=== PATIENT | male | born 1960 | race Caucasian/White ===

== ENCOUNTER → 2019-07-19 10:50 | Outpatient (CLI) | payer MEDICARE, MEDICAID, SELFPAY ==
--- NOTE | 2019-07-19 10:56 | XR_ITS ---
PROCEDURE: XR KNEE LT 3V CLINICAL INDICATION: LT KNEE PAIN COMPARISON: KNEE3L KNEE-3 VIEWS-LT from 01/02/2014 FINDINGS: There is generalized mild osteopenia. There increased narrowing of the medial joint compartment with small medial tibial plateau and medial femoral condyle spur. There is stable moderate narrowing of the patellofemoral joint with anterior femoral and posterior patellar small spurs. There is no acute fracture. There is mild increased density in the suprapatellar bursa area. IMPRESSION: No acute process. Arthritic change as described. Possible small suprapatellar joint effusion. Dictated by: Jameel Mesa 07/19/2019 13:02 Electronically signed by Jameel Mesa in [place] 07/19/2019 13:02
--- NOTE | 2019-07-19 10:56 | XR_ITS ---
PROCEDURE: XR LUMBAR SPINE MIN 4V CLINICAL INDICATION: LOW BACK PAIN COMPARISON: No exams were available for comparison FINDINGS: Alignment, and vertebral body heights are normal. L1-2 shows moderate loss of disc space height and there are multiple lower thoracic levels showing moderate loss of disc space height with small anterior spurs. Posterior elements appear to be intact. Facet joint spaces are unremarkable. There is a 6 millimeter round sclerotic density which could be related to the posterior medial left ilium. IMPRESSION: No acute process. Levels of chronic degenerative disc disease in the thoracic spine and L1-2. Round small sclerotic focus possibly in the medial left ilium. Differential would include bone island although osteoblastic lesion is not ruled out. Correlate with history and consider follow-up plain film exam of the pelvis at 6 months to evaluate stability. Dictated by: Jameel Mesa 07/19/2019 13:05 Electronically signed by Jameel Mesa in [place] 07/19/2019 13:05
== END ==
PROVIDERS: PCP Family Medicine; Visit Provider Family Medicine
DX: M25.562 Pain in left knee (principal); M54.5 Low back pain
CPT/HCPCS: 72110; 73562

== ENCOUNTER → 2019-08-23 15:29 | Outpatient (POV) | payer MEDICARE, MEDICAID, SELFPAY | PROVIDERS: Visit Provider Dermatology | DX: Z00.00 Encounter for general adult medical examination without abnormal findings (principal) ==

== ENCOUNTER → 2019-09-05 13:44 | Outpatient (POV) | payer MEDICARE, MEDICAID, SELFPAY ==
[2019-09-05 13:57] VITALS: BP 138/89; PULSE 93; RESP 18; O2SAT 99; BMI 34.2
--- NOTE | 2019-09-06 08:37 | HMH.PMCON ---
Assessment and Plan (1) Bilateral leg pain Current visit: Yes Status: Chronic Category: Medical Code(s): M79.604 - Pain in right leg; M79.605 - Pain in left leg (2) Degenerative disc disease Current visit: Yes Status: Chronic Qualifiers: Spinal region: lumbar Qualified Code(s): M51.36 - Other intervertebral disc degeneration, lumbar region Category: Medical (3) Neuropathy Current visit: Yes Status: Chronic Category: Medical Code(s): G62.9 - Polyneuropathy, unspecified (4) Gout Current visit: Yes Status: Chronic Category: Medical Code(s): M10.9 - Gout, unspecified - Assessment and plan all Dx Assessment and Plan for all problems:: We will set the patient up for an MRI of his lumbar spine to help discern pathology. We will start him on some diclofenac 75 mg 1 p.o. twice daily along with gabapentin 300 mg at nighttime. I will follow-up with him after his MRI reassess his symptoms at that time he is been instructed to call the office if he has any issues prior to his next appointment. Dr. Mack has reviewed this note and agrees with this plan of care. This note was dictated using voice recognition software and may contain errors or omissions HPI - Data of Consult Consult date: 09/05/19 Requesting Physician: Rena Almonte APRN Primary Care Provider: Rufus Hand MD - Consult Narrative Reason for consult: Generalized pain, chronic gout, chronic back pain History of present illness: Mr. Dowling is a 59 year old male who presents today with a myriad of issues in regards to his pain. Patient has low back pain radiating into the legs. He has chronic discoloration of his bilateral lower extremities that look like potential circulation issues. Patient states that he has been tested for this in the past and I did find some records in regards to this which showed no issues with his circulation. If we cannot find a source for his pain this may be readdressed. Patient also has quite a bit of pain in his bilateral feet. 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 Patient has no imaging in his record for diagnostic vertebral and disc issues he does have a lumbar x-ray that shows chronic degenerative disc disease in the thoracic spine and lumbar spine loss of disc height and space I do believe patient would benefit from an MRI. Patient states his pain is aching, shooting, nervelike in nature. He also states he is on allopurinol for chronic gout CC: Rena Almonte APRN [facility] History I have reviewed the patient's past medical history: Yes Medical History: Reports:: Hypertension Denies:: Cancer, Diabetes Mellitus Type 1, Diabetes Mellitus Type 2, MRSA *Have you ever received a pneumonia vaccine?: Yes *Have you received a flu vaccine this season?: Yes Other Medical History: Reports: Arthritis Laterality Cases: Right: Arthroscopy Knee Amputation: No Fractures: No - *Social History Smoking Status: Never smoker Alcohol Intake: never *Occupational Status:: other Housing: house *Travel in the last 8 weeks: None Family Hx:: Unable to obtain Review of Systems - Review of Systems ROS General: no recent weight change, no fever, no sleep disturbances Respiratory: no cough, no shortness of air, no recurring pulmonary infections Cardiovascular/Peripheral Vascular: No chest pain, No palpitations, no edema, no shortness of breath. Gastrointestinal: no new onset incontinence, normal bowel movements reported Genitourinary: no new onset incontinence Musculoskeletal: Back pain, leg pain, foot pain, generalized pain Psychiatric: normal mood/ affect Neurological: [denies new onset weakness in extremities], [denies new onset balance issues] Meds Home Medications Medication Instructions Recorded Confirmed Type Diclofenac Sodium [Diclofenac 75mg 75 mg PO BID 30 Days #60 tab 09/05/19 Rx Tab] Gabapentin [Neurontin 300mg 300 mg PO HS #30 cap 09/05/19 Rx capsule] Al
== END ==
PROVIDERS: PCP Family Medicine; Visit Provider Clinical Nurse Specialist Family Health
DX: M79.604 Pain in right leg (principal); M79.605 Pain in left leg; M51.36 Other intervertebral disc degeneration, lumbar region; G62.9 Polyneuropathy, unspecified; M10.9 Gout, unspecified
CPT/HCPCS: 99202

== ENCOUNTER → 2019-09-20 12:06 | Outpatient (CLI) | payer MEDICARE, MEDICAID, SELFPAY ==
--- NOTE | 2019-09-20 12:11 | XR_ITS ---
PROCEDURE: XR FOOT WT BEARING LT 3V CLINICAL INDICATION: pain COMPARISON: XR FOOT WT BEARING RT 3V from 09/20/2019 FINDINGS: There is decrease in the joint space at the 1st DIP and 1st interphalangeal joint with erosive changes involving the distal and medial aspect of the distal 1st metatarsal. Calcific debris is present medially at the 1st interphalangeal joint. There are also some erosive changes involving the 2nd metatarsal head. Erosive change also noted at the lateral aspect of the 1st metatarsophalangeal joint on the oblique view. The there are osteoarthritic changes of the tarsal bones. There is a prominent posterior talar process. No obvious fracture or dislocation. There is mild subluxation of the PIP joint of the 2nd digit with fusion of the DIP joint of the 2nd digit. IMPRESSION: Prominent erosive changes at the 1st metatarsophalangeal joint and to lesser degree at the head of the 2nd metatarsal. Findings could be related to rheumatoid arthritis of the foot or gout. Please correlate clinically. The calcification along the medial aspect of the 1st interphalangeal joint could be related to gouty tophi. There is no overlying soft tissue swelling. Dictated by: Gallo Espana MD 09/21/2019 13:01 Electronically signed by Gallo Espana MD in [place] 09/21/2019 13:01
--- NOTE | 2019-09-20 12:11 | XR_ITS ---
PROCEDURE: XR FOOT WT BEARING RT 3V CLINICAL INDICATION: pain COMPARISON: XR FOOT WT BEARING LT 3V from 09/20/2019 FINDINGS: There are row sub changes involving both medial lateral aspect of the 1st metatarsal distally at the MTP joint with bony hypertrophy and some minimal erosion of the proximal aspect of the proximal phalanx. There is some narrowing of the joint space is well. Narrowing of joint space is present at the 1st interphalangeal joint. There are osteoarthritic changes of the tarsal bones. No fracture or dislocation. Other findings:None. IMPRESSION: Erosive change at the distal aspect of the 1st metatarsal. Rheumatoid arthritis or gout is a consideration. Please correlate with clinical parameters. Mild osteoarthritic changes of the midfoot Dictated by: Gallo Espana MD 09/21/2019 13:04 Electronically signed by Gallo Espana MD in [place] 09/21/2019 13:04
== END ==
PROVIDERS: PCP Family Medicine; Visit Provider Podiatrist
DX: M79.672 Pain in left foot (principal); M79.671 Pain in right foot
CPT/HCPCS: 73630

== ENCOUNTER 2020-03-18 10:22 | Emergency (ER) | payer MEDICARE, MEDICAID, SELFPAY ==
[2020-03-18 10:36] VITALS: BP 205/90; PULSE 98; RESP 16; TEMP 36.8; O2SAT 98; BMI 29.5
--- NOTE | 2020-03-18 10:43 | XR_ITS ---
PROCEDURE: XR HAND LT MIN 3V Referring Doctor: Robert Rich Patient Age:60Y CLINICAL INDICATION: pain and swelling hand Started last night elbow and hand. Finger patient has trigger finger at 5th digit COMPARISON: CR XR FOREARM LT 2V from 03/18/2020 FINDINGS: Most notable is the prominent diffuse soft tissue swelling at the hand with swelling appears to extend into the fingers. Radiographically the most prominent swelling seems to be towards the dorsal aspect of the hand more so than palmar aspect but clinical correlation required in this regard. No radiopaque foreign body.. No gas forming organisms can be appreciated either. Any related injuries? 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 Of there is marked flexion deformity at the 5th finger with flexion most pronounced at the PIP joint. With this there appears to be anterior subluxation of the base of middle phalanx at the PIP joint which I suspect is chronic and longstanding nature, yielding a somewhat of a pseudoarthrosis appearance at the anterior aspect distal neck of the proximal phalanx 5th finger. Area is difficult to visualize on today's lateral view but requires correlation-as suspect more likely longstanding feature and not acute The other fingers with minor gradual flexion I likely due to the swelling making it difficult to straighten fingers. The the other PIP and DIP and MCP joints intact no erosions. At the left wrist of there is borderline narrowing at the radiocarpal joint. No fracture. No fracture or dislocation. No lytic or blastic change. There is normal mineralization. IMPRESSION: 1..Prominent diffuse soft tissue swelling at the hand most evident dorsal hand. no radiopaque foreign bodies elements 2.. The marked flexion deformity at the 5th finger with likely related longstanding anterior subluxation at the PIP joint. Clinical correlation required. (If acute injury or change here then of this would carry more acute significance) 3. No acute the the the the fracture at left hand. Dictated by: Romain Nieves MD 03/18/2020 13:01 Romain Nieves MD in [place] 03/18/2020 13:01
--- NOTE | 2020-03-18 10:43 | XR_ITS ---
PROCEDURE: 1..XR ELBOW LT MIN 3V 2..CR XR FOREARM LT 2V from 03/18/2020 Referring Doctor: Robert Rich Patient Age:60Y CLINICAL INDICATION: pain and swelling pain and swelling started last night unable to supinate. COMPARISON: Left elbow and left FOREARM LT 2V from 03/18/2020 reviewed together and compared FINDINGS: LEFT ELBOW: 3 VIEW. AP lateral and oblique There is elevation of the anterior fat pad and possibly posterior fat pad suggested on this slightly rotated lateral view. . Of this typically implies a call fracture. However I see no discrete fracture line. The radial head is intact. The joint spaces well maintained. There are some mild degenerative changes at the elbow noting mild hypertrophy about the anterior aspect the joint and particularly note some early spurring from the coronoid process on lateral view. On the frontal projection mild degenerative changes are seen at the medial joint. Scant spurring margins of medial and lateral epicondyle barely appreciable but may reflect some old inflammation or changes here No dislocation. N. No lytic or blastic change. No erosions there is normal mineralization. Of there also some mild soft tissue swelling in the superficial SQ soft tissues posterior to the elbow the no foreign bodies evident ------ LEFT FOREARM: AP and lateral view AP and lateral views the left forearm reveal no additional findings; the radial and ulnar shafts are intact. However again on lateral view of the forearm which includes elbow there is suggestion slight elevation of the anterior fat pad. Again note scant degenerative changes at the medial, anterior aspect of the left elbow joint specifically noting the spurring and early hypertrophy from the coronoid process. . The distal radius and ulna appear intact. A question suggestion of scant edematous changes throughout subcutaneous fat forearm and particularly suspect posterior to elbow IMPRESSION: .. LEFT ELBOW/LEFT FOREARM.: 1... mild elevation of anterior fat pad suggested on today's rotated lateral views elbow. Findings suggest minimal joint effusion which could reflect an occult fracture. -No discrete fracture identified Would also note some Mild Degenerative Changes left elbow, most evident medial joint anteriorly 2..Question minor edema in the superficial subcutaneous fat, of particularly posterior to elbow. Clinical correlation required 3.. radius and ulna appear on the left forearm study . No fracture evident Dictated by: Romain Nieves MD 03/18/2020 12:49 Romain Nieves MD in [place] 03/18/2020 12:49
--- NOTE | 2020-03-18 10:43 | HMH.EDGENADL ---
ED Disposition Clinical Impression: Gout attack Qualifiers: Gout site: multiple sites Gout etiology: unspecified cause Qualified Code(s): M10.9 - Gout, unspecified Disposition: Home, Self-Care Condition on Discharge: Fair Instructions: DI for Gout, How to Use a Sling Additional Instructions: Use sling and elevate left upper extremity. Percocet as needed for pain. Prednisone as prescribed. Follow-up with your primary care provider this week, call tomorrow to make an appointment. Additional instructions for CONTROLLED SUBSTANCES: You have been prescribed a medication that is a controlled substance. Controlled substances include pain medications known as opiates and sedative nerve medications known as benzodiazepines. Tramadol, fioricet, and gabapentin are also controlled substances. Some common opiates include: Codeine (such as Tylenol #3) Hydrocodone (Vicodin, Lortab, Lorcet, [place]) Oxycodone (Percocet, Percodan, Oxycodone, Oxy IR) Some common benzodiazepines include: Diazepam (Valium) Lorazepam (Ativan) Alprazolam (Xanax) Clonazepam (Klonopin) Oxazepam (Serax) All of these controlled substances are highly addictive and frequently abused. Misuse can and frequently does lead to addiction as well as overdose and . Medication should be stored in a locked cabinet or other secure storage unit. Do not store the medication in a motor vehicle. Short term supplies, 3 days or less, are prescribed because of the highly addictive nature of the medication. Any of the controlled substance medication NOT taken should be disposed of properly and NOT SAVED. The recommended method of disposing of unused medications is: Place the medicines in a sealable plastic bag. If the medicine is a solid, crush it or add water to dissolve it. Add something undesirable (cat litter, coffee grounds, etc.) Dispose of sealed bag in household trash Do not flush or pour unused medicines down a sink or drain. Controlled substances should not be shared, given away or sold. Because of the addictive nature and frequent abuse, these medications are sometimes stolen. These medications should be kept in a safe place where they cannot be stolen. Do not keep them in your car or purse. Lost or stolen prescriptions for controlled substances WILL NOT BE REFILLED in this emergency department, regardless of whether a police report was filed. Prescriptions: Oxycodone HCl/Acetaminophen [Percocet 5/325mg tablet] 1 tab PO Q6HP PRN #12 tablet PRN Reason: Moderate To Severe Pain Transmission Status: Sent to [id number] predniSONE [Prednisone 20mg Tab] 20 mg PO BID #10 tab Transmission Status: Pending to [facility] Referrals: Rufus Hand MD [Primary Care Provider] - - Critical Care Critical Care Time: No Attestation: On , the high probability of a clinically significant, sudden or life threatening deterioration of the following system(s) required my full and direct attention, intervention and personal management. The time I documented below is in addition to time spent performing reported procedures but includes the following listed in this critical care notation. Medical Decision Making - Daniel Inquiry Pt receiving controlled substance: Yes Daniel was queried for this patient: Yes Reference #:: [id number] Risks and benefits of using a controlled substance: were discussed with pt by me Comment: 1 rx. gabapentin. Vital Signs: 03/18/20 10:36 Temperature 98.2 F Temperature Source Oral Pulse Rate [Left] 98 H Respiratory Rate 16 Blood Pressure [Right Arm] 205/90 H Blood Pressure Mean [Right Arm] 128 Blood Pressure Source [Right Arm] Automatic Cuff Blood Pressure Position [Right Arm] Sitting 02 Sat by Pulse Oximetry 98 Oxygen Delivery Method Room Air Orders (Tests/Meds): ED MEDICATIONS Discontinued Medications Generic Name Dose Route Start Last Admin Trade Name Freq PRN Reason Stop Do
[2020-03-18 11:56] VITALS: BP 124/85; PULSE 87; RESP 17; TEMP 36.7; O2SAT 100
== END 2020-03-18 11:57 | disposition home or self-care (01) ==
PROVIDERS: Emergency Provider Emergency Medicine; PCP Family Medicine
DX: M10.022 Idiopathic gout, left elbow (principal); R60.0 Localized edema; I10 Essential (primary) hypertension; F17.210 Nicotine dependence, cigarettes, uncomplicated; Z79.899 Other long term (current) drug therapy; M79.642 Pain in left hand
CPT/HCPCS: 29125; 73080; 73090; 73130; 96372; 99282

== ENCOUNTER → 2020-12-11 13:38 | Outpatient (CLI) | payer MEDICARE, MEDICAID, SELFPAY ==
--- NOTE | 2020-12-11 13:46 | XR_ITS ---
PROCEDURE: XR CHEST 2V CLINICAL HISTORY: COUGH COMPARISON: No exams were available for comparison FINDINGS: The cardiomediastinal silhouette and pulmonary vascularity are within normal limits. No lobar consolidation or collapse is evident. There is minimal blunting of the right CP angle and there is mild right apical pleural thickening. There are no previous studies available for comparison to determine if this is acute or chronic. The lungs are otherwise clear. No acute bony abnormalities. IMPRESSION: Minimal blunting right CP angle which may be due to a small right pleural effusion versus chronic pleural thickening along with mild nonspecific right apical pleural thickening. Dictated by: Gallo Espana MD 12/11/2020 14:41 Gallo Espana MD in [place] 12/11/2020 14:41
[2020-12-11 14:30] LABS: Basophils # 0.1 K/mm3 (0-0.2); Basophils % 0.6 % (0.1-2.0); Eosinophils # 0.3 K/mm3 (0.0-0.4); Eosinophils % 2.2 % (0.1-12.0); Hematocrit 46.8 % (42.0-52.0); Hemoglobin 15.5 g/dL (14.1-18.0); Lymphocytes % 19.7 % (10-50); Mean Corpuscular HGB Conc 33.2 g/dL (31.8-35.4); Mean Corpuscular Hemoglobin 31.6 pg (27.0-31.2); Mean Corpuscular Volume 95.1 fl (80-94); Mean Platelet Volume 7.2 fl (7.4-10.4); Monocytes # 0.8 K/mm3 (0.1-1.0); Monocytes % 5.4 % (1.7-9.3); Neutrophils # 11.1 K/mm3 (1.8-7.8); Neutrophils % 72.2 % (37.0-80.0); Platelet Count 381 K/mm3 (142-424); Red Blood Count 4.92 M/mm3 (4.60-6.20); Red Cell Distribution Width 13.1 % (11.5-17.5); White Blood Count 15.4 K/mm3 (4.8-10.8)
[2020-12-11 14:33] LABS: MANUAL DIFFERENTIAL MANUAL DIFFERENTIAL (MANUAL DIFF)
[2020-12-11 14:54] LABS: Eosinophils % 1 % (0-3); Lymphocytes % 18 % (10-50); Monocytes % 6 % (2-9); Neutrophils % 75 % (42-76); Total Cells Counted 100
[2020-12-11 14:55] LABS: Platelet Estimate Normal; RBC Morphology Normal
[2020-12-11 15:02] LABS: Alanine Aminotransferase 22 U/L (12-78); Albumin Level 4.1 g/dl (3.5-5.0); Albumin/Globulin Ratio 1.2 (1.1-1.8); Alkaline Phosphatase 94 U/L (38-126); Anion Gap 12.6 mEq/L (5-15); Aspartate Amino Transferase 34 U/L (17-59); Bilirubin,Total 0.8 mg/dl (0.2-1.3); Blood Urea Nitrogen 13 mg/dl (9-20); Calcium 9.2 mg/dl (8.4-10.2); Carbon Dioxide 26 mmol/L (22.0-30.0); Chloride 106 mmol/L (98-107); Chol/HDL Ratio 5.6 (1-3.5); Cholesterol 184 mg/dl (140-200); Estimated Glomerular Filt Rate 86 ml/min (>60); GFR (African American) 104 ML/MIN (>60); Globulin 3.5 g/dL (1.3-3.2); Glucose 101 mg/dl (74-100); HDL Cholesterol 33 mg/dl (40-60); Potassium 4.6 mmoL/L (3.5-5.1); Sodium 140 mmol/L (136-145); Total Protein,Serum 7.6 g/dl (6.3-8.2); Triglycerides 219 mg/dl (30-150); Uric Acid 8.2 mg/dl (3.5-8.5); VLDL Cholesterol 44 mg/dL (0-40)
[2020-12-11 15:13] LABS: Direct LDL Cholesterol 104.68 mg/dL (100-129)
[2020-12-11 15:16] LABS: NT Pro Brain Natriuretic Pep. 78.1 pg/mL (0-125)
[2020-12-11 15:34] LABS: Creatinine,Urine Random 162 mg/dL (Not Estab.)
[2020-12-11 15:38] LABS: Prostate Specific Ag Screen 0.5 ng/ml (0.0-4.0); Thyroid Stimulating Hormone 2.98 uIU/mL (0.465-4.68)
[2020-12-11 15:42] LABS: Microalbumin/Creatinine Ratio 5.6
== END ==
PROVIDERS: PCP Family Medicine; Visit Provider Family Medicine
DX: R06.02 Shortness of breath (principal); R05 Cough; I10 Essential (primary) hypertension; M1A.09X0 Idiopathic chronic gout, multiple sites, without tophus (tophi); Z12.5 Encounter for screening for malignant neoplasm of prostate
CPT/HCPCS: 36415; 71046; 80053; 80061; 82043; 82570; 83880; 84443; 84550; 85007; 85025; G0103

== ENCOUNTER → 2020-12-18 08:27 | Outpatient (CLI) | payer MEDICARE, MEDICAID, SELFPAY ==
--- NOTE | 2020-12-18 08:31 | CT_ITS ---
PROCEDURE: CT LUNG SCREENING CLINICAL INDICATION: H/O NICOTINE DEPENDENCE Former smoker Quit smoking 6 months ago 40 pack year smoking history No prior COMPARISON: No exams were available for comparison TECHNIQUE: The exam was performed on a GE Light Speed [address] scanner using 2.90 mGy CTDI. A low dose helical CT CHEST was performed on a multi-detector scanner. All CT scans at the facility use one or more dose reduction, viz: automated exposure control, ma/kV adjustment per patient size (including targeted exams where dose is matched to indication, i.e. head), or iterative reconstruction technique. The LDCT was performed in a facility that meets the criteria for the screening program. Data regarding this exam was submitted to ACR which is an approved registry. The order for this exam indicates that it came as a result of a lung cancer screening counseling shard decision-making visit that included all the elements required of such a visit including smoking cessation. The radiologist interpreting this exam meets the CMS criteria for the LDCT lung cancer screening program. The exam is reported using the Lung-RADS classification scale and reported to the ACR registry. NOTE: This study was performed for the specific purposes of lung cancer screening and is not an alternative to diagnostic chest CT. RADIATION DOSE: CTDI vol(CT dose Index-volume) = 2.90mG DLP (Dose Length Product) = 104.46 mGcm FINDINGS: No suspicious pulmonary nodules are evident. There is evidence of old granulomatous disease. OTHER FINDINGS: Mildly prominent nodes are present in the axilla slightly more prominent IMPRESSION: Lung-RADS Category 1 Negative Follow-up: Continue annual screening with LDCT in 12 months Right suggests clinical correlation is far as the mildly prominent axillary lymph nodes Dictated by: Gallo Espana MD 12/21/2020 13:14 Gallo Espana MD in [place] 12/21/2020 13:14
== END ==
PROVIDERS: PCP Family Medicine; Visit Provider Family Medicine
DX: Z87.891 Personal history of nicotine dependence (principal); Z12.2 Encounter for screening for malignant neoplasm of respiratory organs
CPT/HCPCS: 71271

== ENCOUNTER → 2020-12-25 13:19 | Outpatient (POV) | payer MEDICARE, MEDICAID, SELFPAY | PROVIDERS: Visit Provider Dermatology | DX: Z00.00 Encounter for general adult medical examination without abnormal findings (principal) ==

== ENCOUNTER → 2021-01-29 11:39 | Outpatient (CLI) | payer MEDICARE, MEDICAID, SELFPAY ==
--- NOTE | 2021-01-29 11:46 | XR_ITS ---
PROCEDURE: XR FOOT WT BEARING RT 3V CLINICAL INDICATION: foot pain COMPARISON: CR XR FOOT WT BEARING LT 3V from 09/20/2019 CR XR FOOT WT BEARING RT 3V from 09/20/2019 CR XR ANKLE WT BEARING RT MIN 3V from 01/29/2021 FINDINGS: Chronic osteolytic defect is present medially at the 1st metatarsophalangeal joint with osteoarthritic change at the 1st MTP and 1st interphalangeal joint. Osteoarthritis is also noted at the talonavicular and navicular cuneiform joint as well as the tarsal metatarsal junction. These findings are not significantly changed. No acute fracture or dislocation. There is some asymmetric soft tissue swelling along the dorsal aspect of the ankle having a similar appearance on the previous exam. Soft tissue swelling also noted medially and laterally at the ankle. No acute bony finding of the ankle. Other findings:None. IMPRESSION: Overall no significant change in the chronic degenerative changes as well as the chronic lytic defects at the 1st MTP joint which could be related to gout. Please correlate with patient's clinical findings and history Dictated by: Gallo Espana MD 01/29/2021 15:05 Gallo Espana MD in [place] 01/29/2021 15:05
--- NOTE | 2021-01-29 11:46 | XR_ITS ---
PROCEDURE: XR ANKLE WT BEARING LT MIN 3V CLINICAL INDICATION: ankle pain COMPARISON: CR ANKL3 ANKLE-LT-3 VIEWS from 01/02/2014 FINDINGS: Bones: No fracture or dislocation. No lytic or blastic change. There is normal mineralization. Joints: Minimal osteoarthritic changes of the ankle. Soft tissue swelling medially and laterally. Other findings:None. IMPRESSION: Minimal osteoarthritic change of the ankle with soft tissue swelling Dictated by: Gallo Espana MD 01/29/2021 14:06 Gallo Espana MD in [place] 01/29/2021 14:06
--- NOTE | 2021-01-29 11:46 | XR_ITS ---
PROCEDURE: XR FOOT WT BEARING LT 3V CLINICAL INDICATION: foot pain COMPARISON: CR XR FOOT WT BEARING LT 3V from 09/20/2019 CR XR FOOT WT BEARING RT 3V from 09/20/2019 FINDINGS: There remains a lytic defect of the distal aspect of the 1st metatarsal medially not significantly changed. Osteoarthritic changes are present at the 1st MTP joint and the 1st interphalangeal joint as well as the 2nd MTP joint PIP joint and DIP joint. There is mild plantar subluxation of the middle phalanx at the 2nd digit. Prominent bony hypertrophy is present at the 1st interphalangeal joint dorsally and medially. Soft tissue calcification is present at this region as before. Osteoarthritic changes are present at the tarsal metatarsal junction, talonavicular joint navicular cuneiform joint and the posterior subtalar joint. An additional chronic defect is present at the head of the 2nd metatarsal medially and laterally and at the base of the proximal phalanx of the 2nd toe. IMPRESSION: 1. Osteoarthritic changes as detailed above. 2. Well-circumscribed chronic bony defects at the 1st and 2nd metatarsals distally which could be due to gout. Please correlate with patient's clinical parameters. Prominent bony hypertrophy or soft tissue calcification noted at the 1st interphalangeal joint medially which could also be seen with gout. Dictated by: Gallo Espana MD 01/29/2021 15:01 Gallo Espana MD in [place] 01/29/2021 15:01
== END ==
PROVIDERS: PCP Family Medicine; Visit Provider Podiatrist
DX: M79.671 Pain in right foot (principal)
CPT/HCPCS: 73610; 73630

== ENCOUNTER → 2021-01-29 16:51 | Outpatient (CLI) | payer MEDICARE, MEDICAID, SELFPAY | PROVIDERS: Visit Provider Podiatrist | DX: T14.8XXA Other injury of unspecified body region, initial encounter (principal); B35.3 Tinea pedis | CPT/HCPCS: 73610; 73630; 87070; 87077; 87186; 87205 ==

== ENCOUNTER 2021-04-07 02:23 | Emergency (ER) | payer MEDICARE, MEDICAID, SELFPAY ==
[2021-04-07 02:25] VITALS: BP 170/93; PULSE 97; RESP 20; TEMP 37.3; O2SAT 94; BMI 36.9
--- NOTE | 2021-04-07 02:47 | CT_ITS ---
PROCEDURE INFORMATION: Exam: CT Cervical Spine Without Contrast Exam date and time: 04/07/2021 2:47 AM Age: 61 years old Clinical indication: Injury or trauma; Fall; Blunt trauma; Injury date: 04/06/2021; Additional info: Fall neck pain and laceration top of head and RT shoulder FX TECHNIQUE: Imaging protocol: Computed tomography images of the cervical spine without contrast. Radiation optimization: All CT scans at this facility use at least one of these dose optimization techniques: automated exposure control; mA and/or kV adjustment per patient size (includes targeted exams where dose is matched to clinical indication); or iterative reconstruction. COMPARISON: CT HEAD/BRAIN WO CON 04/07/2021 4:23 AM FINDINGS: Bones/joints: No acute fracture. Normal alignment. Hypertrophic changes noted between the anterior arch of C1 and the dens of C2 which is felt to be on the basis of degenerative change. Discs/Spinal canal/Neural foramina: No significant disc protrusion. No severe spinal canal stenosis. No significant neural foraminal narrowing. Lungs: There is a calcified granuloma of the right pulmonary apex. No evidence of infiltrate Soft tissues: There are tonsilloliths present within the palatine tonsils. Atheromatous calcification of the carotid bulbs is identified. IMPRESSION: No acute findings.
--- NOTE | 2021-04-07 02:47 | XR_ITS ---
PROCEDURE INFORMATION: Exam: XR Pelvis Exam date and time: 04/07/2021 2:47 AM Age: 61 years old Clinical indication: Injury or trauma; Fall; Blunt trauma (contusions or hematomas); Does not apply; Pelvic region; Injury date: 04/06/2021; Injury details: Fell; Additional info: Fall trauma protocol PT does not have any hip or pelvis pain, PT cannont lie down TECHNIQUE: Imaging protocol: XR pelvis. Views: 1 or 2 view. COMPARISON: CR XR LUMBAR SPINE MIN 4V 07/19/2019 10:59 AM FINDINGS: Bones/joints: Unremarkable. No acute fracture. Soft tissues: Unremarkable. IMPRESSION: No acute findings.
--- NOTE | 2021-04-07 02:47 | CT_ITS ---
PROCEDURE INFORMATION: Exam: CT Head Without Contrast Exam date and time: 04/07/2021 2:47 AM Age: 61 years old Clinical indication: Injury or trauma; Fall; Blunt trauma (contusions or hematomas); Without loss of consciousness; Injury date: 04/06/2021; Additional info: Fall laceration top of head TECHNIQUE: Imaging protocol: Computed tomography of the head without contrast. Radiation optimization: All CT scans at this facility use at least one of these dose optimization techniques: automated exposure control; mA and/or kV adjustment per patient size (includes targeted exams where dose is matched to clinical indication); or iterative reconstruction. COMPARISON: No relevant prior studies available. FINDINGS: Brain: Normal. No hemorrhage. Unremarkable white matter. No mass effect. Cerebral ventricles: No ventriculomegaly. Paranasal sinuses: Mild mucosal thickening of the anterior ethmoidal and maxillary sinuses. No evidence of retained secretions. Mastoid air cells: Visualized mastoid air cells are well aerated. Vasculature: Intraranial artery density is normal. Bones/joints: Unremarkable. No acute fracture. Soft tissues: There are skin meseret placed for laceration high left parietooccipital region. IMPRESSION: Low level sinus inflammatory disease of the anterior ethmoidal and maxillary sinuses. No evidence of acute intracranial bleed or focal cerebral edema.
--- NOTE | 2021-04-07 02:47 | XR_ITS ---
PROCEDURE INFORMATION: Exam: XR Right Shoulder Exam date and time: 04/07/2021 2:47 AM Age: 61 years old Clinical indication: Injury or trauma; Fall; Blunt trauma (contusions or hematomas); Right; Injury date: 04/06/2021; Injury details: Fell landed on RT shoulder; Additional info: Fall pain RT shoulder TECHNIQUE: Imaging protocol: XR Right shoulder. Views: 2 or more views. COMPARISON: CR XR CHEST 2V 04/07/2021 2:47 AM FINDINGS: Bones/joints: There is a comminuted fracture of the surgical neck of the proximal right humerus within element of impaction. The scapula, distal clavicle, and proximal ribs are felt to be unremarkable. Soft tissues: Normal. IMPRESSION: There is a comminuted and mildly impacted fracture of the surgical neck of the proximal right humerus.
--- NOTE | 2021-04-07 02:47 | XR_ITS ---
PROCEDURE INFORMATION: Exam: XR Chest Exam date and time: 04/07/2021 2:47 AM Age: 61 years old Clinical indication: Injury or trauma; Fall; Blunt trauma (contusions or hematomas); Injury date: 04/06/2021; Injury details: Fell and landed on RT shoulder; Additional info: Fall pain RT shoulder area TECHNIQUE: Imaging protocol: XR of the chest. Views: 2 views. COMPARISON: CR XR CHEST 2V 12/11/2020 1:54 PM FINDINGS: Lungs: Unremarkable. No consolidation. Pleural spaces: Areas of pleural thickening within the apical regions and along the right lateral costophrenic angle appear stable. Heart/Mediastinum: Unremarkable. No cardiomegaly. Bones/joints: Unremarkable. IMPRESSION: No acute findings.
--- NOTE | 2021-04-07 03:08 | PC.NURSE ---
Addendum entered by Mikel Pérez RN 04/07/21 04:01: Pt states he cant tolerate laying down for CT. Pt educated on risks of neck injury. Pt says if his pain gets better he will try tolerating scan. New orders for pain medication per MD. Original Note: Pt refusing ct scans per industrial hygiene technician
--- NOTE | 2021-04-07 03:43 | HMH.EDFALL ---
ED Disposition Clinical Impression: Humeral fracture Qualifiers: Encounter type: initial encounter Humerus Location: surgical neck Fracture type: closed Fracture morphology: unspecified fracture morphology Fracture alignment: nondisplaced Laterality: right Qualified Code(s): S42.214A - Unspecified nondisplaced fracture of surgical neck of right humerus, initial encounter for closed fracture Scalp laceration Qualifiers: Encounter type: initial encounter Qualified Code(s): S01.01XA - Laceration without foreign body of scalp, initial encounter Fall Qualifiers: Encounter type: initial encounter Qualified Code(s): W19.XXXA - Unspecified fall, initial encounter Cervical strain, acute Qualifiers: Encounter type: initial encounter Qualified Code(s): S16.1XXA - Strain of muscle, fascia and tendon at neck level, initial encounter Disposition: Home, Self-Care Condition on Discharge: Good Instructions: DI for Shoulder Fracture Additional Instructions: see pcp for follow up and ortho Referrals: Rufus Hand MD [Primary Care Provider] - Marco Renae JR, MD [Physician] - Mahendra Paulino MD [Staff Physician] - - Critical Care Critical Care Time: No Attestation: On 04/07/21, the high probability of a clinically significant, sudden or life threatening deterioration of the following system(s) required my full and direct attention, intervention and personal management. The time I documented below is in addition to time spent performing reported procedures but includes the following listed in this critical care notation. Medical Decision Making - Medical Records Medical records reviewed: Yes: I reviewed the patient's medical records. - Daniel Inquiry Pt receiving controlled substance: No Vital Signs: 04/07/21 02:25 04/07/21 03:49 Temperature 99.1 F Temperature Source Oral Pulse Rate 96 H Pulse Rate [Right Radial] 97 H Respiratory Rate 20 Blood Pressure 185/89 H Blood Pressure [Right Arm] 170/93 H Blood Pressure Mean [Right Arm] 118 Blood Pressure Source [Right Arm] Automatic Cuff Blood Pressure Position [Right Arm] Sitting 02 Sat by Pulse Oximetry 94 L 94 L Oxygen Delivery Method Room Air - Lab Data Lab results reviewed: Yes: I reviewed the patient's lab results. Orders (Tests/Meds): ED MEDICATIONS Discontinued Medications Generic Name Dose Route Start Last Admin Trade Name Freq PRN Reason Stop Dose Admin Hydromorphone HCl 1 mg 04/07/21 04:05 04/07/21 04:15 Hydromorphone 2mg/Ml Syringe IM 04/07/21 04:06 1 mg ONCE ONE Administration Ketorolac Tromethamine 60 mg 04/07/21 03:01 04/07/21 03:12 Ketorolac 60mg/2ml Vial IM 04/07/21 03:02 60 mg ONCE ONE Administration Methylprednisolone Sodium Succinate 125 mg 04/07/21 03:01 04/07/21 03:12 Methylprednisolone Sod Succ 125mg Vial IM 04/07/21 03:02 125 mg ONCE ONE Administration ORDERS Category Date Time Status CT head/brain wo con Stat Cat Scan 04/07/21 02:47 Taken - Radiology Data #1 Image(s): Chest, Shoulder, Pelvis Image Reviewed: Yes I have reviewed radiologist's interpretation Preliminary Findings: Abnormal (shoulder fx ) - CT Data CT Scan: Head, C-Spine Time Received: 05:[address] Reviewed: Yes: I have viewed the radiologist's interpretation Preliminary Findings: No Fracture Seen Medical Decision Narrative: has fx humerus and will need to see ortho Fall HPI - General Chief Complaint: Fall Stated Complaint: AO 04/06/212229 injury injury right shoulder, for Time Seen by Provider: 04/07/21 02:45 Mode of Arrival: Ambulatory Source of Information: Patient, Medical Record Limitations: No Limitations Description of Symptoms (Recalled from ER Triage Doc. by RN): Pt reports waking up but not realizing I was awake when he tripped and hi his heat on a table. Pt has LAC to top of head. Pt says his main complaint is his right shoulder pain. Pt denies LOC. - History of Present
--- NOTE | 2021-04-07 03:46 | PC.NURSE ---
Wound cleaned on top of head. Pt requesting not to have sling placed yet.
[2021-04-07 03:49] VITALS: BP 185/89; PULSE 96; O2SAT 94
--- NOTE | 2021-04-07 04:21 | PC.NURSE ---
pt gone to CT
[2021-04-07 05:02] VITALS: BP 153/85; PULSE 91; RESP 18; TEMP 36.8; O2SAT 93
== END 2021-04-07 05:23 | disposition home or self-care (01) ==
PROVIDERS: Emergency Provider Emergency Medicine; PCP Family Medicine
DX: S01.01XA Laceration without foreign body of scalp, initial encounter (principal); S16.1XXA Strain of muscle, fascia and tendon at neck level, initial encounter; S42.214A Unspecified nondisplaced fracture of surgical neck of right humerus, initial encounter for closed fracture; W01.0XXA Fall on same level from slipping, tripping and stumbling without subsequent striking against object, initial encounter; Y92.019 Unspecified place in single-family (private) house as the place of occurrence of the external cause; Z23 Encounter for immunization; I10 Essential (primary) hypertension; F17.210 Nicotine dependence, cigarettes, uncomplicated; Z79.899 Other long term (current) drug therapy
CPT/HCPCS: 12001; 70450; 71046; 72125; 72170; 73030; 90715; 96372; 99282

== ENCOUNTER → 2021-04-10 07:51 | Outpatient (CLI) | payer MEDICARE, MEDICAID, SELFPAY ==
--- NOTE | 2021-04-10 07:51 | CT_ITS ---
PROCEDURE: CT SHOULDER RT WO CON CLINICAL HISTORY: evaluate for proximal humerus fx Fracture evaluation COMPARISON: CR XR SHOULDER RT MIN 2V from 04/07/2021 TECHNIQUE: The Axial images obtained with sagittal and coronal reformats. All CT scans at the facility use one or more dose reduction, viz: automated exposure control, ma/kV adjustment per patient size (including targeted exams where dose is matched to indication, i.e. head), or iterative reconstruction technique. FINDINGS: The acromioclavicular joint is intact with mild osteoarthritic change in minimal subchondral cystic change of the distal clavicle. The acromion and coracoid process and glenoid have an unremarkable appearance. No evidence of scapular fracture. Comminuted fracture involves the surgical neck of the humerus with mild impaction of the fracture fragments. There is 1 cm medial displacement of the proximal fracture fragment. Avulsion fracture also present involving the greater tuberosity of the humerus. The superior extent extend to the base of the greater tuberosity and humeral head with no articular extension. The humeral head is located. Shoulder joint effusion is noted. IMPRESSION: Comminuted impacted fracture involves the neck of the humerus with associated nondisplaced avulsion fracture of the greater tuberosity with shoulder joint effusion. No evidence of dislocation Dictated by: Gallo Espana MD 04/11/2021 10:37 Gallo Espana MD in [facility] 04/11/2021 10:37
== END ==
PROVIDERS: PCP Family Medicine; Visit Provider Orthopaedic Surgery
DX: S42.294A Other nondisplaced fracture of upper end of right humerus, initial encounter for closed fracture (principal)
CPT/HCPCS: 73200

== ENCOUNTER → 2021-05-07 12:43 | Outpatient (CLI) | payer MEDICARE, MEDICAID, SELFPAY ==
--- NOTE | 2021-05-07 12:48 | XR_ITS ---
PROCEDURE: XR SHOULDER RT MIN 2V CLINICAL INDICATION: right proximal humerus fracture COMPARISON: CR XR SHOULDER RT MIN 2V from 04/07/2021 FINDINGS: Healing right humeral neck fracture is present. No evidence of dislocation. There is mild anterior displacement of the distal fracture fragment and mild osteoarthritic changes are present at the acromioclavicular joint with subacromial stenosis. IMPRESSION: Healing right humeral neck fracture. Dictated by: Gallo Espana MD 05/07/2021 14:44 Gallo Espnaa MD in [facility] 05/07/2021 14:44
== END ==
PROVIDERS: PCP Family Medicine; Visit Provider Orthopaedic Surgery
DX: S42.201A Unspecified fracture of upper end of right humerus, initial encounter for closed fracture (principal)
CPT/HCPCS: 73030

== ENCOUNTER 2021-06-27 14:00 | Outpatient (RCR) | payer MEDICARE, MEDICAID, SELFPAY ==
--- NOTE | 2021-06-24 14:38 | HMH.PTOPWND ---
Rehab Outpt Wound Evaluation Rehab OP Wound Evaluation Start: 06/24/21 14:23 Freq: Status: Active Protocol: Document 06/24/21 14:27 JACK (Rec: 06/24/21 14:35 PHORNE [id number]) Electronically Signed By Krsitian Krishna, PT 06/24/21 14:27 Subjective/History History History Pt is 61 yowm who presents with c/o B LE edema and open sores, gradually worsening x ~ 1 yr. He reports increased edema over the past several years with insidious onset. He reports the lateral R lower leg wound is painful, otherwise no real discomfort. He reports hx of HTN, anxiety, gout. B feet present purple and cool to the touch this date. Likely a result of mixed CVI and PAD. Subjective Subjective He reports pain on lateral R lower leg 02/02. Wound Eval Wound Left Lower Anterior Leg Wound Type Stasis Ulcer Is This a Chronic Wound Yes Wound Length (cm) 4.0 Wound Width (cm) 3.6 Wound Bed Appearance Berg[place] Wound Margins Description Well Defined Surrounding Tissue Appearance [place] Edema Type Pitting Edema Degree 2+ Query Text:1+ Trace, Barely Detectable, Rebound 15-30 seconds 2+ Moderate, Slight Indentation, Rebound 10-20 seconds 3+ Deep, Deeper Indentation, Rebound > 30 seconds 4+ Very Deep, Rebound > 60 seconds Edema Appearance Hard,Puffy Drainage Description Serous Drainage Amount Small Wound Topical Solution/Irrigant Saline Irrigant Primary Dressing Unna Boot Wound Secondary Dressing Type Gauze Roll/Wrap,Adhering Gauze Roll Wound Debridement Method Forceps,Gauze Wound Debridement Amount of Tissue Moderate Removed Dressing Change Patient Tolerance Tolerated Well Right Lower Lateral Leg Wound Type Stasis Ulcer Is This a Chronic Wound Yes Wound Length (cm) 6.0 Wound Width (cm) 4.0 Wound Depth (cm) 0.1 Wound Bed Appearance Beefy Red,Yellow Percentage Granulated (%) 25 Percentage of Slough (%) 75 Wound Margins Description Macerated Surrounding Tissue Appearance [place],Purple Edema Type Pitting Edema Degree
== END 2021-06-27 14:05 | disposition home or self-care (01) ==
LOC: PT 14:00
PROVIDERS: PCP Family Medicine; Visit Provider Family Medicine
DX: S81.801A Unspecified open wound, right lower leg, initial encounter (principal); I89.0 Lymphedema, not elsewhere classified; I87.2 Venous insufficiency (chronic) (peripheral)
CPT/HCPCS: 29580; 97140; 97163; 97597

== ENCOUNTER → 2021-07-08 17:57 | Outpatient (CLI) | payer MEDICARE, MEDICAID, SELFPAY | PROVIDERS: Visit Provider Nurse Practitioner | DX: L97.911 Non-pressure chronic ulcer of unspecified part of right lower leg limited to breakdown of skin (principal) | CPT/HCPCS: 87070; 87077; 87186; 87205 ==

== ENCOUNTER 2021-09-18 13:20 | Inpatient (IN) | payer MEDICARE, MEDICAID, SELFPAY ==
[2021-09-18] VITALS (10 sets, daily range): BP systolic 125–180; BP diastolic 64–100; PULSE 74–97; RESP 16–18; TEMP 36.4–37.1; O2SAT 98–100; BMI 37.5; BMI 35.9
--- NOTE | 2021-09-18 13:47 | CT_ITS ---
FINAL REPORT CLINICAL HISTORY: OSTEO FINDINGS: Axial images of the right lower leg was obtained with and without contrast. Sagittal coronal reformatted images were obtained and reviewed. This study was performed with techniques to keep radiation doses as low as reasonably achievable (ALARA). Individualized dose reduction techniques using automated exposure control or adjustment of mA and/or kV according to the patient's size were employed. There is marked soft tissue swelling throughout the right lower leg. There is subcutaneous soft tissue edema measuring up to 2.3 cm in depth. There is some soft tissue ulceration lateral to the lateral malleolus. Small subcutaneous calcifications or ossifications are present. Structures measure up to 5 mm in greatest dimension. There is no underlying bony erosion. There is no periosteal reaction. There is a large calcification associated with the distal Achilles tendon. Region of calcification measures 7.0 x 3.0 cm in craniocaudal and AP dimension. Findings are probably related to sequela of prior Achilles tendon rupture. Postcontrast images were reviewed. IMPRESSION: Marked subcutaneous soft tissue edema throughout the right lower leg, favor to be related to cellulitis. Soft tissue ulceration over the lateral malleolus without definite underlying bony erosion. Large calcification within the distal Achilles, favor to be related to sequela of chronic tendon tear. Reviewed, Interpreted and Dictated by Javid Lopez MD Transcribed by Lalitha Ambrosio Authenticated by Javid Lopez MD on 09/18/2021 04:19:21 PM [facility]
[2021-09-18 13:59] LABS: Coronavirus 19, PCR Not Detected (NotDetected); Influenza A, PCR Not Detected (NotDetected); Influenza B, PCR Not Detected (NotDetected)
[2021-09-18 14:04] LABS: Lactic Acid 1.9 mmol/L (0.7-2.1)
[2021-09-18 14:05] LABS: Alanine Aminotransferase 16 U/L (12-78); Albumin/Globulin Ratio 1.1 (1.1-1.8); Alkaline Phosphatase 112 U/L (38-126); Anion Gap 9.6 mEq/L (5-15); Aspartate Amino Transferase 28 U/L (17-59); Bilirubin,Total 0.5 mg/dl (0.2-1.3); Blood Urea Nitrogen 16 mg/dl (9-20); Carbon Dioxide 26 mmol/L (22.0-30.0); Chloride 106 mmol/L (98-107); Creatinine Clearance Estimated 100 mL/min (50-200); Estimated Glomerular Filt Rate 62 ml/min (>60); GFR (African American) 74 ML/MIN (>60); Globulin 3.8 g/dL (1.3-3.2); Glucose 101 mg/dl (74-100); Potassium 4.6 mmoL/L (3.5-5.1); Sodium 137 mmol/L (136-145); Total Protein,Serum 7.8 g/dl (6.3-8.2)
[2021-09-18 14:08] LABS: Basophils # 0.1 K/mm3 (0-0.2); Basophils % 0.7 % (0.1-2.0); Eosinophils # 0.1 K/mm3 (0.0-0.4); Eosinophils % 0.7 % (0.1-12.0); Hematocrit 46.2 % (42.0-52.0); Hemoglobin 14.7 g/dL (14.1-18.0); Lymphocytes # 2.7 K/mm3 (0.7-4.5); Lymphocytes % 21.5 % (10-50); Mean Corpuscular HGB Conc 31.8 g/dL (31.8-35.4); Mean Corpuscular Hemoglobin 32.3 pg (27.0-31.2); Mean Corpuscular Volume 101.6 fl (80-94); Monocytes # 0.5 K/mm3 (0.1-1.0); Monocytes % 4.2 % (1.7-9.3); Neutrophils % 72.8 % (37.0-80.0); Platelet Count 551 K/mm3 (142-424); Red Blood Count 4.55 M/mm3 (4.60-6.20); Red Cell Distribution Width 13.8 % (11.5-17.5); White Blood Count 12.3 K/mm3 (4.8-10.8)
--- NOTE | 2021-09-18 14:13 | HMH.EDGENADL ---
ED Disposition Clinical Impression: Gangrene Disposition: Admitted as Observation Condition on Discharge: Good - Critical Care Critical Care Time: No Attestation: On 09/18/21, the high probability of a clinically significant, sudden or life threatening deterioration of the following system(s) required my full and direct attention, intervention and personal management. The time I documented below is in addition to time spent performing reported procedures but includes the following listed in this critical care notation. Medical Decision Making - Daniel Inquiry Pt receiving controlled substance: No Vital Signs: 09/18/21 13:21 09/18/21 13:26 09/18/21 14:00 Temperature 97.5 F L Temperature Source Oral Pulse Rate 94 H 90 Pulse Rate [Right Brachial] 95 H Respiratory Rate 16 16 Blood Pressure 129/89 153/92 H Blood Pressure [Right Arm] 180/100 H Blood Pressure Mean 116 Blood Pressure Mean [Right Arm] 126 Blood Pressure Source Blood Pressure Source [Right Arm] Automatic Cuff Blood Pressure Position Blood Pressure Position [Right Arm] Sitting 02 Sat by Pulse Oximetry 99 98 100 Oxygen Delivery Method Room Air 09/18/21 14:45 09/18/21 15:30 09/18/21 16:15 Temperature Temperature Source Pulse Rate 95 H 90 92 H Pulse Rate [Right Brachial] Respiratory Rate 16 16 16 Blood Pressure 140/80 142/80 H 150/87 H Blood Pressure [Right Arm] Blood Pressure Mean Blood Pressure Mean [Right Arm] Blood Pressure Source Blood Pressure Source [Right Arm] Blood Pressure Position Blood Pressure Position [Right Arm] 02 Sat by Pulse Oximetry 98 99 98 Oxygen Delivery Method 09/18/21 17:40 09/18/21 17:42 Temperature 98.0 F Temperature Source Oral Pulse Rate 97 H 74 Pulse Rate [Right Brachial] Respiratory Rate 16 16 Blood Pressure 156/90 H 150/87 H Blood Pressure [Right Arm] Blood Pressure Mean Blood Pressure Mean [Right Arm] Blood Pressure Source Automatic Cuff Blood Pressure Source [Right Arm] Blood Pressure Position Sitting Blood Pressure Position [Right Arm] 02 Sat by Pulse Oximetry 99 Oxygen Delivery Method Room Air - Lab Data Lab Results 09/18/21 13:30: WBC 12.3 H, RBC 4.55 L, Hgb 14.7, Hct 46.2, MCV 101.6 H, MCH 32.3 H, MCHC 31.8, RDW 13.8, Plt Count 551 H, MPV 8.0, Neut % (Auto) 72.8, Lymph % (Auto) 21.5, [place] % (Auto) 4.2, Eos % (Auto) 0.7, Baso % (Auto) 0.7, Neut # (Auto) 9.0 H, Lymph # (Auto) 2.7, [place] # (Auto) 0.5, Eos # (Auto) 0.1, Baso # (Auto) 0.1 09/18/21 13:30: Sodium 137, Potassium 4.6, Chloride 106, Carbon Dioxide 26, Anion Gap 9.6, BUN 16, Creatinine 1.20, Estimated Creat Clear 100, Estimated GFR 62, Est GFR ( Amer) 74, Glucose 101 H, Calcium 9.0, Total Bilirubin 0.5, AST 28, ALT 16, Alkaline Phosphatase 112, Total Protein 7.8, Albumin 4.0, Globulin 3.8 H, Albumin/Globulin Ratio 1.1 09/18/21 13:30: Lactate 1.9 09/18/21 13:30: SARS-CoV-2 (PCR) Not detected, Influenza A Untype (PCR) Not detected, Influenza Type B (PCR) Not detected 09/18/21 13:30: C-Reactive Protein 9.0 H Result diagrams: 09/18/21 13:30 09/18/21 13:30 Orders (Tests/Meds): ED MEDICATIONS Generic Name Dose Route Start Last Admin Trade Name Freq PRN Reason Stop Dose Admin Buspirone HCl 5 mg 09/18/21 21:00 09/18/21 21:13 Buspirone Hcl 5 Mg Tablet PO 10/18/21 20:59 5 mg TID KELSI Administration Gabapentin 300 mg 09/18/21 21:00 09/18/21 21:14 Gabapentin 300mg Capsule PO 10/18/21 20:59 300 mg TID KELSI Administration Metronidazole 500 mg in 100 mls @ 100 mls/hr 09/18/21 20:30 Flagyl 500mg/100ml Ivpb IV 10/02/21 14:29 Q6H KELSI Vancomycin/PEG/NADA/Lysine/Water 1.75 gm in 350 mls @ 175 mls/hr 09/18/21 20:00 09/18/21 20:00 Vancomycin 1.75gm/350ml (Peg) Premix IV 10/02/21 19:59 175 mls/hr Q18H KELSI Administration Cefepime HCl 2 gm/ Sodium 100 mls @ 200 mls/hr 09/19/21 01:00 Chloride IV 10/02/21 16:59 Q8H
--- NOTE | 2021-09-18 14:14 | P.CONPHA_ITS ---
- Pharmacy Consult Date: 09/18/21 Time: 14:14 Referring provider: DR. ELY Reason for Consult:: VANCOMYCIN DOSING Allergies and ADEs:: Allergies Allergy/AdvReac Type Severity Reaction Status Date / Time No Known Allergies Allergy Verified 09/18/21 10:40 Home Medications:: Home Medications Medication Instructions Recorded Confirmed Type losartan 50 mg tablet 50 mg PO tab 01/29/21 09/18/21 History nystatin 100,000 unit/gram topical 1 applic TOPICAL BID 90 Days #30 g 01/29/21 09/18/21 Rx powder nabumetone 500 mg tablet 500 mg PO tab 07/08/21 09/18/21 History triamcinolone acetonide 0.1 % 1 applic TOPICAL BID #30 g 07/08/21 09/18/21 Rx topical ointment allopurinol 300 mg tablet 300 mg PO DAILY 09/18/21 09/18/21 History buspirone 5 mg tablet 5 mg PO TID 09/18/21 09/18/21 History famotidine 40 mg tablet 40 mg PO DAILY 09/18/21 09/18/21 History gabapentin 300 mg capsule 300 mg PO TID 09/18/21 09/18/21 History Height: 1.7 m Weight: 108.862 kg Laboratory Results:: Laboratory Results - last 24 hr 09/18/21 13:30: WBC 12.3 H, RBC 4.55 L, Hgb 14.7, Hct 46.2, MCV 101.6 H, MCH 32.3 H, MCHC 31.8, RDW 13.8, Plt Count 551 H, MPV 8.0, Neut % (Auto) 72.8, Lymph % (Auto) 21.5, [place] % (Auto) 4.2, Eos % (Auto) 0.7, Baso % (Auto) 0.7, Neut # (Auto) 9.0 H, Lymph # (Auto) 2.7, [place] # (Auto) 0.5, Eos # (Auto) 0.1, Baso # (Auto) 0.1 09/18/21 13:30: Sodium 137, Potassium 4.6, Chloride 106, Carbon Dioxide 26, Anion Gap 9.6, BUN 16, Creatinine 1.20, Estimated Creat Clear 100, Estimated GFR 62, Est GFR ( Amer) 74, Glucose 101 H, Calcium 9.0, Total Bilirubin 0.5, AST 28, ALT 16, Alkaline Phosphatase 112, Total Protein 7.8, Albumin 4.0, Globulin 3.8 H, Albumin/Globulin Ratio 1.1 09/18/21 13:30: Lactate 1.9 Medical History: Reports:: Anxiety, Hypertension Denies:: Cancer, Diabetes Mellitus Type 1, Diabetes Mellitus Type 2, Hyperlipidemia, MRSA Assessment and Plan - Assessment and plan all Dx Assessment and Plan for all problems:: Pharmacokinetic dosing service Objective: Patient: Floor: Age: 61 yo Serum creatinine: 1.20 mg/dL Height: 66.9 Inches Weight (kg): 108.8 Assessment: IBW (kg): 65.87 Dosing wt(kg): 108.8 Estimated Creatinine clearance (ml/min): 60.2 CRCL method: Cockcroft and Gault using ibw(default). Drug selected: Vancomycin Loading dose (mg): Vd (liters): 76.2 (factor used: 0.7 L/kg) David (hr-1): 0.054 Half life (hrs): 12.84 CLvanco=?? 4.115 L/hr Recommended dose: 1750 mg Interval: 18 hrs Infusion time (hrs): 2.0 Predicted peak (mcg/mL): 35.0 Predicted trough (mcg/mL): 14.75 Total body weight is being used for vancomycin dosing. Recommendations: Give Vancomycin 1750 mg q 18 hrs with an expected Cpeak of 35.0 mcg/ml and an expected Ctrough of 14.75 mcg/ml AUC 0-24 /EDY Data: EDY 0.5 mcg/mL:?? AUC/EDY:? 1134.1 EDY 1.0 mcg/mL:?? AUC/EDY:? 567.0 --------- EDY 1.5 mcg/mL:?? AUC/EDY:? 378.0 EDY 2.0 mcg/mL:?? AUC/EDY:? 283.5 Thank you for the consult, will continue to follow. -PILAR TORRES, FUNMID
--- NOTE | 2021-09-18 14:44 | PC.NURSE ---
PT GOING TO CT
--- NOTE | 2021-09-18 17:28 | PC.NURSE ---
report received from noe RN
--- NOTE | 2021-09-18 18:51 | PC.NURSE ---
Called and spoke with STACI Moscoso in ED to request transferring orders, she is going to let ED doc know or Dr. Mejia know to transfer orders. Pt to floor at 1755, have relaxed vanc order to pharmacy.
[2021-09-19] VITALS (18 sets, daily range): BP systolic 109–155; BP diastolic 62–97; PULSE 70–95; RESP 12–20; TEMP 36.4–37.4; O2SAT 92–99; BMI 36.0
--- NOTE | 2021-09-19 | IR_ITS ---
APPROVED REPORT Patient Location: [facility] PROCEDURES Right radial arterial access Catheter placed in the right common iliac artery Right common iliac artery antegrade angiogram with unilateral runoff to the right foot Catheter placement in the left common femoral artery Left common femoral artery antegrade angiogram with unilateral runoff to the left foot Catheter placed into the distal abdominal aorta Distal abdominal aortogram INDICATION Brilliant claudication class V and , Gangrenous lower extremities Informed consent was obtained prior to the procedure. COMPLICATIONS NONE Estimated Blood Loss: LESS THAN 10 ML TECHNIQUE 1% lidocaine used anesthetize right anterior aspect of the right wrist. The right radial artery was accessed via the center technique and a 6 Persian sheath was placed in the right radial artery. A PV multi curve was placed under fluoroscopic guidance into the right common iliac artery where antegrade angiography was performed with unilateral runoff to the right foot. The catheter was then pulled back into the aorta and under fluoroscopic guidance placed into the left common femoral artery where left common femoral artery antegrade angiogram was performed. The catheter was then pulled back to the distal abdominal aorta and bilateral iliofemoral angiography was performed. At the end the procedure the apparatus was removed the sheath was removed and hemostasis was achieved using TR banding patient was transferred to the postop holding her stable condition ANGIOGRAPHIC RESULTS Bilateral common internal and external iliac arteries are normal Bilateral common femoral arteries are normal Bilateral profunda femoris arteries and superficial femoral arteries are normal Bilateral popliteal arteries are normal Bilateral three-vessel runoff below the knees IMPRESSION Normal lower extremity arterial runoff as described above severe chronic bilateral venous insufficiency PLAN 1. Treatment of severe venous insufficiency 2. Recommend IV diuretics until patient's creatinine significantly increases or until all lower extremity edema resolves Electronically signed by : Chico Barton MD 09/19/2021 15:28:51
--- NOTE | 2021-09-19 00:36 | PC.NURSE ---
Patient stated he was itching all over, he believes it is from the morphine he was given earlier for pain, or could be the IV contrast from CT earlier. Called [facility] to receive a new order for pain meds and he stated to D/C the morphine due to possible reaction. New orders received. Collected specimen of wound to right lower leg and sent to lab.
[2021-09-19 06:23] LABS: Basophils # 0.1 K/mm3 (0-0.2); Basophils % 0.7 % (0.1-2.0); Eosinophils # 0.2 K/mm3 (0.0-0.4); Eosinophils % 1.4 % (0.1-12.0); Hematocrit 43.6 % (42.0-52.0); Hemoglobin 14.3 g/dL (14.1-18.0); Lymphocytes # 2.9 K/mm3 (0.7-4.5); Lymphocytes % 20.9 % (10-50); Mean Corpuscular HGB Conc 32.7 g/dL (31.8-35.4); Mean Corpuscular Hemoglobin 32.3 pg (27.0-31.2); Mean Corpuscular Volume 98.8 fl (80-94); Mean Platelet Volume 6.7 fl (7.4-10.4); Monocytes # 0.7 K/mm3 (0.1-1.0); Monocytes % 5.4 % (1.7-9.3); Neutrophils # 9.8 K/mm3 (1.8-7.8); Neutrophils % 71.6 % (37.0-80.0); Platelet Count 512 K/mm3 (142-424); Red Blood Count 4.42 M/mm3 (4.60-6.20); Red Cell Distribution Width 13.4 % (11.5-17.5); White Blood Count 13.7 K/mm3 (4.8-10.8)
[2021-09-19 06:28] LABS: Chloride 102 mmol/L (98-107); Potassium 4.5 mmoL/L (3.5-5.1); Sodium 134 mmol/L (136-145)
[2021-09-19 06:31] LABS: Alanine Aminotransferase 13 U/L (12-78); Albumin Level 3.8 g/dl (3.5-5.0); Albumin/Globulin Ratio 1.1 (1.1-1.8); Alkaline Phosphatase 84 U/L (38-126); Anion Gap 9.5 mEq/L (5-15); Aspartate Amino Transferase 25 U/L (17-59); Bilirubin,Total 0.9 mg/dl (0.2-1.3); Blood Urea Nitrogen 14 mg/dl (9-20); Calcium 8.2 mg/dl (8.4-10.2); Carbon Dioxide 27 mmol/L (22.0-30.0); Creatinine Clearance Estimated 110 mL/min (50-200); Estimated Glomerular Filt Rate 68 ml/min (>60); GFR (African American) 82 ML/MIN (>60); Globulin 3.6 g/dL (1.3-3.2); Glucose 87 mg/dl (74-100); Total Protein,Serum 7.4 g/dl (6.3-8.2)
[2021-09-19 06:32] LABS: Lactic Acid 1.4 mmol/L (0.7-2.1)
--- NOTE | 2021-09-19 07:29 | P.CONPHA_ITS ---
[facility] Pharmacy VTE Monitoring - Patient Demographics Admission date: 09/18/21 Report Date: 09/19/21 Time: 07:29 Allergies/Adverse Reactions: Patient Allergies No Known Allergies Allergy (Verified 09/18/21 10:40) Height: 1.75 m Weight: 110.28 kg Patient Problems: Current Active Problems Gangrene (Acute) - VTE Risk Labs: VTE Related Lab Results Hgb 14.3 g/dL (14.1-18.0) 09/19/21 05:56 Hct 43.6 % (42.0-52.0) 09/19/21 05:56 Plt Count 512 K/mm3 (142-424) H 09/19/21 05:56 BUN 14 mg/dl (9-20) 09/19/21 05:56 Creatinine 1.10 mg/dl (0.66-1.25) 09/19/21 05:56 Estimated Creat Clear 110 mL/min (50-200) 09/19/21 05:56 Was VTE Risk Assessment Performed: Yes VTE Risk Level: Low Risk - Prophylaxis VTE Prophylaxis Ordered?: Yes Types of VTE Prophylaxis: TEDS Knee High Location of Applied Device: Left Leg
--- NOTE | 2021-09-19 07:34 | HMH.PHAINT ---
Home med rec complete
--- NOTE | 2021-09-19 09:04 | HMH.HP ---
*Admission Date: 09/18/21 *Chief complaint: Wound R Lower Extremity *History of present illness: 61-year-old male patient presented to [facility] emergency department after being sent to the office from primary care office for evaluation for possible gangrenous right lower extremity infection. Patient reports being seen by podiatry and PCP for care of ongoing wound to right lower extremity for several months, from chart he was in wound care office 26 June with Unna boot applied and missed next appointment. He did change PCPs and Dr. Mejia is presently his new PCP and after first visit was sent to the emergency department for evaluation. He has not been febrile, denies nausea/vomiting/diarrhea and that he is a 1 pack/day smoker for many years, denies illicit drug or alcohol use. And denies any history of diabetes. 09/18/[address]: FINDINGS: Axial images of the right lower leg was obtained with and without contrast. Sagittal coronal reformatted images were obtained and reviewed. This study was performed with techniques to keep radiation doses as low as reasonably achievable (ALARA). Individualized dose reduction techniques using automated exposure control or adjustment of mA and/or kV according to the patient's size were employed. There is marked soft tissue swelling throughout the right lower leg. There is subcutaneous soft tissue edema measuring up to 2.3 cm in depth. There is some soft tissue ulceration lateral to the lateral malleolus. Small subcutaneous calcifications or ossifications are present. Structures measure up to 5 mm in greatest dimension. There is no underlying bony erosion. There is no periosteal reaction. There is a large calcification associated with the distal Achilles tendon. Region of calcification measures 7.0 x 3.0 cm in craniocaudal and AP dimension. Findings are probably related to sequela of prior Achilles tendon rupture. Postcontrast images were reviewed. IMPRESSION: Marked subcutaneous soft tissue edema throughout the right lower leg, favor to be related to cellulitis. Soft tissue ulceration over the lateral malleolus without definite underlying bony erosion. Large calcification within the distal Achilles, favor to be related to sequela of chronic tendon tear. Reviewed, Interpreted and Dictated by Javid Lopez MD 61-year-old male patient sitting up in chair, he reports pain and itching. He did receive morphine during the night and then reported localized right lower extremity itching after he received medications we will prescribe Atarax for that as needed. We will consult wound care, podiatry [facility] History I have reviewed the patient's past medical history: Yes Medical History: Reports:: Anxiety, Hypertension Denies:: Cancer, Diabetes Mellitus Type 1, Diabetes Mellitus Type 2, Hyperlipidemia, Internal Pacemaker, MRSA *Have you ever received a pneumonia vaccine?: No *Have you received a flu vaccine this season?: Yes Other Medical History: Reports: Arthritis, Other Laterality Cases: Right: Arthroscopy Knee Other Surgeries: No: Pacemaker Amputation: No Fractures: No - *Social History Last grade of school completed: Advanced degree Smoking Status: Current every day smoker Tobacco Type: cigarettes # Packs/Day (cigarettes): 1 Alcohol Intake: never Alcohol Intake Frequency:: holidays/special occasions only Substance Use Type: marijuana *Occupational Status:: disabled Housing: house Household Members: none *Travel in the last 8 weeks: None - Psychiatric History Pschychiatric History:: Reports:: Anxiety Family Hx:: No significant family history Review of Systems - Review of Systems Review of systems:: pertinent systems reviewed and negative unless documented below - Constitutional Reports fatigue - Eyes Denies blurry vision, Denies change in vision - ENT Denies abnormal hearing, Denies dizziness - *Cardiovascular Reports leg pain with activity, Repo
--- NOTE | 2021-09-19 10:17 | HMH.CNCARD ---
History of Present Illness Consult date: 09/19/21 Requesting physician: Jamil Mejia Chief complaint: Gangrenous leg ulcer Additional Medical History:: 1. Tobacco use, 1 pack/day for 40 years 2. Hypertension 3. Obesity 4. Peripheral vascular disease with nonhealing, gangrenous right lower extremity wound with denuded areas History of present illness: 61-year-old white male with history of hypertension, tobacco use and nonhealing leg ulcer admitted for suspected gangrene. Right lower extremity ulcer began 3 to 4 months ago after patient fell and due to an arm injury had to drag himself across carpet to get to the phone. He is slowly noticed increasing drainage and swelling with pain of the right and now left lower extremity. Previously has seen Dr. Gay and PCP for care. Recently switched PCP provider and was seen in the office yesterday with decision to admit for further evaluation and treatment. Cardiology consulted for possible lower extremity angiogram and intervention. [facility] History Medical History: Reports:: Anxiety, Hypertension Denies:: Cancer, Diabetes Mellitus Type 1, Diabetes Mellitus Type 2, Hyperlipidemia, Internal Pacemaker, MRSA *Have you ever received a pneumonia vaccine?: No *Have you received a flu vaccine this season?: Yes Other Medical History: Reports: Arthritis, Other Laterality Cases: Right: Arthroscopy Knee Other Surgeries: No: Pacemaker Amputation: No Fractures: No - *Social History Last grade of school completed: Advanced degree Smoking Status: Current every day smoker Tobacco Type: cigarettes # Packs/Day (cigarettes): 1 Alcohol Intake: never Alcohol Intake Frequency:: holidays/special occasions only Substance Use Type: marijuana *Occupational Status:: disabled Housing: house Household Members: none *Travel in the last 8 weeks: None - Psychiatric History Pschychiatric History:: Reports:: Anxiety Family Hx:: No significant family history Meds Home Medications Medication Instructions Recorded Confirmed Type losartan 50 mg tablet 50 mg PO DAILY tab 01/29/21 09/18/21 History nabumetone 500 mg tablet 500 mg PO DAILY tab 07/08/21 09/18/21 History allopurinol 300 mg tablet 300 mg PO DAILY 09/18/21 09/18/21 History buspirone 5 mg tablet 5 mg PO TID 09/18/21 09/18/21 History famotidine 40 mg tablet 40 mg PO DAILY 09/18/21 09/18/21 History gabapentin 300 mg capsule 300 mg PO TID 09/18/21 09/18/21 History Nortriptyline HCl 10 mg PO TID 09/19/21 09/19/21 History Nystatin 1 applic TOPICAL BID 09/19/21 09/19/21 History Triamcinolone Acetonide 1 applic TOPICAL BID 09/19/21 09/19/21 History Allergies Allergy/AdvReac Type Severity Reaction Status Date / Time No Known Allergies Allergy Verified 09/18/21 10:40 Exam Vital signs and Labs for Last 24 Hours: Temp Pulse Resp BP Pulse Ox 98.1 F 77 18 128/67 99 09/19/21 08:00 09/19/21 08:00 09/19/21 08:00 09/19/21 08:00 09/19/21 08:00 Laboratory Results - last 24 hr 09/18/21 13:30: WBC 12.3 H, RBC 4.55 L, Hgb 14.7, Hct 46.2, MCV 101.6 H, MCH 32.3 H, MCHC 31.8, RDW 13.8, Plt Count 551 H, MPV 8.0, Neut % (Auto) 72.8, Lymph % (Auto) 21.5, [place] % (Auto) 4.2, Eos % (Auto) 0.7, Baso % (Auto) 0.7, Neut # (Auto) 9.0 H, Lymph # (Auto) 2.7, [place] # (Auto) 0.5, Eos # (Auto) 0.1, Baso # (Auto) 0.1 09/18/21 13:30: Sodium 137, Potassium 4.6, Chloride 106, Carbon Dioxide 26, Anion Gap 9.6, BUN 16, Creatinine 1.20, Estimated Creat Clear 100, Estimated GFR 62, Est GFR ( Amer) 74, Glucose 101 H, Calcium 9.0, Total Bilirubin 0.5, AST 28, ALT 16, Alkaline Phosphatase 112, Total Protein 7.8, Albumin 4.0, Globulin 3.8 H, Albumin/Globulin Ratio 1.1 09/18/21 13:30: Lactate 1.9 09/18/21 13:30: SARS-CoV-2 (PCR) Not detected, Influenza A Untype (PCR) Not detected, Influenza Type B (PCR) Not detected 09/18/21 13:30: C-Reactive Protein 9.0 H 09/19/21 05:56: WBC 13.7 H, RBC 4.42 L, Hgb 14.3, Hct 43.6, MCV 98.8 H, MCH 32.3 H, MCHC 32.7, RDW 13.4, Plt Coun
--- NOTE | 2021-09-19 12:44 | PC.NURSE ---
Late Entry: @ 9158 I notified BJ in surgical suite of consult on pt for Dr. Paulino
--- NOTE | 2021-09-19 13:28 | P.CONS_ITS ---
*Admission Date: 09/18/21 <Dee Johansen - 09/19/21 14:08> *Reason for consult:: Right leg wound <Dee Johansen - 09/19/21 14:08> *History of present illness: 61-year-old male patient presented to [facility] emergency department after being sent to the office from primary care office for evaluation for possible gangrenous right lower extremity infection. Patient reports being seen by podiatry and PCP for care of ongoing wound to right lower extremity for several months, from chart he was in wound care office 26 June with Unna boot applied and missed next appointment. He did change PCPs and Dr. Mejia is presently his new PCP and after first visit wa s sent to the emergency department for evaluation. He has not been febrile, denies nausea/vomiting/diarrhea and that he is a 1 pack/day smoker for many years, denies illicit drug or alcohol use. And denies any history of diabetes. PODIATRY CONSULT RIGHT LEG WOUND: Patient is a 61- year-old non diabetic male known to podiatry team who was admitted 09/18/21 for right lower extremity wound. PCP team consulted podiatry for continued ongoing wound management of his right leg lateral wound. Patient was sitting up in chair. Alert and oriented x3. No acute distress noted. Patient informed me that he refused wound care treatment earlier due to severe bilateral lower extremity pain. He is continuing to refuse treatment. He allowed me perform minimal lower extremity assessment. Pedal pulses were dopplerable. Right lateral leg wound with purulent, yellow, brown, green thick drainage noted.Wound culture was obtained on admission and results are pending. Patient stated that he was last seen and treated at [facility] wound/lymphedema clinic in May and had to attend a in [place] and was unable to f/u with wound care treatment. Bilateral lower extremity overall skin is excessively dry, flaking, cracked, has fissures, edema, and cellulitis noted. Toenails are discolored and dystrophic. Discussed with patient treatment option for right lower leg wound, bedside wound debridement, betadine dressing and unna boot application. Patient is refusing treatment. No wound debridement or measurements performed. Patient allowed me to cover the right leg wound loosely with xeroform and kerlix as he was being taken to [facility] for a procedure. We will continue to follow patient progress. <Eduarda Johansenher 09/19/21 19:08> [facility] History Medical History: Reports:: Anxiety, Hypertension Denies:: Cancer, Diabetes Mellitus Type 1, Diabetes Mellitus Type 2, Hyperlipidemia, Internal Pacemaker, MRSA <HailyDee 09/19/21 14:08> *Have you ever received a pneumonia vaccine?: No <HailyDee 09/19/21 14:08> *Have you received a flu vaccine this season?: [facility] 14[facility]> Other Medical History: Reports: Arthritis, Other <HailyDee 09/19/21 14:08> Laterality Cases: Right: [facility]opy Knee <[facility] 14:08> Other Surgeries: No: Pacemaker <[facility]/21 14:08> Amputation: No <[facility] 09/19/21 14:08> Fractures: No <[facility] 09/19/21 14:08> - *Social History Last grade of school completed: Advanced degree <HailyDee 09/19/21 14:08> Smoking Status: Current every day smoker <HailyDee 09/19/21 14:08> Tobacco Type: cigarettes <HailyDee 09/19/21 14:08> # Packs/Day (cigarettes): 1 <HailyDee 09/19/21 14:08> Alcohol Intake: never <HailyDee 09/19/21 14:08> Alcohol Intake Frequency:: holidays/special occasions only <HailyDee 09/19/21 14:08> Substance Use Type: marijuana <HailyDee 09/19/21 14:08> *Occupational Status:: disabled <Eduarda Johansenher 09/19/21 14
--- NOTE | 2021-09-19 13:28 | HMH.ORTHOCON ---
*Admission Date: 09/18/21 <Dee Johansen - 09/19/21 14:08> *Reason for consult:: Right leg wound <Dee Johansen - 09/19/21 14:08> *History of present illness: 61-year-old male patient presented to [facility] emergency department after being sent to the office from primary care office for evaluation for possible gangrenous right lower extremity infection. Patient reports being seen by podiatry and PCP for care of ongoing wound to right lower extremity for several months, from chart he was in wound care office 26 June with Unna boot applied and missed next appointment. He did change PCPs and Dr. Mejia is presently his new PCP and after first visit was sent to the emergency department for evaluation. He has not been febrile, denies nausea/vomiting/diarrhea and that he is a 1 pack/day smoker for many years, denies illicit drug or alcohol use. And denies any history of diabetes. PODIATRY CONSULT RIGHT LEG WOUND: Patient is a 61- year-old non diabetic male known to podiatry team who was admitted 09/18/21 for right lower extremity wound. PCP team consulted podiatry for continued ongoing wound management of his right leg lateral wound. Patient was sitting up in chair. Alert and oriented x3. No acute distress noted. Patient informed me that he refused wound care treatment earlier due to severe bilateral lower extremity pain. He is continuing to refuse treatment. He allowed me perform minimal lower extremity assessment. Pedal pulses were dopplerable. Right lateral leg wound with purulent, yellow, brown, green thick drainage noted.Wound culture was obtained on admission and results are pending. Patient stated that he was last seen and treated at [facility] wound/lymphedema clinic in May and had to attend a in [place] and was unable to f/u with wound care treatment. Bilateral lower extremity overall skin is excessively dry, flaking, cracked, has fissures, edema, and cellulitis noted. Toenails are discolored and dystrophic. Discussed with patient treatment option for right lower leg wound, bedside wound debridement, betadine dressing and unna boot application. Patient is refusing treatment. No wound debridement or measurements performed. Patient allowed me to cover the right leg wound loosely with xeroform and kerlix as he was being taken to [facility] cath lab for a procedure. We will continue to follow patient progress. <HailyDee 09/19/21 19:08> [facility] History Medical History: Reports:: Anxiety, Hypertension Denies:: Cancer, Diabetes Mellitus Type 1, Diabetes Mellitus Type 2, Hyperlipidemia, Internal Pacemaker, MRSA <HailyDee 09/19/21 14:08> *Have you ever received a pneumonia vaccine?: No <bayDee 09/19/21 14:08> *Have you received a flu vaccine this season?: Yes <[facility] 09/19/21 14:08> Other Medical History: Reports: Arthritis, Other <[facility] 09/19/21 14:08> Laterality Cases: Right: Arthroscopy Knee <[facility] 09/19/21 14:08> Other Surgeries: No: Pacemaker <[facility] 09/19/21 14:08> Amputation: No <[facility] 09/19/21 14:08> Fractures: No <[facility] 09/19/21 14:08> - *Social History Last grade of school completed: Advanced degree <[facility]/19/21 14:08> Smoking Status: Current every day smoker <[facility] 09/19/21 14:08> Tobacco Type: cigarettes <[facility] 09/19/21 14:08> # Packs/Day (cigarettes): 1 <[facility] 09/19/21 14:08> Alcohol Intake: never <[facility] 09/19/21 14:08> Alcohol Intake Frequency:: holidays/special occasions only <[facility] 09/19/21 14:08> Substance Use Type: marijuana <[facility] 09/19/21 14:08> *Occupational Status:: disabled <HailyDee 09/19/21 14:08> Housing: house <[facility]etta[facility] 09/19/21 14:08> Household Members: none <[facility]outh[facility] hospitalrenetta[facility] 09/19/21 14:08> *Travel in the last 8 weeks: None <Dee Johansen - 09/19/21 14:08> - Psychiatric History Ps
--- NOTE | 2021-09-19 18:25 | PC.NURSE ---
created new password with patient. Password is [email or web address]
--- NOTE | 2021-09-19 20:37 | HMH.ORTHOCON ---
*Admission Date: 09/18/21 *Reason for consult:: Nonhealing wound, right leg *History of present illness: 61-year-old male patient admitted to acute medical services from [facility] emergency department on 09/18/2021 for an infected right lower extremity wound. I am consulted for orthopedic input/surgical intervention as appropriate. Patient says he has had l longstanding problems with both his lower extremities. He says he has had an open wound over the lateral aspect of the right distal leg for several months and has been under care of his PCP, podiatry and wound care/lymphedema clinic. He says he was last seen in the wound/lymphedema clinic couple of months ago. He has history of peripheral vascular disease and says he has some special boots at home. He reports pain and paresthesias in both lower extremities at baseline. No history of any fevers, chills or rigors. He reports feeling well within himself. He is a 1 pack/day smoker for many years; denies illicit drug or alcohol use. He denies any history of diabetes. His medical history includes anxiety, hypertension, gout, chronic tobacco use, peripheral vascular disease, nonhealing ulcer right lower extremity, peripheral neuropathy, lymphedema, osteoarthritis of both feet. Today after admission, patient was seen by cardiology and has just returned from lower extremity diagnostic angiogram. [facility] History Medical History: Reports:: Anxiety, Hypertension Denies:: Cancer, Diabetes Mellitus Type 1, Diabetes Mellitus Type 2, Hyperlipidemia, Internal Pacemaker, MRSA *Have you ever received a pneumonia vaccine?: No *Have you received a flu vaccine this season?: Yes Other Medical History: Reports: Arthritis, Other Laterality Cases: Right: Arthroscopy Knee Other Surgeries: No: Pacemaker Amputation: No Fractures: No - *Social History Last grade of school completed: Advanced degree Smoking Status: Former smoker Tobacco Type: cigarettes # Packs/Day (cigarettes): 1 Alcohol Intake: current Alcohol Intake Frequency:: holidays/special occasions only Substance Use Type: marijuana *Occupational Status:: disabled Housing: house Household Members: none *Travel in the last 8 weeks: None - Psychiatric History Pschychiatric History:: Reports:: Anxiety Family Hx:: No significant family history Review of Systems - Review of Systems Review of systems:: pertinent systems reviewed and negative unless documented below - Constitutional Reports body ache(s), Reports fatigue, Denies chills, Denies fever(s) - Eyes Denies change in vision - ENT Denies abnormal hearing, Denies difficulty swallowing - *Cardiovascular Reports leg pain with activity, Reports leg swelling, Reports leg sores, Reports foot swelling, Denies chest pain, Denies shortness of breath - *Respiratory Denies chest congestion, Denies cough, Denies shortness of breath - *Gastrointestinal Denies abdominal pain, Denies change in bowel habits - *Musculoskeletal Reports abnormal walking, Reports joint pain, Reports numbness, Reports tingling - Integumentary/Breasts Reports dry skin, Reports redness, Reports non-healing lesions - *Neurologic Reports abnormal walking, Reports tingling/numbness/burning sensations, Denies abnormal hearing, Denies dizziness, Denies headache(s) - Psychiatric Reports anxiety - Endocrine Denies cold intolerance, Denies heat intolerance - Hematologic/Lymphatic Denies easy bleeding, Denies easy bruising Meds Home Medications Medication Instructions Recorded Confirmed Type losartan 50 mg tablet 50 mg PO DAILY tab 01/29/21 09/18/21 History nabumetone 500 mg tablet 500 mg PO DAILY tab 07/08/21 09/18/21 History allopurinol 300 mg tablet 300 mg PO DAILY 09/18/21 09/18/21 History buspirone 5 mg tablet 5 mg PO TID 09/18/21 09/18/21 History famotidine 40 mg tablet 40 mg PO DAILY 09/18/21 09/18/21 History gabapentin 300 mg capsule 300 mg PO TID 09/18/21 09/18/21 History Nortriptyline HCl 10 mg PO T
[2021-09-20] VITALS: BP 118/80; PULSE 80; RESP 14; TEMP 36.9; O2SAT 98
[2021-09-20 04:00] VITALS: BP 149/89; PULSE 84; RESP 22; TEMP 36.4; O2SAT 100
[2021-09-20 06:00] VITALS: BMI 34.0
--- NOTE | 2021-09-20 06:11 | PC.NURSE ---
pt refused to get in bed and or stand on standing scale for me to weigh him
[2021-09-20 06:56] LABS: Basophils # 0.1 K/mm3 (0-0.2); Basophils % 0.6 % (0.1-2.0); Eosinophils # 0.2 K/mm3 (0.0-0.4); Eosinophils % 1.5 % (0.1-12.0); Hematocrit 43.9 % (42.0-52.0); Hemoglobin 14.1 g/dL (14.1-18.0); Lymphocytes # 2.9 K/mm3 (0.7-4.5); Lymphocytes % 20.9 % (10-50); Mean Corpuscular HGB Conc 32.1 g/dL (31.8-35.4); Mean Corpuscular Hemoglobin 31.9 pg (27.0-31.2); Mean Corpuscular Volume 99.5 fl (80-94); Mean Platelet Volume 7.1 fl (7.4-10.4); Monocytes # 0.9 K/mm3 (0.1-1.0); Monocytes % 6.7 % (1.7-9.3); Neutrophils # 9.7 K/mm3 (1.8-7.8); Neutrophils % 70.3 % (37.0-80.0); Platelet Count 489 K/mm3 (142-424); Red Blood Count 4.41 M/mm3 (4.60-6.20); Red Cell Distribution Width 13.3 % (11.5-17.5); White Blood Count 13.8 K/mm3 (4.8-10.8)
[2021-09-20 07:02] LABS: Chloride 99 mmol/L (98-107)
[2021-09-20 07:03] LABS: Sodium 132 mmol/L (136-145)
[2021-09-20 07:05] LABS: Blood Urea Nitrogen 14 mg/dl (9-20); Creatinine Clearance Estimated 104 mL/min (50-200); Estimated Glomerular Filt Rate 68 ml/min (>60); GFR (African American) 82 ML/MIN (>60)
[2021-09-20 07:06] LABS: Carbon Dioxide 26 mmol/L (22.0-30.0); Glucose 89 mg/dl (74-100)
[2021-09-20 08:00] VITALS: BP 152/76; PULSE 79; RESP 22; TEMP 36.4; O2SAT 89
--- NOTE | 2021-09-20 09:06 | HMH.ACPN2 ---
Internal Medicine - PN: Subj *Date: 09/20/21 *Time: 13:09 Interval history: 61-year-old male patient sitting up in chair he denies any chest pain or respiratory distress during the night, he reports right lower extremity pain is controlled with Percocet. He did have some increased pain with dressing change we will premedicate with IV morphine. Dressings intact to bilateral lower extremities with yellow drainage. He is currently receiving cefepime, vancomycin IV and fluconazole po. Exam Vital signs and Labs for Last 24 Hours: Temp Pulse Resp BP Pulse Ox 97.5 F L 79 22 152/76 H 89 L 09/20/21 08:00 09/20/21 08:00 09/20/21 08:00 09/20/21 08:00 09/20/21 08:00 Laboratory Results - last 24 hr 09/20/21 05:54: WBC 13.8 H, RBC 4.41 L, Hgb 14.1, Hct 43.9, MCV 99.5 H, MCH 31.9 H, MCHC 32.1, RDW 13.3, Plt Count 489 H, MPV 7.1 L, Neut % (Auto) 70.3, Lymph % (Auto) 20.9, [place] % (Auto) 6.7, Eos % (Auto) 1.5, Baso % (Auto) 0.6, Neut # (Auto) 9.7 H, Lymph # (Auto) 2.9, [place] # (Auto) 0.9, Eos # (Auto) 0.2, Baso # (Auto) 0.1 09/20/21 05:54: Sodium 132 L, Potassium 4.0, Chloride 99, Carbon Dioxide 26, Anion Gap 11.0, BUN 14, Creatinine 1.10, Estimated Creat Clear 104, Estimated GFR 68, Est GFR ( Amer) 82, Glucose 89, Calcium 8.0 L I & O for Last 24 hours: Intake & Output 09/17/21 09/18/21 09/19/21 09/20/21 23:59 23:59 23:59 23:59 Intake Total 240 / 240 Output Total 750 / 850 520 / 520 Balance -510 / -610 -520 / -520 Weight 243 lb 2 oz 243 lb 2.012 oz 230 lb Microbiology Reports for the Last 24 Hours: Microbiology 09/19/21 00:34 Leg,Right - Wound Gram Stain - Final 09/19/21 00:34 Leg,Right - Wound Wound Culture - Preliminary - Constitutional no acute distress, chronically ill appearing - *Routine HEENT Exam Head: Present: normocephalic Eye: Present: EOMI ENT: Present: mucous membranes moist - *Routine Neck Exam Present: trachea midline. Absent: tracheal deviation - *Routine Respiratory Exam Present: CTA bilaterally. Absent: accessory muscle use - *Routine Cardiovascular Exam Present: RRR - *Routine Abdominal Exam Present: soft, normoactive bowel sounds. Absent: tenderness, firm - *Routine Extremities Exam Present: edema. Absent: cyanosis - *Routine Skin Exam Present: erythema, wounds. Absent: intact, cyanosis Comments: Dressings to bilateral lower extremities with yellow drainage - *Routine Neurological Exam Present: alert, oriented X3. Absent: motor deficit - Routine Psychiatric Exam Present: normal affect, normal thought process. Absent: auditory hallucinations Assessment and Plan (1) Skin ulcer of right lower leg Status: Acute Qualifiers: Non-pressure ulcer stage: with fat layer exposed Qualified Code(s): L97.912 - Non-pressure chronic ulcer of unspecified part of right lower leg with fat layer exposed Category: Medical Code(s): L97.919 - Non-pressure chronic ulcer of unspecified part of right lower leg with unspecified severity (2) Bilateral leg pain Status: Chronic Category: Medical Code(s): M79.604 - Pain in right leg; M79.605 - Pain in left leg (3) Neuropathy Status: Chronic Category: Medical Code(s): G62.9 - Polyneuropathy, unspecified (4) Lymphedema Status: Acute Category: Medical Code(s): I89.0 - Lymphedema, not elsewhere classified (5) Obesity, Class II, BMI 35-39.9 Status: Acute Category: Medical Code(s): E66.9 - Obesity, unspecified (6) Bilateral leg and foot pain Start date: 09/19/21 Start time: 13:00 Status: Acute Category: Medical Code(s): M79.604 - Pain in right leg; M79.605 - Pain in left leg; M79.671 - Pain in right foot; M79.672 - Pain in left foot (7) History of gout Start date: 09/19/21 Start time: 13:00 Status: Acute Category: Medical Code(s): Z87.39 - Personal history of other diseases of the musculoskeletal system and connective tissue (8) Venous insufficiency
--- NOTE | 2021-09-20 10:27 | HMH.ORTHPN ---
Subjective Date: 09/20/21 Time: 09:30 Interval history: Patient sitting up in chair. Alert and oriented x3. Assisted back to bed. Agreed to wound care treatment. Pre-medicated with morphine and oral pain medication. S/P Bilateral lower extremity angiogram performed by Dr. Barton yesterday is reported as follows. IMPRESSION Normal lower extremity arterial runoff described as severe chronic bilateral venous insufficiency. I discussed with the patient the importance of proper hygiene and maintaining a clean healthy wound bed to avoid infection. Right lateral leg wound was cleansed with wound cleanser. Utilizing a currette, the wound was partially sharply excisionally debrided through skin into sub q layer. Biofilm and fibrotic slough were debrided. The wound did not probe to deep fascia or to the bone. Purulent drainage ascending cellulitis, edema Post-debridement the wound base was: 100 % granular. The wound measured 27 cm x 12 x 0.2 cm. PN: Obj Ex Vital signs: Temp Pulse Resp BP Pulse Ox 97.5 F L 79 22 152/76 H 89 L 09/20/21 08:00 09/20/21 08:00 09/20/21 08:00 09/20/21 08:00 09/20/21 08:00 - Constitutional no acute distress - Routine HEENT Exam Head: Present: normocephalic Eye: Present: EOMI, PERRL ENT: Present: mucous membranes moist - Routine Neck Exam Present: supple - Routine Respiratory Exam Absent: accessory muscle use, respiratory distress - Routine Cardiovascular Exam Present: RRR - Routine Abdominal Exam Present: soft - Routine Extremities Exam Present: edema, tenderness (pulse dopplerable cap refill sluggish). Absent: pulses intact, normal capillary refill - Detailed Lower Extremity Exam Lower leg: Right wound, Bilateral swelling, Bilateral tenderness, Bilateral erythema Ankle: Bilateral erythema, Bilateral swelling, Bilateral tenderness, Bilateral decreased ROM, Bilateral pain with active ROM, Bilateral pain with passive ROM Foot/Toes: Bilateral erythema, Bilateral nail abnormalities, Bilateral onychomycosis, Bilateral swelling, Bilateral tenderness, Bilateral decreased ROM, Bilateral pain with active ROM, Bilateral pain with passive ROM Leg image: 1 - Bilateral lower extremity dry skin, cracked, and scaling. Personal history of lymphedema. Right lateral leg non healing ulcer. Partially debrided with a currette due to patient experiencing severe pain. The wound was sharply excisionally debride through skin into sub q layer. biofilm and fibrotic slough were debrided. The wound did not probe to deep fascia or to the bone. There was purulent drainage noted and ascending cellulitis. Post debridement the wound basr was 25% granular and 75% yellow. Dressing applied, betadine soaked 4x4, dry 4x4. Unna boot and coban. - Routine Skin Exam Present: erythema, dry, wounds, cracked. Absent: intact Progress Note: A&P (1) Skin ulcer of right lower leg Status: Acute (2) Bilateral leg pain Start date: 09/20/21 Start time: 09:30 Status: Chronic (3) Neuropathy Status: Chronic (4) Lymphedema Start date: 09/20/21 Start time: 09:30 Status: Acute (5) Obesity, Class II, BMI 35-39.9 Status: Acute (6) Bilateral leg and foot pain Start date: 09/20/21 Start time: 09:30 Status: Acute (7) History of gout Status: Acute (8) Venous insufficiency of both lower extremities Start date: 09/20/21 Start time: :30 Status: Acute (9) Cellulitis of right leg Start date: 09/20/21 Start time: 09:30 Status: Acute Assessment and Plan for All Diagnoses:: Laboratory Tests 09/20/21 05:54 BUN 14 Creatinine 1.10 Estimated GFR 68 Glucose 89 Patient seen and evaluated at bedside, agreed to wound care: -Premedicated with morphine IV and oral pain med. -Right lateral leg wound patially debrided due to severe pain. (see PE section for measurement) -right leg cleansed with wou
--- NOTE | 2021-09-20 11:09 | P.PN_ITS ---
Subjective Date: 09/20/21 Time: 11:09 Interval history: 61-year-old white male sitting at bedside in no acute distress. Both legs are wrapped from the calf down. Relayed the news that the arteries in both legs are normal and no need for intervention. Exam Vital signs and Labs for Last 24 Hours: Temp Pulse Resp BP Pulse Ox 97.5 F L 79 22 152/76 H 89 L 09/20/21 08:00 09/20/21 08:00 09/20/21 08:00 09/20/21 08:00 09/20/21 08:00 Laboratory Results - last 24 hr 09/20/21 05:54: WBC 13.8 H, RBC 4.41 L, Hgb 14.1, Hct 43.9, MCV 99.5 H, MCH 31.9 H, MCHC 32.1, RDW 13.3, Plt Count 489 H, MPV 7.1 L, Neut % (Auto) 70.3, Lymph % (Auto) 20.9, [place] % (Auto) 6.7, Eos % (Auto) 1.5, Baso % (Auto) 0.6, Neut # (Auto) 9.7 H, Lymph # (Auto) 2.9, [place] # (Auto) 0.9, Eos # (Auto) 0.2, Baso # (Auto) 0.1 09/20/21 05:54: Sodium 132 L, Potassium 4.0, Chloride 99, Carbon Dioxide 26, Anion Gap 11.0, BUN 14, Creatinine 1.10, Estimated Creat Clear 104, Estimated GFR 68, Est GFR ( Amer) 82, Glucose 89, Calcium 8.0 L I & O for Last 24 hours: Intake & Output 09/17/21 09/18/21 09/19/21 09/20/21 11:59 11:59 11:59 11:59 Intake Total 240 / 240 Output Total 750 / 750 520 / 520 Balance -750 / -750 -280 / -280 Weight 243 lb 2.012 oz 230 lb Microbiology Reports for the Last 24 Hours: Microbiology 09/19/21 00:34 Leg,Right - Wound Gram Stain - Final 09/19/21 00:34 Leg,Right - Wound Wound Culture - Preliminary - *Routine Respiratory Exam Present: CTA bilaterally - *Routine Cardiovascular Exam Present: RRR Progress Note: A&P (1) Skin ulcer of right lower leg Status: Acute (2) Bilateral leg pain Status: Chronic (3) Neuropathy Status: Chronic (4) Lymphedema Status: Acute (5) Obesity, Class II, BMI 35-39.9 Status: Acute (6) Bilateral leg and foot pain Status: Acute (7) History of gout Status: Acute (8) Venous insufficiency of both lower extremities Status: Acute (9) Cellulitis of right leg Status: Acute Assessment and Plan for All Diagnoses:: Bilateral lower extremity venous insufficiency with ulceration/infection of the lateral right calf. Nothing further from a cardiovascular standpoint to add. I did order Lasix 40 mg twice daily along with supplemental potassium as recommended by Dr. Barton at the time of the cath with goal creatinine of 1.5- 2. Nothing further to add at this time. Please call if needed.
[2021-09-20 12:00] VITALS: BP 108/65; PULSE 70; RESP 18; TEMP 36.7; O2SAT 100
[2021-09-20 16:00] VITALS: BP 116/57; PULSE 71; RESP 22; TEMP 36.5; O2SAT 100
[2021-09-20 20:00] VITALS: BP 102/63; PULSE 74; RESP 18; TEMP 36.7; O2SAT 92
[2021-09-21 04:00] VITALS: BP 120/59; PULSE 75; RESP 20; TEMP 36.7; O2SAT 94
[2021-09-21 05:06] VITALS: BMI 36.3
[2021-09-21 06:39] LABS: Basophils # 0.1 K/mm3 (0-0.2); Basophils % 0.5 % (0.1-2.0); Eosinophils # 0.3 K/mm3 (0.0-0.4); Eosinophils % 2.1 % (0.1-12.0); Hematocrit 42.8 % (42.0-52.0); Hemoglobin 13.6 g/dL (14.1-18.0); Lymphocytes # 2.6 K/mm3 (0.7-4.5); Lymphocytes % 19.4 % (10-50); Mean Corpuscular HGB Conc 31.8 g/dL (31.8-35.4); Mean Corpuscular Hemoglobin 32.1 pg (27.0-31.2); Mean Corpuscular Volume 101.1 fl (80-94); Mean Platelet Volume 6.7 fl (7.4-10.4); Monocytes # 0.8 K/mm3 (0.1-1.0); Monocytes % 6.2 % (1.7-9.3); Neutrophils # 9.5 K/mm3 (1.8-7.8); Neutrophils % 71.8 % (37.0-80.0); Platelet Count 444 K/mm3 (142-424); Red Blood Count 4.23 M/mm3 (4.60-6.20); Red Cell Distribution Width 13.3 % (11.5-17.5); White Blood Count 13.2 K/mm3 (4.8-10.8)
[2021-09-21 07:00] LABS: Chloride 101 mmol/L (98-107); Sodium 131 mmol/L (136-145)
[2021-09-21 07:02] LABS: Blood Urea Nitrogen 14 mg/dl (9-20); Creatinine Clearance Estimated 111 mL/min (50-200); Estimated Glomerular Filt Rate 68 ml/min (>60); GFR (African American) 82 ML/MIN (>60)
[2021-09-21 07:03] LABS: Alanine Aminotransferase 13 U/L (12-78); Albumin Level 3.6 g/dl (3.5-5.0); Alkaline Phosphatase 93 U/L (38-126); Aspartate Amino Transferase 27 U/L (17-59); Bilirubin,Total 0.6 mg/dl (0.2-1.3); Calcium 7.9 mg/dl (8.4-10.2); Carbon Dioxide 25 mmol/L (22.0-30.0); Globulin 3.6 g/dL (1.3-3.2); Glucose 95 mg/dl (74-100); Total Protein,Serum 7.2 g/dl (6.3-8.2)
[2021-09-21 07:10] LABS: C-Reactive Protein 41.3 mg/L (0-4)
[2021-09-21 07:52] VITALS: BP 121/72; PULSE 75; RESP 18; TEMP 36.6; O2SAT 97
[2021-09-21 08:07] LABS: Erythrocyte Sedimentation Rate 47 mm/hr (0-20)
[2021-09-21 08:27] LABS: Hemoglobin A1C 4.9 % (4.0-6.0)
--- NOTE | 2021-09-21 10:02 | HMH.ACPN2 ---
Internal Medicine - PN: Subj *Date: 09/21/21 *Time: 10:02 Interval history: doing better but still with pain and sig swelling - bilat legs wrapped Exam Vital signs and Labs for Last 24 Hours: Temp Pulse Resp BP Pulse Ox 97.9 F 75 18 121/72 97 09/21/21 07:52 09/21/21 07:52 09/21/21 07:52 09/21/21 07:52 09/21/21 07:52 Laboratory Results - last 24 hr 09/21/21 06:25: WBC 13.2 H, RBC 4.23 L, Hgb 13.6 L, Hct 42.8, MCV 101.1 H, MCH 32.1 H, MCHC 31.8, RDW 13.3, Plt Count 444 H, MPV 6.7 L, Neut % (Auto) 71.8, Lymph % (Auto) 19.4, [place] % (Auto) 6.2, Eos % (Auto) 2.1, Baso % (Auto) 0.5, Neut # (Auto) 9.5 H, Lymph # (Auto) 2.6, [place] # (Auto) 0.8, Eos # (Auto) 0.3, Baso # (Auto) 0.1, ESR 47 H 09/21/21 06:25: Sodium 131 L, Potassium 4.0, Chloride 101, Carbon Dioxide 25, Anion Gap 9.0, BUN 14, Creatinine 1.10, Estimated Creat Clear 111, Estimated GFR 68, Est GFR ( Amer) 82, Glucose 95, Calcium 7.9 L, Total Bilirubin 0.6, AST 27, ALT 13, Alkaline Phosphatase 93, C-Reactive Protein 41.3 H D, Total Protein 7.2, Albumin 3.6, Globulin 3.6 H, Albumin/Globulin Ratio 1.0 L 09/21/21 06:25: Hemoglobin A1c 4.9 I & O for Last 24 hours: Intake & Output 09/18/21 09/19/21 09/20/21 09/21/21 11:59 11:59 11:59 11:59 Intake Total 240 / 240 480 / 480 Output Total 750 / 750 520 / 520 1350 / 1350 Balance -750 / -750 -280 / -280 -870 / -870 Weight 243 lb 2.012 oz 230 lb 245 lb Microbiology Reports for the Last 24 Hours: Microbiology 09/19/21 00:34 Leg,Right - Wound Gram Stain - Final 09/19/21 00:34 Leg,Right - Wound Wound Culture - Preliminary 09/18/21 13:30 Blood Blood Culture - Preliminary NO GROWTH AFTER 48 HOURS 09/18/21 13:30 Blood Blood Culture - Preliminary NO GROWTH AFTER 48 HOURS - Constitutional no acute distress, obese - *Routine HEENT Exam Head: Present: normocephalic Eye: Present: EOMI, PERRL ENT: Present: mucous membranes dry - *Routine Neck Exam Absent: JVD - *Routine Respiratory Exam Present: decreased breath sounds - *Routine Cardiovascular Exam Present: RRR - *Routine Abdominal Exam Present: soft - *Routine Extremities Exam Comments: chronic changes with acute cellulitis wrapped - *Routine Skin Exam Comments: chronic changes lower ext with acute infections - *Routine Neurological Exam Present: alert, CN II-XII intact - Routine Psychiatric Exam Present: cooperative Assessment and Plan (1) Skin ulcer of right lower leg Status: Acute Qualifiers: Non-pressure ulcer stage: with fat layer exposed Qualified Code(s): L97.912 - Non-pressure chronic ulcer of unspecified part of right lower leg with fat layer exposed Category: Medical Code(s): L97.919 - Non-pressure chronic ulcer of unspecified part of right lower leg with unspecified severity (2) Bilateral leg pain Start date: 09/20/21 Start time: 09:30 Status: Chronic Category: Medical Code(s): M79.604 - Pain in right leg; M79.605 - Pain in left leg (3) Neuropathy Status: Chronic Category: Medical Code(s): G62.9 - Polyneuropathy, unspecified (4) Lymphedema Start date: 09/20/21 Start time: 09:30 Status: Acute Category: Medical Code(s): I89.0 - Lymphedema, not elsewhere classified (5) Obesity, Class II, BMI 35-39.9 Status: Acute Category: Medical Code(s): E66.9 - Obesity, unspecified (6) Bilateral leg and foot pain Start date: 09/20/21 Start time: 09:30 Status: Acute Category: Medical Code(s): M79.604 - Pain in right leg; M79.605 - Pain in left leg; M79.671 - Pain in right foot; M79.672 - Pain in left foot (7) History of gout Start date: 09/19/21 Start time: 13:00 Status: Acute Category: Medical Code(s): Z87.39 - Personal history of other diseases of the musculoskeletal system and connective tissue (8) Venous insufficiency of both lower extremities Start date: 08/28
[2021-09-21 15:43] VITALS: BP 116/62; PULSE 82; RESP 18; TEMP 36.6; O2SAT 97
[2021-09-21 18:53] LABS: Vancomycin,Trough 16.8 ug/mL (5.0-10.0)
[2021-09-21 20:00] VITALS: BP 116/69; PULSE 73; RESP 20; TEMP 36.8; O2SAT 95
[2021-09-21 23:56] LABS: Vancomycin,Peak 44.6 ug/ml (11-39)
[2021-09-22 05:00] VITALS: BMI 36.3
[2021-09-22 06:00] LABS: MANUAL DIFFERENTIAL MANUAL DIFFERENTIAL (MANUAL DIFF)
[2021-09-22 06:07] LABS: Basophils # 0.1 K/mm3 (0-0.2); Basophils % 0.6 % (0.1-2.0); Eosinophils # 0.3 K/mm3 (0.0-0.4); Eosinophils % 2.4 % (0.1-12.0); Hematocrit 41.8 % (42.0-52.0); Hemoglobin 13.1 g/dL (14.1-18.0); Lymphocytes # 2.4 K/mm3 (0.7-4.5); Lymphocytes % 20.6 % (10-50); Mean Corpuscular HGB Conc 31.4 g/dL (31.8-35.4); Mean Corpuscular Hemoglobin 31.5 pg (27.0-31.2); Mean Corpuscular Volume 100.2 fl (80-94); Mean Platelet Volume 6.9 fl (7.4-10.4); Monocytes # 0.8 K/mm3 (0.1-1.0); Neutrophils % 69.4 % (37.0-80.0); Platelet Count 492 K/mm3 (142-424); Red Blood Count 4.17 M/mm3 (4.60-6.20); Red Cell Distribution Width 13.3 % (11.5-17.5); White Blood Count 11.5 K/mm3 (4.8-10.8)
[2021-09-22 06:15] LABS: Chloride 101 mmol/L (98-107); Potassium 4.1 mmoL/L (3.5-5.1); Sodium 134 mmol/L (136-145)
[2021-09-22 06:18] LABS: Blood Urea Nitrogen 16 mg/dl (9-20); Creatinine Clearance Estimated 111 mL/min (50-200); Estimated Glomerular Filt Rate 68 ml/min (>60); GFR (African American) 82 ML/MIN (>60)
[2021-09-22 06:19] LABS: Anion Gap 11.1 mEq/L (5-15); Carbon Dioxide 26 mmol/L (22.0-30.0); Glucose 87 mg/dl (74-100)
[2021-09-22 06:48] LABS: Eosinophils % 3 % (0-3); Hypochromasia 1+; Lymphocytes % 15 % (10-50); Macrocytosis 2+; Monocytes % 6 % (2-9); Neutrophils % 75 % (42-76); Platelet Estimate Slight Increase; Total Cells Counted 100
--- NOTE | 2021-09-22 07:02 | PC.NURSE ---
Late entry - no acute epsiodes during my shift. PT has c/o pain and itching several times this shift. Medicated per SEP. Unna boots to BLL. PT receiving IV and PO atbx. Pt has been talkative, anxious about his condition. Reassured pt. Pt seems to be in better spirits. Pt has been going to bathroom standby assist w/ walker.Pt has slept in intervals. No other needs or complaints voiced at this time. Call light in reach.
[2021-09-22 08:00] VITALS: BP 119/65; PULSE 78; RESP 18; TEMP 36.4; O2SAT 99
--- NOTE | 2021-09-22 11:13 | HMH.ACPN2 ---
Internal Medicine - PN: Subj *Date: 09/23/21 *Time: 07:22 Interval history: pt doing better and discussed wound culture with phar Exam Vital signs and Labs for Last 24 Hours: Temp Pulse Resp BP Pulse Ox 97.6 F 78 18 119/65 99 09/22/21 08:00 09/22/21 08:00 09/22/21 08:00 09/22/21 08:00 09/22/21 08:00 Laboratory Results - last 24 hr 09/21/21 18:25: Vancomycin Trough 16.8 H 09/21/21 23:30: Vancomycin Peak 44.6 H* 09/22/21 05:44: WBC 11.5 H, RBC 4.17 L, Hgb 13.1 L, Hct 41.8 L, MCV 100.2 H, MCH 31.5 H, MCHC 31.4 L, RDW 13.3, Plt Count 492 H, MPV 6.9 L, Neut % (Auto) 69.4, Lymph % (Auto) 20.6, [place] % (Auto) 7.0, Eos % (Auto) 2.4, Baso % (Auto) 0.6, Neut # (Auto) 8.0 H, Lymph # (Auto) 2.4, [place] # (Auto) 0.8, Eos # (Auto) 0.3, Baso # (Auto) 0.1, Total Counted 100, Neutrophils % (Manual) 75, Band Neutrophils % 1.0, Lymphocytes % (Manual) 15, Monocytes % (Manual) 6, Eosinophils % (Manual) 3, Platelet Estimate Slight increase, Hypochromasia 1+, Macrocytosis 2+ 09/22/21 05:44: Sodium 134 L, Potassium 4.1, Chloride 101, Carbon Dioxide 26, Anion Gap 11.1, BUN 16, Creatinine 1.10, Estimated Creat Clear 111, Estimated GFR 68, Est GFR ( Amer) 82, Glucose 87, Calcium 8.0 L I & O for Last 24 hours: Intake & Output 09/19/21 09/20/21 09/21/21 09/22/21 11:59 11:59 11:59 11:59 Intake Total 240 / 240 480 / 480 2250 / 2250 Output Total 750 / 750 520 / 520 1350 / 1350 Balance -750 / -750 -280 / -280 -870 / -870 2250 / 2250 Weight 243 lb 2.012 oz 230 lb 245 lb 245 lb Microbiology Reports for the Last 24 Hours: Microbiology 09/19/21 00:34 Leg,Right - Wound Gram Stain - Final 09/19/21 00:34 Leg,Right - Wound Wound Culture - Final Alcaligenes facaecalis Proteus vulgaris/penneri Klebsiella oxytoca - Constitutional no acute distress, obese - *Routine HEENT Exam Head: Present: normocephalic Eye: Present: EOMI, PERRL ENT: Present: mucous membranes dry - *Routine Neck Exam Absent: JVD - *Routine Respiratory Exam Present: decreased breath sounds - *Routine Cardiovascular Exam Present: RRR - *Routine Abdominal Exam Present: soft - *Routine Extremities Exam Comments: has bilat boots on lower ext - *Routine Skin Exam Comments: cellulitis bilat - *Routine Neurological Exam Present: alert, CN II-XII intact - Routine Psychiatric Exam Present: cooperative Assessment and Plan (1) Skin ulcer of right lower leg Status: Acute Qualifiers: Non-pressure ulcer stage: with fat layer exposed Qualified Code(s): L97.912 - Non-pressure chronic ulcer of unspecified part of right lower leg with fat layer exposed Category: Medical Code(s): L97.919 - Non-pressure chronic ulcer of unspecified part of right lower leg with unspecified severity (2) Bilateral leg pain Start date: 09/20/21 Start time: 09:30 Status: Chronic Category: Medical Code(s): M79.604 - Pain in right leg; M79.605 - Pain in left leg (3) Neuropathy Status: Chronic Category: Medical Code(s): G62.9 - Polyneuropathy, unspecified (4) Lymphedema Start date: 09/20/21 Start time: 09:30 Status: Acute Category: Medical Code(s): I89.0 - Lymphedema, not elsewhere classified (5) Obesity, Class II, BMI 35-39.9 Status: Acute Category: Medical Code(s): E66.9 - Obesity, unspecified (6) Bilateral leg and foot pain Start date: 09/20/21 Start time: 09:30 Status: Acute Category: Medical Code(s): M79.604 - Pain in right leg; M79.605 - Pain in left leg; M79.671 - Pain in right foot; M79.672 - Pain in left foot (7) History of gout Start date: 09/19/21 Start time: 13:00 Status: Acute Category: Medical Code(s): Z87.39 - Personal history of other diseases of the musculoskeletal system and connective tissue (8) Venous insufficiency of both lower extremities Start date: 09/20/21 Start ti
--- NOTE | 2021-09-22 15:04 | HMH.ACPN ---
Internal Medicine - PN: Subj *Date: 09/22/21 *Time: 15:04 Exam Vital signs and Labs for Last 24 Hours: Temp Pulse Resp BP Pulse Ox 97.6 F 78 18 119/65 99 09/22/21 08:00 09/22/21 08:00 09/22/21 08:00 09/22/21 08:00 09/22/21 08:00 Laboratory Results - last 24 hr 09/21/21 18:25: Vancomycin Trough 16.8 H 09/21/21 23:30: Vancomycin Peak 44.6 H* 09/22/21 05:44: WBC 11.5 H, RBC 4.17 L, Hgb 13.1 L, Hct 41.8 L, MCV 100.2 H, MCH 31.5 H, MCHC 31.4 L, RDW 13.3, Plt Count 492 H, MPV 6.9 L, Neut % (Auto) 69.4, Lymph % (Auto) 20.6, [place] % (Auto) 7.0, Eos % (Auto) 2.4, Baso % (Auto) 0.6, Neut # (Auto) 8.0 H, Lymph # (Auto) 2.4, [place] # (Auto) 0.8, Eos # (Auto) 0.3, Baso # (Auto) 0.1, Total Counted 100, Neutrophils % (Manual) 75, Band Neutrophils % 1.0, Lymphocytes % (Manual) 15, Monocytes % (Manual) 6, Eosinophils % (Manual) 3, Platelet Estimate Slight increase, Hypochromasia 1+, Macrocytosis 2+ 09/22/21 05:44: Sodium 134 L, Potassium 4.1, Chloride 101, Carbon Dioxide 26, Anion Gap 11.1, BUN 16, Creatinine 1.10, Estimated Creat Clear 111, Estimated GFR 68, Est GFR ( Amer) 82, Glucose 87, Calcium 8.0 L I & O for Last 24 hours: Intake & Output 09/19/21 09/20/21 09/21/21 09/22/21 23:59 23:59 23:59 23:59 Intake Total 240 / 240 480 / 480 600 / 1080 2129 / 2130 Output Total 750 / 850 1870 / 1870 Balance -510 / -610 -1390 / -1390 600 / 1080 2129 / 213 Weight 110.28 kg 104.326 kg 111.13 kg 111.13 kg Microbiology Reports for the Last 24 Hours: Microbiology 09/19/21 00:34 Leg,Right - Wound Gram Stain - Final 09/19/21 00:34 Leg,Right - Wound Wound Culture - Final Alcaligenes facaecalis Proteus vulgaris/penneri Klebsiella oxytoca Assessment and Plan (1) Skin ulcer of right lower leg Status: Acute Qualifiers: Non-pressure ulcer stage: with fat layer exposed Qualified Code(s): L97.912 - Non-pressure chronic ulcer of unspecified part of right lower leg with fat layer exposed Category: Medical Code(s): L97.919 - Non-pressure chronic ulcer of unspecified part of right lower leg with unspecified severity (2) Bilateral leg pain Start date: 09/20/21 Start time: 09:30 Status: Chronic Category: Medical Code(s): M79.604 - Pain in right leg; M79.605 - Pain in left leg (3) Neuropathy Status: Chronic Category: Medical Code(s): G62.9 - Polyneuropathy, unspecified (4) Lymphedema Start date: 09/20/21 Start time: 09:30 Status: Acute Category: Medical Code(s): I89.0 - Lymphedema, not elsewhere classified (5) Obesity, Class II, BMI 35-39.9 Status: Acute Category: Medical Code(s): E66.9 - Obesity, unspecified (6) Bilateral leg and foot pain Start date: 09/20/21 Start time: 09:30 Status: Acute Category: Medical Code(s): M79.604 - Pain in right leg; M79.605 - Pain in left leg; M79.671 - Pain in right foot; M79.672 - Pain in left foot (7) History of gout Start date: 09/19/21 Start time: 13:00 Status: Acute Category: Medical Code(s): Z87.39 - Personal history of other diseases of the musculoskeletal system and connective tissue (8) Venous insufficiency of both lower extremities Start date: 09/20/21 Start time: 09:30 Status: Acute Category: Medical Code(s): I87.2 - Venous insufficiency (chronic) (peripheral) (9) Cellulitis of right leg Start date: 09/20/21 Start time: 09:30 Status: Acute Category: Medical Code(s): L03.115 - Cellulitis of right lower limb (10) Thrombocytosis Status: Acute Category: Medical Code(s): D75.839 - Thrombocytosis, unspecified The patient's infection will respond to the chosen ABx?: Yes Is the patient receiving the right drug, dose, and route?: Yes Could a more targeted ABx be ordered?: No (CHANGED CEFEPIME, VANCO, AND FLAGYL TO LEVAQUIN PER CX.)
[2021-09-22 16:00] VITALS: BP 137/79; PULSE 74; RESP 18; TEMP 36.8; O2SAT 99
[2021-09-22 20:00] VITALS: BP 145/87; PULSE 82; RESP 16; TEMP 36.6; O2SAT 97
[2021-09-23 04:00] VITALS: BP 123/73; PULSE 84; RESP 21; TEMP 36.8; O2SAT 96
[2021-09-23 05:00] VITALS: BMI 37.0
[2021-09-23 07:18] LABS: MANUAL DIFFERENTIAL MANUAL DIFFERENTIAL (MANUAL DIFF)
[2021-09-23 07:32] LABS: Basophils # 0.1 K/mm3 (0-0.2); Basophils % 0.6 % (0.1-2.0); Eosinophils # 0.2 K/mm3 (0.0-0.4); Eosinophils % 1.7 % (0.1-12.0); Hematocrit 39.5 % (42.0-52.0); Hemoglobin 12.8 g/dL (14.1-18.0); Lymphocytes # 2.4 K/mm3 (0.7-4.5); Lymphocytes % 17.5 % (10-50); Mean Corpuscular HGB Conc 32.3 g/dL (31.8-35.4); Mean Corpuscular Volume 99.1 fl (80-94); Mean Platelet Volume 7.3 fl (7.4-10.4); Monocytes # 1.1 K/mm3 (0.1-1.0); Monocytes % 7.6 % (1.7-9.3); Neutrophils # 10.1 K/mm3 (1.8-7.8); Neutrophils % 72.5 % (37.0-80.0); Platelet Count 524 K/mm3 (142-424); Red Blood Count 3.99 M/mm3 (4.60-6.20); Red Cell Distribution Width 13.2 % (11.5-17.5); White Blood Count 13.9 K/mm3 (4.8-10.8)
[2021-09-23 07:33] LABS: Chloride 102 mmol/L (98-107); Potassium 4.5 mmoL/L (3.5-5.1); Sodium 134 mmol/L (136-145)
[2021-09-23 07:36] LABS: Anion Gap 11.5 mEq/L (5-15); Blood Urea Nitrogen 19 mg/dl (9-20); Calcium 8.4 mg/dl (8.4-10.2); Carbon Dioxide 25 mmol/L (22.0-30.0); Creatinine Clearance Estimated 89 mL/min (50-200); Estimated Glomerular Filt Rate 52 ml/min (>60); GFR (African American) 62 ML/MIN (>60); Glucose 91 mg/dl (74-100)
[2021-09-23 07:50] VITALS: BP 134/77; PULSE 76; RESP 16; TEMP 36.6; O2SAT 91
--- NOTE | 2021-09-23 09:20 | MR_ITS ---
FINAL REPORT CLINICAL HISTORY: RLE cellulitis, r/o abscess FINDINGS: Multiplanar MR imaging of the right lower leg was performed without contrast. There is no evidence of fracture, bone bruise or marrow edema. No bony mass is identified. There is increased T2 signal throughout the musculature consistent with edema or cellulitis. There is widespread edema or cellulitis in the subcutaneous tissues. No focal fluid collection is seen to suggest an abscess. IMPRESSION: Increased T2 signal throughout the musculature consistent with edema or cellulitis with widespread edema or cellulitis in the subcutaneous tissues. No focal fluid collection to suggest an abscess. Reviewed, Interpreted and Dictated by Colin Tillman III, MD Transcribed by Lala Mendoza Authenticated by Colin Tillman III, MD on 09/23/2021 04:38:41 PM [facility]
--- NOTE | 2021-09-23 09:34 | HMH.ORTHPN ---
Subjective Date: 09/23/21 Time: 08:00 Interval history: Patient sitting up in bed. Alert and oriented x3. No acute distress noted. Bilateral lower extremity unna boot removed. Pre- medicated with oral pain med. Refuses right lateral wound debridement due to pain. Topical lidocaine 2 % applied. Dr Gay attempted partial debridement. Patient continue to have severe pain to right proximal tibia and mid calf. We will obtain MRI of right lower leg to rule out abscess. PN: Obj Ex Vital signs: Temp Pulse Resp BP Pulse Ox 97.9 F 76 16 134/77 91 L 09/23/21 07:50 09/23/21 07:50 09/23/21 07:50 09/23/21 07:50 09/23/21 07:50 - Constitutional no acute distress - Routine HEENT Exam Head: Present: normocephalic Eye: Present: EOMI, PERRL ENT: Present: mucous membranes moist - Routine Neck Exam Present: supple - Routine Respiratory Exam Absent: respiratory distress - Routine Cardiovascular Exam Present: RRR - Routine Abdominal Exam Present: soft - Routine Extremities Exam Present: edema, calf tenderness (mid calf pain). Absent: pulses intact (dopplerable), normal capillary refill (sluggish ) - Detailed Lower Extremity Exam Lower leg: Right tenderness, Bilateral swelling, Bilateral erythema Ankle: Right tenderness, Right wound, Bilateral erythema, Bilateral swelling, Bilateral decreased ROM, Bilateral pain with active ROM, Bilateral pain with passive ROM Foot/Toes: Right erythema, Bilateral onychomycosis, Bilateral swelling, Bilateral tenderness, Bilateral pain with active ROM, Bilateral pain with passive ROM Leg image: 1 - Right lateral leg wound was partially sharply excisionally debrided with a currette through skin, thru subq due to patient experiencing severe pain. Post debridement wound measured 27 x 12 x 0.2 cm. Patient has pain to proximal tibia and mid calf. There is cellulitis and edema noted to bilateral lower extremity. Left lower leg has dry and cracked skin. Right hallux nail bed lifting up. Patient has refused nail trim due to pain. Patient does not want aggressive bedside or OR wound debridement. We will obtain MRI to rule out abscess to right lower leg and treat accordingly. Progress Note: A&P (1) Skin ulcer of right lower leg Start date: 09/23/21 Start time: 08:00 Status: Acute (2) Bilateral leg pain Start date: 09/23/21 Start time: 08:00 Status: Chronic (3) Neuropathy Status: Chronic (4) Lymphedema Start date: 09/23/21 Start time: 08:00 Status: Acute (5) Obesity, Class II, BMI 35-39.9 Status: Acute (6) Bilateral leg and foot pain Start date: 09/23/21 Start time: 08:00 Status: Acute (7) History of gout Status: Acute (8) Venous insufficiency of both lower extremities Status: Acute (9) Cellulitis of right leg Start date: 09/23/21 Start time: 08:00 Status: Acute (10) Thrombocytosis Status: Acute (11) Proteus infection Status: Acute (12) Infection, Klebsiella Status: Acute (13) Bacterial cellulitis Status: Acute Assessment and Plan for All Diagnoses:: Laboratory Tests 09/23/21 09/23/21 09/23/21 06:30 06:30 06:30 WBC 13.9 H ESR 65 H BUN 19 Creatinine 1.40 H D Estimated GFR 52 L Glucose 91 Patient seen and evaluated at bedside for right lateral leg wound: -Right lateral leg wound partially debrided (see skin section). -Dressing applied: xeroform, kerlix, and coban. -Obtain MRI to rule out abscess of right lower leg and treat accordingly. -Patient to continue [facility] wound care clinic post discharge. -Follow up with podiatry for wound care and routine foot care.
[2021-09-23 09:40] LABS: C-Reactive Protein 24.2 mg/L (0-4)
[2021-09-23 09:50] LABS: Erythrocyte Sedimentation Rate 65 mm/hr (0-20)
[2021-09-23 10:54] LABS: Lymphocytes % 21 % (10-50); Monocytes % 5 % (2-9); Neutrophils % 74 % (42-76); Platelet Estimate Marked Increase; RBC Morphology Normal; Total Cells Counted 100
--- NOTE | 2021-09-23 11:40 | PC.NURSE ---
1135 iv levaquin stopped at this time, pt going for mri
--- NOTE | 2021-09-23 11:51 | PC.NURSE ---
1145 pt to mri at this time per deanna in radiology
--- NOTE | 2021-09-23 13:10 | PC.NURSE ---
130 notified per esme armando in mri that pt is unable to complete mri r/t. offeredt o bring pt pain medications. pt states that he still would not be able to finish mr. mri staff to notify dr. spence. will bring pt back to room
--- NOTE | 2021-09-23 13:18 | HMH.ACPN2 ---
Internal Medicine - PN: Subj *Date: 09/23/21 *Time: 08:45 Interval history: pt sitting up in chair, states pain in leg when they attempted to debredment, states iv is painful so he cant get pain meds and the washing the leg is to painful. pt has been refusing alot of treatment due to it being to painful Exam Vital signs and Labs for Last 24 Hours: Temp Pulse Resp BP Pulse Ox 97.9 F 76 16 134/77 91 L 09/23/21 07:50 09/23/21 07:50 09/23/21 07:50 09/23/21 07:50 09/23/21 07:50 Laboratory Results - last 24 hr 09/23/21 06:30: WBC 13.9 H, RBC 3.99 L, Hgb 12.8 L, Hct 39.5 L, MCV 99.1 H, MCH 32.0 H, MCHC 32.3, RDW 13.2, Plt Count 524 H, MPV 7.3 L, Neut % (Auto) 72.5, Lymph % (Auto) 17.5, [place] % (Auto) 7.6, Eos % (Auto) 1.7, Baso % (Auto) 0.6, Neut # (Auto) 10.1 H, Lymph # (Auto) 2.4, [place] # (Auto) 1.1 H, Eos # (Auto) 0.2, Baso # (Auto) 0.1, Total Counted 100, Neutrophils % (Manual) 74, Lymphocytes % (Manual) 21, Monocytes % (Manual) 5, Platelet Estimate Marked increase, RBC Morphology Normal 09/23/21 06:30: Sodium 134 L, Potassium 4.5, Chloride 102, Carbon Dioxide 25, Anion Gap 11.5, BUN 19, Creatinine 1.40 H D, Estimated Creat Clear 89, Estimated GFR 52 L, Est GFR ( Amer) 62 D, Glucose 91, Calcium 8.4 09/23/21 06:30: ESR 65 H 09/23/21 06:30: C-Reactive Protein 24.2 H D I & O for Last 24 hours: Intake & Output 09/21/21 09/22/21 09/23/21 09/24/21 11:59 11:59 11:59 11:59 Intake Total 480 / 480 2250 / 2250 840 / 840 Output Total 1350 / 1350 Balance -870 / -870 2250 / 2250 840 / 840 Weight 245 lb 245 lb 250 lb Microbiology Reports for the Last 24 Hours: Microbiology 09/19/21 00:34 Leg,Right - Wound Gram Stain - Final 09/19/21 00:34 Leg,Right - Wound Wound Culture - Final Alcaligenes facaecalis Proteus vulgaris/penneri Klebsiella oxytoca - Constitutional no acute distress - *Routine HEENT Exam Head: Present: normocephalic Eye: Present: PERRL ENT: Present: mucous membranes moist - *Routine Neck Exam Present: supple. Absent: lymphadenopathy - *Routine Respiratory Exam Present: CTA bilaterally - *Routine Cardiovascular Exam Present: RRR - *Routine Abdominal Exam Present: soft, normoactive bowel sounds. Absent: tenderness - *Routine Extremities Exam Absent: cyanosis, clubbing, edema - *Routine Skin Exam Present: wounds Comments: dressing to celi lower ext - *Routine Neurological Exam Present: alert, oriented X3 Assessment and Plan (1) Skin ulcer of right lower leg Start date: 09/23/21 Start time: 08:00 Status: Acute Qualifiers: Non-pressure ulcer stage: with fat layer exposed Qualified Code(s): L97.912 - Non-pressure chronic ulcer of unspecified part of right lower leg with fat layer exposed Category: Medical Code(s): L97.919 - Non-pressure chronic ulcer of unspecified part of right lower leg with unspecified severity (2) Bilateral leg pain Start date: 09/23/21 Start time: 08:00 Status: Chronic Category: Medical Code(s): M79.604 - Pain in right leg; M79.605 - Pain in left leg (3) Neuropathy Status: Chronic Category: Medical Code(s): G62.9 - Polyneuropathy, unspecified (4) Lymphedema Start date: 09/23/21 Start time: 08:00 Status: Acute Category: Medical Code(s): I89.0 - Lymphedema, not elsewhere classified (5) Obesity, Class II, BMI 35-39.9 Status: Acute Category: Medical Code(s): E66.9 - Obesity, unspecified (6) Bilateral leg and foot pain Start date: 09/23/21 Start time: 08:00 Status: Acute Category: Medical Code(s): M79.604 - Pain in right leg; M79.605 - Pain in left leg; M79.671 - Pain in right foot; M79.672 - Pain in left foot (7) History of gout Start date: 09/19/21 Start time: 13:00 Status: Acute Category: Medical Code(s): Z87.39 - Personal history of other diseases of the musculoskeleta
--- NOTE | 2021-09-23 13:21 | PC.NURSE ---
1312 pt returned to room at this time
--- NOTE | 2021-09-23 14:33 | HMH.ITSTN ---
PT WAS UNABLE TO FINISH MRI EXAM DUE TO PAIN, PT WAS OFFERED PAIN MEDS TO BE ABLE TO FINISH EXAM BUT STATED HE JUST DIDNT THINK HE COULD DO IT BECAUSE IT HURT TOO BAD. SPOKE WITH DR MATIAS OFFICE AT APPROX 1:10PM TO SEE IF DR. KING WANTED US TO SEND OVER IMAGES W/O CONTRAST TO BE READ BY [facility], THEY WERE GONNA CHECK WITH HER AND CALL US BACK. AT 2:40PM STILL NO RESPONSE FROM HER OFFICE, IMAGES SENT TO BE READ.
[2021-09-23 16:00] VITALS: BP 130/59; PULSE 79; RESP 18; TEMP 36.5; O2SAT 95
[2021-09-23 20:00] VITALS: BP 131/63; PULSE 82; RESP 18; TEMP 36.8; O2SAT 93
[2021-09-24 04:00] VITALS: BP 155/90; PULSE 96; RESP 18; TEMP 36.3; O2SAT 97
--- NOTE | 2021-09-24 04:43 | PC.NURSE ---
At start of this RN shift patient was sitting in recliner with BLE down. This RN encourage patient to elevate BLE. Patient stated that he will when he goes to bed. Patient rested well during this RN shift with BLE elevated while in bed.
[2021-09-24 05:00] VITALS: BMI 37.0
[2021-09-24 06:39] LABS: MANUAL DIFFERENTIAL MANUAL DIFFERENTIAL (MANUAL DIFF)
[2021-09-24 06:46] LABS: Basophils # 0.1 K/mm3 (0-0.2); Basophils % 0.5 % (0.1-2.0); Eosinophils # 0.2 K/mm3 (0.0-0.4); Eosinophils % 1.2 % (0.1-12.0); Hematocrit 39.3 % (42.0-52.0); Hemoglobin 12.4 g/dL (14.1-18.0); Lymphocytes # 2.6 K/mm3 (0.7-4.5); Lymphocytes % 16.8 % (10-50); Mean Corpuscular HGB Conc 31.5 g/dL (31.8-35.4); Mean Corpuscular Hemoglobin 31.5 pg (27.0-31.2); Mean Corpuscular Volume 100.2 fl (80-94); Mean Platelet Volume 7.4 fl (7.4-10.4); Monocytes # 1.1 K/mm3 (0.1-1.0); Monocytes % 7.5 % (1.7-9.3); Neutrophils # 11.2 K/mm3 (1.8-7.8); Platelet Count 496 K/mm3 (142-424); Red Blood Count 3.92 M/mm3 (4.60-6.20); Red Cell Distribution Width 13.8 % (11.5-17.5); White Blood Count 15.1 K/mm3 (4.8-10.8)
[2021-09-24 06:55] LABS: Anion Gap 8.4 mEq/L (5-15); Blood Urea Nitrogen 20 mg/dl (9-20); Calcium 8.7 mg/dl (8.4-10.2); Carbon Dioxide 28 mmol/L (22.0-30.0); Chloride 104 mmol/L (98-107); Creatinine Clearance Estimated 96 mL/min (50-200); Estimated Glomerular Filt Rate 56 ml/min (>60); GFR (African American) 68 ML/MIN (>60); Glucose 104 mg/dl (74-100); Potassium 4.4 mmoL/L (3.5-5.1); Sodium 136 mmol/L (136-145)
[2021-09-24 08:00] VITALS: BP 140/59; PULSE 77; RESP 16; TEMP 36.4; O2SAT 96
--- NOTE | 2021-09-24 08:30 | PC.NURSE ---
wound assessment- ble wrapped in dressing. oozing noted from toes and legs- yellow in color. edema noted. redness/scaly looking. feet purple/perez in color. patient a/ox4.
--- NOTE | 2021-09-24 08:55 | HMH.DCSUM ---
General - General Admission date:: 09/18/21 Discharge date: 09/24/21 HPI HPI: 61-year-old male patient presented to [facility] emergency department after being sent to the office from primary care office for evaluation for possible gangrenous right lower extremity infection. Patient reports being seen by podiatry and PCP for care of ongoing wound to right lower extremity for several months, from chart he was in wound care office 26 June with Unna boot applied and missed next appointment. He did change PCPs and Dr. Mejia is presently his new PCP and after first visit was sent to the emergency department for evaluation. He has not been febrile, denies nausea/vomiting/diarrhea and that he is a 1 pack/day smoker for many years, denies illicit drug or alcohol use. And denies any history of diabetes. 09/18/[address]: FINDINGS: Axial images of the right lower leg was obtained with and without contrast. Sagittal coronal reformatted images were obtained and reviewed. This study was performed with techniques to keep radiation doses as low as reasonably achievable (ALARA). Individualized dose reduction techniques using automated exposure control or adjustment of mA and/or kV according to the patient's size were employed. There is marked soft tissue swelling throughout the right lower leg. There is subcutaneous soft tissue edema measuring up to 2.3 cm in depth. There is some soft tissue ulceration lateral to the lateral malleolus. Small subcutaneous calcifications or ossifications are present. Structures measure up to 5 mm in greatest dimension. There is no underlying bony erosion. There is no periosteal reaction. There is a large calcification associated with the distal Achilles tendon. Region of calcification measures 7.0 x 3.0 cm in craniocaudal and AP dimension. Findings are probably related to sequela of prior Achilles tendon rupture. Postcontrast images were reviewed. IMPRESSION: Marked subcutaneous soft tissue edema throughout the right lower leg, favor to be related to cellulitis. Soft tissue ulceration over the lateral malleolus without definite underlying bony erosion. Large calcification within the distal Achilles, favor to be related to sequela of chronic tendon tear. Reviewed, Interpreted and Dictated by Javid Lopez MD 61-year-old male patient sitting up in chair, he reports pain and itching. He did receive morphine during the night and then reported localized right lower extremity itching after he received medications we will prescribe Atarax for that as needed. We will consult wound care, podiatry Hospital Course Hospital Course: 61-year-old male patient presented to [facility] emergency department after being sent to the office from primary care office for evaluation for possible gangrenous right lower extremity infection. Patient reports being seen by podiatry and PCP for care of ongoing wound to right lower extremity for several months, from chart he was in wound care office 26 June with Unna boot applied and missed next appointment. He did change PCPs and Dr. Mejia is presently his new PCP and after first visit was sent to the emergency department for evaluation. He has not been febrile, denies nausea/vomiting/diarrhea and that he is a 1 pack/day smoker for many years, denies illicit drug or alcohol use. And denies any history of diabetes. 09/18/[address]: FINDINGS: Axial images of the right lower leg was obtained with and without contrast. Sagittal coronal reformatted images were obtained and reviewed. This study was performed with techniques to keep radiation doses as low as reasonably achievable (ALARA). Individualized dose reduction techniques using automated exposure control or adjustment of mA and/or kV according to the patient's size were employed. There is marked soft tissue swelling throughout the right lower leg. There is subcutaneous
--- NOTE | 2021-09-24 09:20 | PC.NURSE ---
PODIATRY AT BEDSIDE DRESSING LEGS/FEET
--- NOTE | 2021-09-24 09:37 | HMH.ORTHPN ---
Subjective Date: 09/24/21 Time: 09:00 Interval history: Patient sitting up in chair. Alert and oriented x3. PCP team at bedside giving discharge education on medications and follow up. Patient once again refuses bedside aggressive right leg wound debridement due to pain. Patient was Pre-medicated with oral pain med prior to wound care. Right lateral leg wound cleansed with wound cleanser. Measurement 27 x 12x 0.2 cm. xeroform dressing applied. Unna boot to bilateral lower extremity. Patient to be sent home with a fall fracture boot to right lower leg due to possible tibia fracture. PN: Obj Ex Vital signs: Temp Pulse Resp BP Pulse Ox 97.5 F L 77 16 140/59 L 96 09/24/21 08:00 09/24/21 08:00 09/24/21 08:00 09/24/21 08:00 09/24/21 08:00 - Constitutional no acute distress - Routine HEENT Exam Head: Present: normocephalic Eye: Present: EOMI, PERRL ENT: Present: mucous membranes moist - Routine Neck Exam Present: supple - Routine Respiratory Exam Absent: respiratory distress - Routine Cardiovascular Exam Present: RRR - Routine Abdominal Exam Present: soft - Routine Extremities Exam Present: edema. Absent: pulses intact (dopplerable pedal pulses), normal capillary refill (sluggish) - Detailed Lower Extremity Exam Lower leg: Right tenderness (mid calf pain), Right wound (lateral leg), Bilateral swelling, Bilateral erythema Ankle: Bilateral swelling, Bilateral decreased ROM, Bilateral pain with active ROM, Bilateral pain with passive ROM Foot/Toes: Bilateral deformity, Bilateral erythema, Bilateral nail abnormalities, Bilateral onychomycosis, Bilateral swelling, Bilateral tenderness, Bilateral decreased ROM, Bilateral pain with active ROM, Bilateral pain with passive ROM Leg image: 1 - Right lateral leg wound patient refused bedside debridement. The wound was cleansed with wound cleanser. Measurements: 27 x 12 x 0.2 cm. There is cellulitis, and tenderness to right mid calf. patient overall bilateral lower extremity skin is dry and cracked. Patient has personal history of lymphedema. There is non pitting edema noted, the toenails are discolored and painfull to palpation. Patient refuses nail trimming due to pain. Unna boot loosely applied to b/l lower extremity. Patient instructed to remove it in 3-5 days. Tall fracture boot to right lower leg. Progress Note: A&P (1) Skin ulcer of right lower leg Start date: 09/24/21 Start time: 09:00 Status: Acute (2) Bilateral leg pain Start date: 09/24/21 Start time: 09:00 Status: Chronic (3) Neuropathy Status: Chronic (4) Lymphedema Start date: 09/24/21 Start time: 09:00 Status: Acute (5) Obesity, Class II, BMI 35-39.9 Status: Acute (6) Bilateral leg and foot pain Start date: 09/24/21 Start time: 09:00 Status: Acute (7) History of gout Status: Acute (8) Venous insufficiency of both lower extremities Status: Acute (9) Cellulitis of right leg Start date: 09/24/21 Start time: 09:00 Status: Acute (10) Thrombocytosis Status: Acute (11) Proteus infection Status: Acute (12) Infection, Klebsiella Status: Acute (13) Bacterial cellulitis Status: Acute Assessment and Plan for All Diagnoses:: Laboratory Tests 09/24/21 09/24/21 06:10 06:10 WBC 15.1 H BUN 20 Creatinine 1.30 H Estimated GFR 56 L Glucose 104 H Date of Service: 09/23/21. Procedure(s): MR lower leg RT wo con. FINDINGS: Multiplanar MR imaging of the right lower leg was performed without contrast. There is no evidence of fracture, bone bruise or marrow edema. No bony mass is identified. There is increased T2 signal throughout the musculature consistent with edema or cellulitis. There is widespread edema or cellulitis in the subcutaneous tissues. No focal fluid collection is seen to suggest an abscess. IMPRESSION: Increased T2 sign
--- NOTE | 2021-09-24 10:04 | CARE MANAGER ---
Consult for tall fracture boot to right leg, called Aric Dunlap patient nurse and she states podiatry is taking care of this. Nurse will let CM know if there is an issue with this patient.
[2021-09-24 10:08] LABS: Eosinophils % 2 % (0-3); Lymphocytes % 17 % (10-50); Macrocytosis 1+; Monocytes % 13 % (2-9); Neutrophils % 68 % (42-76); Platelet Estimate Normal; Total Cells Counted 100
--- NOTE | 2021-09-24 10:08 | SW/DCPLANNER ---
The plan for this patient is to discharge home today and return back to outpatient wound care clinic. Patient stated that he did not have any further needs at this time.
--- NOTE | 2021-09-24 11:46 | PC.NURSE ---
patient needs wheelchair rather than walker r/t his gait and mobility issues.
--- NOTE | 2021-09-24 12:41 | HMH.PHAINT ---
Discharge counseling complete. Informed pt of new meds, purpose, how to take, and possible side effects. Answered pts (many many) questions and at the end he understood and had no more questions or concerns.
--- NOTE | 2021-09-26 13:41 | CARE MANAGER ---
Spoke with patient on the phone discussing post discharge medications, follow-up and wound care. Appointments for follow-up were reiterated with patient 09/[address] Mejia and 09/30 with wound care, patient is aware and states he will be there. Patient states he did get his medication and had no concerns with them.
== END 2021-09-24 14:45 | disposition home or self-care (01) | DRG 571 ==
LOC: ER 13:26 → 2ND 14:48
PROVIDERS: Internal Medicine; Nurse Practitioner Family; Podiatrist; Admitting Provider Emergency Medicine; Emergency Provider Student in an Organized Health Care Education/Training Program; PCP Family Medicine; Visit Provider Emergency Medicine
PROC: B4101ZZ Fluoroscopy of Abdominal Aorta using Low Osmolar Contrast (ICD-10-PCS; principal; 2021-09-19 15:00)
DX: L97.212 Non-pressure chronic ulcer of right calf with fat layer exposed (principal); L03.115 Cellulitis of right lower limb; I87.2 Venous insufficiency (chronic) (peripheral); I10 Essential (primary) hypertension; I89.0 Lymphedema, not elsewhere classified; B96.1 Klebsiella pneumoniae [K. pneumoniae] as the cause of diseases classified elsewhere; F17.210 Nicotine dependence, cigarettes, uncomplicated; G62.9 Polyneuropathy, unspecified; M19.072 Primary osteoarthritis, left ankle and foot; M19.071 Primary osteoarthritis, right ankle and foot; F41.9 Anxiety disorder, unspecified; E66.9 Obesity, unspecified; Z68.37 Body mass index [BMI] 37.0-37.9, adult; B96.89 Other specified bacterial agents as the cause of diseases classified elsewhere; M10.9 Gout, unspecified; D75.839 Thrombocytosis, unspecified; Z20.822 Contact with and (suspected) exposure to COVID-19
CPT/HCPCS: 11042; 36246; 36415; 73702; 73718; 75625; 75716; 80048; 80053; 80202; 83036; 83605; 85007; 85014; 85018; 85025; 85048; 85049; 85651; 86140; 87040; 87070; 87077; 87186; 87205; 93923; 96365; 96367; 96375; 97760; 99152; 99153; 99284; C1725; C1760; C1769; C9803; J1644; J1956; J2405; Q9966; Q9967; U0003; U0005

== ENCOUNTER → 2021-10-11 14:11 | Outpatient (CLI) | payer MEDICARE, MEDICAID, SELFPAY ==
[2021-10-11 19:16] LABS: Amphetamine/Metha Screen,Urine Negative ng/ml (<1000)
[2021-10-11 19:17] LABS: Barbiturates Screen,Urine Negative ng/ml (<200)
[2021-10-11 19:18] LABS: Benzodiazepines Screen,Urine Positive ng/ml (<200)
[2021-10-11 19:19] LABS: Cannabinoid Screen,Urine Negative ng/ml (<50)
[2021-10-11 19:20] LABS: Cocaine Screen,Urine Negative ng/ml (<300)
[2021-10-11 19:50] LABS: Methadone Screen,Urine Negative ng/ml (<300)
[2021-10-11 19:51] LABS: Opiate Screen,Urine Positive ng/ml (<300); Phencyclidine Screen,Urine Negative ng/ml (<25)
== END ==
PROVIDERS: Visit Provider Emergency Medicine
DX: Z79.899 Other long term (current) drug therapy (principal)
CPT/HCPCS: 80305

== ENCOUNTER 2021-11-29 17:38 | Emergency (ER) | payer MEDICARE, MEDICAID, SELFPAY ==
--- NOTE | 2021-11-29 18:16 | PC.NURSE ---
PT WITH NO C/O STATES WOUND CARE CALLED DR NOBLE'S OFFICE AND TOLD TO COME TO ED. PT DENIES ANY FEVER, CHILLS, NAUSEA, STATES REDNESS TO LEGS HAVE IMPROVED. STATES HE DOESN'T THINK HE WANTS TO BE SEEN. INFORMED PT TO RETURN TO ED FOR ANY CHANGES IN SYMPTOMS OR ANY CONCERNS.
[2021-11-29 18:18] VITALS: BP 0/0; PULSE 0; RESP 0; TEMP -17.7; TEMP 0; O2SAT 0
== END 2021-11-29 18:20 | disposition left against medical advice (07) ==
LOC: ER 17:53
PROVIDERS: Emergency Provider Emergency Medicine; PCP Emergency Medicine
DX: Z53.21 Procedure and treatment not carried out due to patient leaving prior to being seen by health care provider (principal)

== ENCOUNTER → 2021-12-17 11:08 | Outpatient (POV) | payer MEDICARE, MEDICAID, SELFPAY | PROVIDERS: Visit Provider Dermatology | DX: Z00.00 Encounter for general adult medical examination without abnormal findings (principal) ==

== ENCOUNTER → 2022-01-30 06:08 | Outpatient (CLI) | payer MEDICARE, MEDICAID, SELFPAY ==
[2022-01-29 18:58] LABS: Amphetamine/Metha Screen,Urine Negative ng/ml (<1000)
[2022-01-29 19:03] LABS: Barbiturates Screen,Urine Negative ng/ml (<200)
[2022-01-29 19:04] LABS: Benzodiazepines Screen,Urine Negative ng/ml (<200)
[2022-01-29 19:05] LABS: Cannabinoid Screen,Urine Positive ng/ml (<50); Cocaine Screen,Urine Negative ng/ml (<300)
[2022-01-29 19:06] LABS: Methadone Screen,Urine Negative ng/ml (<300); Opiate Screen,Urine Positive ng/ml (<300)
[2022-01-29 19:07] LABS: Phencyclidine Screen,Urine Negative ng/ml (<25)
== END ==
PROVIDERS: PCP Emergency Medicine; Visit Provider Emergency Medicine
DX: Z79.899 Other long term (current) drug therapy (principal)
CPT/HCPCS: 80305

== ENCOUNTER → 2022-03-25 15:08 | Outpatient (CLI) | payer MEDICARE, MEDICAID, SELFPAY ==
[2022-03-25 18:29] LABS: Barbiturates Screen,Urine Negative ng/ml (<200)
[2022-03-25 18:30] LABS: Benzodiazepines Screen,Urine Negative ng/ml (<200)
[2022-03-25 18:31] LABS: Amphetamine/Metha Screen,Urine Negative ng/ml (<1000); Cannabinoid Screen,Urine Negative ng/ml (<50)
[2022-03-25 18:32] LABS: Cocaine Screen,Urine Negative ng/ml (<300)
[2022-03-25 18:33] LABS: Methadone Screen,Urine Negative ng/ml (<300); Opiate Screen,Urine Negative ng/ml (<300)
[2022-03-25 18:34] LABS: Phencyclidine Screen,Urine Negative ng/ml (<25)
== END ==
PROVIDERS: PCP Emergency Medicine; Visit Provider Emergency Medicine
DX: M51.36 Other intervertebral disc degeneration, lumbar region (principal)
CPT/HCPCS: 80305

== ENCOUNTER → 2022-03-26 10:00 | Outpatient (CLI) | payer MEDICARE, MEDICAID, SELFPAY | PROVIDERS: Visit Provider Nurse Practitioner Family | DX: Z51.89 Encounter for other specified aftercare (principal); S91.102D Unspecified open wound of left great toe without damage to nail, subsequent encounter | CPT/HCPCS: 87070; 87077; 87186; 87205 ==

== ENCOUNTER 2022-05-14 13:00 | Outpatient (RCR) | payer MEDICARE, MEDICAID, SELFPAY ==
--- NOTE | 2021-10-28 08:57 | HMH.RHREAS ---
Rehab Reassessment Rehab OP Re-assessment Start: 10/28/21 08:52 Freq: Status: Active Protocol: Document 10/28/21 08:53 JACK (Rec: 10/28/21 08:57 JACK [id number]) Electronically Signed By Kristian Krishna, PT 10/28/21 08:53 Rehab Re-assessment Subjective Subjective Pt reports, My legs feel somewhere between pain and itching. Objective Objective Notes B LE wounds: B LE with continued large wounds size ~ 18.0 cm x 15.0 cm without significant depth at this time . Continued copious serous drainage noted. Continued maceration to wound borders noted. Assessment Progress Assessment Slower Than Expected Assessment Notes B LE with less slough to wounds, but drainage remains copious with mildly foul odor. More granulation tissue noted , but wounds remain very large with significant skin surface area open on B lower legs. Patient goals met ST Goals Not Met ST,3,4,5 LT,2,3,4, 5 Revised Goals none Plan Plan Continue per initial POC. Frequency of Therapy 3 x/wk Duration of therapy 4 wks Time and Billing Re-Eval Time 14 Re-Eval Billing Units 1 PHYSICIAN CERTIFICATION: I certify the specified therapy services for Merrill Dowling are required, authorized, and reviewed every 30 days.
--- NOTE | 2021-11-25 13:47 | HMH.RHREAS ---
Rehab Reassessment Rehab OP Re-assessment Start: 10/28/21 08:52 Freq: Status: Active Protocol: Document 11/25/21 13:41 JACK (Rec: 11/25/21 13:47 JACK [id number]) Electronically Signed By Kristian Krishna, PT 11/25/21 13:41 Rehab Re-assessment Subjective Subjective Pt reports less pain overall, but remains very tender with dressing changes. Objective Objective Notes R LE lateral booth wound: L= 20 .0 cm, W= 18.0 cm L LE booth wound: L= 17.0 cm, W = 30.0 cm (entire lower leg circumference) B LE wounds without significant depth at this time . Continued copious serous drainage noted. Continued maceration to wound borders noted. Assessment Progress Assessment Slower Than Expected Assessment Notes Pt has shown significant changes with regard to wound slough. However, he continues to have copious amts of drainage with multiple highly absorbant pads completely saturated after ~2-3 days. Some small areas of epithelial tissue present. Patient goals met ST Goals Not Met ST,3,4,5 LT,2,3,4, 5 Revised Goals none Plan Plan Continue per initial POC. Frequency of Therapy 3 x/wk Duration of therapy 4 wks Time and Billing Re-Eval Time 15 Re-Eval Billing Units 1 PHYSICIAN CERTIFICATION: I certify the specified therapy services for Merrill Dowling are required, authorized, and reviewed every 30 days.
--- NOTE | 2021-12-20 14:30 | HMH.RHREAS ---
Rehab Reassessment Rehab OP Re-assessment Start: 10/28/21 08:52 Freq: Status: Active Protocol: Document 12/20/21 14:27 JACK (Rec: 12/20/21 14:30 JACK [id number]) Electronically Signed By Kristian Krishna, PT 12/20/21 14:27 Rehab Re-assessment Subjective Subjective Pt continues to c/o fairly constant pain and discomfort in B LE, worse with dressing changes. Objective Objective Notes R LE lateral booth wound: L= 19 .0 cm, W= 17.0 cm L LE booth wound: L= 15.0 cm, W = 30.0 cm (entire lower leg New onset R medial great toe wound L=0.5 cm, W= 0.5 cm. Bone palpable with forceps. Assessment Progress Assessment Slower Than Expected Assessment Notes Pt has show significant improvement in the depth of R lateral LE wound, however continues to have copious amts of drainage and maceration. New R GT wound is concerning for osteomyelitis due to palpable hard bone at the base of the wound. Continues to need considerable wound healing to occur. Patient goals met ST Goals Not Met ST,3,4,5 LT,2,3,4, 5 Revised Goals none Plan Plan Continue per initial POC. Frequency of Therapy 3 x/wk Duration of therapy 4 wks Time and Billing Re-Eval Time 15 Re-Eval Billing Units 1 PHYSICIAN CERTIFICATION: I certify the specified therapy services for Merrill Dowling are required, authorized, and reviewed every 30 days.
--- NOTE | 2022-01-17 10:34 | HMH.RHREAS ---
Rehab Reassessment Rehab OP Re-assessment Start: 10/28/21 08:52 Freq: Status: Active Protocol: Document 01/17/22 10:31 JACK (Rec: 01/17/22 10:33 JACK [id number]) Electronically Signed By Kristian Krishna, PT 01/17/22 10:31 Rehab Re-assessment Subjective Subjective Pt reports no changes in discomfort. It stings, but not as bad as it did. Objective Objective Notes R lower leg wound: L= 18.0 cm, W= 14.0 cm, D= 0.1 cm. L lower leg wound: L= 17.0 cm, W= 28.0 cm, D= 0.1 cm. Assessment Progress Assessment Progressing as Expected Assessment Notes Pt has shown significant change in epithelial tissue improvement this past 2-3 wks. Continues to have copious amts of drainage from B lower legs and significant hyperkeratosis. Patient goals met ST,2,3,4,5 Goals Not Met LT,2,3,4,5 Revised Goals none Plan Plan Continue per initial POC. Frequency of Therapy 3 x/wk Duration of therapy 4 wks Time and Billing Re-Eval Time 15 Re-Eval Billing Units 1 PHYSICIAN CERTIFICATION: I certify the specified therapy services for Merrill Dowling are required, authorized, and reviewed every 30 days.
--- NOTE | 2022-02-18 13:54 | HMH.RHREAS ---
Rehab Reassessment Rehab OP Re-assessment Start: 10/28/21 08:52 Freq: Status: Active Protocol: Document 02/18/22 13:52 JACK (Rec: 02/18/22 13:53 JACK [id number]) Electronically Signed By Kristian Krishna, PT 02/18/22 13:52 Rehab Re-assessment Subjective Subjective Pt reports, I feel a lot better, it doesn't hurt as bad as it used to. It only really hurts bad at night. Pain 7/ 10 at worst. Objective Objective Notes R lower leg wound: L= 18.0 cm, W= 10.0 cm, D= 0.1 cm. L lower leg wound: L= 16.0 cm, W= 28.0 cm, D= 0.1 cm. Assessment Progress Assessment Progressing as Expected Assessment Notes Pt continues to show significant improvements in edema and wound quality. Small islands of epithelial tissue noted with B lower leg wounds. Wounds do continue with copious amts of drainage which slows wound healing. Patient goals met ST,2,3,4,5 Goals Not Met LT,2,3,4,5 Revised Goals none Plan Plan Continue per initial POC. Frequency of Therapy 3 x/wk Duration of therapy 4 wks Time and Billing Re-Eval Time 14 Re-Eval Billing Units 1 PHYSICIAN CERTIFICATION: I certify the specified therapy services for Merrill Dowling are required, authorized, and reviewed every 30 days.
--- NOTE | 2022-03-21 14:09 | HMH.RHREAS ---
Rehab Reassessment Rehab OP Re-assessment Start: 10/28/21 08:52 Freq: Status: Active Protocol: Document 03/21/22 14:03 JACK (Rec: 03/21/22 14:09 [email or web address] [id number]) E-signed By Kristian Krishna, PT Rehab Re-assessment Subjective Subjective Pt reports he feels much better, with 0/10 pain at this time in B LE. Objective Objective Notes R Lower leg wounds: Superior L = 0.6 cm, W= 1.2 cm Middle L= 1.4 cm, W=0.5 cm Inferior L= 1.5 cm, W= 1.0 cm. L Lower leg wound: L= 2.0 cm, W= 1.4 cm. Assessment Progress Assessment Progressing as Expected Assessment Notes Pt has shown exceptional progress over the past 3-4 wks with huge reduction in overall wound area. Minimal drainage noted to B lower legs this date with healthy skin noted throughout. Patient goals met ST,2,3,4,5 Goals Not Met LT,2,3,4,5 Revised Goals none Plan Plan Continue per initial POC. Frequency of Therapy 3 x/wk Duration of therapy 4 wks Time and Billing Re-Eval Time 14 Re-Eval Billing Units 1 PHYSICIAN CERTIFICATION: I certify the specified therapy services for Merrill Dowling are required, authorized, and reviewed every 30 days.
--- NOTE | 2022-04-21 10:44 | HMH.RHREAS ---
Rehab Reassessment Rehab OP Re-assessment Start: 10/28/21 08:52 Freq: Status: Active Protocol: Document 04/21/22 10:40 JACK (Rec: 04/21/22 10:44 JACK [id number]) E-signed By Kristian Krishna, PT Rehab Re-assessment Subjective Subjective Pt reports he feels much better overall. No c/o pain again and less difficulty with ambulation. Objective Objective Notes R Lower leg wounds: Lateral calf L= 1.0 cm, W= 0.5 cm. Medial R Great Toe L= 0.7 cm, W= 0.5 cm. L Lower leg wound: L LE appears completely epithelialized at this point. 2+ pitting edema remains to B lower legs. Assessment Progress Assessment Progressing as Expected Assessment Notes Pt has shown significant reductionin wound size to B LE . He does continue to have higher than normal amts of drainage from the remaining R LE wounds and increased pitting edema B. Overall healing very well. Patient goals met ST,2,3,4,5 Goals Not Met LT,2,3,4,5 Revised Goals none Plan Plan Continue per initial POC. Frequency of Therapy 2-3 x/wk Duration of therapy 4 wks Time and Billing Re-Eval Time 14 Re-Eval Billing Units 1 PHYSICIAN CERTIFICATION: I certify the specified therapy services for Merrill Dowling are required, authorized, and reviewed every 30 days.
== END 2022-05-14 14:00 | disposition home or self-care (01) ==
LOC: PT 13:00
PROVIDERS: Visit Provider Emergency Medicine
DX: M79.604 Pain in right leg (principal); M79.605 Pain in left leg; M79.671 Pain in right foot; M79.672 Pain in left foot; I96 Gangrene, not elsewhere classified
CPT/HCPCS: 29580; 97163; 97164; 97597; 97598

== ENCOUNTER → 2022-05-14 14:59 | Outpatient (CLI) | payer MEDICARE, MEDICAID, SELFPAY ==
--- NOTE | 2022-05-14 15:21 | XR_ITS ---
FINAL REPORT CLINICAL HISTORY: foot pain COMPARISON: 01/29/2021 FINDINGS: Right foot Three views were obtained. There is no acute fracture or dislocation. There are moderate degenerative changes. There are severe degenerative changes of the great toe. There are erosions of the medial and lateral 1st metatarsal head, may represent inflammatory arthritis or possibly gout. There is a subchondral cyst in the 1st proximal and distal phalanges multiple bones of the midfoot. IMPRESSION: Findings may represent inflammatory arthritis versus gout. Degenerative changes as detailed above. Reviewed, Interpreted and Dictated by Colin Tillman III, MD Transcribed by Lalitha Ambrosio Authenticated and [facility]
== END ==
PROVIDERS: PCP Emergency Medicine; Visit Provider Nurse Practitioner Family
DX: Z51.89 Encounter for other specified aftercare; M79.671 Pain in right foot
CPT/HCPCS: 73630

== ENCOUNTER → 2022-06-03 14:06 | Outpatient (POV) | payer MEDICARE, MEDICAID, SELFPAY | PROVIDERS: Visit Provider Dermatology | DX: Z00.00 Encounter for general adult medical examination without abnormal findings (principal) ==

== ENCOUNTER → 2022-06-18 16:47 | Outpatient (CLI) | payer MEDICARE, MEDICAID, SELFPAY ==
[2022-06-18 17:14] LABS: Amphetamine/Metha Screen,Urine Negative ng/ml (<1000); Barbiturates Screen,Urine Negative ng/ml (<200)
[2022-06-18 17:15] LABS: Benzodiazepines Screen,Urine Negative ng/ml (<200); Cannabinoid Screen,Urine Negative ng/ml (<50)
[2022-06-18 17:16] LABS: Cocaine Screen,Urine Negative ng/ml (<300)
[2022-06-18 17:17] LABS: Methadone Screen,Urine Negative ng/ml (<300); Opiate Screen,Urine Negative ng/ml (<300)
[2022-06-18 17:18] LABS: Phencyclidine Screen,Urine Negative ng/ml (<25)
== END ==
PROVIDERS: PCP Emergency Medicine; Visit Provider Emergency Medicine
DX: M51.36 Other intervertebral disc degeneration, lumbar region (principal)
CPT/HCPCS: 80305

== ENCOUNTER → 2022-06-30 06:05 | Outpatient (CLI) | payer MEDICARE, MEDICAID, SELFPAY | PROVIDERS: Visit Provider Nurse Practitioner Family | DX: I89.0 Lymphedema, not elsewhere classified (principal); B96.1 Klebsiella pneumoniae [K. pneumoniae] as the cause of diseases classified elsewhere; B96.89 Other specified bacterial agents as the cause of diseases classified elsewhere; B95.2 Enterococcus as the cause of diseases classified elsewhere | CPT/HCPCS: 87070; 87077; 87186; 87205 ==

== ENCOUNTER → 2022-07-29 05:54 | Outpatient (CLI) | payer MEDICARE, MEDICAID, SELFPAY | PROVIDERS: PCP Emergency Medicine; Visit Provider Nurse Practitioner Family | DX: Z51.89 Encounter for other specified aftercare (principal); M79.671 Pain in right foot | CPT/HCPCS: 87070; 87077; 87186; 87205 ==

== ENCOUNTER → 2022-08-22 13:20 | Outpatient (CLI) | payer MEDICARE, MEDICAID, SELFPAY ==
[2022-08-22 18:28] LABS: Benzodiazepines Screen,Urine Negative ng/ml (<200)
[2022-08-22 18:29] LABS: Amphetamine/Metha Screen,Urine Negative ng/ml (<1000); Barbiturates Screen,Urine Negative ng/ml (<200)
[2022-08-22 18:30] LABS: Cannabinoid Screen,Urine Positive ng/ml (<50); Cocaine Screen,Urine Negative ng/ml (<300)
[2022-08-22 18:31] LABS: Methadone Screen,Urine Negative ng/ml (<300)
[2022-08-22 18:32] LABS: Opiate Screen,Urine Positive ng/ml (<300); Phencyclidine Screen,Urine Negative ng/ml (<25)
== END ==
PROVIDERS: PCP Emergency Medicine; Visit Provider Emergency Medicine
DX: M51.36 Other intervertebral disc degeneration, lumbar region (principal)
CPT/HCPCS: 80305

== ENCOUNTER 2022-09-08 15:00 | Outpatient (RCR) | payer MEDICARE, MEDICAID, SELFPAY ==
--- NOTE | 2022-08-11 14:48 | HMH.PTOPWND ---
Rehab Outpt Wound Evaluation Rehab OP Wound Evaluation Start: 08/11/22 14:31 Freq: Status: Active Protocol: Document 08/11/22 14:36 PHOFLY (Rec: 08/11/22 14:48 PHORNE [id number]) E-signed By Kristian Krishna, PT Subjective/History History History This is the initial PT eval for Merrill Dowling 62 yowm who presents with R great toe wound x ~ 6 mos. 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 He ambulates with shuffling steps with little calf activiation which exacerbates the poor circulation due to CVI. B LE present with minimal serous drainage and increased hyperkeratosis this date, but no current obvious open wounds noted other than R great toe. Swab culture from [facility] office shows 4 separate organisms growing from the R great toe wound. Subjective Subjective Pt c/o pain intermittently in B LE. Mild hard, woody edema in B lower legs noted this date. No TTP noted in either lowerl leg this date. Pt reports he is currently using 2 different topical antibiotics to spray on his legs daily as prescribed. Wound Eval Wound Right Medial Great Toe Wound Type chronic neuropathic fooot ulcer Is This a Chronic Wound Yes Wound Length (cm) 1.5 Wound Width (cm) 1.6 Wound Depth (cm) 0.3 Wound Bed Appearance Beefy Red,Yellow Percentage Granulated (%) 50 Percentage of Slough (%) 50 Wound Margins Description Well Defined Undermining Position 10 o'clock Undermining Length (cm) 0.3 Surrounding Tissue Appearance Dark Red,Blanched/Dull, Edematous Edema Type Non-Pitting Drainage Description Purulent Drainage Amount Scant Primary Dressing Composite Comment therahoney gel, optifoam gentle border lite Dressing Change Patient Tolerance Tolerated Well Wound Problems/Impairments Impairments Pro
--- NOTE | 2022-09-08 16:18 | HMH.RHREAS ---
Rehab Reassessment Rehab OP Re-assessment Start: 09/08/22 16:01 Freq: Status: Active Protocol: Document 09/08/22 16:05 JACK (Rec: 09/08/22 16:18 [email or web address] [id number]) E-signed By Kristian Krishna PT Rehab Re-assessment Subjective Subjective Pt reports no new c/o this date, feels his toe is doing better. Objective Objective Notes R great toe wound: L= 0.4 cm, W= 0.2 cm, D= 0.3 cm. No drainage noted, dry hard eschar. Assessment Progress Assessment Progressing as Expected Assessment Notes Pt has shown significant improvement in overall wound size and drainage. He is less adherent to proper dressing changes at home. However, he does appear to bbe healing steadily. Patient goals met ST,2 Goals Not Met LT,2,3,4 Revised Goals none Plan Plan Continue per initial POC Frequency of Therapy 1-2 x/wk Duration of therapy 4 wks Time and Billing Re-Eval Time 14 Re-Eval Billing Units 1 PHYSICIAN CERTIFICATION: I certify the specified therapy services for Merrill Dowling are required, authorized, and reviewed every 30 days.
== END 2022-09-08 15:05 | disposition home or self-care (01) ==
LOC: PT 15:00
PROVIDERS: PCP Emergency Medicine; Visit Provider Nurse Practitioner Family
DX: S91.301A Unspecified open wound, right foot, initial encounter (principal)
CPT/HCPCS: 97163; 97164; 97597

== ENCOUNTER → 2022-10-21 14:00 | Outpatient (CLI) | payer MEDICARE, MEDICAID, SELFPAY ==
[2022-10-21 22:11] LABS: Barbiturates Screen,Urine Negative ng/ml (<200)
[2022-10-21 22:14] LABS: Cocaine Screen,Urine Negative ng/ml (<300)
[2022-10-21 22:15] LABS: Methadone Screen,Urine Negative ng/ml (<300); Opiate Screen,Urine Positive ng/ml (<300)
[2022-10-21 22:16] LABS: Phencyclidine Screen,Urine Negative ng/ml (<25)
[2022-10-21 22:21] LABS: Cannabinoid Screen,Urine Positive ng/ml (<50)
[2022-10-21 23:47] LABS: Amphetamine/Metha Screen,Urine Negative ng/ml (<1000); Benzodiazepines Screen,Urine Negative ng/ml (<200)
== END ==
PROVIDERS: PCP Emergency Medicine; Visit Provider Emergency Medicine
DX: M51.36 Other intervertebral disc degeneration, lumbar region (principal)
CPT/HCPCS: 80305

== ENCOUNTER → 2022-12-19 19:23 | Outpatient (CLI) | payer MEDICARE, MEDICAID, SELFPAY ==
[2022-12-19 20:37] LABS: Barbiturates Screen,Urine Negative ng/ml (<200)
[2022-12-19 20:38] LABS: Benzodiazepines Screen,Urine Negative ng/ml (<200)
[2022-12-19 20:39] LABS: Amphetamine/Metha Screen,Urine Negative ng/ml (<1000); Cannabinoid Screen,Urine Negative ng/ml (<50)
[2022-12-19 20:40] LABS: Cocaine Screen,Urine Negative ng/ml (<300); Methadone Screen,Urine Negative ng/ml (<300)
[2022-12-19 20:41] LABS: Opiate Screen,Urine Positive ng/ml (<300)
[2022-12-19 20:42] LABS: Phencyclidine Screen,Urine Negative ng/ml (<25)
== END ==
PROVIDERS: PCP Emergency Medicine; Visit Provider Emergency Medicine
DX: M51.36 Other intervertebral disc degeneration, lumbar region (principal)
CPT/HCPCS: 80305

== ENCOUNTER → 2023-01-09 13:04 | Outpatient (CLI) | payer MEDICARE, MEDICAID, SELFPAY ==
--- NOTE | 2023-01-09 13:09 | US_ITS ---
FINAL REPORT CLINICAL HISTORY: diminshed pulses in lower extremity, current smoker, HTN, bilateral rest pain, bilateral claudication, bilateral skin color changes and wounds. COMPARISON: None FINDINGS: ANKLE-BRACHIAL PRESSURE INDICES Pressure indices are as follows: RIGHT LOWER EXTREMITY: Ankle-brachial pressure index: 1.0 Comments: Normal LEFT LOWER EXTREMITY: Ankle-brachial pressure index: 0.9 Comments: Borderline normal IMPRESSION: No evidence of significant obstructive peripheral vascular disease of the lower extremities Reviewed, Interpreted and Dictated by Colin Tillman III, MD Transcribed by Krysta Perez Authenticated and [facility]
== END ==
PROVIDERS: PCP Emergency Medicine; Visit Provider Emergency Medicine
DX: R09.89 Other specified symptoms and signs involving the circulatory and respiratory systems (principal)
CPT/HCPCS: 93923

== ENCOUNTER 2023-01-20 08:00 | Outpatient (RCR) | payer MEDICARE, MEDICAID, SELFPAY ==
--- NOTE | 2022-12-09 09:41 | HMH.PTOPWND ---
Rehab Outpt Wound Evaluation Rehab OP Wound Evaluation Start: 12/09/22 09:29 Freq: Status: Active Protocol: Document 12/09/22 09:29 JACK (Rec: 12/09/22 09:40 JACK [id number]) E-signed By Kristian Krishna, PT Subjective/History History History This is the initial PT eval for Merrill Dowling 62 yowm who presents with continued chronic B LE lymphedema and wounds. He reports he has been treating them at home I'm doing the best I can, but has increased drainage from the R LE and is changing dressings every other day. He is well known to this clinic with severe CVI and prior wounds with cellulitis. He has a home lymphedema pump, but no compression stockings per his report. Subjective Subjective Currently pain at worst is 7/ 10. Edema is mostly fibrotic with significant hyperkeratosis noted to B LE from knees distally. Significant hemosiderin staining and blanchable erythema to B LE. Wound Eval Wound Right Lateral Ankle Wound Type Stasis Ulcer Is This a Chronic Wound Yes Wound Length (cm) 17.0 Wound Width (cm) 20.0 Wound Depth (cm) 0.1 Wound Bed Appearance Yellow Percentage of Slough (%) 100 Wound Margins Description Indistinct Surrounding Tissue Appearance Purple,Edematous,Macerated Edema Type Non-Pitting,Pitting Edema Degree 2+ Query Text:1+ Trace, Barely Detectable, Rebound 15-30 seconds 2+ Moderate, Slight Indentation, Rebound 10-20 seconds 3+ Deep, Deeper Indentation, Rebound > 30 seconds 4+ Very Deep, Rebound > 60 seconds Edema Appearance Weeping,Hard,Open Sores,Purple Drainage Description Yellow Drainage Amount Large Drainage Odor No Odor Dressing Status Changed,Soiled Wound Topical Solution/Irrigant Saline Irrigant Primary Dressing Absorbant Pad Comment optilock Wound Secondary Dressing Type Unna Boot Comment 2 layer calamine/zinc wrap Wound Debrideme
--- NOTE | 2023-01-06 16:32 | HMH.RHREAS ---
Rehab Reassessment Rehab OP Re-assessment Start: 01/06/23 16:25 Freq: Status: Active Protocol: Document 01/06/23 16:27 JACK (Rec: 01/06/23 16:32 [email or web address] [id number]) E-signed By Kristian Krishna, PT Rehab Re-assessment Subjective Subjective Pt reports 4/10 pain this date in B LE. C/o itching more than anything else today. Feeling better overall. Objective Objective Notes All wounds healing very well at this point. Minimal drainage noted this date. Continued hyperkeratosis to B LE. 2+ pitting edema remains. R booth wound: L= 1.0 cm, W= 1. 0 cm, D= 0.1 cm. Wound healed 99% over initial eval. Drainage is minimal and serosanguineous in nature. Assessment Progress Assessment Progressing as Expected Assessment Notes Pt has shown significant progress with overall wound healing and edema of B LE. Continues to have issues with LE edema which require treatment. He continues to need sklilled intervention to return to prior level of function. Patient goals met ST,3,4,5 LT Goals Not Met ST LT,2,4,5,6 Revised Goals LTG: #7 Pt will show 100% wound healing of R LE in 3-4 wks. Plan Plan Continue per initial POC Frequency of Therapy 2 x/wk Duration of therapy 4 wks Time and Billing Re-Eval Time 17 Re-Eval Billing Units 1 PHYSICIAN CERTIFICATION: I certify the specified therapy services for Merrill Dowling are required, authorized, and reviewed every 30 days.
== END 2023-01-20 08:05 | disposition home or self-care (01) ==
LOC: PT 08:00
PROVIDERS: PCP Emergency Medicine; Visit Provider Emergency Medicine
DX: R60.0 Localized edema (principal)
CPT/HCPCS: 29580; 97163; 97164; 97597; 97598

== ENCOUNTER → 2023-02-18 23:32 | Outpatient (CLI) | payer MEDICARE, MEDICAID, SELFPAY ==
[2023-02-18 20:36] LABS: Amphetamine/Metha Screen,Urine Negative ng/ml (<1000)
[2023-02-18 20:37] LABS: Barbiturates Screen,Urine Negative ng/ml (<200)
[2023-02-18 20:38] LABS: Benzodiazepines Screen,Urine Negative ng/ml (<200); Cannabinoid Screen,Urine Negative ng/ml (<50)
[2023-02-18 20:39] LABS: Cocaine Screen,Urine Negative ng/ml (<300)
[2023-02-18 20:40] LABS: Methadone Screen,Urine Negative ng/ml (<300); Opiate Screen,Urine Positive ng/ml (<300)
[2023-02-18 20:41] LABS: Phencyclidine Screen,Urine Negative ng/ml (<25)
== END ==
PROVIDERS: PCP Emergency Medicine; Visit Provider Emergency Medicine
DX: M51.36 Other intervertebral disc degeneration, lumbar region (principal)
CPT/HCPCS: 80305

== ENCOUNTER → 2023-04-15 11:00 | Outpatient (CLI) | payer MEDICARE, MEDICAID, SELFPAY ==
[2023-04-15 19:02] LABS: Alanine Aminotransferase 24 U/L (12-78); Albumin Level 4.2 g/dl (3.5-5.0); Albumin/Globulin Ratio 1.1 (1.1-1.8); Alkaline Phosphatase 98 U/L (38-126); Anion Gap 13.7 mEq/L (5-15); Aspartate Amino Transferase 29 U/L (17-59); Bilirubin,Total 0.7 mg/dl (0.2-1.3); Blood Urea Nitrogen 15 mg/dl (9-20); Calcium 9.5 mg/dl (8.4-10.2); Carbon Dioxide 25 mmol/L (22.0-30.0); Chloride 107 mmol/L (98-107); Chol/HDL Ratio 5.3 (1-3.5); Cholesterol 190 mg/dl (140-200); Estimated Glomerular Filt Rate 68 ml/min (>60); GFR (African American) 82 ML/MIN (>60); Globulin 3.8 g/dL (1.3-3.2); Glucose 105 mg/dl (74-100); HDL Cholesterol 36 mg/dl (40-60); Potassium 4.7 mmoL/L (3.5-5.1); Sodium 141 mmol/L (136-145); Triglycerides 211 mg/dl (30-150); VLDL Cholesterol 42 mg/dL (0-40)
[2023-04-15 19:14] LABS: Direct LDL Cholesterol 100.18 mg/dL (100-129)
[2023-04-15 19:19] LABS: 25-OH Vitamin D, Total 26.7 ng/mL (30-100)
[2023-04-15 19:20] LABS: T4 (Thyroxine) 9.4 ug/dl (5.53-11.0)
[2023-04-15 19:23] LABS: Amphetamine/Metha Screen,Urine Negative ng/ml (<1000); Barbiturates Screen,Urine Negative ng/ml (<200)
[2023-04-15 19:24] LABS: Benzodiazepines Screen,Urine Negative ng/ml (<200)
[2023-04-15 19:25] LABS: Cannabinoid Screen,Urine Negative ng/ml (<50); Cocaine Screen,Urine Negative ng/ml (<300)
[2023-04-15 19:26] LABS: Basophils # 0.1 K/mm3 (0-0.2); Basophils % 0.5 % (0.1-2.0); Eosinophils # 0.2 K/mm3 (0.0-0.4); Eosinophils % 1.3 % (0.1-12.0); Hematocrit 49.3 % (42.0-52.0); Hemoglobin 15.6 g/dL (14.1-18.0); Lymphocytes # 3.5 K/mm3 (0.7-4.5); Lymphocytes % 27.9 % (10-50); Mean Corpuscular HGB Conc 31.7 g/dL (31.8-35.4); Mean Corpuscular Hemoglobin 30.7 pg (27.0-31.2); Mean Corpuscular Volume 96.9 fl (80-94); Mean Platelet Volume 8.2 fl (7.4-10.4); Methadone Screen,Urine Negative ng/ml (<300); Monocytes # 0.8 K/mm3 (0.1-1.0); Monocytes % 6.4 % (1.7-9.3); Neutrophils % 63.9 % (37.0-80.0); Platelet Count 434 K/mm3 (142-424); Red Blood Count 5.09 M/mm3 (4.60-6.20); Red Cell Distribution Width 13.3 % (11.5-17.5); White Blood Count 12.6 K/mm3 (4.8-10.8)
[2023-04-15 19:27] LABS: Opiate Screen,Urine Negative ng/ml (<300); Phencyclidine Screen,Urine Negative ng/ml (<25)
[2023-04-15 19:28] LABS: Hemoglobin A1C 4.8 % (4.0-6.0)
[2023-04-15 19:34] LABS: Prostate Specific Ag Screen 0.9 ng/ml (0.0-4.0); Thyroid Stimulating Hormone 1.26 uIU/mL (0.465-4.68)
== END ==
PROVIDERS: PCP Emergency Medicine; Visit Provider Emergency Medicine
DX: Z79.899 Other long term (current) drug therapy (principal); M85.80 Other specified disorders of bone density and structure, unspecified site; E66.9 Obesity, unspecified; Z12.5 Encounter for screening for malignant neoplasm of prostate; M51.36 Other intervertebral disc degeneration, lumbar region; E55.9 Vitamin D deficiency, unspecified; Z68.36 Body mass index [BMI] 36.0-36.9, adult
CPT/HCPCS: 80053; 80061; 80305; 82306; 83036; 84436; 84443; 85025; G0103

== ENCOUNTER 2023-08-04 18:03 | Outpatient (CLI) | payer MEDICARE, MEDICAID, SELFPAY ==
[2023-08-04 21:03] LABS: Barbiturates Screen,Urine Negative ng/ml (<200); Benzodiazepines Screen,Urine Negative ng/ml (<200); Cocaine Screen,Urine Negative ng/ml (<300); Methadone Screen,Urine Negative ng/ml (<300); Opiate Screen,Urine Negative ng/ml (<300); Phencyclidine Screen,Urine Negative ng/ml (<25)
[2023-08-04 21:13] LABS: Cannabinoid Screen,Urine Negative ng/ml (<50)
[2023-08-05 14:50] LABS: Amphetamine/Metha Screen,Urine Negative ng/ml (<1000)
[2023-08-09 19:25] LABS: Gabapentin,Urine >800.0 ug/mL (.)
[2023-08-10 12:15] LABS: Alprazolam Negative (Cutoff=100); Benzodiazepines Positive ng/mL (Cutoff=100); Clonazepam Positive (.); Clonazepam Confirm 187 ng/mL (Cutoff=100); Flurazepam Negative (Cutoff=100); Lorazepam Negative (Cutoff=100); Midazolam Negative (Cutoff=100); Opiates Negative (Cutoff=100); Oxycodone (GC/MS) 1083 ng/mL (Cutoff=100); Oxymorphone (GC/MS) 2095 ng/mL (Cutoff=100); Temazepam Negative (Cutoff=100); Triazolam Negative (Cutoff=100)
== END 2023-08-04 23:59 ==
LOC: LAB.DROPOF 18:03
PROVIDERS: PCP Nurse Practitioner Family; Visit Provider Nurse Practitioner Family
DX: Z79.899 Other long term (current) drug therapy (principal); M79.2 Neuralgia and neuritis, unspecified
CPT/HCPCS: 80307; 80346; 80361; 80365; G0480

== ENCOUNTER 2024-01-29 19:46 | Outpatient (CLI) | payer MEDICARE, MEDICAID, SELFPAY ==
[2024-01-29 20:37] LABS: Basophils # 0.1 K/mm3 (0-0.2); Basophils % 0.4 % (0.1-2.0); Eosinophils # 0.2 K/mm3 (0.0-0.4); Eosinophils % 1.5 % (0.1-12.0); Hemoglobin 14.8 g/dL (14.1-18.0); Lymphocytes # 2.4 K/mm3 (0.7-4.5); Lymphocytes % 19.4 % (10-50); Mean Corpuscular HGB Conc 33.6 g/dL (31.8-35.4); Mean Corpuscular Hemoglobin 32.3 pg (27.0-31.2); Mean Corpuscular Volume 96.2 fl (80-94); Mean Platelet Volume 9.1 fl (7.4-10.4); Monocytes # 0.8 K/mm3 (0.1-1.0); Monocytes % 6.3 % (1.7-9.3); Neutrophils # 8.9 K/mm3 (1.8-7.8); Neutrophils % 72.5 % (37.0-80.0); Platelet Count 283 K/mm3 (142-424); Red Blood Count 4.57 M/mm3 (4.60-6.20); Red Cell Distribution Width 13.9 % (11.5-17.5); White Blood Count 12.2 K/mm3 (4.8-10.8)
[2024-01-29 20:53] LABS: Alanine Aminotransferase 25 U/L (12-78); Albumin Level 4.4 g/dl (3.5-5.0); Albumin/Globulin Ratio 1.3 (1.1-1.8); Alkaline Phosphatase 80 U/L (38-126); Anion Gap 10.6 mEq/L (5-15); Aspartate Amino Transferase 33 U/L (17-59); Bilirubin,Total 1.4 mg/dl (0.2-1.3); Blood Urea Nitrogen 13 mg/dl (9-20); Calcium 9.3 mg/dl (8.4-10.2); Carbon Dioxide 27 mmol/L (22.0-30.0); Chloride 105 mmol/L (98-107); Cholesterol 166 mg/dl (140-200); Estimated Glomerular Filt Rate 67 ml/min (>60); GFR (African American) 82 ML/MIN (>60); Globulin 3.5 g/dL (1.3-3.2); Glucose 93 mg/dl (74-100); HDL Cholesterol 33 mg/dl (40-60); Potassium 4.6 mmoL/L (3.5-5.1); Sodium 138 mmol/L (136-145); Total Protein,Serum 7.9 g/dl (6.3-8.2); Triglycerides 307 mg/dl (30-150); VLDL Cholesterol 61 mg/dL (0-40)
[2024-01-29 21:04] LABS: NT Pro Brain Natriuretic Pep. 52.7 pg/mL (0-125)
[2024-01-29 21:06] LABS: Direct LDL Cholesterol 73.25 mg/dL (100-129)
[2024-01-29 21:10] LABS: 25-OH Vitamin D, Total 31.1 ng/mL (30-100)
[2024-01-29 21:26] LABS: Thyroid Stimulating Hormone 1.39 uIU/mL (0.465-4.68)
[2024-01-29 21:37] LABS: Hemoglobin A1C 6.3 % (4.0-6.0)
[2024-01-29 21:45] LABS: Vitamin B12 337 pg/mL (239-931)
[2024-01-30 10:49] LABS: HIV (1&2) Antibody Rapid NON REACTIVE
[2024-01-31 07:08] LABS: Testosterone,Total 97 ng/dL (264-916)
[2024-01-31 10:34] LABS: HCV Ab Non Reactive (Non Reactive)
== END 2024-01-29 23:59 | disposition home or self-care (01) ==
LOC: LAB.DROPOF 19:49
PROVIDERS: PCP Family Medicine; Visit Provider Family Medicine
DX: M79.2 Neuralgia and neuritis, unspecified (principal); I10 Essential (primary) hypertension; E66.9 Obesity, unspecified; E55.9 Vitamin D deficiency, unspecified; I50.9 Heart failure, unspecified; R73.03 Prediabetes
CPT/HCPCS: 80050; 80053; 80061; 82306; 82607; 83036; 83880; 84403; 84443; 85025

== ENCOUNTER 2024-03-15 12:14 | Outpatient (CLI) | payer MEDICARE, MEDICAID, SELFPAY ==
--- NOTE | 2024-03-15 | CA_ITS ---
APPROVED REPORT Exam: Pharmacologic Technologist: Orquidea Adhikari Ht: 5 ft 9 in Wt: 264 lbs BSA: 2.33 m2 HR: 71 bpm BP: 152/77 mmHg Rhythm: NSR Indications: Dyspnea Medical History Medications: Metformin,,,,, Gabapentin,,,,, Vitamin D3,,,,, Losartan,,,,, Allopurinol,,,,, HCTZ,,,,, PERCOCET,,,,, ClonAZEPAM,,,,, SyMBICORT,,,,, Protonix,,,,, WELLBUTRIN,,,,, Famotidine,,,,, Stress Test Details Test: LEXISCAN HR Resting HR: 69 bpm Max Heart Rate (APMHR): 156 bpm Max HR Achieved: 90 bpm Target HR (85% APMHR): 133 bpm % of APMHR: 58 Recovery HR: 77 bpm BP Resting BP: 152.0/77.0 mmHg Max BP: 157.0/86.0 mmHg Recovery BP: 156.0/73.0 mmHg ECG Resting ECG: Sinus rhythm Stress ECG: No significant ST changes Arrhythmia: None Clinical Exercise duration: 04:00 min Highest Stage Achieved: Stress ECG Conclusion Symptoms: Dyspnea, headache, nausea Arrhythmias/Ectopy: None ST-T Changes: No significant ST changes Conclusion: EKG unremarkable due to Lexiscan infusion. Myoview images reported separately. Test Summary REST . . . . . . . Resting REST 06:17 . . 69 . 152/ 77 . . Stage 1 . . . . . . . Myoview Injected Stage 1 01:00 . . 81 . . . . Stage 2 01:00 . . 85 . . . . Stage 3 01:00 . . 74 . 156/ 79 . . Stage 4 01:00 . . 73 . . . Stop exercise at 04:00 RECOVERY 01:00 . . 78 . . . . RECOVERY 02:00 . . 76 . 151/ 84 . . RECOVERY 03:00 . . 75 . 157/ 86 . . RECOVERY 04:00 . . 76 . 157/ 86 . . RECOVERY 05:00 . . 77 . 156/ 73 . . RECOVERY 05:35 . . 82 . 156/ 73 . . Electronically signed by : Cyndi Menjivar MD 03/17/2024 17:34:51
--- NOTE | 2024-03-15 12:24 | NM_ITS ---
APPROVED REPORT Exam: Nuclear Stress Test Indication: soa Patient Location: Outpatient Stress Tech: Orquidea Adhikari [place] Tech:Ruby Gordon JAMESON RT(R)(N) Ht: 5 ft 9 in Wt: 230 lbs HR: 69 bpm BP: 152/77 mmHg BSA: 2.19 m2 TID: 1.13 BMI: 33.9 History: short of air Procedure: Patient received 0.4 mg of intravenous Lexiscan, resting heart rate 69 bpm, resting blood pressure 152/77 mmHg, with Lexiscan maximum heart rate achieved was 90 bpm which is 85 % of the maximum predicted heart rate and blood pressure was 157/86 mmHg. With Lexiscan, patient denied any complaint of chest pain. Pt was not able to lay on his abdomen for prone images. Cardiac Stress and Resting SPECT Images: Cardiac Stress and Resting SPECT images were obtained using technetium 99m Myoview 32.0 mCi stress and 9.52 mCi at rest. The patient is unable to lie on his abdomen. Therefore, prone stress imaging cannot be performed. This may affect the diagnostic interpretation of the study findings. Resting and stress imaging in supine position demonstrate a medium-sized, mild, reversible perfusion defect in the basal to mid inferior LV wall. Gated imaging demonstrates normal global and regional LV systolic function. LVEF is calculated at 66%. Conclusion: Medium-sized, mild, reversible perfusion defect in the basal to mid inferior LV wall. Findings are suggestive of reversible ischemia. Gated imaging demonstrates normal global and regional LV systolic function. LVEF is calculated at 66%. Electronically signed by : Cyndi Menjivar MD 03/17/2024 17:42:50
--- NOTE | 2024-03-15 13:12 | CA_ITS ---
APPROVED REPORT EXAM: Comprehensive 2D, Doppler, and color-flow Echocardiogram Wire Walker: DAVIS Magana, RVS Ht: 5 ft 8 in Wt: 264lbs BSA: 2.30 BP: 142/90 mmHg Indications: Dyspnea, Ex-smoker, CP, HTN Echo Enhancing Agent Comments: TDS : Limited windows due to lung impedence and extreme body habitus. Declined contrast 2D Dimensions Left Atrium 3.62 cm M: 3.0 - 4.0 LA Volume 72.90 mL LA Volume Index 31.838337 mL/m2 (M/F) 16-34 M-Mode Dimensions RVDd 3.39 cm (0.9-2.6) LA Diam 3.92 cm (1.9-4.0) LVDd 5.37 cm (3.5-5.7) LVDs 3.54 cm (3.5-5.7) IVSd 1.11 cm (0.6-1.1) PWd 1.03 cm (0.6-1.1) EF (Teich) 62.50% FS 34.10% EDV (Teich) 139.50 mL TAPSE 2.62 (<1.7) ESV (Teich) 52.30 mL LV Diastology E Decel Time 193 (160-240 msec) E/A Ratio 1.14 MED A' 9.30 cm/s LAT A' 6.10 cm/s Aortic Valve HANNAH Index 1.26 cm2/m2 AoV Peak Mustapha. 151.0 (50-130 cm/s) AO Peak GR. 9.10 mmHg AO Mean GR. 4.90 (<5 mmHg) AO VTI 34.4 (18-25 cm) HANNAH (VTI) 3.01 (2.5-4.5 cm2) Mitral Valve MV A Velocity 98.0 (40-130 cm/s) E/A Ratio 1.14 MV Mean Gr. 2.00 (<2mmHg) Pulmonary Valve PV Peak Velocity 83.0 (50-150 cm/s) Tricuspid Valve TR P. Velocity 14.00 cm/s Left Ventricle The left ventricle is normal size. The left ventricular systolic function is normal. The left ventricular ejection fraction is within the normal range. There is increased LV wall thickness. There is normal LV segmental wall motion. The left ventricular diastolic function is normal. LVEF is 55%. Right Ventricle The right ventricle is normal size. The right ventricular systolic function is normal. Atria The left atrium size is normal. The right atrium size is normal. The interatrial septum is not well visualized. Aortic Valve The aortic valve is mildly thickened. There is no aortic valvular stenosis. Mild aortic regurgitation. Mitral Valve The mitral valve is normal in structure. No evidence of mitral valve stenosis. Trace mitral valve regurgitation noted. Tricuspid Valve Tricuspid valve is grossly normal in structure and function. Trace tricuspid regurgitation. There is insufficient TR jet to estimate RVSP. Pulmonic Valve The pulmonary valve is normal in structure. Trace pulmonic regurgitation. Great Vessels The aortic root is not well visualized. The IVC is not well visualized. Pericardium There is no pericardial effusion. Other Information Study Quality: Technically Difficult Conclusion Technically difficult study due to poor accoustic windows. Normal biventricular systolic function. Mild AI. Electronically signed by : Cyndi Menjivar MD 03/20/2024 17:49:39
[2024-03-15] MEDS: REGADENOSON 0.4MG/5ML SYRINGE 0.4 MG IV (13:51)
[2024-03-15] MEDS: ISOTOPE MYOVIEW (PER STUDY) 1 DOSE IV (13:51)
[2024-03-15] MEDS: SODIUM CHLORIDE 0.9% 10ML SYR (RAD ONLY) 10 ML IV ×2 (13:51)
== END 2024-03-15 23:59 | disposition home or self-care (01) ==
LOC: RAD 12:15
PROVIDERS: PCP Family Medicine; Visit Provider Family Medicine
DX: R06.02 Shortness of breath (principal); I20.89 Other forms of angina pectoris; R06.00 Dyspnea, unspecified; R06.09 Other forms of dyspnea
CPT/HCPCS: 78452; 93017; 93018; 93306; A9502; J2785

== ENCOUNTER 2024-08-08 15:48 | Outpatient (CLI) | payer MEDICARE, MEDICAID, SELFPAY ==
[2024-08-08 18:09] LABS: Basophils # 0.1 K/mm3 (0-0.2); Basophils % 0.5 % (0.1-2.0); Eosinophils # 0.2 K/mm3 (0.0-0.4); Eosinophils % 1.2 % (0.1-12.0); Hematocrit 37.5 % (42.0-52.0); Hemoglobin 12.2 g/dL (14.1-18.0); Lymphocytes # 2.9 K/mm3 (0.7-4.5); Lymphocytes % 17.6 % (10-50); Mean Corpuscular HGB Conc 32.5 g/dL (31.8-35.4); Mean Corpuscular Hemoglobin 31.5 pg (27.0-31.2); Mean Corpuscular Volume 96.9 fl (80-94); Mean Platelet Volume 8.9 fl (7.4-10.4); Neutrophils # 12.1 K/mm3 (1.8-7.8); Neutrophils % 73.3 % (37.0-80.0); Platelet Count 353 K/mm3 (142-424); Red Blood Count 3.87 M/mm3 (4.60-6.20); Red Cell Distribution Width 12.3 % (11.5-17.5); White Blood Count 16.6 K/mm3 (4.8-10.8)
[2024-08-08 18:22] LABS: MANUAL DIFFERENTIAL MANUAL DIFFERENTIAL (MANUAL DIFF)
[2024-08-08 19:23] LABS: Chloride 100 mmol/L (98-107); Potassium 4.6 mmoL/L (3.5-5.1); Sodium 137 mmol/L (136-145)
[2024-08-08 19:26] LABS: Anion Gap 11.6 mEq/L (5-15); Blood Urea Nitrogen 20 mg/dl (9-20); Calcium 9.6 mg/dl (8.4-10.2); Carbon Dioxide 30 mmol/L (22.0-30.0); Estimated Glomerular Filt Rate 67 ml/min (>60); GFR (African American) 82 ML/MIN (>60); Glucose 85 mg/dl (74-100)
[2024-08-08 19:34] LABS: NT Pro Brain Natriuretic Pep. 71.2 pg/mL (0-125)
[2024-08-08 22:01] LABS: Eosinophils % 1 % (0-3); Lymphocytes % 20 % (10-50); Monocytes % 4 % (2-9); Neutrophils % 73 % (42-76); Total Cells Counted 100; Toxic Vacuolation 1+
[2024-08-08 22:02] LABS: Anisocytosis 1+; Macrocytosis 1+; Microcytosis 1+; Platelet Estimate Normal; Stomatocytes 1+; Toxic Granulation 1+
[2024-08-09 09:39] LABS: Albumin Level 4.1 g/dl (3.5-5.0)
[2024-08-09 09:42] LABS: Alanine Aminotransferase 24 U/L (12-78); Alkaline Phosphatase 128 U/L (38-126); Aspartate Amino Transferase 32 U/L (17-59); Bilirubin,Direct 0.3 mg/dl (0.0-0.4); Bilirubin,Indirect 0.4 mg/dL (0.0-0.9); Bilirubin,Total 0.7 mg/dl (0.2-1.3); Bilirubin,Unconjugated 0.4 mg/dL (0.0-1.1); Total Protein,Serum 7.5 g/dl (6.3-8.2)
[2024-08-09 09:50] LABS: Hemoglobin A1C 5.1 % (4.0-6.0)
== END 2024-08-08 23:59 | disposition home or self-care (01) ==
LOC: LAB.DROPOF 08-09 14:13
PROVIDERS: PCP Family Medicine; Visit Provider Family Medicine
DX: L03.90 Cellulitis, unspecified (principal); E11.9 Type 2 diabetes mellitus without complications; Z79.84 Long term (current) use of oral hypoglycemic drugs; I87.2 Venous insufficiency (chronic) (peripheral)
CPT/HCPCS: 80048; 80076; 83036; 83880; 85007; 85025; 85027

== ENCOUNTER 2024-08-09 09:41 | Outpatient (CLI) | payer MEDICARE, MEDICAID, SELFPAY ==
[2024-08-09 14:29] LABS: Microscopic, Urine URINE MICROSCOPIC (MICROSCOPIC)
[2024-08-09 14:45] LABS: Appearance,Urine CLEAR (Clear); Bilirubin,Urine Negative (Negative); Blood, Urine Negative (Negative); Color,Urine YELLOW (Yellow); Glucose,Urine (UA) Negative (Negative); Ketones,Urine Negative (Negative); Leukocyte Esterase,Urine Negative (Negative); Nitrate,Urine Negative (Negative); Protein,Urine Negative (Negative); Specific Gravity, Urine 1.015 (1.005-1.030); Urobilinogen,Urine 0.2 EU/dl (0.2)
[2024-08-09 15:33] LABS: RBC,Urine Occasional #/hpf (0-3); WBC,Urine Occasional #/hpf (0-3)
== END 2024-08-09 23:59 | disposition home or self-care (01) ==
LOC: LAB.DROPOF 08-11 09:43
PROVIDERS: PCP Family Medicine; Visit Provider Family Medicine
DX: L03.90 Cellulitis, unspecified (principal); D72.829 Elevated white blood cell count, unspecified
CPT/HCPCS: 81001

== ENCOUNTER 2024-08-24 16:00 | Outpatient (RCR) | payer MEDICARE, MEDICAID, SELFPAY ==
--- NOTE | 2024-08-09 14:52 | HMH.PTOPWND ---
Rehab Outpt Wound Evaluation Rehab OP Wound Evaluation Start: 08/09/24 13:54 Freq: Status: Active Protocol: Document 08/09/24 14:38 PHOFLY (Rec: 08/09/24 14:50 PHORSAI [id number]) E-signed By Kristian Krishna, PT Subjective/History History History This is the initial PT wound care eval for Merrill Dowling, 64 yowm who presents with B lower leg wounds with increased drainage x ~ 1-2 wks . He has long hx of CVI with B LE lymphedema and is well known to this clinic. He reports having vein ablation procedure on B LE performed ~4 -5 mos ago with excellent results. However, he had sudden onset of new wounds as noted previously. He presents this date with worse drainage and wounds on the L LE than the right and using his QC for ambulation. Subjective Subjective He reports pain in the L LE 7/ 10 with dressing change. 1+ pitting edema to B lower legs with mild underlying fibrotic edema. Increased erythema noted B. Wound Eval Wound Right Lateral Calf Wound Type Stasis Ulcer Is This a Chronic Wound No Wound Length (cm) 5.0 Wound Width (cm) 1.0 Wound Depth (cm) 0.1 Wound Bed Appearance Hurst Wound Margins Description Indistinct Surrounding Tissue Appearance Purple Edema Type Pitting Edema Degree 1+ Query Text:1+ Trace, Barely Detectable, Rebound 15-30 seconds 2+ Moderate, Slight Indentation, Rebound 10-20 seconds 3+ Deep, Deeper Indentation, Rebound > 30 seconds 4+ Very Deep, Rebound > 60 seconds Drainage Description Yellow Drainage Amount Moderate Wound Topical Solution/Irrigant Saline Irrigant Primary Dressing Unna Boot Comment 2 layer calamine compression wrap system Wound Debridement Method Forceps,Gauze,Mechanical Wound Debridement Amount of Tissue Minimal Removed Dressing Change Patient Tolerance Tolerated Well Left Lateral Bryan Wound Type Stasis Ulcer Is This a Chronic Wound No Wound Length (cm) 8.6 Wound Width (cm) 4.0 Wound Depth (cm) 0.1 Wound Bed Appearance Hurst Wound Margins Description Indistinct Surrounding Tissue Appearance Purple Edema Type Pitting Edema Degree 1+ Query Text:1+ Trace, Barely Detectable, Rebound 15-30 seconds 2+ Moderate, Slight Indentation, Rebound 10-20 seconds 3+ Deep, Deeper Indentation, Rebound > 30 seconds 4+ Very Deep, Rebound > 60 seconds Edema Appearance Weeping Drainage Description Yellow Drainage Amount Moderate Drainage Odor No Odor Wound Topical Solution/Irrigant Saline Irrigant Primary Dressing Unna Boot Comment 2 layer calamine compression wrap system Wound Debridement Method Forceps,Gauze,Mechanical Wound Debridement Amount of Tissue Minimal Removed Dressing Change Patient Tolerance Tolerated Well Jiménez-Ford Wound Assessment Tool Assessment Wound size 3= Length x Width 16.1--<36 sq cm Wound depth 2=Partial thickness skin loss involving epidermis &/or dermis Wound edges 1=Indistinct, diffuse, none clearly visible Wound undermining 1=None present Necrotic tissue type 1=Non visible Necrotic tissue amount 1=None visible Exudate type 4=Serous: thin, watery, clear Exudate amount 4=Moderate Skin color surrounding wound 4=Dark red or purple &/or non- blanchable Peripheral tissue edema 4=Pitting edema extends <4 cm around wound Peripheral tissue induration 1=None present Granulation tissue 1=Skin intact or partial thickness wound Epithelialization 5= < 25% wound covered Wound assessment total score 32 Wound Problems/Impairments Impairments Problems/Impairmments Palpation Tenderness,Impaired Walking,Impaired Standing, Increased Edema,Lymphedema Present,Wound Care Needs, Subjective C/O Pain,Impaired Self Care/Self Management Prognosis Rehab Potential Good Comment Skilled therapy is indicated to reduce overall wound surface area and decrease chronic lymphedema to return pt to PLOF. Clinical Impression Consistent with Diagnosis Yes Consistent with I89.0 Lymphedema due to CVI Short Term Goals Number of Weeks 4 Decrease Edema Yes: no pitting edema Decrease Wound Area Yes: by 25% Decrease Drainage 5/10 B LE Decrease Subjective C/O Pain Yes Patient to Understand Lymphedema Yes Treatment and Exercises Alf Goals Number of Weeks 8 Decreased Palpation Tenderness Yes: 0/4 B lower legs Decrease Lymphedema Yes: No fibrotic edema B lower legs Decrease Wound Area Yes: by 75% B LE Decrease Subjective C/O Pain Yes: 3/10 B LE Patient to be Ind w/ HEP Yes Patient to Adhere Lymphedema Precautions Yes Outpatient Therapy Plan of Care Treatment Plan May Include Therapeutic Exercise Including Home Yes Exercise Program Manual Therapy Techniques Yes Neuromuscular Re-education Yes Therapeutic Activities to Return to Yes Previous Functional/Work Level ADL/Self Care Education Yes Orthotics/Bracing/Splinting Yes Manual Lymphatic Drainage Yes Wound Care Yes Eval/Re-Eval Yes Frequency Times per week 2 Duration Number of Weeks 8 Addendums This patient is a candidate for social No or vocational rehab? Patient/Guardian verbally acknowledges Yes understanding of treatment program and consents to further treatment? Patient/Guardian verbally acknowledges Yes understanding of diagnosis, prognosis and goals for treatment? Eval Complexity PT Charges 56908 - High Complexity PHYSICIAN CERTIFICATION: I certify the specified therapy services for Merrill Dowling are required, authorized, and reviewed every 30 days.
== END 2024-08-24 23:59 | disposition home or self-care (01) ==
LOC: PT 16:00
PROVIDERS: Visit Provider Family Medicine
DX: L03.90 Cellulitis, unspecified (principal)
CPT/HCPCS: 29580; 97163; 97597; 97598

== ENCOUNTER 2024-09-07 13:00 | Outpatient (RCR) | payer MEDICARE, MEDICAID, SELFPAY | END 2024-09-07 23:59 | disposition home or self-care (01) | LOC: PT 13:00 | PROVIDERS: Visit Provider Family Medicine | DX: L03.90 Cellulitis, unspecified (principal) | CPT/HCPCS: 97597; 97760 ==

== ENCOUNTER 2024-11-23 14:00 | Outpatient (RCR) | payer MEDICARE, MEDICAID, SELFPAY ==
--- NOTE | 2024-11-15 16:34 | HMH.PTOPWND ---
Rehab Outpt Wound Evaluation Rehab OP Wound Evaluation Start: 11/15/24 16:17 Freq: Status: Active Protocol: Document 11/15/24 16:19 JACK (Rec: 11/15/24 16:33 PHORSAI [id number]) E-signed By Kristian Krishna, PT Subjective/History History History This is the initial PT lymphedema and wound care eval for Merrill Dowling, 64 yowm who presents with c/o B lower leg edema and open wounds x ~ 4-6 wks. He reports pain is constant in hos legs. He presents with significant hyperkeratosis, hemosiderin staining, and pitting edema to B lower legs. Several small open wounds noted with minimal serous drainage at this time. He reports minimal tenderness to palpation. He does have a home lymphedema pump, but reports no compression garments at this time. Subjective Subjective Pain currently 7/10 in B lower legs. 1+ pitting edema noted to B lower legs with MILD fibrotic edema and MODERATE hyperkeratosis. B feet and lower legs remain deep red or purple in color. Wound Eval Wound Right Lateral Calf Wound Type Stasis Ulcer Is This a Chronic Wound Yes Wound Length (cm) 2.2 Wound Width (cm) 1.2 Wound Depth (cm) 0.1 Wound Bed Appearance [place] Wound Margins Description Well Defined Surrounding Tissue Appearance Edematous Edema Type Non-Pitting,Pitting Edema Degree 1+ Query Text:1+ Trace, Barely Detectable, Rebound 15-30 seconds 2+ Moderate, Slight Indentation, Rebound 10-20 seconds 3+ Deep, Deeper Indentation, Rebound > 30 seconds 4+ Very Deep, Rebound > 60 seconds Edema Appearance Tight,Puffy,Purple Drainage Description Serous Drainage Amount Small Drainage Odor No Odor Wound Topical Solution/Irrigant Saline Irrigant Primary Dressing Unna Boot Comment 2 layer calamine compression wrap system Wound Debridement Method Forceps,Gauze,Mechanical Wound Debridement Amount of Tissue Moderate Removed Dressing Change Patient Tolerance Tolerated Well Wound Problems/Impairments Impairments Problems/Impairmments Impaired Gait Pattern,Impaired Walking,Impaired Shower/ Bathing,Impaired Household Care,Impaired Balance, Increased Edema,Lymphedema Present,Wound Care Needs, Subjective C/O Pain,Impaired Self Care/Self Management Prognosis Rehab Potential Good Comment Skilled therapy services are indicated to improve B lower leg lymphedema and reduce overall wound surface area in order to aid pt return to independence with all ADLs. Clinical Impression Consistent with Diagnosis Yes Short Term Goals Number of Weeks 2 Decrease Edema Yes: no pitting edema B lower legs Decrease Subjective C/O Pain Yes: 01/03 B lower legs Patient to Understand Lymphedema Yes Treatment and Exercises Decrease Girth Measurments by (cm) Yes: B Lower leg by 5 cm ea Hearing Aid Consultant Goals Number of Weeks 4 Decrease Lymphedema Yes: No fibrotic edema to B lower legs Decrease Subjective C/O Pain Yes: 11/03 B lower legs Patient to be Ind w/ HEP Yes Patient to be Ind w/ Donning/[place] Yes Compression Garments Patient to Adhere Lymphedema Precautions Yes Decrease Girth Measurments by (cm) Yes: B LE by 10 cm ea Outpatient Therapy Plan of Care Treatment Plan May Include Therapeutic Exercise Including Home Yes Exercise Program Manual Therapy Techniques Yes Neuromuscular Re-education Yes Therapeutic Activities to Return to Yes Previous Functional/Work Level ADL/Self Care Education Yes Orthotics/Bracing/Splinting Yes Manual Lymphatic Drainage Yes Wound Care Yes Eval/Re-Eval Yes Frequency Times per week 2 Duration Number of Weeks 4 Addendums This patient is a candidate for social No or vocational rehab? Patient/Guardian verbally acknowledges Yes understanding of treatment program and consents to further treatment? Patient/Guardian verbally acknowledges Yes understanding of diagnosis, prognosis and goals for treatment? Eval Complexity PT Charges 08416 - High Complexity PHYSICIAN CERTIFICATION: I certify the specified therapy services for Merrill Dowling are required, authorized, and reviewed every 30 days.
--- NOTE | 2024-11-15 16:39 | [facility]H.PTOPWND ---
Rehab Outpt Wound Evaluation Rehab OP Wound Evaluation Start: 11/15/24 16:17 Freq: Status: Active Protocol: Document 11/15/24 16:19 JACK (Rec: 11/15/24 16:33 PHORSAI [id number]) E-signed By Kristian Krishna, PT Subjective/History History History This is the initial PT lymphedema and wound care eval for Merrill Dowling, 64 yowm who presents with c/o B lower leg edema and open wounds x ~ 4-6 wks. He reports pain is constant in hos legs. He presents with significant hyperkeratosis, hemosiderin staining, and pitting edema to B lower legs. Several small open wounds noted with minimal serous drainage at this time. He reports minimal tenderness to palpation. He does have a home lymphedema pump, but reports no compression garments at this time. Subjective Subjective Pain currently 7/10 in B lower legs. 1+ pitting edema noted to B lower legs with MILD fibrotic edema and MODERATE hyperkeratosis. B feet and lower legs remain deep red or purple in color. Wound Eval Wound Right Lateral Calf Wound Type Stasis Ulcer Is This a Chronic Wound Yes Wound Length (cm) 2.2 Wound Width (cm) 1.2 Wound Depth (cm) 0.1 Wound Bed Appearance [place] Wound Margins Description Well Defined Surrounding Tissue Appearance Edematous Edema Type Non-Pitting,Pitting Edema Degree 1+ Query Text:1+ Trace, Barely Detectable, Rebound 15-30 seconds 2+ Moderate, Slight Indentation, Rebound 10-20 seconds 3+ Deep, Deeper Indentation, Rebound > 30 seconds 4+ Very Deep, Rebound > 60 seconds Edema Appearance Tight,Puffy,Purple Drainage Description Serous Drainage Amount Small Drainage Odor No Odor Wound Topical Solution/Irrigant Saline Irrigant Primary Dressing Unna Boot Comment 2 layer calamine compression wrap system Wound Debridement Method Forceps,Gauze,Mechanical Wound Debridement Amount of Tissue Moderate Removed Dressing Change Patient Tolerance Tolerated Well Lymphedema Eval Classification of Lymphedema Secondary Lymphedema Yes Stemmer's sign Stemmer's Sign yes Stage of Lymphedema Lymphedema stages Stage II (Pitting edema, increased fibrosis w/ decreased pitting) Skin Changes Dry Skin Yes Skin Folds Yes Hyperkeratosis Yes Redness Yes Wounds Yes Discoloration of Skin Yes Other Changes Yes Pain Scale Pain Scale (0-10) 7 Affected Extremities Areas Affected by Lymphedema/Edema Right Lower Extremity,Left Lower Extremity Manual Lymphatic Drainage Treatment Area MLD Treatment Area Right Lower Extremity,Left Lower Extremity Wound Problems/Impairments Impairments Problems/Impairmments Impaired Gait Pattern,Impaired Walking,Impaired Shower/ Bathing,Impaired Household Care,Impaired Balance, Increased Edema,Lymphedema Present,Wound Care Needs, Subjective C/O Pain,Impaired Self Care/Self Management Prognosis Rehab Potential Good Comment Skilled therapy services are indicated to improve B lower leg lymphedema and reduce overall wound surface area in order to aid pt return to independence with all ADLs. Clinical Impression Consistent with Diagnosis Yes Short Term Goals Number of Weeks 2 Decrease Edema Yes: no pitting edema B lower legs Decrease Subjective C/O Pain Yes: 01/03 B lower legs Patient to Understand Lymphedema Yes Treatment and Exercises Decrease Girth Measurments by (cm) Yes: B Lower leg by 5 cm ea [facility] Goals Number of Weeks 4 Decrease Lymphedema Yes: No fibrotic edema to B lower legs Decrease Subjective C/O Pain Yes: 11/03 B lower legs Patient to be Ind w/ HEP Yes Patient to be Ind w/ Donning/[place] Yes Compression Garments Patient to Adhere Lymphedema Precautions Yes Decrease Girth Measurments by (cm) Yes: B LE by 10 cm ea Outpatient Therapy Plan of Care Treatment Plan May Include Therapeutic Exercise Including Home Yes Exercise Program Manual Therapy Techniques Yes Neuromuscular Re-education Yes Therapeutic Activities to Return to Yes Previous Functional/Work Level ADL/Self Care Education Yes Orthotics/Bracing/Splinting Yes Manual Lymphatic Drainage Yes Wound Care Yes Eval/Re-Eval Yes Frequency Times per week 2 Duration Number of Weeks 4 Addendums This patient is a candidate for social No or vocational rehab? Patient/Guardian verbally acknowledges Yes understanding of treatment program and consents to further treatment? Patient/Guardian verbally acknowledges Yes understanding of diagnosis, prognosis and goals for treatment? Eval Complexity PT Charges 07200 - High Complexity PHYSICIAN CERTIFICATION: I certify the specified therapy services for Merrill Dowling are required, authorized, and reviewed every 30 days.
== END 2024-11-23 23:59 | disposition home or self-care (01) ==
LOC: PT 14:00
PROVIDERS: Visit Provider Family Medicine
DX: I89.0 Lymphedema, not elsewhere classified (principal); L97.912 Non-pressure chronic ulcer of unspecified part of right lower leg with fat layer exposed
CPT/HCPCS: 97163; 97597

== ENCOUNTER 2024-12-07 13:28 | Outpatient (CLI) | payer MEDICARE, MEDICAID, SELFPAY ==
[2024-12-07 13:57] LABS: Basophils # 0.1 K/mm3 (0-0.2); Basophils % 0.4 % (0.1-2.0); Eosinophils # 0.1 Kmm3 (0.0-0.4); Eosinophils % 0.6 % (0.1-12.0); Hematocrit 46.3 % (42.0-52.0); Hemoglobin 15.2 g/dL (14.1-18.0); Immature Granulocytes # 0.12 10^3uL; Lymphocytes # 2.9 K/mm3 (0.7-4.5); Lymphocytes % 23.1 % (10-50); Mean Corpuscular HGB Conc 32.8 g/dL (31.8-35.4); Mean Corpuscular Hemoglobin 30.6 pg (27.0-31.2); Mean Corpuscular Volume 93.3 fl (80-94); Mean Platelet Volume 8.8 fl (7.4-10.4); Monocytes # 0.8 K/mm3 (0.1-1.0); Monocytes % 6.5 % (1.7-9.3); Neutrophils # 8.5 K/mm3 (1.8-7.8); Neutrophils % 68.4 % (37.0-80.0); Nucleated Red Blood Cells # 0 10^3/uL; Nucleated Red Blood Cells % 0 %; Platelet Count 321 K/mm3 (142-424); Red Blood Count 4.96 M/mm3 (4.60-6.20); Red Cell Distribution Width-SD 44.4 fL; White Blood Count 12.4 K/mm3 (4.8-10.8)
[2024-12-07 14:20] LABS: Erythrocyte Sedimentation Rate 14 mm/hr (0-20)
[2024-12-07 14:25] LABS: Alanine Aminotransferase 22 U/L (12-78); Albumin Level 4.4 g/dl (3.5-5.0); Albumin/Globulin Ratio 1.4 (1.1-1.8); Alkaline Phosphatase 80 U/L (38-126); Anion Gap 6.8 mEq/L (5-15); Aspartate Amino Transferase 27 U/L (17-59); Blood Urea Nitrogen 21 mg/dl (9-20); Calcium 10.3 mg/dl (8.4-10.2); Carbon Dioxide 32 mmol/L (22.0-30.0); Chloride 104 mmol/L (98-107); Estimated Glomerular Filt Rate 67 ml/min (>60); GFR (African American) 82 ML/MIN (>60); Globulin 3.1 g/dL (1.3-3.2); Glucose 93 mg/dl (74-100); Potassium 4.8 mmoL/L (3.5-5.1); Sodium 138 mmol/L (136-145); Total Protein,Serum 7.5 g/dl (6.3-8.2)
== END 2024-12-07 23:59 | disposition home or self-care (01) ==
LOC: LAB 13:29
PROVIDERS: PCP Family Medicine; Visit Provider Family Medicine
DX: Z00.00 Encounter for general adult medical examination without abnormal findings (principal); S90.416A Abrasion, unspecified lesser toe(s), initial encounter; L08.9 Local infection of the skin and subcutaneous tissue, unspecified
CPT/HCPCS: 36415; 80053; 85025; 85651

== ENCOUNTER 2024-12-14 13:00 | Outpatient (RCR) | payer MEDICARE, MEDICAID, SELFPAY | END 2024-12-14 23:59 | disposition home or self-care (01) | LOC: PT 13:00 | PROVIDERS: Visit Provider Family Medicine | DX: I89.0 Lymphedema, not elsewhere classified (principal); L97.912 Non-pressure chronic ulcer of unspecified part of right lower leg with fat layer exposed | CPT/HCPCS: 97597; 97760 ==

== ENCOUNTER 2024-12-26 08:02 | Day surgery (SDC) | payer MEDICARE, MEDICAID, SELFPAY ==
[2024-12-26] VITALS (14 sets, daily range): BP systolic 113–183; BP diastolic 58–96; PULSE 67–90; RESP 18–20; O2SAT 95–100; BMI 37.3
--- NOTE | 2024-12-26 07:37 | IR_ITS ---
APPROVED REPORT Patient Location: Outpatient PROCEDURES Left heart catheterization Left ventriculogram Selective coronary angiogram INDICATION Abnormal Myoview, Preoperative evaluation Informed consent was obtained prior to the procedure. COMPLICATIONS none Estimated Blood Loss: less than 10ml TECHNIQUE One percent lidocaine was used to anesthetize the right groin. The right femoral artery was accessed via the Seldinger technique. A 4-Ukrainian sheath was placed in the right femoral artery. The JL-4 and JR-4 catheter was also used to perform left heart catheterization left ventriculogram and selective coronary angiogram. At the end of the procedure the patient was transferred to the post-op holding area in stable condition for arterial sheath removal. ANGIOGRAPHIC RESULTS The left main artery Normal The left anterior descending artery Has proximal smooth concentric 30 to 40% stenosis with remaining vessel normal The circumflex artery Dominant normal The right coronary artery Nondominant with 10% concentric luminal regularities The JETER ventriculogram reveals Preserved 60% The left ventricular end-diastolic pressure Elevated at 30 mmHg IMPRESSION Mild to moderate nonflow limiting coronary disease involving the proximal LAD Preserved ejection fraction Elevated LVEDP consistent with diastolic dysfunction PLAN 1. Patient is a low and acceptable risk from a cardiac standpoint to proceed with elective melanoma surgery 2. Recommend weight loss exercise 3. Consider sleep study 4. Risk factor modification Electronically signed by : Chico Barton MD 12/26/2024 10:52:18
[2024-12-26] MEDS: diazePAM 5MG TABLET 5 MG PO (08:30)
[2024-12-26 08:43] LABS: Basophils # 0.1 K/mm3 (0-0.2); Basophils % 0.5 % (0.1-2.0); Eosinophils # 0.1 Kmm3 (0.0-0.4); Eosinophils % 0.7 % (0.1-12.0); Hematocrit 46.2 % (42.0-52.0); Hemoglobin 15.4 g/dL (14.1-18.0); Immature Granulocytes # 0.11 10^3uL; Immature Granulocytes % 0.8 %; Lymphocytes # 3.7 K/mm3 (0.7-4.5); Lymphocytes % 27.6 % (10-50); Mean Corpuscular HGB Conc 33.3 g/dL (31.8-35.4); Mean Platelet Volume 9.2 fl (7.4-10.4); Monocytes # 1.1 K/mm3 (0.1-1.0); Neutrophils # 8.4 K/mm3 (1.8-7.8); Neutrophils % 62.4 % (37.0-80.0); Nucleated Red Blood Cells # 0 10^3/uL; Nucleated Red Blood Cells % 0 %; Platelet Count 334 K/mm3 (142-424); Red Blood Count 4.97 M/mm3 (4.60-6.20); Red Cell Distribution Width 12.8 % (11.5-17.5); Red Cell Distribution Width-SD 43.7 fL; White Blood Count 13.5 K/mm3 (4.8-10.8)
[2024-12-26 08:53] LABS: Chloride 104 mmol/L (98-107); Potassium 4.4 mmoL/L (3.5-5.1); Sodium 140 mmol/L (136-145)
[2024-12-26 08:56] LABS: Anion Gap 10.4 mEq/L (5-15); Blood Urea Nitrogen 15 mg/dl (9-20); Carbon Dioxide 30 mmol/L (22.0-30.0); Creatinine Clearance Estimated 121 mL/min (50-200); Estimated Glomerular Filt Rate 75 ml/min (>60); GFR (African American) 91 ML/MIN (>60)
[2024-12-26 08:57] LABS: Calcium 9.5 mg/dl (8.4-10.2); Glucose 116 mg/dl (74-100)
[2024-12-26] MEDS: HEPARIN 1,000 UNITS/500ML NS (CATH LAB) 3000 UNIT IV (09:38)
[2024-12-26] MEDS: diphenhydrAMINE 50MG/ML VIAL 50 MG IV (09:44)
[2024-12-26] MEDS: 0.9 % SODIUM CHLORIDE 500 ML 25 ML IV (09:44)
[2024-12-26] MEDS: VERAPAMIL 2.5MG/ML 2ML VIAL 2.5 MG IV (09:44)
[2024-12-26] MEDS: NITROGLYCERIN 800MCG/8ML SYR (CATH LAB) 800 MCG IA (09:44)
[2024-12-26] MEDS: MIDAZOLAM HCL 1MG/ML 5ML VIAL 1 MG IV (09:45)
[2024-12-26] MEDS: HEPARIN 1,000 UNITS/ML 10ML VIAL (CATH LAB) 5000 UNIT IV (09:45)
[2024-12-26] MEDS: FENTANYL 100MCG/2ML VIAL 50 MCG IV (09:45)
[2024-12-26] MEDS: IOPAMIDOL-370 (76%);100ML BOTTLE 50 ML IV (11:18)
== END 2024-12-26 13:59 | disposition home or self-care (01) ==
PROVIDERS: PCP Family Medicine; Visit Provider Internal Medicine
PROC: 4A023N7 Measurement of Cardiac Sampling and Pressure, Left Heart, Percutaneous Approach (ICD-10-PCS; CPT 93452; principal; 2024-12-26 07:30)
DX: I25.119 Atherosclerotic heart disease of native coronary artery with unspecified angina pectoris (principal); R93.1 Abnormal findings on diagnostic imaging of heart and coronary circulation; R94.39 Abnormal result of other cardiovascular function study; I11.0 Hypertensive heart disease with heart failure; I50.30 Unspecified diastolic (congestive) heart failure; E11.9 Type 2 diabetes mellitus without complications; G47.33 Obstructive sleep apnea (adult) (pediatric); M79.2 Neuralgia and neuritis, unspecified; E66.9 Obesity, unspecified; Z68.37 Body mass index [BMI] 37.0-37.9, adult; Z87.891 Personal history of nicotine dependence; Z79.82 Long term (current) use of aspirin; Z79.85 Long-term (current) use of injectable non-insulin antidiabetic drugs; Z79.899 Other long term (current) drug therapy; Z79.84 Long term (current) use of oral hypoglycemic drugs; Z79.2 Long term (current) use of antibiotics
CPT/HCPCS: 93458; 80048; 85025; 99152; 99153; C1725; C1769; J1200; J1644; J3010; Q9967

== ENCOUNTER 2025-01-30 14:31 | Outpatient (CLI) | payer MEDICARE, MEDICAID, SELFPAY ==
--- OUTSIDE RECORDS SUMMARY | 2024-12-05 08:30 | XMS_ITS | Encounter Summary ---
Author Organization Healthcare Address [address] [id number] Care Team Providers Care Billet Heater Operator Name Role Phone Dina Tong APRN Primary Care Provider [phone] Reason for Referral * Imaging (Urgent) - Authorized Specialty Diagnoses / Procedures Referred By Contac t Referred To Contact Diagnoses Malignant melanoma, unspecified site (CMS/HCC) Procedures PET/CT FDG Whole Body Ofe Langford MD [address] [facility] Emmanuelle Bullrickson [address] [address] Phone: tel: fax: Referral ID Status Reason Start Date Expiration Date V isits Requested Visits Authorized [id number] Authorized 12/05/2024 06/06/2026 2 2 Reason for Visit * Reason Comments Consult Melanoma Encounter Details Date Type Department Care Team (Late st Contact Info) Description 12/05/2024 8:30 AM EDT Office Visit [facility] Multidisciplinary Oncology Clinic [address] [place] [address] Ofe Langford MD 800 [facility] Jordan [address] [address] Malignant melanoma, unspecified site (CMS/HCC) (Primary Dx) Social History Tobacco Use Types Packs/Day Years Used Date Smoking Tobacco: Former Cigarettes 0.5 42 1 979 - 2020 Smokeless Tobacco: Never PHQ-2 Answer Date Recorded Patient Health Questionnaire-2 Score 0 12/05/2024 PHQ-9 Answer Date Recorded Patient Health Questionnaire-9 Score 0 12/05/2024 Sex and Gender Information Value Date Recorded Sex Assigned at Not on file Legal Sex Male 8:03 PM EDT Gender Identity Not on file Sexual Orientation Not on file documented as of this encounter Last Filed Vital Signs Vital Sign Reading Time Taken Comments Blood Pressure 125/75 12/05/2024 8:58 AM EDT Pulse 75 12/05/2024 8:58 AM EDT Temperature 37.2 C (98.9 F) 12/05/2024 8:58 AM EDT Respiratory Rate 16 12/05/2024 8:58 AM EDT Oxygen Saturation 91% 12/05/2024 8:58 AM EDT Inhaled Oxygen Concentration - - Weight 116 kg (256 lb 9.9 oz) 12/05/2024 8:58 AM EDT Height 167.6 cm (5' 6 ) 12/05/2024 8:58 AM EDT Body Mass Index 41.42 12/05/2024 8:58 AM EDT documented in this encounter Functional Status * Over the past 2 weeks, how often have you been bothered by any of the following problems? Question Answer Date of Assessment Author Little interest or pleasure in doing things Not at all 12/05/2024 9:10 AM EDT Rosalina Carlin Feeling down, depressed, or hopeless Not at all 11/24 9:10 AM EDT Rosalina Carlin Patient Health Questionnaire-2 Score 0 11/24 9:10 AM EDT Rosalina Carlin * Question Answer Date of Assessment Author Trouble falling or staying a sleep, or sleeping too much Not at all 12/05/2024 9:10 AM EDT Rosalina Carlin Feeling tired or having tyler le energy Not at all 12/05/2024 9:10 AM EDT Rosalina Carlin Poor appetite or overeating Not at all 12/05/2024 9: 10 AM EDT Rosalina Carlin Feeling bad about yourself - or that you are a failure or have let yourself or your family down Not at all 12/05/2024 9:10 AM EDT Jareth Carlin Trouble concentrating on thi ngs, such as reading the newspaper or watching television Not at all 12/05/2024 9:10 AM EDT Rosalina Carlin Moving or speaking so slowly that other people could have noticed? Or the opposite - being so fidgety or restless that you have been moving around a lot more than usual. Not at all 12/05/2024 9:10 AM CATHIT Michele Carlin Thoughts that you would be b camilla off or hurting yourself in some way Not at all 12/05/2024 9:10 AM Rosalina Cleaning Patient Health Questionnaire-9 Score 0 11/24 9:10 AM EDRosalina Koo * If you checked off any problems on this questionnaire so far, Question Answer Date of Assessment Author How difficult have these problems made it for you to do your work, take care of things at home, or get along with other people? Not difficult at all 12/05/2024 9:10 AM Rosalina Cleaning documented as of this encounter Miscellaneous Notes * Progress Notes - Coleman Espinosa - 12/05/2024 8:30 AM EDT Images from the original note were not included. [facility] [place] New Patient Consultation Chief complaint: Merrill Dowling is a 64 y.o. seen in consultation from Carol Urena MD for back melanoma. History of Present Illness: Merrill Dowling is a 64 y.o. male who was referred by Carol Urena MD for evaluation of a 1.5 cm scaling erythematous papule c/f squamous cell carcinoma located on the L medial suprascapular back. They noted the lesion was asymmetric, changing in size, itching, bleeding, and painful . He hasreports headaches, has not had visual disturbances, has had new back pain (possibly a/w chronic lymphedema, recent changes in mobility). He says that he first noticed this lesion in June of 2024 after it began hurting and bleeding on his sheets and shirts. He says that at the time, it was growing quickly and painful to touch. On 11/14/2024, a shave biopsy was performed, demonstrating a 3.3 mm thickness melanoma with ulceration and a mitotic rate of 31/mm2. The margins were peripheral (positive - MIS, IM involvement), and deep (positive - IM involvement). They present today for further evaluation and management. Following shave biopsy described above, patient says that he noticed drainage from the site. He says that cauterization was used on the biopsy site, and that he has not noticed any change in color ofthe lesion. He has noticed redness around the biopsy site. Patient reports anterior cervical LN swollen and mild tenderness. History of immunosuppression? No Previous hx of melanoma: no Previous hx of skin cancer: yes - (records from [facility]) Hx of new or changing/abnormal (dysplastic) moles: no Hx of blistering sunburn: no Family hx of Melanoma: no Family hx of abnormal (dysplastic) moles: no Ancestry: [place] Occupation: Outdoor; pt used to work in [employer], electrician technician Currently wears sunscreen: yes - face, cover body History of Tanning Salons: no Denies influenza vaccine Surgical hx - none Social hx - half pack/day, social drinker Health Care Maintenance: Last colonoscopy: no colonoscopy yet Last mammogram: n/a Last pap smear: n/a Past Medical History: No past medical history on file. Past Surgical History: [Surgical History] [Surgical History] Past Surgical History No past surgical history on file. Social History: Tobacco: Tobacco Use: Medium Risk (08/27/2021) Patient History Smoking Tobacco Use: Former Smokeless Tobacco Use: Never Passive Exposure: Not on file Alcohol: Alcohol Use: Not on file Illicit drug use: Social History Substance and Sexual Activity Drug Use Not on file Allergies: [Allergies] [Allergies] No Known Allergies Family Medical History: family history is not on file. Home Medications: Prior to Admission medications Medication Sig Start Date End Date Taking? Authorizing Provider allopurinol (Zyloprim) 100 MG tablet 03/15/21 Tamika Smart MD busPIRone (Buspar) 5 MG tablet Take 1 tablet (5 mg total) by mouth 3 (three) times a day. 08/27/21 09/26/21 Teddy Balbuena MD famotidine (Pepcid) 40 MG tablet 04/22/21 Tamika Smart MD gabapentin (Neurontin) 300 MG capsule Take 1 capsule (300 mg total) by mouth 3 (three) times a day for 45 doses. 09/02/21 09/17/21 Teddy Balbuena MD ketoconazole (NIZOral) 2 % cream 03/15/21 Tamika Smart MD losartan (Cozaar) 50 MG tablet 07/10/21 Tamika Smart MD mupirocin (Bactroban) 2 % ointment 07/08/21 Tamika Smart MD nortriptyline (Pamelor) 10 MG capsule Take 3 capsules (30 mg total) by mouth every night. 08/27/21 08/27/22 Teddy Balbuena MD Nystop [id number] UNIT/GM powder 03/15/21 Tamika Smart MD tobramycin (Nebcin) 1.2 g injection 02/28/21 Tamika Smart MD triamcinolone (Kenalog) 0.1 % cream 12/25/20 Tamika Smart MD vancomycin (Vancocin) 1 g vial for injection 02/28/21 Tamiak Smart MD Review of Systems: 14 ROS was conducted and is otherwise negative unless noted in HPI. Physical exam: Visit Vitals BP 125/75 (BP Location: Right arm, Patient Position: Sitting, BP Cuff Size: Large adult) Pulse 75 Temp 37.2 ??C (98.9 ??F) (Oral) Resp 16 Ht 1.676 m (5' 6 ) Wt 116 kg (256 lb 9.9 oz) SpO2 91% BMI 41.42 kg/m?? Smoking Status Former BSA 2.32 m?? Physical Exam Constitutional: General: He is not in acute distress. Appearance: Normal appearance. He is obese. He is not toxic-appearing or diaphoretic. HENT: Head: Normocephalic. Nose: No congestion or rhinorrhea. Mouth/Throat: Mouth: Mucous membranes are moist. Pharynx: Oropharynx is clear. Eyes: General: No scleral icterus. Conjunctiva/sclera: Conjunctivae normal. Cardiovascular: Pulses: Normal pulses. Heart sounds: Normal heart sounds. No friction rub. Pulmonary: Effort: No respiratory distress. Breath sounds: Normal breath sounds. Abdominal: General: Bowel sounds are normal. Palpations: Abdomen is soft. There is no mass. Tenderness: There is no abdominal tenderness. Musculoskeletal: Cervical back: Normal range of motion. Right lower leg: Edema present. Left lower leg: Edema present. Lymphadenopathy: Cervical: Right cervical: No superficial cervical adenopathy. Left cervical: No superficial cervical adenopathy. Upper Body: Right upper body: No axillary adenopathy. Left upper body: No axillary adenopathy. Skin: General: Skin is warm. Coloration: Skin is not jaundiced. Findings: Lesion present. Neurological: General: No focal deficit present. Mental Status: He is alert and oriented to person, place, and time. Psychiatric: Behavior: Behavior normal. Thought Content: Thought content normal. Judgment: Judgment normal. Lesion 1 - L suprascapular region, lateral to T3, 1.0 cm lesion mildly erythematous base surrounding raised dark firm eschar/epithelium. No bleeding, drainage, or purulence noted. Image: Lesion 1 Objective: All laboratory, images, tracings, and vital sign data are personally reviewed unless otherwise noted. Radiographics/Diagnostics: Pending Pathology: Final Pathology Diagnosis ([facility] 11/30/2024) [facility] Pathology Review (Pending) DISCUSSION: After completing a physical examination and reviewing the patient's medical history, laboratory andpathology findings presented today, I discussed with the patient and accompanying family members myclinical impression of their diagnosis of melanoma. I explained the biology of melanoma and that itis a malignant skin cancer originating from pigmented cells called melanocytes in the skin and is highly associated with previous sun exposure. I reviewed the pathologic grading system for melanoma, including the factors such as depth, ulceration, mitotic rate and satellitosis, which are associatedwith a higher risk of recurrence and local, regional and distant spread. We also explained the stage of disease based on both the aforementioned disease burden and behavior, as well as the exam of their regional lymph node basins. At this time, additional work-up is required. Given his thick lesion(>3.3 mm) transected at the base with high-risk features (+ulceration, mitotic rate >30), medical comorbidities (include +stress test), and potential delays in treatment (reported need for heart catheterization), imaging with PET/CT is indicated to stage and rule out distant disease. Regarding treatment options we discussed radical excision of their primary melanoma with appropriate margins. I reviewed how sentinel node biopsy, otherwise known as lymphatic mapping/sentinel lymphadenectomy, is performed. I discussed the technique of sentinel lymph node biopsy and lymphatic mapping including a preoperative lymphoscintigraphy, injection of blue dye, and intraoperative lymphatic mapping. I explained that this procedure is conducted using a separate incision, and depending on the location of the melanoma, there can even be multiple biopsy sites. I also discussed the risks and benefits of the procedure including bleeding, infection, hematoma, seroma, reaction to the Lymphazurin, nerve injury, and chronic lymphedema. We also discussed the potential complications, including but not limited to a 6-12% risk of lymphedema. as well as potentially permanent tattooing, and green urine which is typically self limited to 48 hours. We also discussed that final treatment recommendations will be determined once we have complete pathologic evaluation of the resected specimen and lymph nodes. Patient care is complicated by management of comorbid conditions including cardiovascular disease, potential future catheterization or stent placement, that will need to be optimized and stabilized prior to planning for oncological treatment. Coordination with PCP (Dina Tong A.P.R.N. [facility]) regarding timeline of cardiac procedures vs. urgency of melanoma excision is recommended. Because of the association between previous sun exposure and melanoma, I discussed the probability of recurrence of the tumor in both the same and new locations, which can occur anywhere in their body. They are aware that they will require lifelong dermatologic surveillance for new melanomas and that there is up to a 10% chance of developing a new melanoma in their lifetime. I have discussed continued close dermatologic surveillance with quarterly examinations, and monthly self skin and lymph node exams. We reviewed the appropriate application of sun screen including generous application of abroad-spectrum, water-resistant sunscreen with a Sun Protection Factor (SPF) of 30 or more to all exposed skin with reapplication every two hours, even on cloudy days, and after swimming or sweating.Regarding sun exposure prophylaxis we discussed avoidance of exposure to direct, intense sunlight, especially around midday and to avoid using sun beds, tanning booths, and tanning lamps as an increased risk of melanoma has been reported. PLAN: - patient primary care [facility] contacted, discussion pending - schedule and complete PET imaging at [facility] - return to Oncology Clinic with PET results and cardiac timeline to plan operative intervention, provided there is no distant disease. The patient expressed understanding of the treatment plan. All questions were answered to his apparent satisfaction. He was encouraged to contact the office if any questions or concerns arise. Dr. Ofe Langford MD [facility] Surgical On[facility] I spent 60 minutes on this encounter, including preparing to see the patient, which involved review/interpretation of diagnostics and reports; obtaining and/or reviewing separately obtained history; performing appropriate physical exam; ordering/scheduling medications, tests or procedures; communicating findings, discussing diagnosis, prognosis, and treatment plans and counseling/educating the patient, family and/or caregiver; documentation in EMR; and care coordination. His chronic comorbid conditions that impact our treatment planning include: lymphedema cardiac failure / valvular dysfunction (unknown) Cosigned by Ofe Langford MD at 12/05/2024 1:55 PM EDT Associated attestation - Ofe Langford MD - 12/05/2024 1:55 PM EDT Images from the original note were not included. Attending Attestation: I personally saw and evaluated the patient with the Medical Student. I attest to being involved in providing substantive time in patient care. I discussed the case with them and agree with the findings as documented. The discussion and plan reflect my edits and medical decision making. Dr. Ofe Langford MD [facility] Surgical Oncology [facility] documented in this encounter Plan of Treatment Upcoming Encounters Date Type Department Care Team (Late st Contact Info) Description 02/06/2025 2:45 PM EDT Pre-Admission Testing [place] [facility] [address] [place] [address] 02/06/2025 3:30 PM EDT Office Visit [facility] [address] [place] [address] Rima Lopez E, [facility] [address] [place] [address] 02/08/2025 1:00 PM EDT Appointment [facility] [address] [place] [address] 02/08/2025 1:30 PM EDT Appointment [facility] [address] [place] [address] 02/09/2025 Hospital Encounter [facility] [address] [place] [address] Ofe Langford MD [address] [facility] Emmanuelle Ortega [address] [address] 02/20/2025 1:30 PM EDT Office Visit [facility] [address] [place] [address] Ofe Langford MD [address] [facility] Emmanuelle Ortega [address] [address] Scheduled Orders Name Type Priority Associated Diagnoses Orde r Schedule PET/CT FDG Whole Body Imaging Routine Malignant melanoma, unspecified site (CMS/HCC) Expected: 12/05/2024 (Approximate), Expires: 06/07/2026 Scheduled Procedures Name Priority Associated Diagnoses Date/Ti me EXCISION, MELANOMA 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 EXCISION, LYMPH NODE, SENTINEL 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 documented as of this encounter Visit Diagnoses Diagnosis Malignant melanoma, unspecified site (CMS/HCC)- Primary documented in this encounter Additional Health Concerns Assessment Noted Time PHQ-9 Depression Total Score: 0 12/06/19 9:10 AM EDT A fall risk assessment has been complete d for the patient 12/05/2024 9:10 AM EDT documented as of this encounter Care Teams Billet Heater Operator Relationship Specialty Start Date End Date Dina Tong APRN [address] [place] [address] PCP - General 12/05/24 documented as of this encounter
--- OUTSIDE RECORDS SUMMARY | 2025-01-09 13:45 | XMS_ITS | Encounter Summary ---
Author Organization Healthcare Address [address] [id number] Care Team Providers Care Tiller Man Name Role Phone Dina Tong APRN Primary Care Provider [phone] Reason for Referral * Imaging (Routine) - Pending Review Specialty Diagnoses / Procedures Referred By Margarito t Referred To Contact Radiology Diagnoses Malignant melanoma, unspecified site (CMS/HCC) Procedures NM Lymphoscintgraphy w SPECT/CT Ofe Langford MD [address] [facility] Emmanuelle Ortega [address] [address] Phone: tel: fax: Referral ID Status Reason Start Date Expiration Date V isits Requested Visits Authorized [id number] Pending Review 01/09/2025 07/11/2026 2 2 Reason for Visit * Reason Comments RTC to discuss PET scan Encounter Details Date Type Department Care Team (Late st Contact Info) Description 01/09/2025 1:45 PM EDT Office Visit [facility] Multidisciplinary Oncology Clinic [address] [place] [address] Ofe Langford MD 800 [facility] Emmanuelle Trujillo [address] [address] Malignant melanoma, unspecified site (CMS/HCC) (Primary Dx); 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 Social History Tobacco Use Types Packs/Day Years Used Date Smoking Tobacco: Former Cigarettes 0.5 42 1 9 - 2020 Smokeless Tobacco: Never Tobacco Cessation:Counseling Given: Not Answered PHQ-2 Answer Date Recorded Patient Health Questionnaire-2 [...] Sign Reading Time Taken Comments Blood Pressure 127/80 01/09/2025 1:56 PM EDT Pulse 72 01/09/2025 1:56 PM EDT Temperature 36.9 C (98.4 F) 01/09/2025 1:56 PM EDT Respiratory Rate - - Oxygen Saturation - - Inhaled Oxygen Concentration - - Weight 113 kg (249 lb 9 oz) 01/09/2025 1:56 PM E DT Height 167.6 cm (5' 6 ) 01/09/2025 1:56 PM EDT Body Mass Index 40.28 01/09/2025 1:56 PM EDT documented in this encounter Miscellaneous Notes * Progress Notes - Ofe Langford MD - 01/09/2025 1:45 PM EDT Images from the original note were not included. [facility] Progress Note Chief complaint: Merrill Dowling is a 64 y.o. seen in consultation from Carol Urena MD for Left upper back melanoma. History of Present Illness: Merrill [...] anterior cervical LN swollen and mild tenderness. Interval History 01/09/2025: Since our last appointment, he has undergone a heart catheterization without a criticalstenosis or blockage identified. He was started on Ozempic and he's lost around 5 lbs Past Medical History: No past medical history [...] night. 08/27/21 08/27/22 Teddy Balbuena MD Nystop 465959 UNIT/GM powder 03/15/21 Tamika Smart MD tobramycin (Nebcin) 1.2 g injection 02/28/21 Tamika Smart MD triamcinolone (Kenalog) 0.1 % cream 12/25/20 Tamika Smart MD vancomycin (Vancocin) 1 g vial for injection 02/28/21 Tamika Smart MD Review of Systems: 14 ROS was conducted and is otherwise negative unless noted in HPI. Physical exam: Visit Vitals Smoking Status Former Physical Exam Constitutional: General: He is not [...] Content: Thought content normal. Judgment: Judgment normal. Left upper back melanoma (12/05/2024) L suprascapular region, lateral to T3, 1.0 cm lesion mildly erythematous base surrounding raised dark firm eschar/epithelium. No bleeding, drainage, or purulence noted. Left upper back melanoma (01/09/2025) Objective: All laboratory, images, tracings, and vital sign data are personally reviewed unless otherwise noted. Radiographics/Diagnostics: N/A Pathology: [facility] [place] Pathology Review Final Diagnosis (no units) Date/Time Value 12/05/2024 1228 SKIN, LEFT MEDIAL BACK, SHAVE BIOPSY OF 1.5 CM LESION, 11/14/2024, REVIEWED OUTSIDE SLIDES AND IHC: - ULCERATED NODULAR MELANOMA. - INVASION IS AT LEAST 3.3 MM DEEP AND SHAVED ACROSS THE BASE. - INVOLVES ENTIRE DEEP AND PERIPHERAL MARGINS. - IHC IS POSITIVE FOR SOX 10 AND MELAN A. STAGE AT LEAST pT3b Final Pathology Diagnosis ([facility] 11/30/2024) DISCUSSION: We reconvened to discuss his diagnosis of melanoma today after a negative right heart catheterization. He remains without evidence of clinical adenopathy and the eschar has resolved from his back melanoma scar, such that the scar base is clean, pink and healthy appearing. Considering that he does not require additional cardiac interventions or anticoagulation/platelet therapy and the fact he is cN0, will avoid potential delays secondary to PET/CT and proceed to surgery. Treatment options include radical excision of their primary melanoma with appropriate margins (willaim for 2 cm). I explained that closure may be difficult because of the large scar diameter and need for wide margins. I explained that I will attempt to raise subcutaneous flaps but wound vac coverage may be needed, along with delayed closure. In addition, I reviewed how sentinel node biopsy, otherwise [...] of the resected specimen and lymph nodes. He has cut down on smoking, and since around his [birth year], has smoked very few. I encouraged continued cessation. We will plan to bring him back to clinic on 02/06 for teaching and consent, as well as anesthesia consultation. All questions were answered. PLAN: - RTC 02/06 for teaching and consent (left upper back melanoma WLE, sentinel lymph node biopsy) - OR tentatively planned 02/09 - Will obtain cardiac records from [facility] The patient expressed understanding of the treatment plan. All questions were answered to his apparent satisfaction. He was encouraged to contact the office if any questions or concerns arise. Dr. Ofe Langford MD Railroad Car Painter of Surgical Oncology [facility] I spent 60 minutes on this [...] lymphedema cardiac failure / valvular dysfunction (unknown) documented in this encounter Plan of Treatment Upcoming Encounters Date Type Department Care Team (Late st Contact Info) Description 02/06/2025 2:45 PM EDT Pre-Admission Testing [facility] Pre-op Clinic [address] [place] [address] 02/06/2025 3:30 PM EDT Office Visit [facility] Multidisciplinary Oncology Clinic [address] [place] [address] Rima Lopez, MANAGER SMALL BUSINESS [address] [place] [address] 02/08/2025 1:00 PM EDT Appointment [facility] Nuclear Medicine [address] [place] [address] 02/08/2025 1:30 PM EDT Appointment [facility] Nuclear Medicine [address] [place] [phone] 02/09/2025 Hospital Encounter [facility] [address] [place] [phone] Ofe Langford MD 800 [facility] Emmanuelle Ortega dg [facility] [address] [place] [address] 02/20/2025 1:30 PM EDT Office Visit [facility] [address] [place] [address] Ofe Langford MD 800 [facility] Emmanuelle Ortega [facility] [address] [place] [address] Scheduled Orders Name Type Priority Associated Diagnoses Orde r Schedule NM Lymphoscintgraphy w SPECT/CT Imaging Routine Malignant melanoma, unspecified site (CMS/HCC) Expected: 01/09/2025 (Approximate), Expires: 07/13/2026 Scheduled Procedures Name Priority Associated Diagnoses Date/Ti me EXCISION, MELANOMA 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 EXCISION, LYMPH NODE, SENTINEL 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 documented as of this encounter Visit Diagnoses Diagnosis Malignant melanoma, unspecified site (CMS/HCC)- Primary 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
--- OUTSIDE RECORDS SUMMARY | 2025-01-30 14:34 | XMS_ITS | Encounter Summary ---
Author Organization Healthcare Address [address] [id number] Care Team Providers Care Chief Operator Lock Tender Name Role Phone Dina Tong APRN Primary Care Provider Encounter Details Date Type Department Care Team ([facility] Contact Info) Description 01/10/2025 Telephone [facility] Multidisciplinary Oncology Clinic [address] [place] [address] Ofe Langford MD 800 [facility] [address] [place] [address] Social History Tobacco Use Types Packs/Day Years [...] on file documented as of this encounter Miscellaneous Notes * Telephone Encounter - Mervat Manzanares E - 01/10/2025 11:43 AM EDT Patient Phone Message Reason for Call: Patient missed a phone call but did not received a voicemail. Best contact number and optimal time of day to reach caller: [phone] Note: Please do not reply to this message. Follow-up communication and further actions as a result of this message need to be communicated with the patient directly, if the patient is not active onMyChart. If the patient is active on MyChart, they will receive notification of the communication/outcome via MyChart. documented in this encounter Plan of Treatment Upcoming Encounters Date Type Department Care Team (Late st Contact Info) Description 02/06/2025 2:45 PM EDT Pre-Admission Testing [facility] Pre-op Clinic [address] [place] [address] 02/06/2025 3:30 PM EDT Office Visit [facility] Multidisciplinary Oncology Clinic [address] [place] [phone] Rima Lopez, CENTRIFUGAL CHILLER TECHNICIAN [address] [place] [address] 02/08/2025 1:00 PM EDT Appointment [facility] Nuclear Medicine [address] [place] [address] 02/08/2025 1:30 PM EDT Appointment [facility] Nuclear Medicine [address] [place] [address] 02/09/2025 Hospital Encounter [facility] [address] [place] [phone] Ofe Langford MD 800 [facility] [place] [address] [phone] 02/20/2025 1:30 PM EDT Office Visit [facility] Multidisciplinary Oncology Clinic [address] [place] [phone] Ofe Langford MD 800 [facility] Emmanuelle Jordan [address] [address] Scheduled Procedures Name Priority Associated Diagnoses Date/Ti me EXCISION, MELANOMA 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
--- OUTSIDE RECORDS SUMMARY | 2025-01-30 14:34 | XMS_ITS | Clinical Summary ---
Author Organization Healthcare Address [address] [id number] Care Team Providers Care Metal Tile Lather Name Role Phone Dina Tong APRN Primary Care Provider [phone] Allergies No known active allergies Medications allopurinol (Zyloprim) 100 MG tablet 1 Active famotidine (Pepcid) 40 MG tablet 1 Active ketoconazole (NIZOral) 2 % cream 1 Active losartan (Cozaar) 50 MG tablet 1 Active mupirocin (Bactroban) 2 % ointment 1 Active Nystop 185078 UNIT/GM powder 1 Active tobramycin (Nebcin) 1.2 g injection 1 Active triamcinolone (Kenalog) 0.1 % cream 1 Active vancomycin (Vancocin) 1 g vial for injection 1 Active nortriptyline (Pamelor) 10 MG capsuleIndicatio ns:Major depressive disorder with single episode, remission status unspecified,Veno us stasis ulcer of right ankle with fat layer exposed without varicose veins,Pain of right lower leg Take 3 capsules (30 mg total) by mouth every night. 90 capsule 11 2 Active busPIRone (Buspar) 5 MG tabletIndication s:Major depressive disorder with single episode, remission status unspecified Take 1 tablet (5 mg total) by mouth 3 (three) times a day. 90 tablet 2 Active Additional Information Patient not taking.Reported on 12/05/2024 azelastine (Astelin) 0.1 % nasal spray Administer 1 spray into affected nostril(s). 4 Active Symbicort 80-4.5 MCG/ACT inhaler Inhale 2 puffs. 4 Active clonazePAM (KlonoPIN) 0.5 MG tablet Take 1 tablet by mouth. PRN Active desvenlafaxine (Pristiq) 50 MG 24 hr tablet 5 Active losartan-hydroCH LOROthiazide (Hyzaar) 100-25 MG tablet Take 1 tablet by mouth daily. Active metFORMIN (Glucophage) 500 MG tablet Take 1 tablet by mouth daily. Active oxyCODONE-acetam inophen (Percocet) 7.5-325 MG tablet 5 Active gabapentin (Neurontin) 800 MG tablet 5 Active furosemide (Lasix) 40 MG tablet Take 1 tablet by mouth daily. 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 [address] [place] [phone] Kathrine Monreal DO 12/05/2024 Travel from Last 3 Months Social History Tobacco Use Types Packs/Day Years Used Date Smoking Tobacco: Former Cigarettes 0.5 42 1 97 - 2020 Smokeless Tobacco: Never Tobacco Cessation:Counseling Given: Not Answered PHQ-2 Answer Date Recorded Patient Health Questionnaire-2 Score 0 12/05/2024 PHQ-9 Answer Date Recorded Patient Health Questionnaire-9 Score 0 12/05/2024 Sex and Gender Information Value Date Recorded Sex Assigned at Not on file Legal Sex Male 8:03 PM EDT Gender Identity Not on file Sexual Orientation Not on file Last Filed Vital Signs Vital Sign Reading Time Taken Comments Blood Pressure 127/80 01/09/2025 1:56 PM EDT Pulse 72 01/09/2025 1:56 PM EDT Temperature 36.9 C (98.4 F) 01/09/2025 1:56 PM EDT Respiratory Rate 16 12/05/2024 8:58 AM EDT Oxygen Saturation 91% 12/05/2024 8:58 AM EDT Inhaled Oxygen Concentration - - Weight 113 kg (249 lb 9 oz) 01/09/2025 1:56 PM E DT Height 167.6 cm (5' 6 ) 01/09/2025 1:56 PM EDT Body Mass Index 40.28 01/09/2025 1:56 PM EDT Plan of Treatment Upcoming Encounters Date Type Department Care Team (Late st Contact Info) Description 02/06/2025 2:45 PM EDT [facility] Testing [place] [facility] [facility] [address] [place] [address] 02/06/2025 3:30 PM EDT Office Visit [facility] [address] [place] [phone] Rima Lopez, RECORD TESTER [address] [place] [address] 02/08/2025 1:00 PM EDT Appointment [facility] Nuclear Medicine [address] [place] [address] 02/08/2025 1:[address] [facility] Nuclear Medicine [address] [place] [address] 02/09/2025 Hospital Encounter [facility] [address] [place] [address] Ofe Langford MD 800 [facility] Emmanuelle Ortega [facility] [address] [place] [address] 02/20/2025 1:30 PM EDT Office Visit [facility] Oncology [facility] [address] [place] [address] Ofe Langford MD 800 [facility] Emmanuelle Ortega [facility] [address] [place] [address] Scheduled Procedures Name Priority Associated Diagnoses Date/Ti me EXCISION, MELANOMA 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 EXCISION, LYMPH NODE, SENTINEL 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 Health Maintenance Due Date Last Done Comments [facility]-Hepatitis C Screening 1960 [facility]-Medicare Annual Wellness (AWV) 1960 [facility]-Infant/Child/Adol SDOH Screenings 1960 [facility]-Obesity Intervention 01/01/1966 [facility]- SDOH Screenings 01/01/1978 [facility]-Adult SDOH Screenings 01/01/1978 [facility]-Pneumococcal Vaccine: 50 + Years (1 of 2 - PCV) 01/01/1979 [facility]-Zoster Vaccines (1 of 2) 01/01/1979 CT Colonography 01/01/2005 Colonoscopy 01/01/2005 FIT-DNA 01/01/2005 FIT 01/01/2005 FOBT 01/01/2005 Sigmoidoscopy 01/01/2005 [facility]-Colorectal Cancer Screening 01/01/2005 [facility]-Lung Cancer Screening 01/01/2010 [facility]-RSV Vaccine: 60+ Years o r (1 - Risk 60-74 years 1-dose series) 2020 [id number]-50 Vaccine (3 - Pfizer risk series) 12/05/2020 11/07/2020, 10/10/2020 [facility]-Abdominal Aortic Aneurys m (AAA) Screening 01/01/2025 [facility]-Influenza Vaccine (#1) 2025 04/22/2021 [facility]-Depression Screening 12/05/2025 025, 12/05/2024 [facility]-DTaP,Tdap,and Td Vaccine s (2 - Td or Tdap) 04/07/2031 04/07/2021 HPV Vaccines Aged Out No longer eligi ble based on patient's age to complete this topic [facility]-HIB Vaccines Aged Out No longer e ligible based on patient's age to complete this topic [facility]-Hepatitis A Vaccines Aged Out No longer eligible based on patient's age to complete this topic [facility]-IPV Vaccines Aged Out No longer e ligible based on patient's age to complete this topic [facility]-Rotavirus Vaccines Aged Out No lo nger eligible based on patient's age to complete this topic Goals Goal Patient Goal Type Associated Problems Recent Progress Patient-Stated? Author Autogenera rubens Goal Care Plan Autogenerated Problem No Pilo Redd Procedures Procedure Name Priority Date/Time Associated Diagnosis Comments SURGICAL PATHOLOGY CONSULT Routine 12/05/2024 12:28 PM EDT Malignant melanoma of skin, unspecified (CMS/HCC) from Last 3 Months Results * Surgical Pathology Consult (12/05/2024 12:28 PM EDT) Case Report Sugical Pathology Consult Case: [id number] Authorizing Provider: Ofe Langford MD Collected: 12/05/2024 1228 Ordering Location: [facility] Received: 12/05/2024 1228 Pathologist: Pilo Escudero MD Specimen: Skin, [id number]. 11:42 AM EDT [facility] Final Diagnosis SKIN, LEFT MEDIAL BACK, SHAVE BIOPSY OF 1.5 CM LESION, 11/14/2024, REVIEWED OUTSIDE SLIDES AND IHC: - ULCERATED NODULAR MELANOMA. - INVASION IS AT LEAST 3.3 MM DEEP AND SHAVED ACROSS THE BASE. - INVOLVES ENTIRE DEEP AND PERIPHERAL MARGINS. - IHC IS POSITIVE FOR SOX 10 AND MELAN A. STAGE AT LEAST pT3b 11:42 AM EDT [facility] at 1142 EDT Clinical Information Skin of suprascapular left medial back, 1.5 CM scaly erythematous papule 11:42 AM EDT [facility] Microscopic Description Epithelioid and spindle cell morphology with prominent atypia, non pigmented. Brisk mitoses; no regression 11:42 AM EDT [facility] Special and Immunohistochemical Stains Reviewed shows strong diffuse positivity for Sox 10 and Melan A,. MCK-M is negative 11:42 AM EDT [facility] Gross Description A. [id number]. Received along with a corresponding pathology report from [facility] are 4 slide(s) labeled outside case: [id number] collected on 11/14/2024. 11:42 AM EDT [facility] Note: A resident was involved in the service. I attest I examined the relevant preparations for the specimens and confirmed the diagnosis or interpretation. 11:42 AM EDT [facility] Tissue Skin structure / Unknown 12/05/2024 12:28 PM EDT 12/05/2024 12:28 PM EDT us Ofe Langford MD LAB PATHOLOGY ORDERABLES Final R esult [facility] [address] [place] [address] from Last 3 Months Additional Health Concerns Active Problems Noted Date Diagnosed Date Autogenerated Problem 01/30/2025 Insurance [place]ICAID-[place] [facility] MEDICARE Care Teams Metal Tile Lather Relationship Specialty Start Date End Date Dina Tong APRN [address] [place] [address] PCP - General 12/05/24
--- OUTSIDE RECORDS SUMMARY | 2025-01-30 14:34 | XMS_ITS | Encounter Summary ---
Author Organization Healthcare Address [address] [place] [address] Care Team Providers Care Lead Producer Name Role Phone Dina Tong APRN Primary Care Provider [phone] Encounter Details Date Type Department Care Team (Late st Contact Info) Description 12/05/2024 Lab Requisition [facility] [address] [place] [address] Ofe Langford MD 800 [facility] [address] [place] [address] Malignant melanoma of skin, unspecified (CMS/HCC) Social History Tobacco Use Types Packs/Day Years [...] on file documented as of this encounter Functional Status * Over the [...] television Not at all 12/05/2024 9:10 AM CATHIT Rosalina Carlin Moving or speaking so slowly that other people could have noticed? Or the opposite - being so fidgety or restless that you have been moving around a lot more than usual. Not at all 12/05/2024 9:10 AM EDT Michele Carlin Thoughts that you would be b camilla off or hurting yourself in some way Not at all 12/05/2024 9:10 AM EDT Rosalina Carlin Patient Health Questionnaire-9 Score 0 11/24 9:10 AM EDT Rosalina Carlin * If you checked off any problems on this questionnaire so far, Question Answer Date of Assessment Author How difficult have these problems made it for you to do your work, take care of things at home, or get along with other people? Not difficult at all 12/05/2024 9:10 AM EDT Rosalina Carlin documented as of this encounter Plan of Treatment Upcoming Encounters Date Type Department Care Team (Late st Contact Info) Description 02/06/2025 2:45 PM EDT [facility] Testing [facility] [address], [address] [place] [address] 02/06/2025 3:30 PM EDT Office Visit [facility] Multidisciplinary Oncology Clinic [address] [place] [address] Rima Lopez, INTERNET DATABASE SPECIALIST [address] [place] [address] 02/08/2025 1:00 PM EDT Appointment [facility] Nuclear Medicine [address] [place] [address] 02/08/2025 1:30 PM EDT Appointment [facility] Nuclear Medicine [address] [place] [address] 02/09/2025 Hospital Encounter [facility] [address] [place] [address] Ofe Langford MD 800 [facility] Emmanuelle Ortega [address] [address] 02/20/2025 1:30 PM EDT Office Visit [facility] [address] [place] [address] Ofe Langford MD 800 [facility] Emmanuelle Fitzgeraldson [address] [address] Scheduled Procedures Name Priority Associated Diagnoses Date/Ti me EXCISION, MELANOMA 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 EXCISION, LYMPH NODE, SENTINEL 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 documented as of this encounter Procedures Procedure Name Priority Date/Time Associated Diagnosis Comments SURGICAL PATHOLOGY CONSULT Routine 12/05/2024 12:28 PM EDT Malignant melanoma of skin, unspecified (CMS/HCC) documented in this encounter Results * Surgical Pathology Consult (12/05/2024 12:28 PM EDT) Case Report Sugical Pathology Consult Case: [id number] Authorizing Provider: Ofe Langford MD Collected: 12/05/2024 1228 Ordering Location: [facility] Lab Received: 12/05/2024 1228 Pathologist: Pilo Escudero MD Specimen: Skin, [id number]. 11:42 AM EDT [facility] Final Diagnosis SKIN, LEFT MEDIAL BACK, SHAVE BIOPSY OF 1.5 CM LESION, 11/14/2024, REVIEWED OUTSIDE SLIDES AND IHC: - ULCERATED NODULAR MELANOMA. - INVASION IS AT LEAST 3.3 MM DEEP AND SHAVED ACROSS THE BASE. - INVOLVES ENTIRE DEEP AND PERIPHERAL MARGINS. - IHC IS POSITIVE FOR SOX 10 AND MELAN A. STAGE AT LEAST pT3b 11:42 AM EDT [facility] at 1142 EDT Clinical Information Skin of suprascapular left medial back, 1.5 CM scaly erythematous papule 11:42 AM EDT [facility] Microscopic Description Epithelioid and spindle cell morphology with prominent atypia, non pigmented. Brisk mitoses; no regression 11:42 AM EDT [facility] Special and Immunohistochemical Stains Reviewed shows strong diffuse positivity for Sox 10 and Melan A,. MCK-M is negative 11:42 AM EDT [facility] Gross Description A. [id number]. Received along with a corresponding pathology report from [facility] are 4 slide(s) labeled outside case: [id number] collected on 11/14/2024. 11:42 AM EDT [facility] Note: A resident was involved in the service. I attest I examined the relevant preparations for the specimens and confirmed the diagnosis or interpretation. 11:42 AM EDT [facility] Tissue Skin structure / Unknown 12/05/2024 12:28 PM EDT 12/05/2024 12:28 PM EDT us Ofe Langford MD LAB PATHOLOGY ORDERABLES Final R esult [facility] [address] [place] [address] documented in this encounter Visit Diagnoses Diagnosis Malignant melanoma of skin, unspecified (CMS/HCC) documented in this encounter Additional Health Concerns Assessment Noted Time PHQ-9 Depression Total Score: 0 12/06/19 25 9:10 AM EDT A fall risk assessment has been complete d for the patient 12/05/2024 9:10 AM EDT documented as of this encounter Care Teams Lead Producer Relationship Specialty Start Date End Date Dina Tong APRN [address] [place] [address] PCP - General 12/05/24 documented as of this encounter
--- OUTSIDE RECORDS SUMMARY | 2025-01-30 14:34 | XMS_ITS | Encounter Summary ---
Author Organization Healthcare Address [address] [place] [address] Care Team Providers Care Roll Sheeting Cutter Name Role Phone Dina Tong APRN Primary Care Provider [phone] Encounter Details Date Type Department Care Team (Late Contact Info) Description 01/09/2025 Telephone [facility] [address] [place] [address] Gabriela Joseph RN Social History Tobacco Use Types Packs/Day Years [...] encounter Miscellaneous Notes * Telephone Encounter - Gabriela Joseph RN - 01/09/2025 2:[address] Barton's office to obtain the report of patient's cardiac cath. Had to leave a message requesting the results. Left fax number and phone number. documented in this encounter Plan of Treatment Upcoming Encounters Date Type Department Care Team (Late Contact Info) Description 02/06/2025 2:45 PM EDT Pre-Admission Testing [facility] Pre-op Clinic [address], [address] [place] [address] 02/06/2025 3:30 PM EDT Office Visit [facility] [address] [place] [address] Rima Lopez, CARPET INSTALLATION SPECIALIST [address] [facility] [address] [place] [address] 02/08/2025 1:00 PM EDT Appointment [facility] Nuclear Medicine [address] [place] [address] 02/08/2025 1:30 PM EDT Appointment [facility] Nuclear Medicine [address] [place] [address] 02/09/2025 Hospital Encounter [facility] [address] [place] [phone] Ofe Langford MD 800 [facility] Emmanuelle Ortega [address] [address] 02/20/2025 1:30 PM EDT Office Visit [facility] [address] [place] [address] Ofe Langford MD 800 [facility] Emmanuelle Fitzgeraldson [address] [address] Scheduled Procedures Name Priority Associated [...] documented as of this encounter Care Teams Roll Sheeting Cutter Relationship Specialty Start Date End Date Dina Tong APRN [address] [place] [address] PCP - General 12/05/24 documented as of this encounter
--- OUTSIDE RECORDS SUMMARY | 2025-01-30 14:34 | XMS_ITS | Encounter Summary ---
Author Organization Healthcare Address [address] [place] [id number] Care Team Providers Care Coal Yard Supervisor Name Role Phone Dina Tong APRN Primary Care Provider [phone] Encounter Details Date Type Department Care Team (Latest Contact Info) Description 01/09/2025 Travel Social History Tobacco Use Types Packs/Day Years Used Date Smoking Tobacco: Former Cigarettes 0.5 42 1 2020 Smokeless Tobacco: Never PHQ-2 Answer Date Recorded Patient Health Questionnaire-2 Score 0 12/05/2024 PHQ-9 Answer Date Recorded Patient Health Questionnaire-9 Score 0 12/05/2024 Sex and Gender Information Value Date Recorded Sex Assigned at Not on file Legal Sex Male 8:03 PM EDT Gender Identity Not on file Sexual Orientation Not on file documented as of this encounter Plan of Treatment Upcoming Encounters Date Type Department Care Team (Late st Contact Info) Description 02/06/2025 2:45 PM EDT Pre-Admission Testing [facility] Pre-op Clinic [address], [address] [place] [address] 02/06/2025 3:30 PM EDT Office Visit [facility] [address] [place] [address] Rima Lopez APRN [address] [place] [address] 02/08/2025 1:00 PM EDT Appointment [facility] Nuclear Medicine [address] [place] [address] 02/08/2025 1:30 PM EDT Appointment [facility] Nuclear Medicine [address] [place] [address] 02/09/2025 Hospital Encounter [facility] [address] [place] [address] Ofe Langford MD [address] Emmanuelle Oretga dg [facility] [address] [place] [address] 02/20/2025 1:30 PM EDT Office Visit [facility] [address] [place] [address] Ofe Langford MD [address] Emmanuelle Ortega dg [facility] [address] [place] [address] Scheduled Procedures Name Priority Associated [...] documented as of this encounter Care Teams Coal Yard Supervisor Relationship Specialty Start Date End Date Dina Tong APRN [address] [place] [address] PCP - General 12/05/24 documented as of this encounter
--- OUTSIDE RECORDS SUMMARY | 2025-01-30 14:34 | XMS_ITS | Encounter Summary ---
Author Organization Healthcare Address [address] [place] [address] Care Team Providers Care Lip Cutter And Scorer Name Role Phone Dina Tong APRN Primary Care Provider Encounter Details Date Type Department Care Team ([facility] st Contact Info) Description 12/05/2024 Orders Only [facility] Radiology Virtual Dept. [address] [place] [address] Kathrine Monreal, DO [address] [place] [address] Social History Tobacco Use Types Packs/Day Years Used Date Smoking Tobacco: Former Cigarettes 0.5 42 1 979 - 202 Smokeless Tobacco: Never PHQ-2 Answer Date Recorded [...] Description 02/06/2025 2:45 PM EDT [facility] Testing [facility] [address], [address] [place] [address] 02/06/2025 3:30 PM EDT Office Visit [facility] [address] [place] [address] Rima Lopez, REHAB/PRE VOCATIONAL COUNSELOR [address] [place] [address] 02/08/2025 1:00 PM EDT Appointment [facility] [address] [place] [address] 02/08/2025 1:30 PM EDT Appointment [facility] [address] [place] [address] 02/09/2025 Hospital Encounter [facility] [address] [place] [address] Ofe Langford MD 800 [facility] Emmanuelle Ortega [facility] [address] [place] [address] 02/20/2025 1:30 PM EDT Office Visit [facility] On[facility] [address] [place] [address] Ofe Langford MD 800 [facility] Emmanuelle Ortega [facility] [address] [place] [address] Scheduled Procedures Name Priority Associated [...] documented as of this encounter Care Teams Lip Cutter And Scorer Relationship Specialty Start Date End Date Dina Tong APRN [address] [place] [address] PCP - General 12/05/24 documented as of this encounter
--- OUTSIDE RECORDS SUMMARY | 2025-01-30 14:34 | XMS_ITS | Referral Summary ---
Author Organization [employer] ([place], [place], [place], [place]) Address [address] [place] [address] Care Team Providers Care Kettle Worker Name Role Phone Tania Murry MD Unavailable [facility], Provider Not In The System Primary Care Provider Unavailable Allergies No known active allergies Medications gabapentin (NEURONTIN) 800 MG tablet Take 1 tablet (800 mg total) by mouth 3 (three) times daily. Active oxyCODONE-aceta minophen (PERCOCET) 10-325 mg per tablet Take 1 tablet by mouth every 4 (four) hours as needed for pain Look-alike/So und-alike medication Sees pain clinic, Dr. Torre. Active clonazePAM (KlonoPIN) 0.5 MG tablet Take 1 tablet (0.5 mg total) by mouth as needed for anxiety. Active magnesium citrate 100 mg Tab Take 200 mg by mouth daily. Active metFORMIN (GLUCOPHAGE) 500 MG tablet Take 1 tablet (500 mg total) by mouth daily. 4 Active losartan-hydroC HLOROthiazide (HYZAAR) 100-25 mg per tablet Take 1 tablet by mouth daily. 4 Active buPROPion (WELLBUTRIN SR) 150 MG 12 hr tablet Take 1 tablet (150 mg total) by mouth daily. 4 Active Symbicort 80-4.5 mcg/actuation inhaler Inhale 2 puffs by mouth via inhaler daily as needed. 4 Active azelastine (ASTELIN) 137 mcg (0.1 %) nasal spray 1 spray by intraNASAL route daily as needed. 07/05/202 4 Active Active Problems Problem Noted Date Diagnosed Date Tobacco use disorder 02/11/2024 02/11/2024 Thrombocytosis 02/11/2024 02/11/2024 Skin ulcer of right lower leg 02/11/2024 Patient left without being seen 02/11/2024 02/11/2024 Pain of lower extremity 02/11/2024 02/11/20 Osteopenia determined by x-ray 02/11/2024 0 02/11/2024 Osteoarthritis of both feet 02/11/202401/24 Onychomycosis 02/11/2024 02/11/2024 Obesity 02/11/2024 02/11/2024 Neuropathy 02/11/2024 02/11/2024 Nail dystrophy 02/11/2024 02/11/2024 Lymphedema 02/11/2024 02/11/2024 Infection, Klebsiella 02/11/2024 02/11/2024 Humeral fracture 02/11/2024 02/11/2024 History of gout 02/11/2024 02/11/2024 Hallux rigidus of both feet 02/11/202401/24 Gout attack 02/11/2024 02/11/2024 Gangrene 02/11/2024 02/11/2024 Fall 02/11/2024 02/11/2024 Enterococcus faecalis infection 02/11/2024 02/11/2024 Disorder of foot 02/11/2024 02/11/2024 Diminished pulses in lower extremity 02/11/2024 02/11/2024 Degeneration of intervertebral disc 02/11/2024 02/11/2024 Charcot's arthropathy 02/11/2024 02/11/2024 Change of skin color 02/11/2024 02/11/2024 Arthritis 02/11/2024 02/11/2024 Acquired hallux valgus of both feet 02/11/2024 02/11/2024 Acquired equinus deformity of both feet 02/11/2002/11/2024 HTN (hypertension) 10/23/2023 Social History Tobacco Use Types Packs/Day Years Used Date Smoking Tobacco: Every Day Cigarettes Smokeless Tobacco: Never Tobacco Cessation:Ready to Q uit: Not Asked; Counseling Given: Not Answered Alcohol Use Standard Drinks/Week Comments Yes 0 (1 standard drink = 0.6 oz pur e alcohol) two to three times per month Food Insecurity Answer Date Recorded Food run out past 12 months Not on file 01/2024 Food did not last past 12 months Not on file 10/01/2023 Employment Answer Date Recorded Help finding and keeping a job Not on file 0 10/01/2023 Family and Community Support Answer Toby e Recorded Help with Day to Day Activities Not on file 10/01/2023 Feeling Lonely or Isolated Not on file 09/30 Educational Attainment Answer Date Grant rded Speak language other than [place] at home Not on file 10/01/2023 Want help with school or training Not on file 10/01/2023 Substance Use Answer Date Recorded Used prescription meds for non-medical reasons N ot on file 10/01/2023 Used illegal drugs past 12 months Not on file 10/01/2023 Sex and Gender Information Value Date Recorded Sex Assigned at Not on file Legal Sex Male 4:09 PM CDT Gender Identity Not on file Sexual Orientation Not on file Last Filed Vital Signs Vital Sign Reading Time Taken Comments Blood Pressure 116/70 05/10/2024 11:16 AM EDT Pulse 78 03/24/2024 11:30 AM EDT Temperature 37 C (98.6 F) 03/24/2024 7:34 AM EDT Respiratory Rate 16 03/24/2024 11:30 AM EDT Oxygen Saturation 98% 03/24/2024 11:30 AM EDT Inhaled Oxygen Concentration - - Weight 108.9 kg (240 lb) 05/10/2024 11:16 AM EDT Height 175.3 cm (5' 9 ) 05/10/2024 11:16 AM EDT Body Mass Index 35.44 05/10/2024 11:16 AM EDT Plan of Treatment Not on file Insurance [facility] DUAL COMPLETE [facility] ADV [facility] MCR ADV DUAL COMPLETE MEDICAID [employer] Care Teams Kettle Worker Relationship Specialty Start Date End Date [facility], Provider Not In The System, [place] [address] PCP - General 02/11/24 Tania Murry MD [address] [facility] [address] [place] [phone] Interventional Cardiology 10/23/23
--- OUTSIDE RECORDS SUMMARY | 2025-01-30 14:34 | XMS_ITS | Encounter Summary ---
Author Organization Healthcare Address [address] [place] [address] Care Team Providers Care Glass Laminating Operator Name Role Phone Dina Tong APRN Primary Care Provider Encounter Details Date Type Department Care Team (Latest Contact Info) Description 12/05/2024 Travel Social History Tobacco Use Types Packs/Day Years Used Date Smoking Tobacco: Former Cigarettes 0.5 42 1 979 2020 Smokeless Tobacco: Never PHQ-2 Answer Date [...] Description 02/06/2025 2:45 PM EDT Pre-Admission Testing [facility] Pre-op Clinic [address], [address]st [place] [address] 02/06/2025 3:30 PM EDT Office Visit [facility] Multidisciplinary Oncology Clinic [address] [place] [address] Rima Lopez, STRATEGIC PLANNING MANAGER [address] [place] [address] 02/08/2025 1:00 PM EDT Appointment [facility] Nuclear Medicine [address] [place] [address] 02/08/2025 1:30 PM EDT Appointment [facility] Nuclear Medicine [address] [place] [address] 02/09/2025 Hospital Encounter [facility] [address] [place] [address] Ofe Langford MD 800 [facility] Emmanuelle Ortega [facility] [address] [place] [address] 02/20/2025 1:30 PM EDT Office Visit [facility] [address] [place] [address] Ofe Langford MD 800 [facility] Emmanuelle Ortega dg [facility] [address] [place] [address] Scheduled Procedures Name Priority Associated [...] documented as of this encounter Care Teams Glass Laminating Operator Relationship Specialty Start Date End Date Dina Tong APRN [address] [place] [address] PCP - General 12/05/24 documented as of this encounter
--- OUTSIDE RECORDS SUMMARY | 2025-01-30 14:34 | XMS_ITS | Clinical Summary ---
Author Organization [employer] ([place], [place], [place], [place]) Address [address] [place] [address] Care Team Providers Care Dredgemaster Name Role Phone Tania Murry MD Unavailable [phone] [facility], Provider Not In The System Primary Care [...] of both feet 02/11/2002/11/2024 HTN (hypertension) 10/23/2023 Family History Medical History Relation Name Comments Heart attack Father Relation Name Status Comments Father Social History Tobacco Use Types Packs/Day Years [...] Date Grant rded Speak language other than Slovak at home Not on file 10/01/2023 Want [...] 05/10/2024 11:16 AM EDT Plan of Treatment Health Maintenance Due Date Last Done Comments CT Colonography 1960 Colonoscopy 1960 Colorectal Cancer Screening 1960 FOBT/FIT 1960 Fit-DNA (Cologuard) 1960 Sigmoidoscopy 1960 Depression Screening (12+) 1972 HIV Screening 01/01/1975 Hepatitis C Screening 01/01/1978 Pneumococcal 50+ years (1 of 2 - PCV) 01/01/1979 Lipid Panel 01/01/1995 Shingles Vaccine (Zoster) (1 of 2) 01/01/2010 Medicare Initial AWV [id number] 07/28/2023 COVID-19 VACCINE (3 - season) 2024, 10/10/2020 Falls Risk Screening 07/27/2024 Abdominal Aortic Aneurysm (AAA) Screen 01/01/2025 Tobacco Cessation Counseling and Screening (12+) 01/28/2025 01/29/2024 Influenza Vaccine (#1) 2025 DTAP/TDAP/TD VACCINES (2 - Td or Tdap) 04/07/2031 Respiratory Syncytial Virus (RSV) Adult or (1 - 1-dose 75+ series) 01/01/2035 Insurance [facility] DUAL COMPLETE [facility] ADV [facility] ADV DUAL COMPLETE MEDICAID [employer] Care Teams Dredgemaster Relationship Specialty Start Date End Date [facility], Provider Not In The System, [place] [address] PCP - General 02/11/24 Tania Murry MD [address] [facility] [address] [place] [id number] Interventional Cardiology 10/23/23
[2025-01-30 15:26] LABS: Anion Gap 15.0 mEq/L (5-15); Blood Urea Nitrogen 15 mg/dl (9-20); Calcium 8.5 mg/dl (8.4-10.2); Carbon Dioxide 25 mmol/L (22.0-30.0); Chloride 104 mmol/L (98-107); Creatinine,Serum 1.00 mg/dl (0.66-1.25); Estimated Glomerular Filt Rate 75 ml/min (>60); GFR (African American) 91 ML/MIN (>60); Glucose 79 mg/dl (74-100); Magnesium 1.9 mg/dl (1.6-2.3); Potassium 5.0 mmoL/L (3.5-5.1); Sodium 139 mmol/L (136-145)
== END 2025-01-30 23:59 | disposition home or self-care (01) ==
LOC: LAB 14:32
PROVIDERS: PCP Family Medicine; Visit Provider Obstetrics & Gynecology
DX: I25.10 Atherosclerotic heart disease of native coronary artery without angina pectoris (principal)
CPT/HCPCS: 36415; 80048; 83735

== ENCOUNTER 2025-03-22 08:47 | Day surgery (SDC) | payer MEDICARE, MEDICAID, SELFPAY ==
--- NOTE | 2025-03-21 17:03 | EXP.HP ---
History of Present Illness *Admission Date: 03/22/25 *History of present illness: Mr. Dowling is a 65-year-old gentleman who is here for diagnostic EGD and screening colonoscopy. He has had epigastric abdominal pain, bloating, nausea and vomiting. He also reports heartburn. He has never had a EGD or colonoscopy. The examination is deemed medically necessary for diagnostic EGD and screening colonoscopy. The patient has been seen, interviewed and examined prior to the procedure by both myself and the anesthesia provider. [facility] Disclaimer: The information contained in this section may have been updated after the patient was seen, as this information can be updated by other users. Medical History Abnormal stress test Anginal equivalent Obesity Bilateral leg pain Wound of right foot DM2 (diabetes mellitus, type 2) (HFpEF) heart failure with preserved ejection fraction Coronary artery disease VIJAY (obstructive sleep apnea) Abnormal nuclear cardiac imaging test Cellulitis of right leg Skin ulcer of right lower leg Patient left without being seen Fall Gout attack Gout Humeral fracture Scalp laceration Gangrene Bacterial cellulitis Enterococcus faecalis infection Proteus infection Infection, Klebsiella Chronic inflammation of both eustachian tubes Impacted cerumen of left ear Neuropathic pain Arthritis HTN (hypertension), benign Anxiety Hypertension Surgical History H/O arthroscopy of right knee Family History Family/Other No significant family history Social History Smoking Status: Former smoker tobacco type: cigarettes packs per day: 1 alcohol intake: current alcohol intake frequency: holidays/special occasions only substance use type: marijuana current occupational status: disabled Travel in the last 8 weeks?: None household members: none housing: house caffeine: No Have you lived/traveled outside [place] in past 30 days?: No Contact w/someone who lives/traveled outside US past 30 days?: No Exposure to someone with infectious disease in past 14 days?: No Do you have a fever (greater than 100.4 F or 38 C)?: No Have you tested positive for COVID-19?: No Exposed to someone with COVID-19 in past 14 days?: No Do you have a sore throat?: No Do you have a cough?: No Do you have any weakness?: No Do you have any diarrhea?: No Are you experiencing any unusual bleeding?: No Do you have any muscle aches/pain?: No Do you have any abdominal pain?: No Are you experiencing loss of taste or smell?: No Other Medical History Have you received the Flu Vaccine for this season: No Have you received the Pneumonia Vaccine: No Review of Systems Review of Systems Review of systems (narrative): Negative *Cardiovascular Comments: Negative *Gastrointestinal Comments: Negative *Genitourinary Comments: Negative *Musculoskeletal Comments: Negative *Neurologic Comments: Negative Meds Home Medications and Allergies Home Medications ?Medication ?Instructions ?Recorded ?Confirmed ?Type azelastine 137 mcg (0.1 %) nasal 2 spray intranasal BID #30 mL 01/29/24 03/02/25 Rx spray budesonide-formoterol HFA 80 See Rx Instructions .Route 01/29/24 03/02/25 Rx mcg-4.5 mcg/actuation aerosol .COMPLEX #10.2 grams inhaler (Symbicort) aspirin 81 mg tablet,delayed 81 mg PO DAILY #30 tabs 03/31/24 03/02/25 Rx release (Adult Aspirin Regimen) prazosin 1 mg capsule 1 mg PO HS #30 caps 05/11/24 03/02/25 Rx ondansetron 4 mg disintegrating 4 mg PO DAILY #30 tabs 12/07/24 03/02/25 Rx tablet furosemide 40 mg tablet (Lasix) 40 mg PO DAILY #90 tabs 01/02/25 03/02/25 Rx losartan 100 mg tablet 100 mg PO DAILY #30 tabs 01/02/25 03/02/25 Rx spironolactone 50 mg tablet 50 mg PO DAILY #30 tabs 01/02/25 03/02/25 Rx (Aldactone) gabapentin 800 mg tablet mg PO 01/16/25 03/02/25 History oxycodone-acetaminophen 7.5 mg-325 tab PO 01/16/25 03/02/25 History mg tablet desvenlafaxine succinate 50 mg 50 mg PO DAILY #30 tabs 01/22/25 03/02/25 Rx tablet,extended release 24 hr (Pristiq) atorvastatin 20 mg tablet (Lipitor) 20 mg PO DAILY #30 tabs 01/23/25 03/02/25 Rx famotidine 40 mg tablet See Rx Instructions .Route 02/01/25 03/02/25 Rx .COMPLEX #90 tabs omeprazole 20 mg capsule,delayed See Rx Instructions .Route 02/21/25 03/02/25 Rx release .COMPLEX #90 caps semaglutide 1 mg/dose (4 mg/3 mL) 1 mg (0.75 mL) SQ WEEKLY #3 mL 03/02/25 03/02/25 Rx subcutaneous pen injector (Ozempic) hydroxyzine pamoate 25 mg capsule See Rx Instructions .Route 03/07/25 Rx .COMPLEX #90 caps sodium,potassium,mag sulfates 17.5 See Rx Instructions PO .COMPLEX 03/08/25 Rx gram-3.13 gram-1.6 gram oral soln #354 mL (Suprep Bowel Prep Kit) New Prescriptions to Start Prescriptions: Allergies Allergy/AdvReac Type Severity Reaction Status Date / Time No Known Allergies Allergy Verified 03/02/25 13:29 Exam *Routine HEENT Exam Head: Present normocephalic Eye: Present EOMI and PERRL ENT: Present mucous membranes moist *Routine Neck Exam Neck: Present supple *Routine Respiratory Exam Respiratory: Present CTA bilaterally *Routine Cardiovascular Exam Cardiovascular: Present RRR *Routine Abdominal Exam Abdominal: Present soft and normoactive bowel sounds; Absent tenderness *Routine Rectal Exam Rectal:: deferred *Routine Genitalia Exam Genitalia:: deferred *Routine Extremities Exam Extremities: Absent cyanosis, clubbing or edema *Routine Skin Exam Skin: Present warm; Absent rash *Routine Neurological Exam Neurological: Present alert and oriented X3 Assessment and Plan *Assessment and plan (1) Heartburn: Status: Acute Category: Medical Code(s): R12 - Heartburn (2) Nausea & vomiting: Status: Acute Category: Medical Code(s): R11.2 - Nausea with vomiting, unspecified (3) Epigastric pain: Status: Acute Category: Medical Code(s): R10.13 - Epigastric pain (4) Bloating: Status: Acute Category: Medical Code(s): R14.0 - Abdominal distension (gaseous) (5) Screening for colon cancer: Status: Acute Category: Medical Code(s): Z12.11 - Encounter for screening for malignant neoplasm of colon Plan A/P: 1. Heartburn, dyspepsia, epigastric abdominal pain, nausea, vomiting and bloating for upper endoscopy and screening for colon cancer for colonoscopy is the preprocedural diagnosis. The patient will be anesthetized/sedated using MAC sedation. The patient has been seen and examined. Cardiac and lung assessment prior to the examination is stable. Proceed with planned diagnostic EGD and screening colonoscopy.
[2025-03-22 09:15] VITALS: BMI 36.5
[2025-03-22 09:16] VITALS: BP 165/89; PULSE 79; RESP 20; TEMP 36.4; O2SAT 96
[2025-03-22 09:20] VITALS: BP 165/89; PULSE 79; RESP 20; TEMP 36.4; O2SAT 96
--- NOTE | 2025-03-22 09:36 | P.PNANES_ITS ---
[facility] Disclaimer: The information contained in this section may have been updated after the patient was seen, as this information can be updated by other users. Medical History Abnormal stress test Anginal equivalent Obesity Bilateral leg pain Wound of right foot DM2 (diabetes mellitus, type 2) (HFpEF) heart failure with preserved ejection fraction Coronary artery disease VIJAY (obstructive sleep apnea) Abnormal nuclear cardiac imaging test Cellulitis of right leg Skin ulcer of right lower leg Patient left without being seen Fall Gout attack Gout Humeral fracture Scalp laceration Gangrene Bacterial cellulitis Enterococcus faecalis infection Proteus infection Infection, Klebsiella Chronic inflammation of both eustachian tubes Impacted cerumen of left ear Neuropathic pain Arthritis HTN (hypertension), benign Anxiety Hypertension Surgical History H/O arthroscopy of right knee Family History Family/Other No significant family history Social History Smoking Status: Former smoker tobacco type: cigarettes packs per day: 1 alcohol intake: current alcohol intake frequency: holidays/special occasions only substance use type: marijuana current occupational status: disabled Travel in the last 8 weeks?: None household members: none housing: house caffeine: No Have you lived/traveled outside [place] in past 30 days?: No Contact w/someone who lives/traveled outside [place] past 30 days?: No Exposure to someone with infectious disease in past 14 days?: No Do you have a fever (greater than 100.4 F or 38 C)?: No Have you tested positive for COVID-19?: No Exposed to someone with COVID-19 in past 14 days?: No Do you have a sore throat?: No Do you have a cough?: No Do you have any weakness?: No Do you have any diarrhea?: No Are you experiencing any unusual bleeding?: No Do you have any muscle aches/pain?: No Do you have any abdominal pain?: No Are you experiencing loss of taste or smell?: No [facility] Anesthesia Checklist Patient Identification Patient Identification: Arm Band and Verbal (Name & ) Structural Data Admitted From: Home Planned Operative Procedure/s: EGD colonscopy Consent for Planned Operative Procedure(s) Verified: Yes Verified Documents: Surgical Consent and History and Physical NPO Status Verified Time NPO: 00:00 Additional verifications Anesthesia Reactions: No Previous Colonoscopy: Yes Airway Assessment Mallampati Score:: Class III Dentition: Poor Dentition Neurological Assessment Level of Consciousness: Awake, Alert and Appropriate Hx Seizures: No Numbness or tingling in extremities: No Anesthesia Plan Anesthesia Risk discussed: Yes Anesthesia Plan: Verified ASA Class: III Anesthesia Type: MAC
--- NOTE | 2025-03-22 10:06 | HMH.PROCNOTE ---
[facility] Procedure Note Date: 03/22/25 Time: 10:06 Procedure Note:: Upper Endoscopy Procedure Report: Esophagogastroduodenoscopy with cold biopsies Endoscopost: Marcel Jacobo II, MD Referring Physician: SANTOSH Riojas Date of Procedure: March 22, 2025 Equipment: Olympus [id number] standard upper endoscope Sedation: MAC sedation Indications: Mr. Dowling is a 65-year-old gentleman who is here for diagnostic EGD and screening colonoscopy. He has had epigastric abdominal pain, bloating, nausea and vomiting. He also reports heartburn. He has never had a EGD or colonoscopy. The patient has been on semaglutide (Ozempic). He also has been on oxycodone 4 times daily and has some opioid-induced constipation. He reports no dysphagia, melena or hematochezia. He reports no family history of esophageal or gastric cancer. He is on omeprazole and famotidine. Procedure: Prior to the procedure, a history and physical exam was performed, and patient's medications and allergies were reviewed. The risks, benefits and alternatives of the sedation and procedure were discussed with the patient. All questions were answered and informed consent was obtained. The patient was brought to the procedure room. Patient identification and proposed procedure were verified by the physician and the nurse. The patient was placed in a left lateral decubitus position and the scope was passed under direct vision. Throughout the procedure, the patient's blood pressure, pulse, and oxygen saturations were monitored continuously. The upper GI endoscopy was accomplished without difficulty. The patient tolerated the procedure well. Findings: The scope was passed directly into the upper esophagus and advanced to the third portion of the duodenum. A cold biopsy was taken from the second portion of the duodenum for the disaccharidase assay. The post bulbar duodenum, ampulla and duodenal bulb were normal with normal mucosa and conniventes. The scope was withdrawn through a normal duodenal bulb and pylorus into the stomach. There was some moderate linear reactive gastropathy of the antrum. The body and fundus of the stomach were normal. Upon retroflexion there was no hiatal hernia. Cold biopsies were taken from the antrum. The scope was then withdrawn into the esophagus. There was no evidence of reflux esophagitis or Reis's. There were no varices. There were tertiary contractions and evidence of moderate esophageal dysmotility. The remainder of the esophageal mucosa was normal. Impression: 1. Nonerosive GERD with moderate esophageal dysmotility 2. Moderate linear reactive gastropathy of antrum Plan: I will follow-up the biopsies and disaccharidase assay. The patient does have dyspepsia and this may be in part related to the semaglutide and oxycodone. His obstipation is playing some role. We will discuss treatment options. I will proceed with screening colonoscopy.
--- NOTE | 2025-03-22 10:09 | HMH.PROCNOTE ---
[facility] Procedure Note Date: 03/22/25 Time: 10:20 Procedure Note:: AsColonoscopy Procedure Report: Colonoscopy with cold snare polypectomy Endoscopist: Marcel Jacobo II, MD Referring physician: SANTOSH Riojas Date of Procedure: March 22, 2025 Equipment: Olympus [id number] adult colonoscope Sedation: MAC sedation Indication: Mr. Dowling is a 65-year-old gentleman who is here for initial screening colonoscopy. The patient does have some obstipation/constipation related to the oxycodone and semaglutide (Ozempic). He has never had a prior colonoscopy. He does get some bloating. His paternal aunt had Crohn's disease. He reports no rectal bleeding, weight loss or family history of colon cancer. Procedure: Prior to the procedure, a history and physical exam was performed, and patient's medications and allergies were reviewed. The risks, benefits and alternatives of the sedation and procedure were discussed with the patient. All questions were answered and informed consent was obtained. The patient was brought to the procedure room. Patient identification and proposed procedure were verified by the physician and the nurse. The patient was placed in a left lateral decubitus position and the scope was passed under direct vision. Throughout the procedure, the patient's blood pressure, pulse, and oxygen saturations were monitored continuously. The colonoscopy was accomplished without difficulty. The patient tolerated the procedure well. Findings: On digital rectal examination there was normal rectal tone. There were no external hemorrhoids. The colonoscope was introduced through the anal canal to the rectum and advanced to the cecum. The ileocecal valve and appendiceal orifice were identified. There was a single 5 mm ascending colon polyp removed via cold snare polypectomy. The scope was advanced a short distance into the ileum which appeared grossly normal. The scope was then withdrawn into the colon. The cecum, ascending and transverse colon and mucosa were grossly normal. There were scattered diverticuli throughout the descending and sigmoid colon (LEFT colon). The rectum itself was normal. Upon retroflexion within the rectum there were grade 1-2 internal hemorrhoids. The preparation was excellent throughout with [place] Preparation Score of 9. The cecal time was 12 minutes. Impression: 1. Ascending colon polyp (5 mm) 2. Left-sided diverticulosis 3. Grade 1-2 internal hemorrhoids Plan: I will follow-up the polyp histology and recommend repeat surveillance colonoscopy again in 7 years if the polyp is adenomatous. I would recommend the fiber bowel regimen (MiraLAX plus Metamucil). I would consider adding Relistor or Movantik.
[2025-03-22 10:22] VITALS: BP 105/68; PULSE 74; RESP 18; TEMP 36.3; O2SAT 95
[2025-03-22 10:32] VITALS: BP 103/69; PULSE 71; RESP 18; TEMP 36.3; O2SAT 94
[2025-03-22 10:42] VITALS: BP 146/72; PULSE 90; RESP 16; TEMP 36.3; O2SAT 95
[2025-03-22 10:52] VITALS: BP 122/96; PULSE 88; RESP 16; TEMP 36.3; O2SAT 95
[2025-03-22 15:02] LABS: POC Glucose,Bedside 96 gm/dL (70-110)
[2025-03-28 15:28] LABS: Interpretation Notes (.); Lactase 3.52 (>/= 14.0); Maltase 160.04 (>/= 110.0); Palatinase 12.02 (>/= 8.5); Reference Notes (.); Sucrase 36.93 (>/= 25.0)
== END 2025-03-22 11:20 | disposition home or self-care (01) ==
PROVIDERS: PCP Family Medicine; Visit Provider Internal Medicine Gastroenterology
PROC: 0DJ08ZZ Inspection of Upper Intestinal Tract, Via Natural or Artificial Opening Endoscopic (ICD-10-PCS; CPT 45378; principal; 2025-03-22 10:00)
DX: Z12.11 Encounter for screening for malignant neoplasm of colon (principal); K64.1 Second degree hemorrhoids; K64.0 First degree hemorrhoids; K57.30 Diverticulosis of large intestine without perforation or abscess without bleeding; D12.2 Benign neoplasm of ascending colon; T40.2X5A Adverse effect of other opioids, initial encounter; K31.89 Other diseases of stomach and duodenum; K31.9 Disease of stomach and duodenum, unspecified; E66.9 Obesity, unspecified; K59.03 Drug induced constipation; E11.9 Type 2 diabetes mellitus without complications; I25.10 Atherosclerotic heart disease of native coronary artery without angina pectoris; G47.33 Obstructive sleep apnea (adult) (pediatric); M10.9 Gout, unspecified; I11.0 Hypertensive heart disease with heart failure; I50.30 Unspecified diastolic (congestive) heart failure; M19.91 Primary osteoarthritis, unspecified site; F41.9 Anxiety disorder, unspecified; Z87.891 Personal history of nicotine dependence; Z79.899 Other long term (current) drug therapy; Z79.82 Long term (current) use of aspirin; Z79.51 Long term (current) use of inhaled steroids; Z79.85 Long-term (current) use of injectable non-insulin antidiabetic drugs; Z79.891 Long term (current) use of opiate analgesic; Z68.36 Body mass index [BMI] 36.0-36.9, adult
CPT/HCPCS: 45385; 43239; 82657; 82962; 88305; J2003; J2704

== ENCOUNTER 2025-06-05 09:27 | Inpatient (IN) | payer MEDICARE, MEDICAID, SELFPAY ==
--- OUTSIDE RECORDS SUMMARY | 2025-04-13 08:00 | XMS_ITS | Encounter Summary ---
Author Organization Healthcare Address [address] 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 [C43.62] (Primary Dx) Social History Tobacco Use Types Packs/Day Years Used Date Smoking Tobacco: Former Cigarettes 0.5 42 1 979 - 2020 Smokeless Tobacco: Never Comments:Occasionally uses n icotine gum; last done 2 days ago Alcohol Use Standard Drinks/Week Comments Not Asked 0 (1 standard drink = 0.6 oz pur e alcohol) 2 glasses wine per week PHQ-2 Answer Date Recorded Patient Health Questionnaire-2 Score 0 04/13/2025 PHQ-9 Answer Date Recorded Patient Health Questionnaire-9 Score 0 12/05/2024 Sex and Gender Information Value Date Recorded Sex Assigned at Not on file Legal Sex Male 8:03 PM EDT Gender Identity Not on file Sexual Orientation Not on file documented as of this encounter Last Filed Vital Signs Vital Sign Reading Time Taken Comments Blood Pressure 126/74 04/13/2025 9:20 AM EDT Pulse 73 04/13/2025 9:20 AM EDT Temperature 36.7 C (98.1 F) 04/13/2025 9:20 AM EDT Respiratory Rate 16 04/13/2025 9:20 AM EDT Oxygen Saturation 95% 04/13/2025 9:20 AM EDT Inhaled Oxygen Concentration - - Weight 118 kg (260 lb 9.3 oz) 04/13/2025 9:20 AM EDT Height 167.4 cm (5' 5.9 ) 04/13/2025 9:20 AM EDT Body Mass Index 42.19 04/13/2025 9:20 AM EDT documented in this encounter Functional Status * Over the past 2 weeks, how often have you been bothered by any of the following problems? Question Answer Date of Assessment Author Little interest or pleasure in doing things Not at all 04/13/2025 9:27 AM EDT Viky Kebede Feeling down, depressed, or hopeless Not at all 04/13/2025 9:27 AM EDT Viky Kebede Patient Health Questionnaire -2 Score 0 04/13/2025 9:27 AM EDT Viky Kebede * Question Answer Date of Assessment Author Thoughts that you would be b camilla off or hurting yourself in some way Not at all 04/13/2025 9:27 AM EDT Viky Kebede documented as of this encounter Miscellaneous Notes * Progress Notes - Rima Lopez APRN - 04/13/2025 9:00 AM EDT Subjective DOS: 04/13/2025 CC: Patient is seen in follow up for wound check . Verbal consent was obtained to use ambient listening technology to assist in the documentation of the encounter: no History of Present Illness The patient is a 64-year-old male presenting for a follow-up wound check. 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 He underwent wide local excision and sentinel lymph node biopsy on 02/23/2025, with final pathology showing residual invasive and in situ melanoma of less depth than the initial biopsy and a negative sentinel lymph node (pT3b pN0). He was seen on 03/06/2025 by hissurgeon, Dr. Ofe Langford, and was advised to take a 10-day course of antibiotics due to erythema surrounding his left shoulder incision. He was also referred to medical oncologist, Dr. Castellon, whom he is seeing today to discuss immunotherapy treatments. Skin Cancer Risk Factors: Normal reaction to the sun: bone, then tans History of blistering sunburns: No Natural hair color: brown Eye color: blue UV tanning bed use: No Sunscreen: No Tobacco Abuse: No Immunosuppression: No ECO Life Expectancy: > 5 years TREATMENT HISTORY: -DIAGNOSIS: Melanoma of the left shoulder Cancer Staging 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 Staging form: Melanoma of the Skin, AJCC 8th Edition - Pathologic stage from 03/06/2025: Stage IIB (pT3b, pN0, cM0) - Unsigned Stage prefix: Initial diagnosis --Medical Oncologist: Citlalli Castellon MD --Radiation Oncologist: Not yet assigned --Bag Bleacher: Carol Urena MD --Genetics: not indicated -TREATMENT: 11/14/2024- shave biopsy of L medial suprascapular back skin leson, demonstrating a 3.3 mm thickness melanoma with ulceration and a mitotic rate of 31/mm2. The margins were peripheral (positive - MIS, IM involvement), and deep (positive - IM involvement). 02/23/25- Left shoulder WLE and SLNB on 02/23/25. Path: residual melanoma in situ, margins negative for tumor. 07/27 sentinel lymph node negative for malignant melanoma. PMHx: Past Medical History[1] PSHx: Surgical History[2] FHx: Family History[3] SHx: Social History[4] Employer: No address on file. Travel History Relevant International Travel History: Travel Screening Question Response Have you been in contact with someone who was sick? No / Unsure Do you have any of the following new or worsening symptoms? None of these Have you traveled internationally or domestically in the last month? No Travel History Travel since 03/13/25 No documented travel since 03/13/25 Relevant Domestic Travel History: N/A Immunizations Reviewed VACCINE / DOSE Flu Tetanus Pneumovax Shingles Allergies Codeine, Lisinopril, and Naproxen Medications Current Medications[5] Review of Systems Constitutional: Negative. Negative for fatigue, fever and unexpected weight change. HENT: Negative. Eyes: Negative. Respiratory: Negative. Cardiovascular: Negative. Gastrointestinal: Negative. Endocrine: Negative. Genitourinary: Negative. Musculoskeletal: Negative. Skin: Negative. No changing skin lesions. No new moles or rashes. Neurological: Negative. Negative for headaches. Hematological: Negative. Negative for adenopathy. Psychiatric/Behavioral: Negative. Objective PE: Visit Vitals BP 126/74 Pulse 73 Temp 36.7 ??C (98.1 ??F) Resp 16 Ht 1.674 m (5' 5.9 ) Wt 118 kg (260 lb 9.3 oz) SpO2 95% BMI 42.19 kg/m?? Smoking Status Former BSA 2.34 m?? Physical Exam Constitutional: Appearance: Normal appearance. HENT: Head: Normocephalic and atraumatic. Right Ear: External ear normal. Left Ear: External ear normal. Nose: Nose normal. Mouth/Throat: Mouth: Mucous membranes are moist. Pharynx: Oropharynx is clear. Eyes: Extraocular Movements: Extraocular movements intact. Conjunctiva/sclera: Conjunctivae normal. Pupils: Pupils are equal, round, and reactive to light. Pulmonary: Effort: Pulmonary effort is normal. Abdominal: General: Abdomen is flat. Palpations: Abdomen is soft. Musculoskeletal: General: Normal range of motion. Cervical back: Normal range of motion and neck supple. Lymphadenopathy: Cervical: No cervical adenopathy. Upper Body: Right upper body: No supraclavicular, axillary or epitrochlear adenopathy. Left upper body: No supraclavicular, axillary or epitrochlear adenopathy. Lower Body: No right inguinal adenopathy. No left inguinal adenopathy. Skin: General: Skin is warm. Coloration: Skin is not jaundiced. Findings: No bruising or lesion. Comments: Left shoulder - healed surgical incision, slight erythema. Neurological: General: No focal deficit present. Mental Status: He is alert and oriented to person, place, and time. Psychiatric: Mood and Affect: Mood normal. Behavior: Behavior normal. Thought Content: Thought content normal. Judgment: Judgment normal. Radiology: I personally and independently reviewed the patients imaging which showed: N/A Pathology: Final Diagnosis (no units) Date/Time Value 02/23/2025 1609 A. SKIN, LEFT AXILLA, EXCISION: - SEBORRHEIC KERATOSES. B. SENTINEL LYMPH NODE, LEFT AXILLA, EXCISION: - ONE LYMPH NODE NEGATIVE FOR MALIGNANCY, (0/1). C. SKIN, LEFT SHOULDER, EXCISION: - RESIDUAL INVASIVE AND IN SITU MELANOMA, SEE COMMENT. - MARGINS NEGATIVE FOR TUMOR. - SEBORRHEIC KERATOSIS. Comment (no units) Date/Time Value 02/23/2025 1609 The residual tumor has a thickness less than the prior biopsy. Refer to the prior biopsy ([id number]) for characteristics of the primary tumor and staging. Overall, the findings in the current specimen in conjunction with the prior are consistent with an AJCC 8th Ed stage pT3b, pN0(sn). MELANOMA OF THE SKIN: EXCISION, RE-EXCISION - All Specimens 8th Edition - Protocol posted: 06/05/2021 SPECIMEN Procedure Re-excision [place] node(s) biopsy Specimen Laterality Left MARGINS Margin Status for Invasive Melanoma All margins negative for invasive melanoma Closest Margin Location(s) to Invasive Melanoma inferior Distance from Invasive Melanoma to Peripheral Margin 18 mm Distance from Invasive Melanoma to Deep Margin Greater than: 15 mm Margin Status for Melanoma in situ All margins negative for melanoma in situ Distance from Melanoma in Situ to Peripheral Margin 17 mm REGIONAL LYMPH NODES Regional Lymph Node Status All regional lymph nodes negative for tumor Total Number of Lymph Nodes Examined 1 Number of [place] Nodes Examined 1 Assessment/Plan Assessment/Plan: Assessment & Plan 1. Melanoma. Diagnosed with a 3.3 mm thickened melanoma with ulceration and 31 mitosis per millimeter square in 10/2024. Underwent wide local excision and sentinel lymph node biopsy on 02/23/2025. Final pathologyshowed residual invasive and in situ melanoma of less depth than initial biopsy and negative sentinel lymph node pT3b pN0. The left shoulder surgical incision is healing well, with residual erythema most likely related to irritation from the stitches. No evidence of infection. Advised to apply topical Benadryl to the area. Scheduled to see a medical oncologist today to discuss immunotherapy options. Plan for Keytruda infusions. Staging PET scan and brain MRI will be arranged by medical oncology. Follow-up Follow-up after 3 to 4 months of immunotherapy with restaging PET scan for full body scan and lymphnode exam. PROCEDURE Wide local excision and sentinel lymph node biopsy were performed on 02/23/2025. Cancer Staging 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 Staging form: Melanoma of the Skin, AJCC 8th Edition - Pathologic stage from 03/06/2025: Stage IIB (pT3b, pN0, cM0) - Unsigned Stage prefix: Initial diagnosis His chronic comorbid conditions that impact our treatment planning include: lymphedema cardiac failure / valvular dysfunction (unknown) 30 minutes was spent on this encounter; including preparing to see the patient, which involved review/interpretation of diagnostics and reports; obtaining and/or reviewing separately obtained history; performing appropriate physical exam; ordering/scheduling medications, tests or procedures; communicating findings and counseling/educating the patient, family and/or caregiver; documentation in EMR; and care coordination. Electronically Signed by: Rima Lopez APRN - 04/13/2025 - 11:28 AM [1] No past medical history on file. [2] No past surgical history on file. [3] Family History Problem Relation Name Age of Onset Anesthesia problems Neg Hx Malig Hyperthermia Neg Hx [4] Social History Tobacco Use Smoking status: Former Current packs/day: 0.00 Average packs/day: 0.5 packs/day for 42.0 years (21.0 ttl pk-yrs) Types: Cigarettes Start date: 1978 Quit date: 2020 Years since quittin.7 Smokeless tobacco: Never Tobacco comments: Occasionally uses nicotine gum; last done 2 days ago Vaping Use Vaping status: Never Used Substance Use Topics Drug use: Never [5] Current Outpatient Medications Medication Sig Dispense Refill atorvastatin (Lipitor) 20 MG tablet Take 1 tablet by mouth daily. azelastine (Astelin) 0.1 % nasal spray Administer 1 spray into affected nostril(s). desvenlafaxine (Pristiq) 50 MG 24 hr tablet famotidine (Pepcid) 40 MG tablet furosemide (Lasix) 40 MG tablet Take 1 tablet by mouth daily. gabapentin (Neurontin) 800 MG tablet hydrOXYzine HCl (Atarax) 10 MG tablet Take 2.5 tablets by mouth every 6 hours as needed for itching. hydrOXYzine pamoate (Vistaril) 25 MG capsule TAKE 1 CAPSULE BY MOUTH 3 TIMES A DAY NEEDED FOR ITCHING losartan (Cozaar) 100 MG tablet Take 1 tablet by mouth daily. losartan (Cozaar) 50 MG tablet Movantik 25 MG tablet TAKE 1 TABLET BY MOUTH ONCE A DAY ON an EMPTY stomach. no food 1 HOUR AFTER OR 2 TO 3 HOURS BEFORE DOSE naloxone (Narcan) 4 mg/0.1 mL nasal spray 1. Give 1 spray in nostril for no/slow breathing or cannot wake after opioid use 2. Call 911 3. Repeat in other nostril if symptoms continue 1 each 0 nortriptyline (Pamelor) 10 MG capsule Take 3 capsules (30 mg total) by mouth every night. 90 capsule 11 Nystop 872442 UNIT/GM powder ondansetron ODT (Zofran-ODT) 4 MG disintegrating tablet daily. oxyCODONE-acetaminophen (Percocet) 7.5-325 MG tablet Ozempic, 1 MG/DOSE, 4 MG/3ML solution pen-injector INECT 1 MG SUBCUTANEOUSLY ONCE WEEKLY prazosin (Minipress) 1 MG capsule 1 capsule. semaglutide 1 MG/DOSE (Ozempic, 1 MG/DOSE,) 2 MG/1.5ML solution pen-injector inj. pen Inject 1 mg under the skin 1 time per week. Takes on wednesdays spironolactone (Aldactone) 50 MG tablet Take 1 tablet by mouth daily. sulfamethoxazole-trimethoprim (Bactrim DS) 800-160 MG tablet daily. Symbicort 80-4.5 MCG/ACT inhaler Inhale 2 puffs. allopurinol (Zyloprim) 100 MG tablet (Patient not taking: Reported on 03/06/2025) busPIRone (Buspar) 5 MG tablet Take 1 tablet (5 mg total) by mouth 3 (three) times a day. (Patient not taking: Reported on 03/06/2025) 90 tablet 0 clonazePAM (KlonoPIN) 0.5 MG tablet Take 1 tablet by mouth. PRN (Patient not taking: Reported on 03/06/2025) ketoconazole (NIZOral) 2 % cream (Patient not taking: Reported on 03/06/2025) losartan-hydroCHLOROthiazide (Hyzaar) 100-25 MG tablet Take 1 tablet by mouth daily. (Patient not taking: Reported on 04/13/2025) metFORMIN (Glucophage) 500 MG tablet Take 1 tablet by mouth daily. (Patient not taking: Reported on04/13/2025) mupirocin (Bactroban) 2 % ointment (Patient not taking: Reported on 04/13/2025) omeprazole (PriLOSEC) [address] capsule Take 1 capsule by mouth daily. Do not crush or chew. (Patient not taking: Reported on 04/13/2025) oxyCODONE (Roxicodone) 5 MG immediate release tablet Take 1 tablet by mouth every 6 hours as neededfor severe pain (pain). (Patient not taking: Reported on 04/13/2025) 10 tablet 0 tobramycin (Nebcin) 1.2 g injection (Patient not taking: Reported on 04/13/2025) triamcinolone (Kenalog) 0.1 % cream (Patient not taking: Reported on 04/13/2025) vancomycin (Vancocin) 1 g vial for injection (Patient not taking: Reported on 04/13/2025) No current facility-administered medications for this visit. documented in this encounter Plan of Treatment Upcoming Encounters Date Type Department Care Team (Late st Contact Info) Description 06/08/2025 2:00 PM EST Clinical Support [facility] [address] [place] [id number] 06/08/2025 2:30 PM EST Office Visit [facility] [address] [place] [phone] Debbie Menendez, WENDI [address] [facility] Emmanuelle Ortega [facility] [address] [place] [address] 06/08/2025 3:00 PM EST Appointment [facility] [address] [place] [address] 09/05/2025 11:30 AM EST Office Visit [facility] Multidisciplinary Oncology Clinic [address] [place] [phone] Shital Whipple APRN [address] [facility] [address] [place] [phone] documented as of this encounter Visit Diagnoses Diagnosis 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 [C43.62]- Primary documented in this encounter Additional Health Concerns Assessment Noted Time PHQ-9 Depression Total Score: 0 12/06/19 25 9:10 AM EDT A fall risk assessment has been complete d for the patient 04/13/2025 9:27 AM EDT A Body Mass Index follow-up plan has been documented for the patient 03/06/2025 12:49 PM EDT documented as of this encounter Care Teams Procedures Tech Relationship Specialty Start Date End Date Dina Tong APRN [address] [place] [address] PCP - General 12/05/24 documented as of this encounter
--- OUTSIDE RECORDS SUMMARY | 2025-04-13 08:00 | XMS_ITS | Encounter Summary ---
Author Organization Healthcare Address [address] [place] [address] Care Team Providers Care Diesel Mechan[employer] Name Role Phone Dina Tong WENDI Primary Care Provider [phone] Reason for Visit * Reason Comments Follow-up Malignant melanoma o f left upper extremity including shoulder Encounter Details Date Type Department Care Team (Latest Contact Info) Description 04/13/2025 9:00 AM EDT Office Visit [facility] Multidisciplinary Oncology Clinic [address] [place] [address] Rima Lopez APRN [address] [place] [address] Malignant melanoma of left upper [...] encounter Miscellaneous Notes * Progress Notes - Rmia Lopez APRN - 04/13/2025 9:00 AM EDT [...] Castellon MD --Radiation Oncologist: Not yet assigned --Epic Anesthesia Analyst: Carol Urena MD --Genetics: not indicated -TREATMENT: [...] prior biopsy. Refer to the prior biopsy ([id number]) for characteristics of the primary tumor and staging. Overall, the findings in the current specimen in conjunction with the prior are consistent with an AJCC 8th Ed stage pT3b, pN0(sn). MELANOMA OF THE SKIN: EXCISION, RE-EXCISION - All Specimens 8th Edition - Protocol posted: 06/05/2021 SPECIMEN Procedure Re-excision [place] node(s) biopsy Specimen Laterality Left MARGINS Margin [...] of Lymph Nodes Examined 1 Number of [place] Nodes Examined 1 Assessment/Plan Assessment/Plan: Assessment & [...] mouth every night. 90 capsule 11 Nystop 215000 UNIT/GM powder ondansetron ODT (Zofran-ODT) 4 MG [...] Care Team (Late st Contact Info) Description 09/05/2025 11:30 AM EST Office Visit [facility] Multidisciplinary Oncology Clinic [address] [place] [address] Shital Whipple APRN [address] [facility] [address] [place] [address] documented as of this encounter Visit Diagnoses [...] documented as of this encounter Care Teams [employer]el [employer] Relationship Specialty Start Date End Date Dina Tong APRN [address] [place] [address] PCP - General 12/05/24 documented as of this encounter
--- OUTSIDE RECORDS SUMMARY | 2025-04-13 08:40 | XMS_ITS | Encounter Summary ---
Author Organization [facility] Address [address] [place] [address] Care Team Providers Care Mold Inspector Name Role Phone Dina Tong APRN Primary Care Provider [phone] Reason for Referral * Imaging (Routine) - Closed Specialty Diagnoses / Procedures Referred By Contac t Referred To Contact Radiology Diagnoses Malignant melanoma, unspecified site (CMS/HCC) Procedures PET/CT FDG Whole Body Citlalli Castellon MD [address] [facility] Emmanuelle Ortega [address] [address] Phone: tel: fax: Referral ID Status Reason Start Date Expiration Date Visits Re quested Visits Authorized [id number] Closed 04/13/2025 10/13/2026 2 2 Reason for Visit * Reason Comments Follow-up Malignant melanoma o f left upper extremity including shoulder [C43.62] * Consultation (Routine) - Closed Specialty Diagnoses / Procedures Referred By Contact Referred To Contact Medical Oncology / Hematology and Oncology Diagnoses 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 Ofe Langford MD [address] [facility] Emmanuelle Ortega [facility] [address] [place] [address] Phone: tel: fax: [facility] Multidisciplinary Oncology Clinic [address] [place] [address] Phone: tel: fax: Referral ID Status Reason Start Date Expiration Date V isits Requested Visits Authorized [id number] Closed Specialty Services Required 03/06/2025 09/05/2026 1 1 Encounter Details Date Type Department Care Team (Late st Contact Info) Description 04/13/2025 9:40 AM EDT Office Visit [facility] Multidisciplinary Oncology Clinic [address] [place] [address] Citlalli Castellon MD [address] [facility] Emmanuelle Ortega [address] [place] [address] Malignant melanoma, unspecified site (CMS/HCC) (Primary Dx); 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 Social History Tobacco Use Types Packs/Day Years Used Date Smoking Tobacco: Former Cigarettes 0.5 42 1 2020 Smokeless Tobacco: Never Comments:Occasionally uses n [...] Time Taken Comments Blood Pressure 126/74 04/13/2025 9:34 AM EDT Pulse 73 04/13/2025 9:34 AM EDT Temperature 36.7 C (98.1 F) 04/13/2025 9:34 AM EDT Respiratory Rate 16 04/13/2025 9:34 AM EDT Oxygen Saturation 95% 04/13/2025 9:34 AM EDT Inhaled Oxygen Concentration - - Weight 118 kg (260 lb 9.3 oz) 04/13/2025 9:34 AM EDT Height 167.4 cm (5' 5.9 ) 04/13/2025 9:34 AM EDT Body Mass Index 42.19 04/13/2025 9:34 AM EDT documented in this encounter Functional [...] as of this encounter Miscellaneous Notes * Addendum Note - Isa Singleton PharmD - 04/13/2025 9:40 AM EDTAddended by: ISA SINGLETON on: 04/13/2025 01:24 PM Modules accepted: Orders * Progress Notes - Citlalli Castellon MD - 04/13/2025 9:40 AM EDT Patient Information Patient Name: Merrill Dowling Date of : 1960 65 y.o. REFERRING PHYSICIAN: Ofe Langford MD [address] [place] [id number] Encounter Date: 04/13/2025 Patient Care Team: Dina Tong APRN as PCP - General No chief complaint on file. Treatment Diagnosis: Cancer Staging 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 Staging form: Melanoma of the Skin, AJCC 8th Edition - Pathologic stage from 03/06/2025: Stage IIB (pT3b, pN0, cM0) - Unsigned Interval History: This is a 65 y.o. M with a PMH significant for HTN and cSCC presenting for discussion of melanoma. The patient presents for discussion of treatment after WLE and SLN bx for melanoma. He does have some sun exposure history though no significant bone. He did have multiple cSCC lesions excised from the face before. Skin History: Sun Exposure: No blistering sunburns Tanning bed use: N/A Immunosuppression: N/A Prior history of melanoma: N/A, prior history of SCC Family history of melanoma/other malignancies: N/A Oncology History: Oncology History Overview Note -06/2024: Pt noted lesion on L medial suprascapular back that gradually started to grow, itch and bleed. -11/14/2024: L medial back shave bx with ulcerated nodular melanoma, at least 3.3 mm deep with entire deep and peripheral margin involved by tumor. -02/23/2025: WLE and SLN bx with residual invasive and in-situ melanoma, 1 LN negative for malignancy, pT3b pN0 (sn). 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 01/09/2025 Initial Diagnosis 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 Past Medical, Surgical, Family and Social History Past Medical History[1] Surgical History[2] Family History[3] Social History[4] Allergies and Adverse Drug Reactions Patient has no known allergies. Medications Current Medications[5] Subjective Review of Systems: Review of Systems Constitutional: Negative. HENT: Negative. Respiratory: Negative. Gastrointestinal: Negative. Musculoskeletal: Negative. Skin: Negative. Neurological: Negative. Objective Physical Exam HENT: Head: Normocephalic. Nose: Nose normal. Eyes: Pupils: Pupils are equal, round, and reactive to light. Pulmonary: Effort: Pulmonary effort is normal. Abdominal: General: There is no distension. Musculoskeletal: General: Normal range of motion. Cervical back: Normal range of motion. Skin: Comments: Well healed incision on L back, slight erythema noted. Neurological: General: No focal deficit present. Mental Status: He is alert. LABORATORIES AND STUDIES: No results found for: WBC , RBC , HGB , HCT , MCV , MCHC , RDW , PLT , MPV , SEG , EOS No results found for: BUN , CL , NA , K , CA , TP , AST , ALK , BICARB , ALT , GLU Therewere no vitals taken for this visit. Performance Status ECOG 1-2 ASSESSMENT AND PLAN: This is a 65 y.o. M with a PMH significant for HTN and cSCC presenting for discussion of melanoma. L Medial back melanoma (pT3b pN0 cM0, Stage IIB) -06/2024: Pt noted lesion on L medial suprascapular back that gradually started to grow, itch and bleed. -11/14/2024: L medial back shave bx with ulcerated nodular melanoma, at least 3.3 mm deep with entire deep and peripheral margin involved by tumor. -02/23/2025: WLE and SLN bx with residual invasive and in-situ melanoma, 1 LN negative for malignancy, pT3b pN0 (sn). Plan: -We discussed the diagnosis and management of Malignant melanoma on today's visit. -We discussed the role of immunotherapy for risk reduction in the adjuvant setting for melanoma. Per KEYNOTE 716, adjuvant pembrolizumab given for 1 year in Stage IIB and Stage IIC melanoma patients resulted in significant decrease of risk of recurrence (3-year RFS rates 76.2% with pembrolizumab and 63.4 % with placebo per most recent study update). Risks/benefits and side effects discussed and information provided. Consent obtained on today's visit. -Given plan for adjuvant therapy will obtain baseline PET with tentative plan to repeat systemic imaging Q6 mo. -Continue follow up with Surg-Onc as scheduled. -Recommend follow up with Dermatology Q3 months. -RTC 1-2 weeks for treatment start. 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 [...] Topics Drug use: Never [5] Current Outpatient Medications: allopurinol (Zyloprim) 100 MG tablet, , Disp: , Rfl: atorvastatin (Lipitor) 20 MG tablet, Take 1 tablet by mouth daily., Disp: , Rfl: azelastine (Astelin) 0.1 % nasal spray, Administer 1 spray into affected nostril(s)., Disp: , Rfl: busPIRone (Buspar) 5 MG tablet, Take 1 tablet (5 mg total) by mouth 3 (three) times a day. (Patientnot taking: Reported on 03/06/2025), Disp: 90 tablet, Rfl: 0 clonazePAM (KlonoPIN) 0.5 MG tablet, Take 1 tablet by mouth. PRN (Patient not taking: Reported on 03/06/2025), Disp: , Rfl: desvenlafaxine (Pristiq) 50 MG 24 hr tablet, , Disp: , Rfl: famotidine (Pepcid) 40 MG tablet, , Disp: , Rfl: furosemide (Lasix) 40 MG tablet, Take 1 tablet by mouth daily., Disp: , Rfl: gabapentin (Neurontin) 800 MG tablet, , Disp: , Rfl: hydrOXYzine HCl (Atarax) 10 MG tablet, Take 2.5 tablets by mouth every 6 hours as needed for itching., Disp: , Rfl: ketoconazole (NIZOral) 2 % cream, , Disp: , Rfl: losartan (Cozaar) 50 MG tablet, , Disp: , Rfl: losartan-hydroCHLOROthiazide (Hyzaar) 100-25 MG tablet, Take 1 tablet by mouth daily. (Patient not taking: Reported on 03/06/2025), Disp: , Rfl: metFORMIN (Glucophage) 500 MG tablet, Take 1 tablet by mouth daily. (Patient not taking: Reported on 03/06/2025), Disp: , Rfl: mupirocin (Bactroban) 2 % ointment, , Disp: , Rfl: naloxone (Narcan) 4 mg/0.1 mL nasal spray, 1. Give 1 spray in nostril for no/slow breathing or cannot wake after opioid use 2. Call 911 3. Repeat in other nostril if symptoms continue, Disp: 1 each, Rfl: 0 nortriptyline (Pamelor) 10 MG capsule, Take 3 capsules (30 mg total) by mouth every night., Disp: 90 capsule, Rfl: 11 Nystop [id number] UNIT/GM powder, , Disp: , Rfl: omeprazole (PriLOSEC) [address] capsule, Take 1 capsule by mouth daily. Do not crush or chew., Disp:, Rfl: oxyCODONE (Roxicodone) 5 MG immediate release tablet, Take 1 tablet by mouth every 6 hours as needed for severe pain (pain)., Disp: 10 tablet, Rfl: 0 oxyCODONE-acetaminophen (Percocet) 7.5-325 MG tablet, , Disp: , Rfl: semaglutide 1 MG/DOSE (Ozempic, 1 MG/DOSE,) 2 MG/1.5ML solution pen-injector inj. pen, Inject 1 mg under the skin 1 time per week. Takes on wednesdays, Disp: , Rfl: Symbicort 80-4.5 MCG/ACT inhaler, Inhale 2 puffs., Disp: , Rfl: tobramycin (Nebcin) 1.2 g injection, , Disp: , Rfl: triamcinolone (Kenalog) 0.1 % cream, , Disp: , Rfl: vancomycin (Vancocin) 1 g vial for injection, , Disp: , Rfl: * Progress Notes - Isa Singleton PharmD - 04/13/2025 9:40 AM EDT Pharmacy Hematology/Oncology Patient Education Note I counseled the patient on their immunotherapy regimen, which was scheduled to start TBD pending infusion availability. The chemotherapy agents that this patient is scheduled to receive include: Pembrolizumab (Keytruda). I provided the patient with a written explanation of the drugs contained in the regimen and their expected side effects, toxicities, and adverse reactions. I counseled on the following adverse effects of immunotherapy, including but not limited to: rash, diarrhea, pneumonitis, hepatitis, and colitis. I provided verbal explanation of the same material and provided methods for self-monitoring. I answered all questions that the patient and/or caregiver had. The patient and/or caregiver demonstrated understanding of the material, and wished to proceed with the treatment. Isa Singleton PharmD Hematology/Oncology Clinical Sexer 04/13/2025 10:25 AM * Progress Notes - Isa Singleton PharmD - 04/13/2025 9:40 AM EDT Pharmacy Hematology/Oncology Treatment Note Merrill Dowling is a 65 y.o. male with Cancer Staging 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 Staging form: Melanoma of the Skin, AJCC 8th Edition - Pathologic stage from 03/06/2025: Stage IIB (pT3b, pN0, cM0) - Unsigned . Study Patient: no Treatment Plan reviewed for adjuvant pembrolizumab every 21 days. [x] Follow-Up Clinical Review for Cycle 1 [] Follow-Up Clinical Review for Continuous Oral Therapy Interval History: Mr. Dowling was consented and educated for adjuvant pembrolizumab today. He is doing well today s/p procedure with no complications. Will work on getting a baseline PET-CT, but OK to proceed with treatment without scans. Labs to be re- evaluated by pharmacy satellite prior to treatment on 04/27/25. Today's Wt: Wt Readings from Last 1 Encounters: 04/13/25 118 kg (260 lb 9.3 oz) Recent Labs: No results found for: WBC , HGB , HCT , MCV , PLT No results found for: GLUCOSE , CALCIUM , NA , K , CO2 , CL , BUN , CREATININE No results found for: ALT , AST , GGT , ALKPHOS , BILITOT No results found for: NEUTROABS No results found for: MG No results found for: TSH , FREET4 No results found for: URINEPRO Vitals: Visit Vitals BP 126/74 Pulse 73 Temp 36.7 ??C (98.1 ??F) Resp 16 Other Relevant Monitoring: N/a Treatment/Therapy Plan: Pembrolizumab 200 mg (flat dost) IV D1 Every 21 days [x] No dose adjustments made Current Treatment Plan History: Pembro C1: 04/27/25 (anticipated) Prior Treatment History: 02/23/2025: WLE/SLNB Plan: Labs to be re-evaluated by pharmacy satellite prior to treatment on 04/27/25. Patient will return to clinic in 2 weeks w/ infusion then 4 weeks w/ provider with cycle 2. Will follow-up at that time. Pharmacist Attestation: Isa Singleton PharmD Hematology/Oncology Clinical Sexer documented in this encounter Plan of Treatment Upcoming Encounters Date Type Department Care Team (Late st Contact Info) Description 09/05/2025 11:30 AM EST Office Visit [facility] [address] [place] [address] Shital Whipple, FIRE BOSS [address] [place] [address] Scheduled Orders Name Type Priority Associated Diagnoses Orde r Schedule CBC and differential Lab Routine 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 Expected: 06/29/2025, Expires: 06/29/2026 Comprehensive metabolic panel Lab Routine 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 Expected: 06/29/2025, Expires: 06/29/2026 TSH reflex FT4 Lab Routine 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 Expected: 06/29/2025, Expires: 06/29/2026 documented as of this encounter Results * (ABNORMAL) Comprehensive metabolic panel (05/18/2025 1:17 PM EDT) Glucose, Plasma 86 74 - 99 mg/dL 05/18/2025 2:15 PM EDT [facility] BUN, Plasma 10 8 - 23 mg/dL 05/18/2025 2:15 PM EDT [facility] Creatinine, Plasma 1.00 0.70 - 1.20 mg/dL 05/18/2025 2:15 PM EDT [facility] BUN/Creatinine Ratio 10 05/18/2025 2:15 PM EDT [facility] Sodium, Plasma 142 136 - 145 mmol/L 05/18/2025 2:15 PM EDT [facility] Potassium, Plasma 4.7 3.6 - 4.9 mmol/L 05/18/2025 2:15 PM EDT [facility] Chloride, Plasma 104 97 - 107 mmol/L 05/18/2025 2:15 PM EDT [facility] CO2, Plasma 29 22 - 29 mmol/L 05/18/2025 2:15 PM EDT [facility] Anion Gap 9 6 - 16 mmol/L 05/18/2025 2:15 PM EDT [facility] Total Calcium, Plasma 9.3 8.9 - 10.2 mg/dL 05/18/2025 2:15 PM EDT [facility] Total Protein 8.0(H) 6.3 - 7.9 g/dL 05/18/2025 2:15 PM EDT [facility] Albumin, Plasma 4.2 3.5 - 5.2 g/dL 05/18/2025 2:15 PM EDT [facility] AST, Plasma 20 10 - 50 U/L 05/18/2025 2:15 PM EDT [facility] Comment:Hemolyzed, result ma y be falsely increased. ALT, Plasma 18 10 - 50 U/L 05/18/2025 2:15 PM EDT [facility] Alkaline Phosphatase, Plasma 87 40 - 115 U/L 05/18/2025 2:15 PM EDT [facility] Total Bilirubin, Plasma 1.2(H) 0.2 - 1.1 mg/dL 05/18/2025 2:15 PM EDT [facility] eGFRcr 83.5 mL/min/1.7 3m*2 05/18/2025 2:15 PM EDT [facility] Comment:Reported eGFRcr in m L/min/1.73m2 is based the CKD-EPI 2020 equation that does not use a race coefficient. Blood Venous blood specimen / Unknown Venipuncture / Unknown 05/18/2025 1:17 PM EDT 05/18/2025 1:38 PM EDT us Citlalli Castellon MD LAB BLOOD ORDERABLES Final Resul t [facility] [address] [place] [address] * (ABNORMAL) CBC and differential (05/18/2025 1:17 PM EDT) WBC Count 10.53(H) 3.70 - 10.30 10*3/uL LAB HEMATOLOGY METHOD 05/18/2025 1:45 PM EDT [facility] RBC Count 4.89 4.60 - 6.10 10*6/uL LAB HEMATOLOGY METHOD 05/18/2025 1:45 PM EDT [facility] HGB 14.9 13.7 - 17.5 g/dL LAB HEMATOLOGY METHOD 05/18/2025 1:45 PM EDT [facility] HCT 44.9 40.0 - 51.0 % LAB HEMATOLOGY METHOD 05/18/2025 1:45 PM EDT [facility] Platelet Count 275 155 - 369 10*3/uL LAB HEMATOLOGY METHOD 05/18/2025 1:45 PM EDT [facility] MCV 92 79 - 98 fL LAB HEMATOLOGY METHOD 05/18/2025 1:45 PM EDT [facility] MCH 30.5 26.0 - 32.0 pg LAB HEMATOLOGY METHOD 05/18/2025 1:45 PM EDT [facility] MCHC 33.2 30.7 - 35.5 g/dL LAB HEMATOLOGY METHOD 05/18/2025 1:45 PM EDT [facility] RDW 13.1 11.5 - 14.5 % LAB HEMATOLOGY METHOD 05/18/2025 1:45 PM EDT [facility] MPV 8.7(L) 8.8 - 12.5 fL LAB HEMATOLOGY METHOD 05/18/2025 1:45 PM EDT [facility] nRBC 0.0 <=0.0 per 100 WBCs LAB HEMATOLOGY METHOD 05/18/2025 1:45 PM EDT [facility] Differential Type Automated LAB HEMATOLOGY METHOD 05/18/2025 1:45 PM EDT [facility] Neutrophils % 61 % LAB HEMATOLOGY METHOD 05/18/2025 1:45 PM EDT [facility] Lymphocytes % 28 % LAB HEMATOLOGY METHOD 05/18/2025 1:45 PM EDT [facility] Monocytes % 9 % LAB HEMATOLOGY METHOD 05/18/2025 1:45 PM EDT [facility] Eosinophils % 1 % LAB HEMATOLOGY METHOD 05/18/2025 1:45 PM EDT [facility] Basophils % 0 % LAB HEMATOLOGY METHOD 05/18/2025 1:45 PM EDT [facility] Immature Granulocytes % 1 % LAB HEMATOLOGY METHOD 05/18/2025 1:45 PM EDT [facility] Neutrophils Absolute 6.46(H) 1.60 - 6.10 10*3/uL LAB HEMATOLOGY METHOD 05/18/2025 1:45 PM EDT [facility] Lymphocytes Absolute 2.90 1.20 - 3.90 10*3/uL LAB HEMATOLOGY METHOD 05/18/2025 1:45 PM EDT [facility] Monocytes Absolute 0.95(H) 0.30 - 0.90 10*3/uL LAB HEMATOLOGY METHOD 05/18/2025 1:45 PM EDT [facility] Eosinophils Absolute 0.11 0.00 - 0.50 10*3/uL LAB HEMATOLOGY METHOD 05/18/2025 1:45 PM EDT [facility] Basophils Absolute 0.04 0.00 - 0.10 10*3/uL LAB HEMATOLOGY METHOD 05/18/2025 1:45 PM EDT [facility] Immature Granulocytes Absolute 0.07(H) 0.00 - 0.06 10*3/uL LAB HEMATOLOGY METHOD 05/18/2025 1:45 PM EDT [facility] Blood Venous blood specimen / Unknown Venipuncture / Unknown 05/18/2025 1:17 PM EDT 05/18/2025 1:38 PM EDT Narrative [facility] - 05/18/2025 1:45 PM EDT Therapeutic decision making should be based on absolute values, rather than percentages. Citlalli Castellon MD LAB BLOOD ORDERABLES Final Resul t Performing Organization Address City/[facility] Co de Phone Number [facility] [address] [place] [address] * TSH reflex FT4 (05/18/2025 1:17 PM EDT) Thyroid Stimulating Hormone, Plasma 2.00 0.40 - 4.20 uIU/mL 05/18/2025 2:15 PM EDT [facility] Blood Venous blood specimen / Unknown Venipuncture / Unknown 05/18/2025 1:17 PM EDT 05/18/2025 1:38 PM EDT Citlalli Castellon MD LAB BLOOD ORDERABLES Final Resul t Performing Organization Address City/[facility]/ZIP Co de Phone Number [facility] [address] [place] [address] * PET/CT FDG Whole Body (05/04/2025 9:53 AM EDT) Anatomical Region Laterality Modality Positron Emissio n Tomography (PET) Addenda Addendum by Christopher Fong MD on 05/05/2025 9:56 AM EDT Addendum: ADDENDUM: In addition to the aforementioned sides, there is another site of suspicious moderate or intense focal hypermetabolism that warrants follow-up within the left lower neck paraspinal musculature on image 157 with SUV max of 7.8. There is no definite focal CT correlate and there is some confounding generalized muscular FDG uptake within the bilateral paraspinal muscles in this region which is presumably benign exertion related. An MRI can be considered for confirming a true disease site if it would significantly impact management decision making. Drafted by Christopher Fong MD on 05/05/2025 9:52 AM Final report signed by Christopher Fong MD on 05/05/2025 9:56 AM Impressions 05/05/2025 8:53 AM EDT No evidence of residual or recurrent disease at the wide local excision margin. No definite regional hypermetabolic adenopathy. There is a nonspecific and potentially benign mildly FDG avid anterior lower right axillary node with a preserved fatty hilum that can be reassessed on future follow-up. Significantly enlarged and mildly FDG avid (SUV max at or slightly higher than reference hepatic uptake) right greater than left iliac chain lymph nodes are indeterminate but given their size they could potentially represent metastatic disease from a less metabolically active/differentiated pelvic primary such as a prostatic neoplasm or a low grade lymphoproliferative process. In support of this possibility, there is perhaps mild heterogenous FDG uptake within the prostate and a questionable mildly avid sclerotic right ischial tuberosity focus. Correlation with PSA is advised. Comparison with any old imaging would be helpful in establishing growth profile/stability of these nodes. More avid in uptake is a much smaller subcentimeter but rounded right femoral node with SUV max significantly higher than reference hepatic uptake. Although this node could be reactive from the bilateral lower extremity stasis and chronic inflammation, this lymph node warrants particular attention on future oncologic surveillance imaging given the degree of FDG uptake despite its size. Diffuse hepatic steatosis with suggestion of early chronic liver disease. Please correlate with relevant clinical risk factors and labs. There is mild splenomegaly and more than dilation of the main portal vein. No obvious large varices or ascites. CRITICAL RESULT: No. COMMUNICATION: Per this written report. Drafted by Christopher Fong MD on 05/05/2025 7:49 AM Final report signed by Christopher Fong MD on 05/05/2025 8:53 AM Narrative 05/05/2025 8:53 AM EDT CLINICAL INDICATION: Staging PET CT in this patient with newly diagnosed left upper extremity melanoma near the shoulder (left medial suprascapular back) status post wide local excision and sentinel lymph node biopsy, stage IIB (pT3b, pN0, cM0). Currently on adjuvant pembrolizumab. TECHNIQUE: Preparation: Last oral intake (except water) 7:00 PM last night. Diabetic: Yes. Last ozempic injection on 04/30/2025 Blood glucose at time of FDG administration: 103 mg/dL. Radiopharmaceutical: 12.0 mCi of F-18 FDG administered intravenously at right antecubital fossa at 8:40 AM. Incubation interval: 55 minutes. Oral contrast: Not applicable. Positioning: Arms by sides. PET/CT scanner: Siemens Biograph 40 mCT. PET/CT acquisition: [id number]. Standardized uptake value (SUV): Corrected for body weight only. CT: Low-dose, [id number], without intravenous contrast. TOTAL DLP (Dose Length Product): 1939 mGy cm. COMPARISON/CORRELATION: No relevant prior. FINDINGS: Technical quality: Diagnostic. Measurements: Unless otherwise specified, all SUVs refer to maximum value in the target (mSUV). Reference: Mean liver SUV 3.1 CT linear measurements performed on axial images. Head and Neck: No suspicious focal hypermetabolic uptake. No obvious space-occupying brain parenchymal masses. Mild to moderate carotid bulb calcific atherosclerosis. No suspicious sizable focal thyroid findings. No cervical or supraclavicular adenopathy. Chest: No suspicious focal hypermetabolic uptake within the visceral chest. No suspicious sizable pulmonary nodules on this low-dose nonbreath-hold acquisition. A questionably calcific subcentimeter nodule within the medial left lung base may be a granuloma and is not overtly avid. Cardiac size at upper limits of normal. No thoracic adenopathy. No pleural or pericardial effusions. Abdomen and Pelvis: Indeterminate enlarged and mildly FDG avid right common iliac and right greater than left bilateral external iliac lymph nodes, for example 16 mm short axis right common iliac node on image 473 with SUV max of 3.3, distal right external iliac node measuring 21 mm short axis on image 522 with SUV max of 4.5 and smaller contralateral 17 mm short axis left external iliac node on image 520 with lesser FDG avidity measuring SUV max of 3.1. Indeterminate mildly heterogenous prostatic FDG uptake with SUV max of 2.8-2.9 is nonspecific and may be infectious/inflammatory but correlation with PSA would be prudent in this patient with the aforementioned nonspecific pelvic iliac chain adenopathy. Diffuse hepatic steatosis with features of chronic liver disease. Mild splenomegaly. No discrete suspicious hepatic focal lesions. Unremarkable gallbladder, nondilated biliary tree, pancreas, adrenal glands, and kidneys aside from a probable exophytic left interpolar cortical cyst. Normal caliber GI tract. Few uninflamed colonic diverticula. No suspicious sizable mesenteric/peritoneal masses. Moderate aortoiliac calcific atherosclerosis. No ascites. Skeleton and Soft Tissues: There is no suspicious focal moderate or intense hypermetabolism within the region of the right local excision along the left suprascapular back/shoulder region on image 153. There is mild skin induration with diffuse low-grade FDG uptake that is favored to be postsurgical, SUV max 3.5. There are no definite additional skin or subcutaneous hypermetabolic nodules to suggest additional sites of cutaneous melanoma. No convincingly suspicious hypermetabolic axillary adenopathy. There is a nonspecific mildly FDG avid 11 mm short axis right anterior lower axillary lymph node on image 275 with SUV max of 4.3. This is nonspecific and likely nonmetastatic but can be reassessed on future oncologic surveillance imaging. There is a subtly sclerotic right ischial tuberosity lesion on image 565 with mild FDG avidity (SUV max 4.0). There are no other convincingly suspicious lytic/sclerotic osseous lesions. Indeterminate moderately to intensely hypermetabolic 6-7 mm short axis right femoral lymph node on image 594 with SUV max of 9.3. This is indeterminate given the degree of hypermetabolism and warrants careful attention on future imaging follow-up. This may perhaps be reactive given the significant skin and subcutaneous edema of the lower extremities due to venous or lymphatic stasis. There is also significant degenerative uptake within the forefoot and midfoot articulations, right greater than left. 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 Currently on adjuvant pembrolizumab. TECHNIQUE: Preparation: Last oral intake (except water) 7:00 PM last night. Diabetic: Yes. Last ozempic injection on 04/30/2025 Blood glucose at time of FDG administration: 103 mg/dL. Radiopharmaceutical: 12.0 mCi of F-18 FDG administered intravenously atright antecubital fossa at 8:40 AM. Incubation interval: 55 minutes. Oral contrast: Not applicable. Positioning: Arms by sides. PET/CT scanner: Siemens [employer]graph 40 mCT. PET/CT acquisition: [id number]. Standardized uptake value (SUV): Corrected for body weight only. CT: Low-dose, [id number], without intravenous contrast. TOTAL DLP (Dose Length Product): 1939 mGy cm. COMPARISON/CORRELATION: No relevant prior. FINDINGS: Technical quality: Diagnostic. Measurements: Unless otherwise specified, all SUVs refer to maximum valuein the target (mSUV). Reference: Mean liver SUV 3.1 CT linear measurements performed on axial images. Head and Neck: No suspicious focal hypermetabolic uptake. No obvious space-occupying brain parenchymal masses. Mild to moderatecarotid bulb calcific atherosclerosis. No suspicious sizable focal thyroidfindings. No cervical or supraclavicular adenopathy. Chest: No suspicious focal hypermetabolic uptake within the visceral chest. No suspicious sizable pulmonary nodules on this low-dose nonbreath- holdacquisition. A questionably calcific subcentimeter nodule within themedial left lung base may be a granuloma and is not overtly avid. Cardiacsize at upper limits of normal. No thoracic adenopathy. No pleural orpericardial effusions. Abdomen and Pelvis: Indeterminate enlarged and mildly FDG avid right common iliac and rightgreater than left bilateral external iliac lymph nodes, for example 16 mmshort axis right common iliac node on image 473 with SUV max of 3.3,distal right external iliac node measuring 21 mm short axis on image 522with SUV max of 4.5 and smaller contralateral 17 mm short axis leftexternal iliac node on image 520 with lesser FDG avidity measuring SUV maxof 3.1. Indeterminate mildly heterogenous prostatic FDG uptake with SUV max of2.8-2.9 is nonspecific and may be infectious/inflammatory but correlationwith PSA would be prudent in this patient with the aforementionednonspecific pelvic iliac chain adenopathy. Diffuse hepatic steatosis with features of chronic liver disease. Mildsplenomegaly. No discrete suspicious hepatic focal lesions. Unremarkablegallbladder, nondilated biliary tree, pancreas, adrenal glands, andkidneys aside from a probable exophytic left interpolar cortical cyst.Normal caliber GI tract. Few uninflamed colonic diverticula. No suspicioussizable mesenteric/peritoneal masses. Moderate aortoiliac calcificatherosclerosis. No ascites. Skeleton and Soft Tissues: There is no suspicious focal moderate or intense hypermetabolism withinthe region of the right local excision along the left suprascapularback/shoulder region on image 153. There is mild skin induration withdiffuse low-grade FDG uptake that is favored to be postsurgical, SUV max3.5. There are no definite additional skin or subcutaneous hypermetabolicnodules to suggest additional sites of cutaneous melanoma. No convincingly suspicious hypermetabolic axillary adenopathy. There is anonspecific mildly FDG avid 11 mm short axis right anterior lower axillarylymph node on image 275 with SUV max of 4.3. This is nonspecific andlikely nonmetastatic but can be reassessed on future oncologicsurveillance imaging. There is a subtly sclerotic right ischial tuberosity lesion on image 565with mild FDG avidity (SUV max 4.0). There are no other convincinglysuspicious lytic/sclerotic osseous lesions. Indeterminate moderately to intensely hypermetabolic 6-7 mm short axisright femoral lymph node on image 594 with SUV max of 9.3. This isindeterminate given the degree of hypermetabolism and warrants carefulattention on future imaging follow-up. This may perhaps be reactive giventhe significant skin and subcutaneous edema of the lower extremities dueto venous or lymphatic stasis. There is also significant degenerativeuptake within the forefoot and midfoot articulations, right greater thanleft. IMPRESSION: No evidence of residual or recurrent disease at the wide local excisionmargin. No definite regional hypermetabolic adenopathy. There is anonspecific and potentially benign mildly FDG avid anterior lower rightaxillary node with a preserved fatty hilum that can be reassessed onfuture follow-up. Significantly enlarged and mildly FDG avid (SUV max at or slightly higherthan reference hepatic uptake) right greater than left iliac chain lymphnodes are indeterminate but given their size they could potentiallyrepresent metastatic disease from a less metabolicallyactive/differentiated pelvic primary such as a prostatic neoplasm or a lowgrade lymphoproliferative process. In support of this possibility, thereis perhaps mild heterogenous FDG uptake within the prostate and aquestionable mildly avid sclerotic right ischial tuberosity focus.Correlation with PSA is advised. Comparison with any old imaging would behelpful in establishing growth profile/stability of these nodes. More avid in uptake is a much smaller subcentimeter but rounded rightfemoral node with SUV max significantly higher than reference hepaticuptake. Although this node could be reactive from the bilateral lowerextremity stasis and chronic inflammation, this lymph node warrantsparticular attention on future oncologic surveillance imaging given thedegree of FDG uptake despite its size. Diffuse hepatic steatosis with suggestion of early chronic liver disease.Please correlate with relevant clinical risk factors and labs. There ismild splenomegaly and more than dilation of the main portal vein. Noobvious large varices or ascites. CRITICAL RESULT: No. COMMUNICATION: Per this written report. Drafted by Christopher Fong MD on 05/05/2025 7:49 AM Final report signed by Christopher Fong MD on 05/05/2025 8:53 AM Citlalli Castellon MD [facility] PROCEDURES Edited Result - Final documented in this encounter Visit Diagnoses Diagnosis Malignant melanoma, unspecified site (CMS/HCC)- Primary 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 Malignant melanoma, unspecified site (CMS/HCC) documented in this encounter Additional Health Concerns Assessment Noted Time PHQ-9 Depression Total Score: 0 12/06/19 25 9:10 AM EDT A fall risk assessment has been complete d for the patient 04/13/2025 9:27 AM EDT A Body Mass Index follow-up plan has been documented for the patient 03/06/2025 12:49 PM EDT documented as of this encounter Care Teams Mold Inspector Relationship Specialty Start Date End Date Dina Tong APRN [address] [place] [address] PCP - General 12/05/24 documented as of this encounter
--- OUTSIDE RECORDS SUMMARY | 2025-04-13 08:40 | XMS_ITS | Encounter Summary ---
Author Organization [facility] Address [address] [place] [address] Care Team Providers Care Senior Payroll Administrator Name Role Phone Dina Tong APRN Primary Care Provider [phone] Reason for Referral * Imaging (Routine) - Closed Specialty Diagnoses / Procedures Referred By Contac t Referred To Contact Radiology Diagnoses Malignant melanoma, unspecified site (CMS/HCC) Procedures PET/CT FDG Whole Body Citlalli Castellon MD [address] [facility] Emmanuelle Ortega [address] [address] Phone: tel: fax: Referral ID Status Reason Start Date Expiration Date Visits Re quested Visits Authorized [id number] Closed 04/13/2025 10/13/2026 2 2 Reason for Visit * Reason Comments Follow-up Malignant melanoma o f left upper extremity including shoulder [C43.62] * Consultation (Routine) - Closed Specialty Diagnoses / Procedures Referred By Contact Referred To Contact Medical Oncology / Hematology and Oncology Diagnoses 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 Ofe Langford MD [address] [facility] Emmanuelle Ortega [facility] [address] [place] [address] Phone: tel: fax: [facility] [address] [place] [address] Phone: tel: fax: Referral ID Status Reason Start Date Expiration Date V isits Requested Visits Authorized [id number] Closed Specialty Services Required 03/06/2025 09/05/2026 1 1 Encounter Details Date Type Department Care Team (Late st Contact Info) Description 04/13/2025 9:40 AM EDT Office Visit [facility] [address] [place] [address] Citlalli Castellon MD [address] [facility] [address]le Orte[address] [place] [address] Malignant melanoma, unspecified site (CMS/HCC) [...] 65 y.o. REFERRING PHYSICIAN: Ofe Langford MD [address] [place] [id number] Encounter Date: 04/13/2025 Patient Care Team: Dina [...] panel TSH reflex FT4 Citlalli Castellon MD Air Brush Artist Hematology-Oncology [1] No past medical history on [...] night., Disp: 90 capsule, Rfl: 11 Nystop [id number] UNIT/GM powder, , Disp: , Rfl: omeprazole [...] the treatment. Isa Singleton PharmD Hematology/Oncology Clinical Commercial Hvac Service Technician 04/13/2025 10:25 AM * Progress Notes - [...] Pharmacist Attestation: Isa Singleton PharmD Hematology/Oncology Clinical Commercial Hvac Service Technician documented in this encounter Plan of Treatment Upcoming Encounters Date Type Department Care Team (Late st Contact Info) Description 06/08/2025 2:00 PM EST Clinical Support [facility] [address] [place] [address] 06/08/2025 2:30 PM EST Office Visit [facility] [address] [place] [phone] Debbie Menendez, POOL COORDINATOR [address] [facility] [address] Or[address] [place] [address] 06/08/2025 3:00 PM EST Appointment [facility] Infusion Clinic [address] [place] [address] 09/05/2025 11:30 AM EST Office Visit [facility] [address] [place] [address] Shital Whipple, POOL COORDINATOR [address] [place] [id number] Scheduled Orders Name Type Priority Associated Diagnoses [...] - 99 mg/dL 05/18/2025 2:15 PM EDT [facility] BUN, Plasma 10 8 - 23 mg/dL 05/18/2025 2:15 PM EDT [facility] Creatinine, Plasma 1.00 0.70 - 1.20 mg/dL 05/18/2025 2:15 PM EDT [facility] BUN/Creatinine Ratio 10 05/18/2025 2:15 PM EDT [facility] Sodium, Plasma 142 136 - 145 mmol/L 05/18/2025 2:15 PM EDT [facility] Potassium, Plasma 4.7 3.6 - 4.9 mmol/L 05/18/2025 2:15 PM EDT [facility] Chloride, Plasma 104 97 - 107 mmol/L 05/18/2025 2:15 PM EDT [facility] CO2, Plasma 29 22 - 29 mmol/L 05/18/2025 2:15 PM EDT [facility] Anion Gap 9 6 - 16 mmol/L 05/18/2025 2:15 PM EDT [facility] Total Calcium, Plasma 9.3 8.9 - 10.2 mg/dL 05/18/2025 2:15 PM EDT [facility] Total Protein 8.0(H) 6.3 - 7.9 g/dL 05/18/2025 2:15 PM EDT [facility] Albumin, Plasma 4.2 3.5 - 5.2 g/dL 05/18/2025 2:15 PM EDT [facility] AST, Plasma 20 10 - 50 U/L 05/18/2025 2:15 PM EDT [facility] Comment:Hemolyzed, result ma y be falsely increased. ALT, Plasma 18 10 - 50 U/L 05/18/2025 2:15 PM EDT [facility] Alkaline Phosphatase, Plasma 87 40 - 115 U/L 05/18/2025 2:15 PM EDT [facility] Total Bilirubin, Plasma 1.2(H) 0.2 - 1.1 mg/dL 05/18/2025 2:15 PM EDT [facility] eGFRcr 83.5 mL/min/1.7 3m*2 05/18/2025 2:15 PM EDT [facility] Comment:Reported eGFRcr in m L/min/1.73m2 is based the CKD-EPI 2020 equation that does not use a race coefficient. Blood Venous blood specimen / Unknown Venipuncture / Unknown 05/18/2025 1:17 PM EDT 05/18/2025 1:38 PM EDT us Citlalli Castellon MD LAB BLOOD ORDERABLES Final Resul t [facility] [address] [place] [address] * (ABNORMAL) CBC and differential (05/18/2025 1:17 PM EDT) WBC Count 10.53(H) 3.70 - 10.30 10*3/uL LAB HEMATOLOGY METHOD 05/18/2025 1:45 PM EDT [facility] RBC Count 4.89 4.60 - 6.10 10*6/uL LAB HEMATOLOGY METHOD 05/18/2025 1:45 PM EDT [facility] HGB 14.9 13.7 - 17.5 g/dL LAB HEMATOLOGY METHOD 05/18/2025 1:45 PM EDT [facility] HCT 44.9 40.0 - 51.0 % LAB HEMATOLOGY METHOD 05/18/2025 1:45 PM EDT [facility] Platelet Count 275 155 - 369 10*3/uL LAB HEMATOLOGY METHOD 05/18/2025 1:45 PM EDT [facility] MCV 92 79 - 98 fL LAB HEMATOLOGY METHOD 05/18/2025 1:45 PM EDT [facility] MCH 30.5 26.0 - 32.0 pg LAB HEMATOLOGY METHOD 05/18/2025 1:45 PM EDT [facility] MCHC 33.2 30.7 - 35.5 g/dL LAB HEMATOLOGY METHOD 05/18/2025 1:45 PM EDT [facility] RDW 13.1 11.5 - 14.5 % LAB HEMATOLOGY METHOD 05/18/2025 1:45 PM EDT [facility] MPV 8.7(L) 8.8 - 12.5 fL LAB HEMATOLOGY METHOD 05/18/2025 1:45 PM EDT [facility] nRBC 0.0 <=0.0 per 100 WBCs LAB HEMATOLOGY METHOD 05/18/2025 1:45 PM EDT [facility] Differential Type Automated LAB HEMATOLOGY METHOD 05/18/2025 1:45 PM EDT [facility] Neutrophils % 61 % LAB HEMATOLOGY METHOD 05/18/2025 1:45 PM EDT [facility] Lymphocytes % 28 % LAB HEMATOLOGY METHOD 05/18/2025 1:45 PM EDT [facility] Monocytes % 9 % LAB HEMATOLOGY METHOD 05/18/2025 1:45 PM EDT [facility] Eosinophils % 1 % LAB HEMATOLOGY METHOD 05/18/2025 1:45 PM EDT [facility] Basophils % 0 % LAB HEMATOLOGY METHOD 05/18/2025 1:45 PM EDT [facility] Immature Granulocytes % 1 % LAB HEMATOLOGY METHOD 05/18/2025 1:45 PM EDT [facility] Neutrophils Absolute 6.46(H) 1.60 - 6.10 10*3/uL LAB HEMATOLOGY METHOD 05/18/2025 1:45 PM EDT [facility] Lymphocytes Absolute 2.90 1.20 - 3.90 10*3/uL LAB HEMATOLOGY METHOD 05/18/2025 1:45 PM EDT [facility] Monocytes Absolute 0.95(H) 0.30 - 0.90 10*3/uL LAB HEMATOLOGY METHOD 05/18/2025 1:45 PM EDT [facility] Eosinophils Absolute 0.11 0.00 - 0.50 10*3/uL LAB HEMATOLOGY METHOD 05/18/2025 1:45 PM EDT [facility] Basophils Absolute 0.04 0.00 - 0.10 10*3/uL LAB HEMATOLOGY METHOD 05/18/2025 1:45 PM EDT [facility] Immature Granulocytes Absolute 0.07(H) 0.00 - 0.06 10*3/uL LAB HEMATOLOGY METHOD 05/18/2025 1:45 PM EDT [facility] Blood Venous blood specimen / Unknown Venipuncture / Unknown 05/18/2025 1:17 PM EDT 05/18/2025 1:38 PM EDT Narrative [facility] - 05/18/2025 1:45 PM EDT Therapeutic decision making should be based on absolute values, rather than percentages. us Citlalli Castellon MD LAB BLOOD ORDERABLES Final Resul t [facility] [address] [place] [address] * TSH reflex FT4 (05/18/2025 1:17 PM EDT) Thyroid Stimulating Hormone, Plasma 2.00 0.40 - 4.20 uIU/mL 05/18/2025 2:15 PM EDT [facility] Blood Venous blood specimen / Unknown Venipuncture / Unknown 05/18/2025 1:17 PM EDT 05/18/2025 1:38 PM EDT us Citlalli Castellon MD LAB BLOOD ORDERABLES Final Resul t [facility] [address] [place] [address] * PET/CT FDG Whole Body (05/04/2025 9:53 [...] Per this written report. Drafted by Christopher Fogn MD on 05/05/2025 7:49 AM Final report [...] scanner: [employer] 40 mCT. PET/CT acquisition: [id number]. Standardized uptake value (SUV): Corrected for body weight only. CT: Low-dose, [id number], without intravenous contrast. TOTAL DLP (Dose Length [...] scanner: [employer] 40 mCT. PET/CT acquisition: [id number]. Standardized uptake value (SUV): Corrected for body weight only. CT: Low-dose, [id number], without intravenous contrast. TOTAL DLP (Dose Length [...] on 05/05/2025 8:53 AM Citlalli Castellon MD IMG NM PROCEDURES Edited Result - Final documented in [...] documented as of this encounter Care Teams Senior Payroll Administrator Relationship Specialty Start Date End Date Dina Tong APRN [address] [place] [address] PCP - General 12/05/24 documented as of this encounter
--- OUTSIDE RECORDS SUMMARY | 2025-05-04 07:21 | XMS_ITS | Encounter Summary ---
Author Organization [facility] Address [address] [place] [address] Care Team Providers Care Scientific Laboratory Supervisor Name Role Phone Dina Tong APRN Primary Care Provider [phone] Reason for Referral * Imaging (Routine) - Closed Specialty Diagnoses / Procedures Referred By Margarito zamarripa Referred To Contact Radiology Diagnoses Malignant melanoma, unspecified site (CMS/HCC) Procedures PET/CT FDG Whole Body Citlalli Castellon MD [address] [address] Phone: tel: fax: Referral ID Status Reason Start Date Expiration Date Visits Re quested Visits Authorized [id number] Closed 04/13/2025 10/13/2026 2 2 Reason for Visit * Imaging (Routine) - Closed Specialty Diagnoses / Procedures Referred By Margarito zamarripa Referred To Contact Radiology Diagnoses Malignant melanoma, unspecified site (CMS/HCC) Procedures PET/CT FDG Whole Body Citlalli Castellon MD [address] [address] Phone: tel: fax: Referral ID Status Reason Start Date Expiration Date Visits Re quested Visits Authorized [id number] Closed 04/13/2025 10/13/2026 2 2 Encounter Details Date Type Department Care Team (Latest Contact Info) Description 05/04/2025 8:21 AM EDT - 05/04/2025 11:59 PM EDT Hospital Encounter [facility] PET Scan [address] [place] [address] Malignant melanoma, unspecified site (CMS/HCC) Discharge Disposition: Home or Self Care Social History Tobacco Use Types Packs/Day Years [...] on file documented as of this encounter Medications at Time of Discharge atorvastatin (Lipitor) 20 MG tablet Take 1 tablet by mouth daily. azelastine (Astelin) 0.1 % nasal spray Administer 1 spray into affected nostril(s). 4 desvenlafaxine (Pristiq) 50 MG 24 hr tablet 5 famotidine (Pepcid) 40 MG tablet 1 furosemide (Lasix) 40 MG tablet Take 1 tablet by mouth daily. 5 gabapentin (Neurontin) 800 MG tablet 5 hydrOXYzine HCl (Atarax) 10 MG tablet Take 2.5 tablets by mouth every 6 hours as needed for itching. hydrOXYzine pamoate (Vistaril) 25 MG capsule TAKE 1 CAPSULE BY MOUTH 3 TIMES A DAY NEEDED FOR ITCHING 5 losartan (Cozaar) 100 MG tablet Take 1 tablet by mouth daily. 5 losartan (Cozaar) 50 MG tablet 1 Movantik 25 MG tablet TAKE 1 TABLET BY MOUTH ONCE A DAY ON an EMPTY stomach. no food 1 HOUR AFTER OR 2 TO 3 HOURS BEFORE DOSE 5 naloxone (Narcan) 4 mg/0.1 mL nasal spray 1. Give 1 spray in nostril for no/slow breathing or cannot wake after opioid use 2. Call 911 3. Repeat in other nostril if symptoms continue 1 each 5 nortriptyline (Pamelor) 10 MG capsuleIndications: Major depressive disorder with single episode, remission status unspecified,Venous stasis ulcer of right ankle with fat layer exposed without varicose veins,Pain of right lower leg Take 3 capsules (30 mg total) by mouth every night. 90 capsule 11 2 Nystop 248923 UNIT/GM powder 1 ondansetron ODT (Zofran-ODT) 4 MG disintegrating tablet daily. 5 oxyCODONE-acetamino phen (Percocet) 7.5-325 MG tablet 5 Ozempic, 1 MG/DOSE, 4 MG/3ML solution pen-injector INECT 1 MG SUBCUTANEOUSLY ONCE WEEKLY 5 prazosin (Minipress) 1 MG capsule 1 capsule. 4 prochlorperazine (Compazine) 10 MG tabletIndications:M alignant melanoma of left upper extremity including shoulder Take 1 tablet by mouth every 6 hours as needed for nausea or vomiting. 30 tablet 5 5 semaglutide 1 MG/DOSE (Ozempic, 1 MG/DOSE,) 2 MG/1.5ML solution pen-injector inj. pen Inject 1 mg under the skin 1 time per week. Takes on wednesdays spironolactone (Aldactone) 50 MG tablet Take 1 tablet by mouth daily. sulfamethoxazole-tr imethoprim (Bactrim DS) 800-160 MG tablet daily. 5 Symbicort 80-4.5 MCG/ACT inhaler Inhale 2 puffs. 4 triamcinolone (Kenalog) 0.1 % cream 1 allopurinol (Zyloprim) 100 MG tablet 1 clonazePAM (KlonoPIN) 0.5 MG tablet Take 1 tablet by mouth. PRN ketoconazole (NIZOral) 2 % cream 03/15/20 2 1 losartan-hydroCHLOR Othiazide (Hyzaar) 100-25 MG tablet Take 1 tablet by mouth daily. metFORMIN (Glucophage) 500 MG tablet Take 1 tablet by mouth daily. mupirocin (Bactroban) 2 % ointment 1 omeprazole (PriLOSEC) [address] capsule Take 1 capsule by mouth daily. Do not crush or chew. oxyCODONE (Roxicodone) 5 MG immediate release tabletIndications:M alignant melanoma of left upper extremity including shoulder Take 1 tablet by mouth every 6 hours as needed for severe pain (pain). 10 tablet 5 tobramycin (Nebcin) 1.2 g injection 1 vancomycin (Vancocin) 1 g vial for injection 1 documented as of this encounter Plan of Treatment Upcoming Encounters Date Type Department Care Team (Late st Contact Info) Description 09/05/2025 11:30 AM EST Office Visit [facility] [address] [place] [address] Shital Whipple, DIRECTOR OF CORPORATE REAL ESTATE [address] [place] [address] documented as of this encounter Procedures Procedure Name Priority Date/Time Associated Diagnosis Comments PET/CT FDG WHOLE BODY Routine 05/04/2025 9:53 AM EDT Malignant melanoma, unspecified site (CMS/HCC) documented in this encounter Results * PET/CT FDG Whole Body (05/04/2025 9:53 [...] scanner: Siemens Biograph 40 mCT. PET/CT acquisition: [id number]. Standardized uptake value (SUV): Corrected for body weight only. CT: Low-dose, tfv-tvdtsa-sdme, without intravenous contrast. TOTAL DLP (Dose Length [...] scanner: Siemens Biograph 40 mCT. PET/CT acquisition: [id number]-[id number]-agun. Standardized uptake value (SUV): Corrected for body weight only. CT: Low-dose, qkn-klaahq-cjvb, without intravenous contrast. TOTAL DLP (Dose Length [...] Visit Diagnoses Diagnosis Malignant melanoma, unspecified site (CMS/HCC) documented in this encounter Administered Medications Inactive Administered Medications - up to 3 most recent administrations Medication Order MAR Action Action Date Dose Rate Site Fludeoxyglucose F 18 (FDG 18) radio-isotope injection 12 millicurie 12 millicurie, Intravenous, Once, 1 dose, On Leticia 05/04/25 at 0945, Routine, Imaging NM Protocol Orders Given 05/04/2025 8:39 AM EDT 12.07 millicuries Right Antecubital documented in this encounter Additional Health Concerns Assessment Noted Time PHQ-9 Depression Total Score: 0 12/06/19 25 9:10 AM EDT A fall risk assessment has been complete d for the patient 04/13/2025 9:27 AM EDT A Body Mass Index follow-up plan has been documented for the patient 03/06/2025 12:49 PM EDT documented as of this encounter Care Teams Scientific Laboratory Supervisor Relationship Specialty Start Date End Date Dina Tong APRN [address] [place] [phone] PCP - General 12/05/24 documented as of this encounter
--- OUTSIDE RECORDS SUMMARY | 2025-05-04 07:21 | XMS_ITS | Encounter Summary ---
Author Organization [facility] Address [address] [place] [address] Care Team Providers Care Sewage Plant Operator Name Role Phone Dnia Tong APRN Primary Care Provider [phone] Reason for Visit * Imaging (Routine) - Closed Specialty Diagnoses / Procedures Referred By Contac t Referred To Contact Radiology Diagnoses Malignant melanoma, unspecified site (CMS/HCC) Procedures PET/CT FDG Whole Body Citlalli Castellon MD [address] [address] Phone: tel: fax: Referral ID Status Reason Start Date Expiration Date Visits Re quested Visits Authorized [id number] Closed 04/13/2025 10/13/2026 2 2 Encounter Details Date Type Department Care Team (Latest Contact Info) Description 05/04/2025 8:21 AM EDT - 05/04/2025 11:59 PM EDT Hospital Encounter [facility] PET Scan [address] [place] [address] Discharge Disposition: Home or Self Care Social History Tobacco Use Types Packs/Day Years Used Date Smoking Tobacco: Former Cigarettes 0.5 42 1 - 2020 Smokeless Tobacco: Never Comments:Occasionally uses [...] every night. 90 capsule 11 2 Nystop 142372 UNIT/GM powder 1 ondansetron ODT (Zofran-ODT) 4 [...] [facility] [address] [place] [address] Shital Whipple, [employer] SUPERVISOR [address] [place] [address] documented as of this encounter Procedures Procedure [...] scanner: Siemens Biograph 40 mCT. PET/CT acquisition: [id number]-kb-[id number]. Standardized uptake value (SUV): Corrected for body weight only. CT: Low-dose, cdw-dzulhh-zaqh, without intravenous contrast. TOTAL DLP (Dose Length [...] scanner: Siemens Biograph 40 mCT. PET/CT acquisition: [id number]. Standardized uptake value (SUV): Corrected for body weight only. CT: Low-dose, iyq-rmapul-udof, without intravenous contrast. TOTAL DLP (Dose Length [...] on 05/05/2025 8:53 AM [facility]alli [facility]ED[facility] Edited Result - Final documented in this encounter Visit Diagnoses Not on filedocumented [...] documented as of this encounter Care Teams Sewage Plant Operator Relationship Specialty Start Date End Date Dina Tong APRN [address] [place] [address] PCP - General 12/05/24 documented as of this encounter
--- OUTSIDE RECORDS SUMMARY | 2025-05-04 07:21 | XMS_ITS | Encounter Summary ---
Author Organization [facility] Address [address] [place] [address] Care Team Providers Care Recyclable Materials Sorter Name Role Phone Dina Tong APRN Primary Care Provider [phone] Reason for Referral * Imaging (Routine) - Closed Specialty Diagnoses / Procedures Referred By Margarito zamarripa Referred To Contact Radiology Diagnoses Malignant melanoma, unspecified site (CMS/HCC) Procedures PET/CT FDG Whole Body Citlalli Castellon MD [address] [address] Phone: tel: fax: Referral ID Status Reason Start Date Expiration Date Visits Re quested Visits Authorized [id number] Closed 04/13/2025 10/13/2026 2 2 Reason for Visit * Imaging (Routine) - Closed Specialty Diagnoses / Procedures Referred By Margarito zamarripa Referred To Contact Radiology Diagnoses Malignant melanoma, unspecified site (CMS/HCC) Procedures PET/CT FDG Whole Body Citlalli Castellon MD [address] [address] Phone: tel: fax: Referral ID Status Reason Start Date Expiration Date Visits Re quested Visits Authorized [id number] Closed 04/13/2025 10/13/2026 2 2 Encounter Details Date Type Department Care Team (Latest Contact Info) Description 05/04/2025 8:21 AM EDT - 05/04/2025 11:59 PM EDT Hospital Encounter [facility] PET Scan [address] [place] [address] Malignant melanoma, unspecified site (CMS/HCC) Discharge Disposition: [...] this encounter Medications at Time of Discharge allopurinol (Zyloprim) 100 MG tablet 1 atorvastatin (Lipitor) 20 MG tablet Take 1 tablet by mouth daily. azelastine (Astelin) 0.1 % nasal spray Administer 1 spray into affected nostril(s). 4 clonazePAM (KlonoPIN) 0.5 MG tablet Take 1 tablet by mouth. PRN desvenlafaxine (Pristiq) 50 MG 24 hr tablet [...] TIMES A DAY NEEDED FOR ITCHING 5 ketoconazole (NIZOral) 2 % cream 03/15/20 2 1 losartan (Cozaar) 100 MG tablet Take 1 tablet by mouth daily. 5 losartan (Cozaar) 50 MG tablet 1 losartan-hydroCHLOR Othiazide (Hyzaar) 100-25 MG tablet Take 1 tablet by mouth daily. metFORMIN (Glucophage) 500 MG tablet Take 1 tablet by mouth daily. Movantik 25 MG tablet TAKE 1 TABLET BY MOUTH ONCE A DAY ON an EMPTY stomach. no food 1 HOUR AFTER OR 2 TO 3 HOURS BEFORE DOSE 5 mupirocin (Bactroban) 2 % ointment 1 naloxone (Narcan) 4 mg/0.1 mL nasal spray [...] every night. 90 capsule 11 2 Nystop 752392 UNIT/GM powder 1 omeprazole (PriLOSEC) [address] capsule Take 1 capsule by mouth daily. Do not crush or chew. ondansetron ODT (Zofran-ODT) 4 MG disintegrating tablet daily. 5 oxyCODONE (Roxicodone) 5 MG immediate release tabletIndications:M alignant melanoma of left upper extremity including shoulder Take 1 tablet by mouth every 6 hours as needed for severe pain (pain). 10 tablet 5 oxyCODONE-acetamino phen (Percocet) 7.5-325 MG tablet [...] 80-4.5 MCG/ACT inhaler Inhale 2 puffs. 4 tobramycin (Nebcin) 1.2 g injection 1 triamcinolone (Kenalog) 0.1 % cream 1 vancomycin (Vancocin) 1 g vial for injection 1 documented as of this encounter Plan of Treatment Upcoming Encounters Date Type Department Care Team (Late st Contact Info) Description 06/08/2025 2:00 PM EST Clinical Support [facility] Multidisciplinary Oncology Clinic [address] [place] [address] 06/08/2025 2:30 PM EST Office Visit [facility] Multidisciplinary Oncology Clinic [address] [place] [address] Debbie Menendez, DIRECTOR OF MARKET RESEARCH [address] [facility] [address] [place] [address] 06/08/2025 3:00 PM EST Appointment [facility] Infusion Clinic [address] [place] [address] 09/05/2025 11:30 AM EST Office Visit [facility] Multidisciplinary Oncology Clinic [address] [place] [address] Shital Whipple, DIRECTOR OF MARKET RESEARCH [address] [facility] [address] [place] [address] documented as of this encounter Procedures Procedure [...] scanner: Siemens Biograph 40 mCT. PET/CT acquisition: [id number]-gx-[id number]. Standardized uptake value (SUV): Corrected for body weight only. CT: Low-dose, huf-fbdnlr-pfji, without intravenous contrast. TOTAL DLP (Dose Length [...] Positioning: Arms by sides. PET/CT scanner: Siemens [employer]graph 40 mCT. PET/CT acquisition: [id number]-vu-zykz. Standardized uptake value (SUV): Corrected for body weight only. CT: Low-dose, cdx-jtzjro-lmuj, without intravenous contrast. TOTAL DLP (Dose Length [...] on 05/05/2025 8:53 AM Citlalli Castellon MD [facility] [place] PROCEDURES Edited Result - Final documented [...] documented as of this encounter Care Teams Recyclable Materials Sorter Relationship Specialty Start Date End Date Dina Tong APRN [address] [place] [address] PCP - General 12/05/24 documented as of this encounter
--- OUTSIDE RECORDS SUMMARY | 2025-05-04 07:21 | XMS_ITS | Encounter Summary ---
Author Organization [facility] Address [address] [place] [address] Care Team Providers Care Paint Stockman Name Role Phone Dina Tong APRN Primary Care Provider [phone] Reason for Visit * Imaging (Routine) - Closed Specialty Diagnoses / Procedures Referred By Contac t Referred To Contact Radiology Diagnoses Malignant melanoma, unspecified site (CMS/HCC) Procedures PET/CT FDG Whole Body Citlalli Castellon MD [address] [address] Phone: tel: fax: Referral ID Status Reason Start Date Expiration Date Visits Re quested Visits Authorized [id number] Closed 04/13/2025 10/13/2026 2 2 Encounter Details Date Type Department Care Team (Latest Contact Info) Description 05/04/2025 8:21 AM EDT - 05/04/2025 11:59 PM EDT Hospital Encounter [facility] PET Scan [address] [place] [address] Discharge Disposition: Home or Self Care Social [...] every night. 90 capsule 11 2 Nystop 567350 UNIT/GM powder 1 omeprazole (PriLOSEC) 20 MG [...] Clinical Support [facility] [address] [place] [address] 06/08/2025 2:30 PM EST Office Visit [facility] [address] [place] [address] Debbie Menendez, WEIR FISHER [address] [place] [address] 06/08/2025 3:00 PM EST Appointment [facility] [address] [place] [address] 09/05/2025 11:30 AM EST Office Visit [facility] [address] [place] [address] Shital Whipple, WEIR FISHER [address] [place] [address] documented as of this encounter Procedures Procedure [...] Positioning: Arms by sides. PET/CT scanner: Siemens [employer]graph 40 mCT. PET/CT acquisition: [id number]-fl-fnsk. Standardized uptake value (SUV): Corrected for body weight only. CT: Low-dose, ays-wgxunu-tiyw, without intravenous contrast. TOTAL DLP (Dose Length [...] scanner: Siemens Biograph 40 mCT. PET/CT acquisition: [id number]-qw-rthp. Standardized uptake value (SUV): Corrected for body weight only. CT: Low-dose, usk-lqkrrn-pror, without intravenous contrast. TOTAL DLP (Dose Length [...] documented as of this encounter Care Teams Paint Stockman Relationship Specialty Start Date End Date Dina Tong APRN [address] [place] [address] PCP - General 12/05/24 documented as of this encounter
--- OUTSIDE RECORDS SUMMARY | 2025-05-18 13:00 | XMS_ITS | Encounter Summary ---
Author Organization [facility] Address [address] [place] [address] Care Team Providers Care Business Process Engineer Name Role Phone Dina Tong APRN Primary Care Provider [phone] Reason for Visit * Reason Comments Follow-up Melanoma Encounter Details Date Type Department Care Team ([facility] st Contact Info) Description 05/18/2025 2:00 PM EDT Office Visit [facility] Multidisciplinary Oncology Clinic [address] [place] [address] Citlalli Castellon MD 800 [facility] [address] [place] [address] Malignant melanoma, unspecified site (CMS/HCC) (Primary Dx) [...] Date Recorded Patient Health Questionnaire-2 Score 0 05/18/2025 PHQ-9 Answer Date Recorded Patient Health Questionnaire-9 Score 0 12/05/2024 Sex and Gender Information Value Date Recorded Sex Assigned at Not on file Legal Sex Male 8:03 PM EDT Gender Identity Not on file Sexual Orientation Not on file documented as of this encounter Last Filed Vital Signs Vital Sign Reading Time Taken Comments Blood Pressure 132/80 05/18/2025 1:39 PM EDT Pulse 78 05/18/2025 1:29 PM EDT Temperature 36.9 C (98.4 F) 05/18/2025 1:29 PM EDT Respiratory Rate 22 05/18/2025 1:29 PM EDT Oxygen Saturation 96% 05/18/2025 1:29 PM EDT Inhaled Oxygen Concentration - - Weight 118 kg (259 lb 7.7 oz) 05/18/2025 1:29 PM EDT Height 167.4 cm (5' 5.9 ) 05/18/2025 1:29 PM EDT Body Mass Index 42.01 05/18/2025 1:29 PM EDT documented in this encounter Functional Status * Over the past 2 weeks, how often have you been bothered by any of the following problems? Question Answer Date of Assessment Author Little interest or pleasure in doing things Not at all 05/18/2025 1:38 PM EDT [facility] Feeling down, depressed, or hopeless Not at all 05/18/2025 1:38 PM EDT [facility] Patient Health Questionnaire -2 Score 0 05/18/2025 1:38 PM EDT [facility] * Question Answer Date of Assessment Author Thoughts that you would be b camilla off or hurting yourself in some way Not at all 05/18/2025 1:38 PM EDT [facility] documented as of this encounter Miscellaneous Notes * Progress Notes - Citlalli Castellon MD - 05/18/2025 2:00 PM EDT Patient Information Patient Name: Merrill Dowling Date of : 1960 65 y.o. REFERRING PHYSICIAN: No referring provider defined for this encounter. 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 M with a PMH significant for HTN and cSCC presenting for discussion of melanoma. The patient presents for follow up prior to treatment. He is doing relatively well overall but notes a small area on his scalp that has been slightly painful. No other significant new issues or concerns. Skin History: Sun Exposure: No blistering sunburns [...] melanoma of left upper extremity including shoulder 05/18/2025 - Chemotherapy pembrolizumab (Keytruda) 200 mg in sodium chloride 0.9% 100 mL IVPB, 200 mg, Intravenous, Once, 1 of 24 cycles Past Medical, Surgical, Family and Social History Past Medical History[1] Surgical History[2] Family History[3] Social History[4] Allergies and Adverse Drug Reactions Codeine, Lisinopril, and Naproxen Medications Current Medications[5] Subjective Review of Systems: [...] back: Normal range of motion. Skin: Comments: Full skin exam deferred. Neurological: General: No focal deficit present. Mental [...] with placebo per most recent study update). Will proceed with C1 of Pembrolizumab today. -Baseline PET 05/05/25 with post-op changes at prior excision site for melanoma. However, significantly enlarged R>L iliac chain LN that are indeterminate as well some uptake in the prostate. PSA WNL today and will likely require attempt at bx of pelvic nodes. Tentative plan to repeat systemic imaging Q6 mo. -Continue follow up with Surg-Onc as scheduled. -Recommend follow up with Dermatology Q3 months. -RTC 3 weeks for next treatment. Orders Placed This Encounter Procedures Prostate Specific Antigen, Diagnostic, Serum Citlalli Castellon MD Credit Card Clerk Hematology-Oncology [1] No past medical history on file. [2] No past surgical history on file. [3] Family History Problem Relation Name Age of Onset Anesthesia problems Neg Hx Malig Hyperthermia Neg Hx [4] Social History Tobacco Use Smoking status: Former Current packs/day: 0.00 Average packs/day: 0.5 packs/day for 42.0 years (21.0 ttl pk-yrs) Types: Cigarettes Start date: 1978 Quit date: 2020 Years since quittin.8 Smokeless tobacco: Never Tobacco comments: Occasionally uses [...] as needed for itching., Disp: , Rfl: hydrOXYzine pamoate (Vistaril) 25 MG capsule, TAKE 1 CAPSULE BY MOUTH 3 TIMES A DAY NEEDED FOR ITCHING, Disp: , Rfl: ketoconazole (NIZOral) 2 % cream, , Disp: , Rfl: losartan (Cozaar) 100 MG tablet, Take 1 tablet by mouth daily., Disp: , Rfl: losartan (Cozaar) 50 MG tablet, , Disp: , Rfl: losartan-hydroCHLOROthiazide (Hyzaar) 100-25 MG tablet, Take 1 tablet by mouth daily. (Patient not taking: Reported on 04/13/2025), Disp: , Rfl: metFORMIN (Glucophage) 500 MG tablet, Take 1 tablet by mouth daily. (Patient not taking: Reported on 04/13/2025), Disp: , Rfl: Movantik 25 MG tablet, TAKE 1 TABLET BY MOUTH ONCE A DAY ON an EMPTY stomach. no food 1 HOUR AFTER OR 2 TO 3 HOURS BEFORE DOSE, Disp: , Rfl: mupirocin (Bactroban) 2 % [...] night., Disp: 90 capsule, Rfl: 11 Nystop 800617 UNIT/GM powder, , Disp: , Rfl: omeprazole (PriLOSEC) [address] capsule, Take 1 capsule by mouth daily. Do not crush or chew. (Patient not taking: Reported on 04/13/2025), Disp: , Rfl: ondansetron ODT (Zofran-ODT) 4 MG disintegrating tablet, daily., Disp: , Rfl: oxyCODONE (Roxicodone) 5 MG immediate release tablet, Take 1 tablet by mouth every 6 hours as needed for severe pain (pain). (Patient not taking: Reported on 04/13/2025), Disp: 10 tablet, Rfl: 0 oxyCODONE-acetaminophen (Percocet) 7.5-325 MG tablet, , Disp: , Rfl: Ozempic, 1 MG/DOSE, 4 MG/3ML solution pen-injector, INECT 1 MG SUBCUTANEOUSLY ONCE WEEKLY, Disp: , Rfl: prazosin (Minipress) 1 MG capsule, 1 capsule., Disp: , Rfl: prochlorperazine (Compazine) 10 MG tablet, Take 1 tablet by mouth every 6 hours as needed for nausea or vomiting., Disp: 30 tablet, Rfl: 5 semaglutide 1 MG/DOSE (Ozempic, 1 MG/DOSE,) 2 MG/1.5ML solution pen-injector inj. pen, Inject 1 mg under the skin 1 time per week. Takes on wednesdays, Disp: , Rfl: spironolactone (Aldactone) 50 MG tablet, Take 1 tablet by mouth daily., Disp: , Rfl: sulfamethoxazole-trimethoprim (Bactrim DS) 800-160 MG tablet, daily., Disp: , Rfl: Symbicort 80-4.5 MCG/ACT inhaler, Inhale 2 puffs., Disp: , Rfl: tobramycin (Nebcin) 1.2 g injection, , Disp: , Rfl: triamcinolone (Kenalog) 0.1 % cream, , Disp: , Rfl: vancomycin (Vancocin) 1 g vial for injection, , Disp: , Rfl: * Progress Notes - Glory Granger PharmD - 05/18/2025 2:00 PM EDT Pharmacy Hematology/Oncology Treatment Note Merrill Dowling [...] pharmacy satellite prior to treatment on 04/27/25. UPDATE 05/18/25 Treatment not started on 04/27 as initially planned. Will receive C1D1 today. Labs reviewed and appropriate for treatment today. Tbili elevated to 1.2 today. Will continue to monitor, but still withintreatment parameters. Of note, recent PET-CT showed some concerning areas of avidity within the prostate. Mr. Dowling has an extensive family history and concerning for second cancer to prostate. Pending further workup and will follow-up as appropriate. Today's Wt: Wt Readings from Last 1 Encounters: 05/18/25 118 kg (259 lb 7.7 oz) Recent Labs: Lab Results Component Value Date WBC 10.53 (H) 05/18/2025 HGB 14.9 05/18/2025 HCT 44.9 05/18/2025 MCV 92 05/18/2025 PLT 275 05/18/2025 Lab Results Component Value Date GLUCOSE 86 05/18/2025 CALCIUM 9.3 05/18/2025 NA 142 05/18/2025 K 4.7 05/18/2025 CO2 29 05/18/2025 CL 104 05/18/2025 BUN 10 05/18/2025 CREATININE 1.00 05/18/2025 Lab Results Component Value Date ALT 18 05/18/2025 AST 20 05/18/2025 ALKPHOS 87 05/18/2025 BILITOT 1.2 (H) 05/18/2025 Lab Results Component Value Date NEUTROABS 6.46 (H) 05/18/2025 No results found for: MG Lab Results Component Value Date TSH 2.00 05/18/2025 No results found for: URINEPRO Vitals: Visit Vitals BP 132/80 (BP Location: Left arm, Patient Position: Sitting, BP Cuff Size: Adult) Pulse 78 Temp 36.9 ??C (98.4 ??F) (Oral) Resp 22 Other Relevant Monitoring: N/a Treatment/Therapy Plan: Pembrolizumab 200 mg (flat dost) IV D1 Every 21 days [x] No dose adjustments made Current Treatment Plan History: Pembro C1: 05/18/25 Prior Treatment History: 02/23/2025: WLE/SLNB Plan: Patient will return to clinic in 3 weeks. Will follow-up at that time. Pharmacist Attestation: Glory Granger PharmD Hematology/Oncology Clinical Board Stacker documented in this encounter Plan of Treatment Upcoming Encounters Date Type Department Care Team (Late st Contact Info) Description 06/08/2025 2:00 PM EST Clinical Support [facility] [address] [place] [address] 06/08/2025 2:30 PM EST Office Visit [facility] [address] [place] [address] Debbie Menendez APRN [address] [place] [address] 06/08/2025 3:00 PM EST Appointment [facility] [address] [place] [address] 09/05/2025 11:30 AM EST Office Visit [facility] [address] [place] [address] Shital Whipple, BARBER STYLIST [address] [place] [address] documented as of this encounter Procedures Procedure Name Priority Date/Time Associated Diagnosis Comments PROSTATE SPECIFIC ANTIGEN, DIAGNOSTIC, SERUM Routine 05/18/2025 1:34 PM EDT Malignant melanoma, unspecified site (CMS/HCC) documented in this encounter Results * Prostate Specific Antigen, Diagnostic, Serum (05/18/2025 1:34 PM EDT) PSA, Diagnostic, Serum 0.46 0.00 - 4.50 ng/mL 05/18/2025 2:42 PM EDT [facility] Blood Venous blood specimen / Unknown Venipuncture / Unknown 05/18/2025 1:34 PM EDT 05/18/2025 2:06 PM EDT Narrative [facility] - 05/18/2025 2:42 PM EDT Performed by Nancy electrochemiluminescent immunoassay which is standardized against the PSA Pop Reference Standard (WHO 96/670). Results obtained with different test methods or kits cannot be used interchangeably. us Citlalli Castellon MD LAB BLOOD ORDERABLES Final Resul t [facility] [address] [place] [address] documented in this encounter Visit Diagnoses Diagnosis Malignant melanoma, unspecified site (CMS/HCC)- Primary documented in this encounter Additional Health Concerns Assessment Noted Time PHQ-9 Depression Total Score: 0 12/06/19 25 9:10 AM EDT A fall risk assessment has been complete d for the patient 05/18/2025 1:38 PM EDT A Body Mass Index follow-up plan has been documented for the patient 03/06/2025 12:49 PM EDT documented as of this encounter Care Teams Business Process Engineer Relationship Specialty Start Date End Date Dina Tong APRN [address] [place] [address] PCP - General 12/05/24 documented as of this encounter
--- OUTSIDE RECORDS SUMMARY | 2025-05-18 13:00 | XMS_ITS | Encounter Summary ---
Author Organization [facility] Address [address] [place] [address] Care Team Providers Care Wire Bound Box Machine Helper Name Role Phone Dina Tong APRN Primary Care Provider [phone] Reason for Visit * Reason Comments Follow-up Melanoma Encounter Details Date Type Department Care Team ([facility] st Contact Info) Description 05/18/2025 2:00 PM EDT Office Visit [facility] Multidisciplinary Oncology Clinic [address] [place] [address] Citlalli Castellon MD 800 [facility] [address] [place] [address] Malignant melanoma, unspecified site (CMS/HCC) (Primary Dx) [...] Specific Antigen, Diagnostic, Serum Citlalli Castellon MD Vocational Childcare Teacher Hematology-Oncology [1] No past medical history on [...] night., Disp: 90 capsule, Rfl: 11 Nystop 476224 UNIT/GM powder, , Disp: , Rfl: omeprazole [...] Pharmacist Attestation: Glory Granger PharmD Hematology/Oncology Clinical Customer Experience Manager documented in this encounter Plan of Treatment Upcoming Encounters Date Type Department Care Team (Late st Contact Info) Description 09/05/2025 11:30 AM EST Office Visit [facility] [address] [place] [address] Shital Whipple, BATTERY CHARGER [address] [place] [address] documented as of this encounter Procedures Procedure Name Priority Date/Time Associated Diagnosis Comments PROSTATE SPECIFIC ANTIGEN, DIAGNOSTIC, SERUM Routine 05/18/2025 1:34 PM EDT Malignant melanoma, unspecified site (CMS/HCC) documented in this encounter Results * Prostate Specific Antigen, Diagnostic, Serum (05/18/2025 1:34 PM EDT) PSA, Diagnostic, Serum 0.46 0.00 - 4.50 ng/mL 05/18/2025 2:42 PM EDT [facility] Blood Venous blood specimen / Unknown Venipuncture / Unknown 05/18/2025 1:34 PM EDT 05/18/2025 2:06 PM EDT Narrative [facility] - 05/18/2025 2:42 PM EDT Performed by Nancy electrochemiluminescent immunoassay which is standardized against the PSA Pop Reference Standard (WHO 96/670). Results obtained with different test methods or kits cannot be used interchangeably. us Citlalli Castellon MD LAB BLOOD ORDERABLES Final Resul t [facility] [address] [place] [address] documented in this encounter Visit Diagnoses Diagnosis [...] documented as of this encounter Care Teams Wire Bound Box Machine Helper Relationship Specialty Start Date End Date Dina Tong APRN [address] [place] [address] PCP - General 12/05/24 documented as of this encounter
--- OUTSIDE RECORDS SUMMARY | 2025-05-18 13:50 | XMS_ITS | Encounter Summary ---
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 Procedures Pembrolizumab Every 21 Days Citlalli Castellon MD [address] [address] Phone: tel: fax: Citlalli Castellon MD [address] [address] Phone: tel: fax: Referral ID Status Reason Start Date Expiration Date V isits Requested Visits Authorized [id number] Authorized 04/13/2025 10/13/2026 1 17 Encounter Details Date Type Department Care Team (Latest Contact Info) Description 05/18/2025 2:50 PM EDT - 05/18/2025 11:59 PM EDT Hospital Encounter [facility] [address] [place] [address] 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 (Primary Dx) Discharge Disposition: Home or Self Care Social History Tobacco Use Types Packs/Day Years Used Date Smoking Tobacco: Former Cigarettes 0.5 42 1 - 2020 Smokeless Tobacco: Never Tobacco Cessation:Counseling Given: Not Answered Comments:Occasionally uses nicotine gum; last done 2 days ago Alcohol [...] Sign Reading Time Taken Comments Blood Pressure 130/84 05/18/2025 4:58 PM EDT Pulse 85 05/18/2025 4:58 PM EDT Temperature 36.9 C (98.4 F) 05/18/2025 2:51 PM EDT Respiratory Rate 20 05/18/2025 2:51 PM EDT Oxygen Saturation 97% 05/18/2025 2:51 PM EDT Inhaled Oxygen Concentration - - Weight 118 kg (259 lb 4.2 oz) 05/18/2025 2:51 PM EDT Height 170.2 cm (5' 7 ) 05/18/2025 2:51 PM EDT Body Mass Index 40.61 05/18/2025 2:51 PM EDT documented in this encounter Functional [...] [facility] documented as of this encounter Medications at Time of Discharge allopurinol (Zyloprim) 100 MG tablet atorvastatin (Lipitor) 20 MG tablet Take 1 [...] nostril if symptoms continue 1 each 5 Nystop 176507 UNIT/GM powder 1 omeprazole (PriLOSEC) 20 MG [...] Description 06/08/2025 2:00 PM EST Clinical Support [facility] Multidisciplinary Oncology Clinic [address] [place] [address] 06/08/2025 2:30 PM EST Office Visit [facility] Multidisciplinary Oncology Clinic [address] [place] [address] Debbie Menendez, INDUSTRIAL DIAMOND POLISHER [address] [facility] Emmanuel[facility] Ortega [facility] [address] [place] [address] 06/08/2025 3:00 PM EST Appointment [facility] Infusion Clinic [address] [place] [address] 09/05/2025 11:30 AM EST Office Visit [facility] [address] [place] [address] Shital Whipple, INDUSTRIAL DIAMOND POLISHER [address] [place] [address] documented as of this encounter Visit Diagnoses Diagnosis 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- Primary documented in this encounter Administered Medications Inactive Administered Medications - up to 3 most recent administrations Medication Order MAR Action Action Date Dose Rate Site pembrolizumab (Keytruda) 200 mg in sodium chloride 0.9% 100 mL IVPB 200 mg, Intravenous, at 276 mL/hr, Administer over 30 Minutes, Once, Filter Required. Use 0.2 micron filter., On Leticia 05/18/25 at 1515, For 1 dose, In 100 mL NSIndications: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 New Bag 05/18/2025 3:28 PM EDT 200 mg 27 6 mL/hr documented in this encounter Additional Health Concerns Assessment Noted Time PHQ-9 Depression Total Score: 0 12/06/19 9:10 AM EDT A fall risk assessment has been complete d for the patient 05/18/2025 1:38 PM EDT A Body Mass Index follow-up plan has been documented for the patient 03/06/2025 12:49 PM EDT documented as of this encounter Care Teams Cotton Grower Relationship Specialty Start Date End Date Dina Tong APRN [address] [place] [address] PCP - General 12/05/24 documented as of this encounter
--- OUTSIDE RECORDS SUMMARY | 2025-05-18 13:50 | XMS_ITS | Encounter Summary ---
Author Organization [facility] Address [address] [place] [id number] Care Team Providers Care Quality Assurance Supervisor Trim Name Role Phone Harry Tongica WENDI Primary Care Provider [phone] Reason for Visit * Episode Based Medications (Routine) - Authorized Specialty Diagnoses / Procedures Referred By Contac t Referred To Contact Diagnoses 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 Procedures Pembrolizumab Every 21 Days Citlalli Castellon MD [address] [address] Phone: tel: fax: Citlalli Castellon MD [address] [address] Phone: tel: fax: Referral ID Status Reason Start Date Expiration Date V isits Requested Visits Authorized [id number] Authorized 04/13/2025 10/13/2026 1 17 Encounter Details Date Type Department Care Team (Latest Contact Info) Description 05/18/2025 2:50 PM EDT - 05/18/2025 11:59 PM EDT Hospital Encounter [facility] [address] [place] [address] Malignant melanoma of left upper extremity including [...] if symptoms continue 1 each 5 Nystop 205390 UNIT/GM powder 1 ondansetron ODT (Zofran-ODT) 4 [...] Description 09/05/2025 11:30 AM EST Office Visit [facility] Multidisciplinary Oncology Clinic [address] [place] [address] Shital Whipple, VETERINARY TECHNICIAN INSTRUCTOR [address] [facility] [address] [place] [address] documented as of this encounter Visit Diagnoses [...] documented as of this encounter Care Teams Quality Assurance Supervisor Trim Relationship Specialty Start Date End Date Dina Tong APRN [address] [place] [address] PCP - General 12/05/24 documented as of this encounter
[2025-06-05] VITALS (7 sets, daily range): BP systolic 95–151; BP diastolic 38–70; PULSE 86–104; RESP 16–21; TEMP 36.6–37.1; O2SAT 90–94; BMI 37.5; BMI 38.9
--- NOTE | 2025-06-05 09:35 | CT_ITS ---
FINAL REPORT TECHNIQUE: Thin section axial CT with sagittal reconstruction without contrast This study was performed with techniques to keep radiation doses as low as reasonably achievable, (ALARA). Individualized dose reduction techniques using automated exposure control or adjustment of mA and/or kV according to the patient''s size were employed. CLINICAL HISTORY: fall, posterior pain COMPARISON: none FINDINGS: No fracture is seen. Alignment is normal. No obvious bony spinal canal stenosis is present. Mild diffuse degenerative disc change. IMPRESSION: No fracture or malalignment Reviewed, Interpreted and Dictated by Madison Palencia MD Transcribed by Krysta Perez Authenticated and [facility]
--- NOTE | 2025-06-05 09:35 | XR_ITS ---
FINAL REPORT CLINICAL HISTORY: fall, hip pain FINDINGS: RIGHT KNEE 3 views of the right knee were obtained. There is no acute fracture or dislocation. There is severe tricompartmental degenerative change. A loose body is seen in the anterior joint measuring up to 13 mm. There is a moderate size joint effusion. Soft tissues are unremarkable. IMPRESSION: No acute bony abnormality. Reviewed, Interpreted and Dictated by Madison Palencia MD Transcribed by Pauline Garcia Authenticated and [facility]
--- NOTE | 2025-06-05 09:35 | XR_ITS ---
FINAL REPORT CLINICAL HISTORY: fall, hip pain FINDINGS: LEFT KNEE 3 views of the left knee were obtained. There is no acute fracture or dislocation. There is severe tricompartmental degenerative change. A moderate-sized joint effusion is seen. Soft tissues are unremarkable. IMPRESSION: No acute bony abnormality. Reviewed, Interpreted and Dictated by Madison Palencia MD Transcribed by Pauline Garcia Authenticated and [facility]
--- NOTE | 2025-06-05 09:35 | XR_ITS ---
FINAL REPORT CLINICAL HISTORY: fall, hip pain FINDINGS: Two views of the left femur show no evidence of an acute, displaced fracture or dislocation of the visualized bony architecture. The joint spaces appear normal. IMPRESSION: Unremarkable exam. Reviewed, Interpreted and Dictated by Madison Palencia MD Transcribed by Pauline Garcia Authenticated and [facility]
--- NOTE | 2025-06-05 09:35 | CT_ITS ---
FINAL REPORT TECHNIQUE: CTA of the abdomen and pelvis was performed pre and postcontrast using axial images from the lung bases through the pelvis. Multiplanar reconstructions in the sagittal and coronal planes were performed, as well as vascular imaging protocol. This study was performed with techniques to keep radiation doses as low as reasonably achievable (ALARA). Individualized dose reduction techniques using automated exposure control or adjustment of mA and/or kV according to the patient's size were employed. CLINICAL HISTORY: fall, L flank pain COMPARISON: None FINDINGS: ABDOMEN AND PELVIS: The lung bases are clear. Precontrast images demonstrate no evidence of nephrolithiasis. The gallbladder is unremarkable. The liver, spleen, adrenals and pancreas are unremarkable. There are a few bilateral mildly enlarged retroperitoneal lymph nodes present which approaches 1 cm in size. There are significant bilateral iliac chain enlarged lymph nodes involving the common and external iliac node chains. The largest measures 48 mm x 25 mm in size on the right external iliac chain. There is also bilateral inguinal adenopathy, greater on the right than on the left, measuring up to 26 x 19 mm in size. The prostate is unremarkable in appearance. The appendix is normal in appearance. The bladder is decompressed. CTA: The abdominal aorta is proper caliber. The SMA, celiac axis, and MARCELA are patent. There is no significant stenosis or calcification. The renal arteries are patent bilaterally. The iliac arteries are unremarkable in appearance. No active GI bleed is present. IMPRESSION: 1. No active GI bleed is identified. 2. Unremarkable appearance of the aorta and major branch vessels. 3. No evidence of solid organ injury. 4. Significant pelvic adenopathy, which may be seen with lymphoproliferative disease or metastatic disease. Enlarged nodes are amenable to imaging guided biopsy. Reviewed, Interpreted and Dictated by Madison Palencia MD Transcribed by Serina Christina Authenticated and [facility]
--- NOTE | 2025-06-05 09:35 | CT_ITS ---
FINAL REPORT TECHNIQUE: Thin section axial CT with contrast with multiplanar reconstruction This study was performed with techniques to keep radiation doses as low as reasonably achievable, (ALARA). Individualized dose reduction techniques using automated exposure control or adjustment of mA and/or kV according to the patient's size were employed. CLINICAL HISTORY: fall, sob, tachy, back pain diffuse COMPARISON: None FINDINGS: Pulmonary vessels enhance in normal fashion without evidence of embolism. Thoracic aorta shows no dissection or aneurysm. No pulmonary mass or infiltrate is present. There is minimal dependent atelectasis in the lower lobes. The. There is no significant pleural effusion. There is no significant pericardial effusion. No mediastinal or hilar adenopathy is present. No rib fracture is identified. IMPRESSION: Minimal dependent atelectasis in the lower lung hernandez, otherwise unremarkable. The thoracic aorta and pulmonary vessels are unremarkable in appearance. Reviewed, Interpreted and Dictated by Madison Palencia MD Transcribed by Serina Christina Authenticated and [facility]
--- NOTE | 2025-06-05 09:35 | CT_ITS ---
FINAL REPORT TECHNIQUE: Noncontrast exam This study was performed with techniques to keep radiation doses as low as reasonably achievable, (ALARA). Individualized dose reduction techniques using automated exposure control or adjustment of mA and/or kV according to the patient''s size were employed. CLINICAL HISTORY: fall, posterior pain COMPARISON: none FINDINGS: Moderate atrophy and chronic ischemic white matter changes are noted. No cortical edema is present. There is no mass or hemorrhage. Ventricles are normal. Bone windows show no skull fracture or obvious obstructive lesion. IMPRESSION: 1. No acute intracranial abnormality or obvious mass. 2. Atrophy and chronic ischemic white matter changes as above. Reviewed, Interpreted and Dictated by Madison Palencia MD Transcribed by Krysta Perez Authenticated and [facility]
--- NOTE | 2025-06-05 09:35 | XR_ITS ---
FINAL REPORT CLINICAL HISTORY: fall, hip pain FINDINGS: Two views of the right femur show no evidence of an acute, displaced fracture or dislocation of the visualized bony architecture. The joint spaces appear normal. IMPRESSION: Unremarkable exam. Reviewed, Interpreted and Dictated by Madison Palencia MD Transcribed by Pauline Garcia Authenticated and [facility]
--- NOTE | 2025-06-05 09:35 | CT_ITS ---
FINAL REPORT TECHNIQUE: Axial imaging of the pelvis was obtained without contrast.This study was performed with techniques to keep radiation doses as low as reasonably achievable, (ALARA). Individualized dose reduction technique using automated exposure control or adjustment of mA and/or kV according to the patient's size were employed. CLINICAL HISTORY: fall, b/l hip pain FINDINGS: There is no acute fracture or dislocation. There are at least 5 sclerotic bone lesions of the bilateral bony pelvis measuring up to 9 mm in the posterior left iliac bone which are nonspecific in relation to bone islands or less likely, blastic metastasis. Correlation with prior films may be helpful. Femoral heads are located bilaterally. Soft tissues demonstrate no acute abnormality. Sacral ala are intact. IMPRESSION: No acute bony abnormality of the pelvis. Nonspecific sclerotic lesions which could represent bone islands or blastic metastasis. Correlation with prior exam would be helpful. Reviewed, Interpreted and Dictated by Madison Palencia MD Transcribed by Pauline Garcia Authenticated and [facility]
--- NOTE | 2025-06-05 09:40 | HMH.EDGENADL ---
Discharge Plan Disposition Patient Disposition: Admitted Prescriptions Prescriptions: No Action aspirin [Adult Aspirin Regimen] 81 mg tablet,delayed release (DR/EC) 81 mg PO DAILY Qty: 30 2RF prazosin 1 mg capsule 1 mg PO HS Qty: 30 2RF azelastine 137 mcg (0.1 %) spray,non-aerosol 2 spray intranasal BID Qty: 30 4RF Rx Instructions: administer into each nostril furosemide [Lasix] 40 mg tablet 40 mg PO DAILY Qty: 90 3RF spironolactone [Aldactone] 50 mg tablet 50 mg PO DAILY Qty: 30 5RF gabapentin 800 mg tablet PO Patient Comments: TAKE 1 TABLET BY MOUTH EVERY 6 HOURS oxycodone-acetaminophen 7.5-325 mg tablet PO Patient Comments: TAKE 1 TABLET BY MOUTH EVERY 6 HOURS ammonium lactate 12 % lotion topical Patient Comments: APPLY TO THE AFFECTED AREA(S) 1-2 TIMES PER DAY NEEDED FOR DRY SKIN prochlorperazine maleate 10 mg tablet 10 mg PO Ozempic 2 mg/dose (8 mg/3 mL) pen injector 2 mg SQ WEEKLY Qty: 3 5RF atorvastatin [Lipitor] 20 mg tablet 20 mg PO DAILY Qty: 30 5RF famotidine 40 mg tablet See Rx Instructions .ROUTE .COMPLEX Qty: 90 2RF Dose Instruction: TAKE 1 TABLET BY MOUTH ONCE A DAY Rx Instructions: TAKE 1 TABLET BY MOUTH ONCE A DAY omeprazole 20 mg capsule,delayed release(DR/EC) See Rx Instructions .ROUTE .COMPLEX Qty: 90 2RF Dose Instruction: TAKE 1 CAPSULE BY MOUTH ONCE A DAY Rx Instructions: TAKE 1 CAPSULE BY MOUTH ONCE A DAY budesonide-formoterol [Symbicort] 80-4.5 mcg/actuation HFA aerosol inhaler See Rx Instructions .ROUTE .COMPLEX Qty: 10.2 4RF Dose Instruction: INHALE 1 PUFF BY MOUTH 2 TIMES A DAY Rx Instructions: INHALE 1 PUFF BY MOUTH 2 TIMES A DAY desvenlafaxine succinate [Pristiq] 50 mg tablet extended release 24 hr 50 mg PO DAILY Qty: 30 0RF hydroxyzine pamoate 25 mg capsule See Rx Instructions .ROUTE .COMPLEX Qty: 90 3RF Dose Instruction: TAKE 1 CAPSULE BY MOUTH 3 TIMES A DAY NEEDED FOR ITCHING Rx Instructions: TAKE 1 CAPSULE BY MOUTH 3 TIMES A DAY NEEDED FOR ITCHING losartan 100 mg tablet 100 mg PO DAILY Qty: 30 3RF Movantik 25 mg tablet 25 mg PO DAILY Qty: 30 12RF Rx Instructions: Please take 1 tablet by mouth daily and must be taken on empty stomach; no food 1 hr after or 2-3 hrs before dose Referrals Follow up/Referrals: Dina Tong APRN [Primary Care Provider, [facility]] - See instructions Clinical Impressions Clinical Impression: SIRS (systemic inflammatory response syndrome), Frequent falls, ANISA (acute kidney injury), Bony sclerosis, Adenopathy, Transaminitis Print Language Print Language: Latvian Discharge ED Provider: Reese Barnes General Adult HPI General Chief complaint: Weakness Stated complaint: Fall Time Seen by Provider: 06/05/25 09:35 History of Present Illness HPI narrative: Patient is 65-year-old male with past medical history of gout, ttg-vossbez-znbgyceex diabetes, heart failure with preserved ejection fraction, sleep apnea, hypertension, chronic leg swelling, decreased mobility, obesity who presents emergency department for evaluation of recurrent falls. Over the last 24 hours patient has fallen multiple times where he states it is more of a I am going down where he falls slowly to the ground not a quick rapid fall. It is due to weakness bilaterally and his pain in his bilateral knees has been set off by his falls given his history of gout. He did fall backwards once striking his head without loss of consciousness. No history of anticoagulants or bleeding diathesis. In totality he complains of weakness, posterior head pain, bilateral hip pain, bilateral knee pain, left flank pain. He does not wear oxygen and he is a chronic smoker. No chest pain. Please note that above description of symptoms, in this electronic medical record under categorization of recalled from ER triage doctor by RN are reflective of an initial nursing assessment, however, is not reflective of my full history and physical exam that was personally taken and clarified. Consequentially, this preceding description of symptoms, which may include the patient's categorized chief complaint in the EMR, do not reflect my personal clinical impression, and the ultimate description of history of present illness and patient stated complaints should be deferred to this section of the note. Unless stated otherwise or congruent with this section of the note, additional signs, symptoms, or incongruence should be interpreted as inaccurate with my clinical impression. Related Data Home Medications ?Medication ?Instructions ?Recorded ?Confirmed gabapentin 800 mg tablet mg PO 01/16/25 04/17/25 oxycodone-acetaminophen 7.5 mg-325 tab PO 01/16/25 04/17/25 mg tablet ammonium lactate 12 % lotion topical 04/14/25 04/17/25 prochlorperazine maleate 10 mg 10 mg PO 04/14/25 04/17/25 tablet Previous Rx's ?Medication ?Instructions ?Recorded azelastine 137 mcg (0.1 %) nasal 2 spray intranasal BID #30 mL 01/29/24 spray aspirin 81 mg tablet,delayed 81 mg PO DAILY #30 tabs 03/31/24 release (Adult Aspirin Regimen) prazosin 1 mg capsule 1 mg PO HS #30 caps 05/11/24 furosemide 40 mg tablet (Lasix) 40 mg PO DAILY #90 tabs 01/02/25 spironolactone 50 mg tablet 50 mg PO DAILY #30 tabs 01/02/25 (Aldactone) atorvastatin 20 mg tablet (Lipitor) 20 mg PO DAILY #30 tabs 01/23/25 famotidine 40 mg tablet See Rx Instructions .Route 02/01/25 .COMPLEX #90 tabs omeprazole 20 mg capsule,delayed See Rx Instructions .Route 02/21/25 release .COMPLEX #90 caps Symbicort 80 mcg-4.5 mcg/actuation See Rx Instructions .Route 03/22/25 HFA aerosol inhaler .COMPLEX #10.2 grams (budesonide-formoterol) naloxegol 25 mg tablet (Movantik) 25 mg PO DAILY #30 tabs 03/22/25 semaglutide 2 mg/dose (8 mg/3 mL) 2 mg (0.75 mL) SQ WEEKLY #3 mL 04/17/25 subcutaneous pen injector (Ozempic) desvenlafaxine succinate 50 mg 50 mg PO DAILY #30 tabs 04/24/25 tablet,extended release 24 hr (Pristiq) hydroxyzine pamoate 25 mg capsule See Rx Instructions .Route 04/24/25 .COMPLEX #90 caps losartan 100 mg tablet 100 mg PO DAILY #30 tabs 04/24/25 Allergies Allergy/AdvReac Type Severity Reaction Status Date / Time No Known Allergies Allergy Verified 04/17/25 14:18 [facility] Disclaimer: The information contained in this section may have been updated after the patient was seen, as this information can be updated by other users. Medical History (Updated 06/05/25 @ 12:46 by Reese Barnes MD) Abnormal electrocardiogram [ECG] [EKG] Abnormal findings on diagnostic imaging of heart and coronary circulation Atypical angina Cellulitis Elevated WBC count Skin ulcer of right lower leg Cellulitis of right leg Infected abrasion of toe Abnormal nuclear cardiac imaging test Chest pain Encounter for screening colonoscopy Abnormal stress test Anginal equivalent Obesity Bilateral leg pain Wound of right foot DM2 (diabetes mellitus, type 2) (HFpEF) heart failure with preserved ejection fraction Coronary artery disease VIJAY (obstructive sleep apnea) Patient left without being seen Fall Gout attack Gout Humeral fracture Scalp laceration Gangrene Bacterial cellulitis Enterococcus faecalis infection Proteus infection Infection, Klebsiella Chronic inflammation of both eustachian tubes Impacted cerumen of left ear Neuropathic pain Arthritis HTN (hypertension), benign Anxiety Hypertension Surgical History H/O arthroscopy of right knee Family History Family/Other No significant family history Social History Smoking Status: Former smoker tobacco type: cigarettes packs per day: 1 alcohol intake: current alcohol intake frequency: holidays/special occasions only substance use type: marijuana current occupational status: disabled Travel in the last 8 weeks?: None household members: none housing: house caffeine: No Have you lived/traveled outside US in past 30 days?: No Contact w/someone who lives/traveled outside US past 30 days?: No Exposure to someone with infectious disease in past 14 days?: No Do you have a fever (greater than 100.4 F or 38 C)?: No Have you tested positive for COVID-19?: No Exposed to someone with COVID-19 in past 14 days?: No Do you have a sore throat?: No Do you have a cough?: No Do you have any weakness?: No Do you have any diarrhea?: No Are you experiencing any unusual bleeding?: No Do you have any muscle aches/pain?: No Do you have any abdominal pain?: No Are you experiencing loss of taste or smell?: No Other Medical History Have you received the Flu Vaccine for this season: No Have you received the Pneumonia Vaccine: No (Not interested at this time. ) ROS Obtained: Yes Systems reviewed as appropriate & no additional complaints except as documented Physical Exam General General appearance: alert and in no apparent distress Head Head exam: atraumatic and normocephalic Eye Eye exam: Present PERRL and EOMI ENT ENT exam: Present mucous membranes moist Neck Neck exam: Present normal inspection and full ROM Chest Chest inspection: Present normal inspection and symmetric chest wall rise Respiratory Respiratory exam: Present normal lung sounds bilaterally; Absent respiratory distress Cardiovascular Cardiovascular exam: Present regular rate and normal rhythm Abdominal Exam Abdominal exam: Present soft and tenderness (Left flank, mild, no tenderness over the remainder of quadrants); Absent guarding Extremities Exam Extremities exam: Present other (Bilateral knee swelling, no erythema or asymmetric warmth. Extensor mechanism intact BLE, chronic ichthyosis BLE. No tenderness bilateral upper extremities.) Back Exam Back exam: Present other (No significant tenderness midline, there is bruising along the left posterior shoulder.) Neurological Exam Neurological exam: Present alert and CN II-XII intact; Absent motor sensory deficit Psychiatric Psychiatric exam: Present normal affect Skin Skin exam: Present warm and dry Medical Decision Making Medical Records Screening: Per USPSTF and CDC recommendations, given the prevalence of disease in our region, it is our hospital?s policy to screen for HIV and viral Hepatitis for all patients aged 18 and over and those with ongoing risk factors. Daniel Inquiry Pt receiving controlled substance: No Vital Signs: 06/05/25 09:30 11 09:30 06/05/25 09:31 Temperature 98.3 F 98.3 F Temperature Source Oral Pulse Rate 104 H 99 H Pulse Rate [Right Radial] 104 H Respiratory Rate 20 20 Blood Pressure 95/66 L 124/38 L Blood Pressure [Left Arm] 95/66 L Blood Pressure Mean 66 Blood Pressure Mean [Left Arm] 75 02 Sat by Pulse Oximetry 91 L 91 L 91 L Oxygen Delivery Method Room Air 06/05/25 10:01 Temperature Temperature Source Pulse Rate 99 H Pulse Rate [Right Radial] Respiratory Rate 19 Blood Pressure 103/53 L Blood Pressure [Left Arm] Blood Pressure Mean 69 Blood Pressure Mean [Left Arm] 02 Sat by Pulse Oximetry 90 L Oxygen Delivery Method Lab Data Lab Results 06/05/25 09:30: WBC 20.2 H*, RBC 5.01, Hgb 15.7, Hct 45.0, MCV 89.8, MCH 31.3 H, MCHC 34.9, RDW 13.2, Plt Count 177, MPV 8.8, Neut % (Auto) 88.5 H, Lymph % (Auto) 4.5 L, [place] % (Auto) 5.9, Eos % (Auto) 0.0 L, Baso % (Auto) 0.3, Neut # (Auto) 17.9 H, Lymph # (Auto) 0.9, [place] # (Auto) 1.2 H, Eos # (Auto) 0.0, Baso # (Auto) 0.1, PT 12.9 H, INR 1.18 H, Sodium 134 L, Potassium 4.3, Chloride 102, Carbon Dioxide 28, Anion Gap 8.3, BUN 24 H, Creatinine 1.50 H, Estimated Creat Clear 76, Estimated GFR 47 L, Est GFR ( Amer) 57 L, Glucose 121 H, Calcium 8.8, Magnesium 1.5 L, Total Bilirubin 2.3 H, AST 636 H*, ALT 125 H, Alkaline Phosphatase 85, Troponin I 0.03, NT-Pro-B Natriuret Pep 823 H, Total Protein 7.9, Albumin 3.9, Globulin 4.0 H, Albumin/Globulin Ratio 1.0 L, Lipase 43, Urine Color Dark yellow, Urine Appearance Slightly cloudy, Urine pH 7.0, Ur Specific [place] 1.015, Urine Protein 2+ A, Urine Glucose (UA) Negative, Urine Ketones Negative, Urine Blood 3+ A, Urine Nitrate Negative, Urine Bilirubin 1+ A, Urine Urobilinogen 0.2, Ur Leukocyte Esterase Negative, Urine RBC 5-10, Urine WBC Occasional, Ur Squamous Epith Cells Occasional, Urine Bacteria Trace, SARS-CoV-2 (PCR) Not detected, Influenza A Untype (PCR) Not detected, Influenza Type B (PCR) Not detected 06/05/25 11:08: Ammonia 9 06/05/25 09:30 06/05/25 09:30 Orders (Tests/Meds): ED MEDICATIONS Generic Name Dose Route Start Last Admin Trade Name Freq PRN Reason Stop Dose Admin Sodium Chloride 10 ml 06/05/25 10:19 06/05/25 10:20 Sodium Chloride 0.9% 10ml Syr (Rad Only) IV 07/05/25 10:18 10 ml NEEDED PRN Administration Maintain IV Site Discontinued Medications Generic Name Dose Route Start Last Admin Trade Name Ann PRN Reason Stop Dose Admin Acetaminophen 1,000 mg 06/05/25 09:46 06/05/25 09:56 Acetaminophen 1,000mg/100ml Vial IV 06/05/25 09:47 1,000 mg ONCE ONE Administration Lactated Ringer's 500 mls @ 999 mls/hr 06/05/25 09:35 06/05/25 11:24 Lactated Ringer's 500ml IV 06/05/25 10:05 Infused .Q31M ONE Infusion Piperacillin Sod/Tazobactam 100 mls @ 200 mls/hr 06/05/25 10:07 06/05/25 12:10 Sod 4.5 gm/ Sodium Chloride IV 06/05/25 10:36 Infused ONCE ONE Infusion Vancomycin/PEG/NADA/Lysine/Water 1.75 gm in 350 mls @ 175 mls/hr 06/05/25 10:15 06/05/25 12:09 Vancomycin 1.75gm/350ml (Peg) Premix IV 06/05/25 12:14 175 mls/hr ONCE ONE Administration Iopamidol 80 ml 06/05/25 10:19 06/05/25 10:20 Iopamidol-370 (76%);100ml Bottle IV 06/05/25 10:20 80 ml ONCE ONE Administration Methocarbamol 1,000 mg 06/05/25 09:47 06/05/25 09:57 Methocarbamol 500mg Tablet PO 06/05/25 09:48 1,000 mg ONCE ONE Administration Miscellaneous 1 each 06/05/25 10:15 Vancomycin Consult Request NOTAPPLIC 07/05/25 10:14 CONSULT [facility]Y [facility] Sodium Chloride 50 ml 06/05/25 10:19 06/05/25 10:20 0.9 % Sodium Chloride 50 Ml Vial IV 06/05/25 10:20 50 ml ONCE ONE Administration ORDERS Category Date Time Status CT angio abd/pel - GI Bleed Stat Cat Scan 06/05/25 09:[address] angio chest PE protocol Stat Cat Scan 06/05/25 09:[address] bony pelvis Stat Cat Scan 06/05/25 09:[address] cervical spine wo con Stat Cat Scan 06/05/25 09:[address] head/brain wo con Stat Cat Scan 06/05/25 09:35 Completed Femur XR left 2 views [XR femur LT 2V] Stat Exams 06/05/25 09:35 Completed Femur XR right 2 views [XR femur RT 2V] Stat Exams 06/05/25 09:35 Completed Knee XR left 3 views [XR knee LT 3V] Stat Exams 06/05/25 09:35 Completed Knee XR right 3 views [XR knee RT 3V] Stat Exams 06/05/25 09:35 Completed POCUS Point of Care (ER Only) Stat Exams 06/05/25 09:35 Completed Ammonia Stat Lab 06/05/25 11:08 Completed BNP [NT Pro Brain Natriuretic Pep.] Stat Lab 06/05/25 09:30 Completed CBC w/Auto Diff [Complete Blood Count Auto Diff] Stat Lab 06/05/25 09:30 Completed CMP [Comprehensive Metabolic Panel] Stat Lab 06/05/25 09:30 Completed Full Resp Panel w/COVID ([facility]) Routine Lab 06/05/25 09:30 Received INR [Prothrombin Time INR] Stat Lab 06/05/25 09:30 Completed Lipase Stat Lab 06/05/25 09:30 Completed MG [Magnesium] Stat Lab 06/05/25 09:30 Completed Rapid PCR Covid and Flu A/B Stat Lab 06/05/25 09:30 Completed Trop I [Troponin I] Stat Lab 06/05/25 09:30 Completed Troponin I Q3H Lab 06/05/25 12:45 Ordered Troponin I Q3H Lab 06/05/25 15:45 Ordered UA [Urinalysis and Microscopic] Stat Lab 06/05/25 09:30 Completed Blood Culture Stat Micro 06/05/25 11:08 Received ECG Data Tracing #1: Independently interpreted by me rate is 100, rhythm is regular, axis is leftward deviated, no ST elevation in anatomical contiguous leads, QTc 424. Medical Decision Narrative: In summary patient is a 65-year-old male with past medical history described above who presents emergency department for evaluation of generalized weakness, frequent falls over the last 24 hours. Patient is hemodynamically stable nontoxic-appearing upon arrival, tachycardic in the low 100s after being down for multiple hours and no food or water over the last day. Patient is protecting his airway and is saturating in the low 90s on room air and is a chronic smoker. Fingerstick prehospital nonactionable. 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 His knees are swollen but are not asymmetrically warm and are not erythematous my concern for septic arthritis is low. Differential with regards to his weakness includes metabolic derangement, atypical ACS, chronic functional decline, among others. We did specked to his injuries from a fall differential includes intracranial hemorrhage, fracture, musculoskeletal strain, among others. Workup in totality will be conducted broad hematologic labs EKG troponin CT of the head, neck, thorax, abdomen, pelvis. Plain films of the femurs and knees bilaterally will be obtained. Prehospital patient got 15 of Toradol, 200 of fentanyl, 4 Zofran. Will supplement with Tylenol and methocarbamol. Given history of heart failure with preserved ejection fraction gentle crystalloid resuscitation will be conducted with 500 cc of Ringer's. Workup reviewed by me there is leukocytosis of 20.2 which may be infectious in nature or resultant of trauma with short downtime. Either way blood cultures will be obtained out of caution and broad-spectrum antibiotics initiated. No critical electrolyte abnormalities there is an ANISA present per rifle criteria as well as a transaminitis within normal baseline without significantly elevated bilirubin and a normal lipase. Patient also does not have any right upper quadrant pain. Urinalysis interpreted by me and not consistent with infection. Noncontrasted CT scan of the head informally visualized by me no acute large intra-axial hemorrhage or midline shift. CT bony pelvis no acute traumatic abnormality there is nonspecific sclerotic lesions there is also multiple enlarged lymph nodes in the pelvis. Ultimately patient has SIRS without definitive infection on broad-spectrum antibiotics, unspecified transaminitis which will likely require further investigation, sclerotic lesions and adenopathy in his pelvis, acute functional decline. The case was discussed with hospital medicine regarding management they will admit the patient their service for continued evaluation at this time. Procedure: Procedure performed was cardiac ultrasound. Procedure performed by Reese Barnes. Using the phased array probe parasternal long axis views were obtained and were technically difficult due to body habitus. No large pericardial effusion, no critically decreased ejection fraction. Images were saved to a permanent archive. Critical Care Critical Care Time Critical Care Time: No
--- NOTE | 2025-06-05 09:41 | ECG_ITS ---
APPROVED REPORT Exam: Resting ECG HR:100 bpm ECG Measurements Heart Rate 100 AXES LA 151 P 55 QRSd 108 QRS -80 QT 367 T 68 QTc 424 Conclusion SINUS TACHYCARDIA PATTERN CONSISTENT WITH PULMONARY DISEASE LEFT ANTERIOR FASCICULAR BLOCK [QRS AXIS <= -45, QR IN I, RS IN II] ABNORMAL ECG UNCONFIRMED REPORT Electronically signed by : MEGHANN RECIO, 06/06/2025 05:23:47
[2025-06-05 09:43] LABS: Coronavirus 19, PCR Not Detected (NotDetected); Influenza A, PCR Not Detected (NotDetected); Influenza B, PCR Not Detected (NotDetected); Microscopic, Urine URINE MICROSCOPIC (MICROSCOPIC)
[2025-06-05 09:44] LABS: Hematocrit 45.0 % (42.0-52.0); Hemoglobin 15.7 g/dL (14.1-18.0); Immature Granulocytes % 0.8 %; Mean Corpuscular HGB Conc 34.9 g/dL (31.8-35.4); Mean Corpuscular Hemoglobin 31.3 pg (27.0-31.2); Mean Corpuscular Volume 89.8 fl (80-94); Nucleated Red Blood Cells % 0 %; Platelet Count 177 K/mm3 (142-424); Red Blood Count 5.01 M/mm3 (4.60-6.20); Red Cell Distribution Width-SD 43.6 fL; White Blood Count 20.2 K/mm3 (4.8-10.8)
[2025-06-05 09:48] LABS: Glucose,Urine (UA) Negative (Negative); Ketones,Urine Negative (Negative); Leukocyte Esterase,Urine Negative (Negative); PH,Urine 7.0 (5.0-8.5); Protein,Urine 2+ (Negative); Specific Gravity, Urine 1.015 (1.005-1.030); Urobilinogen,Urine 0.2 EU/dl (0.2)
--- OUTSIDE RECORDS SUMMARY | 2025-06-05 09:49 | XMS_ITS | Encounter Summary ---
Author Organization Healthcare Address [address] [place] [id number] Care Team Providers Care Insights Strategist Name Role Phone Harry Tongica WENDI Primary Care Provider Encounter Details Date Type Department Care Team ([facility] st Contact Info) Description 05/01/2025 Telephone [facility] [address] [place] [address] Citlalli Castellon MD [address] [facility] [address] [phone] Social History Tobacco Use Types Packs/Day Years [...] encounter Miscellaneous Notes * Telephone Encounter - Dina Miguel - 05/01/2025 11:59 AM EDT 05/01/25- No answer. No voicemail option. Making sure patient received notification of his PET on 05/04. documented in this encounter Plan of Treatment Upcoming Encounters Date Type Department Care Team (Late st Contact Info) Description 06/08/2025 2:00 PM EST Clinical Support [facility] [address] [place] [address] 06/08/2025 2:30 PM EST Office Visit [facility] [address] [place] [address] Debbie Menendez, CUSTOM MOTORCYCLE PAINTER [address] [facility] [address] [place] [address] 06/08/2025 3:00 PM EST Appointment [facility] [address] [place] [address] 09/05/2025 11:30 AM EST Office Visit [facility] [address] [place] [address] Shital Whipple, CUSTOM MOTORCYCLE PAINTER [address] [facility] [address] [place] [address] documented as of this encounter Visit Diagnoses [...] documented as of this encounter Care Teams Insights Strategist Relationship Specialty Start Date End Date Dina Tong APRN [address] [place] [address] PCP - General 12/05/24 documented as of this encounter
--- OUTSIDE RECORDS SUMMARY | 2025-06-05 09:49 | XMS_ITS | Encounter Summary ---
Author Organization Healthcare Address [address] [place] [id number] Care Team Providers Care Hairspring Truing Inspector Name Role Phone iDna Tong APRN Primary Care Provider [phone] Encounter Details Date Type Department Care Team ([facility] st Contact Info) Description 05/17/2025 Telephone [facility] [address] [place] [phone] Citlalli Castellon MD 800 [facility] [address] [address] Social History Tobacco Use Types Packs/Day Years [...] encounter Miscellaneous Notes * Telephone Encounter - Ching Alfgerry Downing - 05/17/2025 1:01 PM EDT Patient Phone Message Reason for Call: The pt is returning Gabriela call he said he will be here for his appt tmw Best contact number and optimal time of day to reach caller: [phone] Note: Please do not reply to this message. Follow-up communication and further actions as a result of this message need to be communicated with the patient directly, if the patient is not active onMyChart. If the patient is active on MyChart, they will receive notification of the communication/outcome via [employer]. documented in this encounter Plan of Treatment Upcoming Encounters Date Type Department Care Team (Late st Contact Info) Description 06/08/2025 2:00 PM EST Clinical Support [facility] Multidisciplinary Oncology Clinic [address] [place] [phone] 06/08/2025 2:30 PM EST Office Visit [facility] [address] [place] [address] Debbie Menendez, WENDI 800 [facility] [address] [place] [address] 06/08/2025 3:00 PM EST Appointment [facility] Infusion Clinic [address] [place] [address] 09/05/2025 11:30 AM EST Office Visit [facility] Oncology Clinic [address] [place] [address] Shital Whipple, COMMISSIONER [employer] [address] [place] [address] documented as of this encounter Visit Diagnoses [...] documented as of this encounter Care Teams Hairspring Truing Inspector Relationship Specialty Start Date End Date Dina Tong APRN [address] [place] [address] PCP - General 12/05/24 documented as of this encounter
--- OUTSIDE RECORDS SUMMARY | 2025-06-05 09:49 | XMS_ITS | Encounter Summary ---
Author Organization Healthcare Address [address] [place] [address] Care Team Providers Care Scientific Research Manager Name Role Phone Dina Tong APRN Primary Care Provider [phone] Encounter Details Date Type Department Care Team (Latest Contact Info) Description 04/13/2025 Travel Social History Tobacco Use Types Packs/Day [...] Viky Kebede documented as of this encounter Plan of Treatment Upcoming Encounters Date Type Department Care Team (Late st Contact Info) Description 06/08/2025 2:00 PM EST Clinical Support [facility] [address] [place] [address] 06/08/2025 2:30 PM EST Office Visit [facility] [address] [place] [address] Debbie Menendez, WELDER FITTER APPRENTICE 800 [facility] [address] [place] [address] 06/08/2025 3:00 PM EST Appointment [facility] [address] [place] [address] 09/05/2025 11:30 AM EST Office Visit [facility] [address] [place] [address] Shital Whipple, WELDER FITTER APPRENTICE [address] [facility] [address] [place] [address] documented as of this encounter Visit Diagnoses [...] as of this encounter Care Teams Scientific Research Manager Relationship Specialty Start Date End Date Dina Tong APRN [address] [place] [address] PCP - General 12/05/24 documented as of this encounter
--- OUTSIDE RECORDS SUMMARY | 2025-06-05 09:49 | XMS_ITS | Clinical Summary ---
Author Organization [facility] Address [address] [place] [address] Care Team Providers Care Nurse Informatics Educator Name Role Phone Dina Tong APRN Primary Care Provider [phone] Allergies Active Allergy Reactions Criticality Noted Date Comments Codeine Unknown - Patient st ates they do not know rxn details Low 04/13/2025 Lisinopril Other - please docum ent in the comment field Low 04/13/2025 Naproxen Other - please docum ent in the comment field Low 04/13/2025 Medications allopurinol (Zyloprim) 100 MG tablet 03/15/20 21 Active famotidine (Pepcid) 40 MG tablet 04/22/20 21 Active ketoconazole (NIZOral) 2 % cream 03/15/20 21 Active losartan (Cozaar) 50 MG tablet 07/10/20 21 Active mupirocin (Bactroban) 2 % ointment 07/08/20 21 Active Nystop [id number] UNIT/GM powder 03/15/20 21 Active tobramycin (Nebcin) 1.2 g injection 02/29/20 21 Active triamcinolone (Kenalog) 0.1 % cream 12/26/19 21 Active vancomycin (Vancocin) 1 g vial for injection 02/29/20 21 Active nortriptyline (Pamelor) 10 MG capsuleIndications :Major depressive disorder with single episode, remission status unspecified,Venous stasis ulcer of right ankle with fat layer exposed without varicose veins,Pain of right lower leg Take 3 capsules (30 mg total) by mouth every night. 90 capsule 11 08/27/19 22 Active busPIRone (Buspar) 5 MG tabletIndications: Major depressive disorder with single episode, remission status unspecified Take 1 tablet (5 mg total) by mouth 3 (three) times a day. 90 tablet 08/27/19 Active Additional Information Patient not taking.Reported on 05/18/2025 azelastine (Astelin) 0.1 % nasal spray Administer 1 spray into affected nostril(s). 01/29/20 Active Symbicort 80-4.5 MCG/ACT inhaler Inhale 2 puffs. 01/29/20 24 Active clonazePAM (KlonoPIN) 0.5 MG tablet Take 1 tablet by mouth. PRN Active desvenlafaxine (Pristiq) 50 MG 24 hr tablet 08/19/19 25 Active losartan-hydroCHLO ROthiazide (Hyzaar) 100-25 MG tablet Take 1 tablet by mouth daily. Active metFORMIN (Glucophage) 500 MG tablet Take 1 tablet by mouth daily. Active oxyCODONE-acetamin ophen (Percocet) 7.5-325 MG tablet 12/03/19 25 Active gabapentin (Neurontin) 800 MG tablet 12/03/19 25 Active furosemide (Lasix) 40 MG tablet Take 1 tablet by mouth daily. 01/03/20 25 Active semaglutide 1 MG/DOSE (Ozempic, 1 MG/DOSE,) 2 MG/1.5ML solution pen-injector inj. pen Inject 1 mg under the skin 1 time per week. Takes on wednesdays Active omeprazole (PriLOSEC) [address] capsule Take 1 capsule by mouth daily. Do not crush or chew. Active atorvastatin (Lipitor) 20 MG tablet Take 1 tablet by mouth daily. Active hydrOXYzine HCl (Atarax) 10 MG tablet Take 2.5 tablets by mouth every 6 hours as needed for itching. Active naloxone (Narcan) 4 mg/0.1 mL nasal spray 1. Give 1 spray in nostril for no/slow breathing or cannot wake after opioid use 2. Call 911 3. Repeat in other nostril if symptoms continue 1 each 02/24/20 25 Active oxyCODONE (Roxicodone) 5 MG immediate release tabletIndications: 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 Take 1 tablet by mouth every 6 hours as needed for severe pain (pain). 10 tablet 02/28/20 25 Active Additional Information Patient not taking.Reported on 05/18/2025 hydrOXYzine pamoate (Vistaril) 25 MG capsule TAKE 1 CAPSULE BY MOUTH 3 TIMES A DAY NEEDED FOR ITCHING 04/03/20 25 Active Movantik 25 MG tablet TAKE 1 TABLET BY MOUTH ONCE A DAY ON an EMPTY stomach. no food 1 HOUR AFTER OR 2 TO 3 HOURS BEFORE DOSE 03/22/20 25 Active ondansetron ODT (Zofran-ODT) 4 MG disintegrating tablet daily. 12/08/19 25 Active prazosin (Minipress) 1 MG capsule 1 capsule. 05/11/20 24 Active losartan (Cozaar) 100 MG tablet Take 1 tablet by mouth daily. 04/03/20 25 Active Ozempic, 1 MG/DOSE, 4 MG/3ML solution pen-injector INECT 1 MG SUBCUTANEOUSLY ONCE WEEKLY 03/02/20 25 Active spironolactone (Aldactone) 50 MG tablet Take 1 tablet by mouth daily. Active sulfamethoxazole-t rimethoprim (Bactrim DS) 800-160 MG tablet daily. 12/08/19 25 Active prochlorperazine (Compazine) 10 MG tabletIndications: 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 Take 1 tablet by mouth every 6 hours as needed for nausea or vomiting. 30 tablet 5 04/13/20 25 Active Active Problems Problem Noted Date Diagnosed Date Malignant melanoma of left u pper extremity including shoulder 01/09/2025 Cancer Staging:Pathologic stage from 03/06/2025:Stage IIB(pT3b, pN0, cM0) - Unsigned Second hand smoke exposure 12/05/2024 Obesity (BMI 35.0-39.9 without comorbidity) 07/2021 Encounters Date Type Department Care Team Description 06/01/2025 Orders Only [facility] [address] [place] [address] Citlalli Castellon MD 05/18/2025 2:50 PM EDT - 05/18/2025 11:59 PM EDT Hospital Encounter [facility] [address] [place] [address] 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 (Primary Dx) Discharge Disposition: Home or Self Care 05/18/2025 2:00 PM EDT Office Visit [facility] [address] [place] [address] Citlalli Castellon MD Malignant melanoma, unspecified site (CMS/HCC) (Primary Dx) 05/18/2025 Travel 05/17/2025 Telephone [facility] [address] [place] [address] Citlalli Castellon MD 05/17/2025 Telephone [facility] [address] [place] [address] Gabriela Joseph RN 05/04/2025 8:21 AM EDT - 05/04/2025 11:59 PM EDT Hospital Encounter [facility] PET Scan [address] [place] [address] Discharge Disposition: Home or Self Care 05/04/2025 8:21 AM EDT - 05/04/2025 11:59 PM EDT Hospital Encounter [facility] PET Scan [address] [place] [address] Malignant melanoma, unspecified site (CMS/HCC) Discharge Disposition: Home or Self Care 05/04/2025 Travel 05/03/2025 Telephone [facility] [address] [place] [address] Citlalli Castellon MD 05/02/2025 Telephone [facility] Clinic [address] [place] [address] Citlalli Castellon MD 05/01/2025 Telephone [facility] [address] [place] [address] Citlalli Castellon MD 04/13/2025 9:40 AM EDT Office Visit [facility] [address] [place] [address] Citlalli Castellon MD Malignant melanoma, unspecified site (CMS/HCC) (Primary Dx); 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 04/13/2025 9:00 AM EDT Office Visit [facility]cology Clinic [address] [place] [address] Rima Lopez, WENDI 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 [C43.62] (Primary Dx) 04/13/2025 Travel 03/22/2025 Telephone [facility] [address] [place] [address] Rima Lopez APRN 03/06/2025 10:30 AM EDT Office Visit [facility] [address] [place] [address] Ofe Langford MD 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 (Primary Dx) 03/06/2025 Travel from Last 3 Months Family History Medical History Relation Name Comments Anesthesia problems Neg Hx Malig Hyperthermia Neg Hx Social History Tobacco Use Types Packs/Day Years Used Date Smoking Tobacco: Former Cigarettes 0.5 42 1 979 - 2020 Smokeless Tobacco: Never Tobacco Cessation:Counseling [...] Mass Index 40.61 05/18/2025 2:51 PM EDT Plan of Treatment Upcoming Encounters Date Type Department Care Team (Late st Contact Info) Description 06/08/2025 2:00 PM EST Clinical Support [facility] [address] [place] [address] 06/08/2025 2:30 PM EST Office Visit [facility] [address] [place] [address] Debbie Menendez, COLLET MAKING MACHINE OPERATOR [address] [place] [address] 06/08/2025 3:00 PM EST Appointment [facility] [address] [place] [address] 09/05/2025 11:30 AM EST Office Visit [facility] [address] [place] [address] Shital Whipple, COLLET MAKING MACHINE OPERATOR [address] [place] [phone] Health Maintenance Due Date Last Done Comments [facility]-Hepatitis C Screening 1960 [facility]-Medicare Annual Wellness (AWV) 1960 [facility]-/Child/Adol SDOH Screenings 1960 [facility]- SDOH Screenings 01/01/1978 [facility]-Adult SDOH Screenings 01/01/1978 [facility]-Hepatitis A Vaccines (1 of 2 - Risk 2-dose series) 01/01/1979 [facility]-Pneumococcal Vaccine: 50 + Years (1 of 2 - PCV) 01/01/1979 [facility]-Zoster Vaccines (1 of 2) 01/01/1979 CT Colonography 01/01/2005 Colonoscopy 01/01/2005 FIT-DNA 01/01/2005 FIT 01/01/2005 FOBT 01/01/2005 Sigmoidoscopy 01/01/2005 [facility]-Colorectal Cancer Screening 01/01/2005 Lung Cancer Screening Shared Decision Making 01/01/2010 [facility]-Lung Cancer Screening 01/01/2010 [facility]-RSV Vaccine: 60+ Years o r (1 - Risk 60-74 years 1-dose series) 2020 [id number] Vaccine (3 - Pfizer risk series) 12/05/2020 11/07/2020, 10/10/2020 [facility]-Abdominal Aortic Aneurys m (AAA) Screening 01/01/2025 [facility]-Influenza Vaccine (#1) 2025 04/22/2021 [facility]-Depression Screening 05/18/2026 025, 12/05/2024 [facility]-DTaP,Tdap,and Td Vaccine s (2 - Td or Tdap) 04/07/2031 04/07/2021 [facility]-Obesity Intervention Completed 025, 02/06/2025 HPV Vaccines Aged Out No longer eligi [...] on patient's age to complete this topic Procedures Procedure Name Priority Date/Time Associated Diagnosis Comments PROSTATE SPECIFIC ANTIGEN, DIAGNOSTIC, SERUM Routine 05/18/2025 1:34 PM EDT Malignant melanoma, unspecified site (CMS/HCC) TSH REFLEX FT4 Routine 05/18/2025 1:17 PM EDT 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 CBC WITH AUTO DIFFERENTIAL Routine 05/18/2025 1:17 PM EDT 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 COMPREHENSIVE METABOLIC PANEL, PLASMA Routine 05/18/2025 1:17 PM EDT 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 PET/CT FDG WHOLE BODY Routine 05/04/2025 9:53 AM EDT Malignant melanoma, unspecified site (CMS/HCC) from Last 3 Months Results * Prostate Specific Antigen, Diagnostic, Serum (05/18/2025 1:34 PM EDT) PSA, Diagnostic, Serum 0.46 0.00 - 4.50 ng/mL 05/18/2025 2:42 PM EDT [facility] Blood Venous blood specimen / Unknown Venipuncture / Unknown 05/18/2025 1:34 PM EDT 05/18/2025 2:06 PM EDT Narrative [facility] - 05/18/2025 2:42 PM EDT Performed by Nancy electrochemiluminescent immunoassay which is standardized against the PSA [place] Reference Standard (WHO 96/670). Results obtained with different test methods or kits cannot be used interchangeably. Citlalli Castellon MD LAB BLOOD ORDERABLES Final Resul t Performing Organization Address City/[facility]/ZIP Co de Phone Number [facility] [address] [place] [address] * TSH reflex FT4 (05/18/2025 1:17 PM EDT) Thyroid Stimulating Hormone, Plasma 2.00 0.40 - 4.20 uIU/mL 05/18/2025 2:15 PM EDT [facility] Blood Venous blood specimen / Unknown Venipuncture / Unknown 05/18/2025 1:17 PM EDT 05/18/2025 1:38 PM EDT Citlalli Castellon MD LAB BLOOD ORDERABLES Final Resul t Performing Organization Address City/[facility] Co de Phone Number [facility] [address] [place] [address] * (ABNORMAL) CBC and differential (05/18/2025 1:17 PM EDT) WBC Count 10.53(H) 3.70 - 10.30 10*3/uL LAB HEMATOLOGY METHOD 05/18/2025 1:[address] [facility] RBC Count 4.89 4.60 - 6.10 10*6/uL LAB HEMATOLOGY METHOD 05/18/2025 1:45 PM EDT [facility] HGB 14.9 13.7 - 17.5 g/dL LAB HEMATOLOGY METHOD 05/18/2025 1:45 PM EDT [facility] HCT 44.9 40.0 - 51.0 % LAB HEMATOLOGY METHOD 05/18/2025 1:45 PM EDT [facility] Platelet Count 275 155 - 369 10*3/uL LAB HEMATOLOGY METHOD 05/18/2025 1:45 PM EDT [facility] MCV 92 79 - 98 fL LAB HEMATOLOGY METHOD 05/18/2025 1:45 PM EDT [facility] MCH 30.5 26.0 - 32.0 pg LAB HEMATOLOGY METHOD 05/18/2025 1:45 PM EDT [facility] MCHC 33.2 30.7 - 35.5 g/dL LAB HEMATOLOGY METHOD 05/18/2025 1:45 PM EDT [facility] RDW 13.1 11.5 - 14.5 % LAB HEMATOLOGY METHOD 05/18/2025 1:45 PM EDT [facility] MPV 8.7(L) 8.8 - 12.5 fL LAB HEMATOLOGY METHOD 05/18/2025 1:45 PM EDT [facility] nRBC 0.0 <=0.0 per 100 WBCs LAB HEMATOLOGY METHOD 05/18/2025 1:45 PM EDT [facility] Differential Type Automated LAB HEMATOLOGY METHOD 05/18/2025 1:45 PM EDT [facility] Neutrophils % 61 % LAB HEMATOLOGY METHOD 05/18/2025 1:45 PM EDT [facility] Lymphocytes % 28 % LAB HEMATOLOGY METHOD 05/18/2025 1:45 PM EDT [facility] Monocytes % 9 % LAB HEMATOLOGY METHOD 05/18/2025 1:45 PM EDT [facility] Eosinophils % 1 % LAB HEMATOLOGY METHOD 05/18/2025 1:45 PM EDT [facility] Basophils % 0 % LAB HEMATOLOGY METHOD 05/18/2025 1:45 PM EDT [facility] Immature Granulocytes % 1 % LAB HEMATOLOGY METHOD 05/18/2025 1:45 PM EDT [facility] Neutrophils Absolute 6.46(H) 1.60 - 6.10 10*3/uL LAB HEMATOLOGY METHOD 05/18/2025 1:45 PM EDT [facility] Lymphocytes Absolute 2.90 1.20 - 3.90 10*3/uL LAB HEMATOLOGY METHOD 05/18/2025 1:45 PM EDT [facility] Monocytes Absolute 0.95(H) 0.30 - 0.90 10*3/uL LAB HEMATOLOGY METHOD 05/18/2025 1:45 PM EDT [facility] Eosinophils Absolute 0.11 0.00 - 0.50 10*3/uL LAB HEMATOLOGY METHOD 05/18/2025 1:45 PM EDT [facility] Basophils Absolute 0.04 0.00 - 0.10 10*3/uL LAB HEMATOLOGY METHOD 05/18/2025 1:45 PM EDT [facility] Immature Granulocytes Absolute 0.07(H) 0.00 - 0.06 10*3/uL LAB HEMATOLOGY METHOD 05/18/2025 1:45 PM EDT [facility] Blood Venous blood specimen / Unknown Venipuncture / Unknown 05/18/2025 1:17 PM EDT 05/18/2025 1:38 PM EDT Narrative [facility] - 05/18/2025 1:45 PM EDT Therapeutic decision making should be based on absolute values, rather than percentages. us Citlalli Castellon MD LAB BLOOD ORDERABLES Final Resul t [facility] [address] [place] [address] * (ABNORMAL) Comprehensive metabolic panel (05/18/2025 1:17 PM EDT) Glucose, Plasma 86 74 - 99 mg/dL 05/18/2025 2:15 PM EDT [facility] BUN, Plasma 10 8 - 23 mg/dL 05/18/2025 2:15 PM EDT [facility] Creatinine, Plasma 1.00 0.70 - 1.20 mg/dL 05/18/2025 2:15 PM EDT [facility] BUN/Creatinine Ratio 10 05/18/2025 2:15 PM EDT [facility] Sodium, Plasma 142 136 - 145 mmol/L 05/18/2025 2:15 PM EDT [facility] Potassium, Plasma 4.7 3.6 - 4.9 mmol/L 05/18/2025 2:15 PM EDT [facility] Chloride, Plasma 104 97 - 107 mmol/L 05/18/2025 2:15 PM EDT [facility] CO2, Plasma 29 22 - 29 mmol/L 05/18/2025 2:15 PM EDT [facility] Anion Gap 9 6 - 16 mmol/L 05/18/2025 2:15 PM EDT [facility] Total Calcium, Plasma 9.3 8.9 - 10.2 mg/dL 05/18/2025 2:15 PM EDT [facility] Total Protein 8.0(H) 6.3 - 7.9 g/dL 05/18/2025 2:15 PM EDT [facility] Albumin, Plasma 4.2 3.5 - 5.2 g/dL 05/18/2025 2:15 PM EDT [facility] AST, Plasma 20 10 - 50 U/L 05/18/2025 2:15 PM EDT [facility] Comment:Hemolyzed, result ma y be falsely increased. ALT, Plasma 18 10 - 50 U/L 05/18/2025 2:15 PM EDT [facility] Alkaline Phosphatase, Plasma 87 40 - 115 U/L 05/18/2025 2:15 PM EDT [facility] Total Bilirubin, Plasma 1.2(H) 0.2 - 1.1 mg/dL 05/18/2025 2:15 PM EDT [facility] eGFRcr 83.5 mL/min/1.7 3m*2 05/18/2025 2:15 PM EDT [facility] Comment:Reported eGFRcr in m L/min/1.73m2 is based the CKD-EPI 2020 equation that does not use a race coefficient. Blood Venous blood specimen / Unknown Venipuncture / Unknown 05/18/2025 1:17 PM EDT 05/18/2025 1:38 PM EDT us Citlalli Castellon MD LAB BLOOD ORDERABLES Final Resul t [facility] [address] [place] [address] * PET/CT FDG Whole Body (05/04/2025 9:53 [...] scanner: Siemens Biograph 40 mCT. PET/CT acquisition: [id number]. Standardized uptake value (SUV): Corrected for body weight only. CT: Low-dose, [id number]-[id number], without intravenous contrast. TOTAL DLP (Dose Length [...] scanner: Siemens Biograph 40 mCT. PET/CT acquisition: [id number]-kd-spck. Standardized uptake value (SUV): Corrected for body weight only. CT: Low-dose, [id number]-fgemvf-[id number], without intravenous contrast. TOTAL DLP (Dose Length [...] IMG NM PROCEDURES Edited Result - Final from Last 3 Months Insurance MEDICAID-[place] U[employer] MEDICARE Care Teams Nurse Informatics Educator Relationship Specialty Start Date End Date Dina Tong APRN [address] [place] [phone] PCP - General 12/05/24
--- OUTSIDE RECORDS SUMMARY | 2025-06-05 09:49 | XMS_ITS | Encounter Summary ---
Author Organization Healthcare Address [address] [place] [address] Care Team Providers Care Campus Receptionist Name Role Phone RanHarry padillaica WENDI Primary Care Provider [phone] Encounter Details Date Type Department Care Team (Late st Contact Info) Description 03/22/2025 Telephone [facility] [address] [place] [phone] Rima Lopez APRN [address] [place] [phone] Social History Tobacco Use Types Packs/Day Years [...] encounter Miscellaneous Notes * Telephone Encounter - Salvatore Manuel - 03/22/2025 2:19 PM EDT Appts moved to 04/13. Called patient to inform but has no vm. Mail reminders sent out * Telephone Encounter - Ericka Ching - 03/22/2025 1:46 PM EDT Patient Phone Message Reason for Call: Mr. Dowling is calling to cancel and r/s his appts for tmw w/ Rima and Dr. Castellon he said he has a colonoscopy tmw Best contact number and optimal time of day to reach caller: [phone] Note: Please do not reply to this [...] Clinical Support [facility] [address] [place] [address] 06/08/2025 2:30 PM EST Office Visit [facility] [address] [place] [address] Debbie Menendez, LEAD MACHINIST [address] [facility] Emmanuelle Ortega [address] [address] 06/08/2025 3:00 PM EST Appointment [facility] [address] [place] [phone] 09/05/2025 11:30 AM EST Office Visit [facility] [address] [place] [address] Shital Whipple, LEAD MACHINIST [address] [place] [phone] documented as of this encounter Visit Diagnoses Not on filedocumented in this encounter Additional Health Concerns Assessment Noted Time PHQ-9 Depression Total Score: 0 12/06/19 9:10 AM EDT A fall risk assessment has been complete d for the patient 03/06/2025 11:07 AM EDT A Body Mass Index follow-up plan has been documented for the patient 03/06/2025 12:49 PM EDT documented as of this encounter Care Teams Campus Receptionist Relationship Specialty Start Date End Date Dina Tong APRN [address] [place] [address] PCP - General 12/05/24 documented as of this encounter
--- OUTSIDE RECORDS SUMMARY | 2025-06-05 09:49 | XMS_ITS | Encounter Summary ---
Author Organization Healthcare Address [address] [place] [address] Care Team Providers Care Poultry Slaughterer Name Role Phone Dina Tong APRN Primary Care Provider [phone] Encounter Details Date Type Department Care Team (Latest Contact Info) Description 05/04/2025 Travel Social History Tobacco Use Types Packs/Day [...] Clinical Support [facility] [address] [place] [address] 06/08/2025 2:30 PM EST Office Visit [facility] [address] [place] [address] Debbie Menendez APRN [address] [facility] [address] [address] 06/08/2025 3:00 PM EST Appointment [facility] [address] [place] [address] 09/05/2025 11:30 AM EST Office Visit [facility] [address] [place] [address] Shital Whipple, MOLD SETTER [address] [place] [address] documented as of this encounter Visit Diagnoses [...] documented as of this encounter Care Teams Poultry Slaughterer Relationship Specialty Start Date End Date Dina Tong APRN [address] [place] [id number] PCP - General 12/05/24 documented as of this encounter
--- OUTSIDE RECORDS SUMMARY | 2025-06-05 09:49 | XMS_ITS | Encounter Summary ---
Author Organization [facility] Address [address] [place] [address] Care Team Providers Care Radiology Specialist Name Role Phone Dina Tong APRN Primary Care Provider [phone] Encounter Details Date Type Department Care Team ([facility] st Contact Info) Description 05/17/2025 Telephone [facility] [address] [place] [phone] Gabriela Joseph RN Social History Tobacco Use Types Packs/Day Years Used Date Smoking Tobacco: Former Cigarettes 0.5 42 1 979 - 202 Smokeless Tobacco: Never Comments:Occasionally uses n icotine [...] Telephone Encounter - Gabriela Joseph RN - 05/17/2025 12:10 PM EDT Attempted to reach out to the patient and he did not answer his phone and I was unable to leave a message. Reached out to the patient's brother and he states that he does not know if the patient plans to come to the appointment and he states that he does not know. He states that he will contact thepatient and ask him to let us know if he is coming tomorrow. documented in this encounter Plan of Treatment Upcoming Encounters Date Type Department Care Team (Late st Contact Info) Description 06/08/2025 2:00 PM EST Clinical Support [facility] [address] [place] [address] 06/08/2025 2:30 PM EST Office Visit [facility] [address] [place] [address] Debbie Menendez, CLUB LICENSEE 800 [facility] Emmanuelle Ortega [facility] [address] [place] [address] 06/08/2025 3:00 PM EST Appointment [facility] [address] [place] [address] 09/05/2025 11:30 AM EST Office Visit [facility] [address] [place] [address] Shital Whipple, CLUB LICENSEE [address] [facility] [address] [place] [address] documented as of this encounter Visit Diagnoses [...] documented as of this encounter Care Teams Radiology Specialist Relationship Specialty Start Date End Date Dina Tong APRN [address] [place] [address] PCP - General 12/05/24 documented as of this encounter
--- OUTSIDE RECORDS SUMMARY | 2025-06-05 09:49 | XMS_ITS | Encounter Summary ---
Author Organization [facility] Address [address] [place] [address] Care Team Providers Care Network Systems Operator Name Role Phone Dina Tong APRN Primary Care Provider [phone] Encounter Details Date Type Department Care Team ([facility] Contact Info) Description 06/01/2025 Orders Only [facility] [address] [place] [address] Citlalli Castellon MD 800 [facility] Emmanuelle Ortega [address] [address] Social History Tobacco Use Types Packs/Day Years [...] Department Care Team (Late Contact Info) Description 06/08/2025 2:00 PM EST Clinical Support [facility] [address] [place] [address] 06/08/2025 2:30 PM EST Office Visit [facility] [address] [place] [address] Debbie Menendez, LIGHT AIR DEFENSE ARTILLERY CREWMEMBER 800 [facility] [address] Or[address] [place] [address] 06/08/2025 3:00 PM EST Appointment [facility] [address] [place] [address] 09/05/2025 11:30 AM EST Office Visit [facility] [address] [place] [address] Shital Whipple, LIGHT AIR DEFENSE ARTILLERY CREWMEMBER [address] [place] [address] documented as of this encounter Visit Diagnoses [...] documented as of this encounter Care Teams Network Systems Operator Relationship Specialty Start Date End Date Dina Tong APRN [address] [place] [address] PCP - General 12/05/24 documented as of this encounter
--- OUTSIDE RECORDS SUMMARY | 2025-06-05 09:49 | XMS_ITS | Referral Summary ---
Author Organization [employer] ([place], [place], [place], [place], [place]) Address [address] [place] [address] Care Team Providers Care Federal Aid Coordinator Name Role Phone Tania Murry MD Unavailable [phone] [facility], Provider Not In The System MD Primary Care Provider Unavailable Allergies No known [...] Date Grant rded Speak language other than Estonian at home Not on file 10/01/2023 Want [...] Plan of Treatment Not on file Insurance [facility] DUAL COMPLETE [facility] ADV [facility] MCR ADV DUAL COMPLETE MEDICAID [employer] Care Teams Federal Aid Coordinator Relationship Specialty Start Date End Date [facility], Provider Not In The System, [place] [address] PCP - General 02/11/24 Tania Murry MD [address] [facility] [address] [place] [id number] Interventional Cardiology 10/23/23
--- OUTSIDE RECORDS SUMMARY | 2025-06-05 09:49 | XMS_ITS | Encounter Summary ---
Author Organization [facility] Address [address] [place] [address] Care Team Providers Care Shovel Log Loader Operator Name Role Phone Dina Tong APRN Primary Care Provider [phone] Encounter Details Date Type Department Care Team (Latest Contact Info) Description 05/18/2025 Travel Social History Tobacco Use Types Packs/Day [...] [facility] G[facility] documented as of this encounter Plan of Treatment Upcoming Encounters Date Type Department Care Team (Late st Contact Info) Description 06/08/2025 2:00 PM EST Clinical Support [facility] [address] [place] [address] 06/08/2025 2:30 PM EST Office Visit [facility] [address] [place] [address] Debbie Menendez, CASHIER PAYMENTS RECEIVED 800 [facility] [address]le Ortega [address] [place] [address] 06/08/2025 3:00 PM EST Appointment [facility] 1 [address] [place] [address] 09/05/2025 11:30 AM EST Office Visit [facility] [address] [place] [address] Shital Whipple, CASHIER PAYMENTS RECEIVED [address] [facility] [address] [place] [address] documented as of this encounter Visit Diagnoses [...] documented as of this encounter Care Teams Shovel Log Loader Operator Relationship Specialty Start Date End Date Dina Tong APRN [address] [place] [address] PCP - General 12/05/24 documented as of this encounter
--- OUTSIDE RECORDS SUMMARY | 2025-06-05 09:49 | XMS_ITS ---
Author Organization [facility] Address [address] [place] [address] Care Team Providers Care Sound Installation Worker Name Role Phone Dina Tong APRN Primary Care Provider [phone] Active Problems Problem Noted Date Diagnosed Date Malignant melanoma of left u pper extremity including shoulder 01/09/2025 Cancer Staging:Pathologic stage from 03/06/2025:Stage IIB(pT3b, pN0, cM0) - Unsigned Second hand smoke exposure 12/05/2024 Obesity (BMI 35.0-39.9 without comorbidity) 02/07/2021 Current Treatment and Therapy Plans Pembrolizumab Every 21 Days* Plan Start Date:04/12/2025 Plan Provider:Citlalli Castellon MD Linked Problems Malignant melanoma of left u pper extremity including shoulder Treatment Medications Current Day (Day 1 , Cycle 2 - Planned for 06/08/2025) Next Day (Day 1, Cycle 3 - Planned for 06/29/2025) pembrolizumab (Keytruda) pembrolizumab ( Keytruda) 200 mg in sodium chloride 0.9% 100 mL IVPB No medications scheduled. Past Treatment and Therapy Plans No past plan information found.
--- OUTSIDE RECORDS SUMMARY | 2025-06-05 09:49 | XMS_ITS | Encounter Summary ---
Author Organization [facility] Address [address] [place] [id number] Care Team Providers Care Construction Worker Name Role Phone Dina Tong WENDI Primary Care Provider [phone] Encounter Details Date Type Department Care Team ([facility] st Contact Info) Description 05/03/2025 Telephone [facility] [address] [place] [address] Citlalli Castellon MD 800 [facility] [address] [address] Social History Tobacco Use Types Packs/Day Years [...] Notes * Telephone Encounter - Dina Miguel Chang - 05/03/2025 11:30 AM EDT 05/03/25 05/01/25- No answer. No voicemail option. Making sure patient received notification of his PET on 05/04. documented in this encounter Plan of Treatment Upcoming Encounters Date Type Department Care Team (Late st Contact Info) Description 06/08/2025 2:00 PM EST Clinical Support [facility] [address] [place] [address] 06/08/2025 2:30 PM EST Office Visit [facility] [address] [place] [address] Debbie Menendez, ANIMAL CARE SUPERVISOR 800 [facility] [address]le Or[address] [place] [address] 06/08/2025 3:00 PM EST Appointment [facility] 1 [address] [place] [address] 09/05/2025 11:30 AM EST Office Visit [facility] [address] [place] [address] Shital Whipple, ANIMAL CARE SUPERVISOR [address] [place] [address] documented as of this encounter Visit Diagnoses [...] documented as of this encounter Care Teams Construction Worker Relationship Specialty Start Date End Date Dina Tong APRN [address] [place] [address] PCP - General 12/05/24 documented as of this encounter
--- OUTSIDE RECORDS SUMMARY | 2025-06-05 09:49 | XMS_ITS | Encounter Summary ---
Author Organization [facility] Address [address] [place] [address] Care Team Providers Care Employee Development Manager Name Role Phone Dina Tong APRN Primary Care Provider [phone] Encounter Details Date Type Department Care Team (Late st Contact Info) Description 12/05/2024 Lab Requisition [facility] [address] [place] [address] Ofe Langford MD 800 [facility] [address] [address] Malignant melanoma of skin, unspecified (CMS/HCC) Social History Tobacco Use Types Packs/Day Years Used Date Smoking Tobacco: Former Cigarettes 0.5 42 1 - 2020 Smokeless Tobacco: Never PHQ-2 Answer [...] down, depressed, or hopeless Not at all 12/05/2024 9:10 AM EDT Rosalina Carlin Patient Health Questionnaire -2 Score 0 12/05/2024 9:10 AM EDRosalina Koo * Question Answer Date of Assessment Author Trouble falling or staying a sleep, or sleeping too much Not at all 12/05/2024 9:10 AM EDRosalina Koo Feeling tired or having tyler le energy Not at all 12/05/2024 9:10 AM Rosalina Cleaning Poor appetite or overeating Not at all 12/05/2024 9: 10 AM Rosalina Cleaning Feeling bad about yourself - or that you are a failure or have let yourself or your family down Not at all 12/05/2024 9:10 AM EDT Jareth Carlin Trouble concentrating on thi ngs, such as reading the newspaper or watching television Not at all 12/05/2024 9:10 AM Rosalina Cleaning Moving or speaking so slowly that other people could have noticed? Or the opposite - being so fidgety or restless that you have been moving around a lot more than usual. Not at all 12/05/2024 9:10 AM Michele Cleaning Thoughts that you would be b camilla off or hurting yourself in some way Not at all 12/05/2024 9:10 AM Rosalina Cleaning Patient Health Questionnaire-9 Score 0 11/24 9:10 AM Rosalina Cleaning * How difficult have these problems made it for you to do your work, take care of things at home, or get along with other people? Answer Date of Assessment Author Not difficult at all 12/05/2024 9:10 AM Rosalina Cleaning documented as of this encounter Plan of Treatment Upcoming Encounters Date Type Department Care Team (Late st Contact Info) Description 06/08/2025 2:00 PM EST Clinical Support [facility] [address] [place] [address] 06/08/2025 2:30 PM EST Office Visit [facility] [address] [place] [address] Debbie Menendez, TOSSER 800 [facility] Emmanuelle Ortega [address] [address] 06/08/2025 3:00 PM EST Appointment [facility] Infusion Clinic [address] [place] [address] 09/05/2025 11:30 AM EST Office Visit [facility] Multidisciplinary Oncology Clinic [address] [place] [address] Shital Whipple, TOSSER [address] [place] [address] documented as of this encounter Procedures Procedure Name Priority Date/Time Associated Diagnosis Comments SURGICAL PATHOLOGY CONSULT Routine 12/05/2024 12:28 PM EDT Malignant melanoma of skin, unspecified (CMS/HCC) documented in this encounter Results * Surgical Pathology Consult (12/05/2024 12:28 PM EDT) Case Report Sugical Pathology Consult Case: [id number] Authorizing Provider: Ofe Langford MD Collected: 12/05/2024 1228 Ordering Location: [facility] Lab Received: 12/05/2024 1228 Pathologist: Pilo Escudero MD Specimen: Skin, [id number]. 11:42 AM EDT [facility] Final Diagnosis SKIN, LEFT MEDIAL BACK, SHAVE BIOPSY OF 1.5 CM LESION, 11/14/2024, REVIEWED OUTSIDE SLIDES AND IHC: - ULCERATED NODULAR MELANOMA. - INVASION IS AT LEAST 3.3 MM DEEP AND SHAVED ACROSS THE BASE. - INVOLVES ENTIRE DEEP AND PERIPHERAL MARGINS. - IHC IS POSITIVE FOR SOX 10 AND MELAN A. STAGE AT LEAST pT3b 11:42 AM EDT [facility] at 1142 EDT Clinical Information Skin of suprascapular left medial back, 1.5 CM scaly erythematous papule 11:42 AM EDT [facility] Microscopic Description Epithelioid and spindle cell morphology with prominent atypia, non pigmented. Brisk mitoses; no regression 5 11:42 AM EDT [facility] Special and Immunohistochemical Stains Reviewed shows strong diffuse positivity for Sox 10 and Melan A,. MCK-M is negative 5 11:42 AM EDT [facility] Gross Description A. [id number]. Received along with a corresponding pathology report from [facility] are 4 slide(s) labeled outside case: [id number] collected on 11/14/2024. 5 11:42 AM EDT [facility] Note: A resident was involved in the service. I attest I examined the relevant preparations for the specimens and confirmed the diagnosis or interpretation. 5 11:42 AM EDT [facility] Tissue Skin structure / Unknown 12/05/2024 12:28 PM EDT 12/05/2024 12:28 PM EDT us Ofe Langford MD LAB PATHOLOGY ORDERABLES Final R esult [facility] [address] [place] [address] documented in this encounter Visit Diagnoses Diagnosis Malignant melanoma of skin, unspecified (CMS/HCC) documented in this encounter Additional Health Concerns Assessment Noted Time PHQ-9 Depression Total Score: 0 12/06/19 9:10 AM EDT A fall risk assessment has been complete d for the patient 12/05/2024 9:10 AM EDT documented as of this encounter Care Teams Employee Development Manager Relationship Specialty Start Date End Date Dina Tong APRN [address] [place] [address] PCP - General 12/05/24 documented as of this encounter
--- OUTSIDE RECORDS SUMMARY | 2025-06-05 09:49 | XMS_ITS | Encounter Summary ---
Author Organization [facility] Address [address] [place] [id number] Care Team Providers Care Screen Printer Name Role Phone Ran Dina WENDI Primary Care Provider [phone] Encounter Details Date Type Department Care Team ([facility] st Contact Info) Description 05/02/2025 Telephone [facility] [address] [place] [address] Citlalli Castellon MD 800 [facility] [address] [address] Social History Tobacco Use Types Packs/Day Years [...] * Telephone Encounter - Dina Miguel - 05/02/2025 10:38 AM EDT 05/02/25- Called to make sure patient was aware of his 05/04 PET. No answer. No option to lvm. documented in this encounter Plan of Treatment Upcoming Encounters Date Type Department Care Team (Late st Contact Info) Description 06/08/2025 2:00 PM EST Clinical Support [facility] [address] [place] [address] 06/08/2025 2:30 PM EST Office Visit [facility] [address] [place] [address] Debbie Menendez, ASSISTED LIVING NURSING DIRECTOR 800 [facility] [address] [place] [address] 06/08/2025 3:00 PM EST Appointment [facility] 1 [address] [place] [address] 09/05/2025 11:30 AM EST Office Visit [facility] [address] [place] [address] Shital Whipple, ASSISTED LIVING NURSING DIRECTOR [address] [facility] [address] [place] [address] documented as of this encounter Visit Diagnoses [...] documented as of this encounter Care Teams Screen Printer Relationship Specialty Start Date End Date Dina Tong APRN [address] [place] [address] PCP - General 12/05/24 documented as of this encounter
--- OUTSIDE RECORDS SUMMARY | 2025-06-05 09:49 | XMS_ITS | Clinical Summary ---
Author Organization [employer] ([place], [place], [place], [place], [place]) Address [address] [place] [address] Care Team Providers Care Comic Illustrator Name Role Phone Tania Murry MD Unavailable [phone] [facility], Provider Not In The System MD Primary [...] Date Grant rded Speak language other than Kuwaiti at home Not on file 10/01/2023 Want [...] 2) 01/01/2010 Medicare Initial AWV [id number] 07/28/2023 Falls Risk Screening 07/27/2024 COVID-19 VACCINE (3 - season) 2025, 10/10/2020 Influenza Vaccine (#1) 2025 Tobacco Cessation Counseling and Screening (12+) 05/10/2025 05/10/2024 DTAP/TDAP/TD VACCINES (2 - Td or Tdap) 04/07/2031 Respiratory Syncytial Virus (RSV) Adult or (1 - 1-dose 75+ series) 01/01/[address] [facility] DUAL COMPLETE [facility] ADV [facility] ADV DUAL COMPLETE MEDICAID [employer] Care Teams Comic Illustrator Relationship Specialty Start Date End Date [facility], Provider Not In The System, [place] [address] PCP - General 02/11/24 [place] [address] [place] [address] [address] [place] [address] Interventional Cardiology 10/23/23
[2025-06-05 09:56] LABS: Alanine Aminotransferase 125 U/L (12-78); Albumin Level 3.9 g/dl (3.5-5.0); Albumin/Globulin Ratio 1.0 (1.1-1.8); Alkaline Phosphatase 85 U/L (38-126); Anion Gap 8.3 mEq/L (5-15); Aspartate Amino Transferase 636 U/L (17-59); Bilirubin,Total 2.3 mg/dl (0.2-1.3); Bilirubin,Urine 1+ (Negative); Blood Urea Nitrogen 24 mg/dl (9-20); Calcium 8.8 mg/dl (8.4-10.2); Carbon Dioxide 28 mmol/L (22.0-30.0); Chloride 102 mmol/L (98-107); Color,Urine Dark Yellow (Yellow); Creatinine Clearance Estimated 76 mL/min (50-200); Creatinine,Serum 1.50 mg/dl (0.66-1.25); Estimated Glomerular Filt Rate 47 ml/min (>60); GFR (African American) 57 ML/MIN (>60); Globulin 4.0 g/dL (1.3-3.2); Glucose 121 mg/dl (74-100); Magnesium 1.5 mg/dl (1.6-2.3); Potassium 4.3 mmoL/L (3.5-5.1); Sodium 134 mmol/L (136-145); Total Protein,Serum 7.9 g/dl (6.3-8.2)
[2025-06-05] MEDS: RINGERS SOLUTION,LACTATED 500 ML 999 ML IV (09:56)
[2025-06-05] MEDS: ACETAMINOPHEN 1,000MG/100ML VIAL 1000 MG IV (09:56)
[2025-06-05] MEDS: METHOCARBAMOL 500MG TABLET 1000 MG PO (09:57)
[2025-06-05 10:07] LABS: NT Pro Brain Natriuretic Pep. 823 pg/mL (0-125); Troponin I 0.03 ng/ml (0.00-0.034)
[2025-06-05] MEDS: SODIUM CHLORIDE 0.9% 10ML SYR (RAD ONLY) 10 ML IV (10:20)
[2025-06-05] MEDS: IOPAMIDOL-370 (76%);100ML BOTTLE 80 ML IV (10:20)
[2025-06-05] MEDS: 0.9 % SODIUM CHLORIDE 50 ML VIAL IV (10:20)
[2025-06-05 10:22] LABS: INR 1.18 (0.9-1.1); Prothrombin Time 12.9 seconds (10.1-12.5)
--- NOTE | 2025-06-05 10:55 | PC.NURSE ---
tried to obtained one full set of cultures, unsuccessful at this time. only able to obtain half the full set.
[2025-06-05 11:05] LABS: Bacteria,Urine Trace /lpf; Squamous Epithelial Cell,Urine Occasional #/hpf (0-5); WBC,Urine Occasional #/hpf (0-3)
[2025-06-05] MEDS: PIPERACILLIN/TAZO 4.5 GM in 0.9 % SODIUM CHLORIDE 100 ML IV (11:20)
[2025-06-05 11:29] LABS: Ammonia 9 umol/L (9-30)
[2025-06-05 11:48] LABS: Lipase 43 U/L (23-300)
[2025-06-05] MEDS: VANCOMYCIN/WATER FOR INJ (PEG) 1.75 GM/350 ML PIGGYBACK IV (12:09)
[2025-06-05 12:48] LABS: Adenovirus,PCR Not Detected (NotDetected); Chlamydophila Pneumoniae, PCR Not Detected (NotDetected); Coronavirus 19, PCR Not Detected (NotDetected); Coronovirus HKU1,PCR Not Detected (NotDetected); Influenza A, PCR Not Detected (NotDetected); Influenza AH1, 2009 Not Detected (NotDetected); Influenza AH1, PCR Not Detected (NotDetected); Influenza AH3,PCR Not Detected (NotDetected); Influenza B, PCR Not Detected (NotDetected); Mycoplasma Pneumoniae, PCR Not Detected (NotDetected); Parainfluenza 1, PCR Not Detected (NotDetected); Parainfluenza 2, PCR Not Detected (NotDetected); Parainfluenza 3, PCR Not Detected (NotDetected); Parainfluenza 4, PCR Not Detected (NotDetected)
--- NOTE | 2025-06-05 13:03 | PC.NURSE ---
hospitality house supervisor contacted for bed
[2025-06-05] MEDS: ONDANSETRON 4MG/2ML VIAL 4 MG IV (13:17)
--- NOTE | 2025-06-05 13:28 | PC.NURSE ---
report given to STACI Herzog for room 212
[2025-06-05 13:46] LABS: Procalcitonin 7.78 ng/mL (0.0-2.0)
[2025-06-05 13:48] LABS: Troponin I 0.03 ng/ml (0.00-0.034)
--- NOTE | 2025-06-05 14:28 | P.HP_ITS ---
<Statement entered by Pete Ji MD - 06/06/25 11:20> Recommend holding diuretics, ARB at this time due to ANISA from suspected volume depletion, rest of plan of care as outlined by the [employer] below. History of Present Illness *Admission Date: 06/05/25 *Reason for visit:: Generalized weakness, ANISA, rhabdo *History of present illness: Mr. Lindsay is a 65-year-old male who has a primary medical history of osteoarthritis, gout, peripheral vascular disease with venous insufficiency bilaterally, obesity, lymphedema, tobacco use, DDD, hypertension, anxiety, major depressive disorder, melanoma, VIJAY, CAD, HFpEF, type 2 diabetes. He presented to the emergency department today via EMS with complaints of generalized weakness, multiple falls. He also states that he did fall backwards 1 time striking his head but did not lose consciousness. Patient states that he has had progressive weakness over the past 2 to 3 weeks. He states that he is following with [facility] for a lymphoproliferative disorder of unknown origin. States he recently had a PET scan for further help with diagnosis, also states that he received 1 dose of Keytruda immunotherapy approximately 3 weeks ago. Workup in the emergency department was performed, patient remained h emodynamically stable and nontoxic-appearing during arrival. He was tachycardic in the low 100s. Patient states that he was on the floor the last time he fell for approximately 2-3 hours before he called 911. He states he tried multiple times to get up but could not. 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 CT of head, neck, thorax, abdomen, pelvis, chest were all obtaine d. All of which showed no acute findings with the exception of sclerotic lesions and adenopathy in his pelvis. Lab work was significant for elevated WBC of 20.2, potentially reactive. ANISA with a creatinine of 1.50. Transaminitis AST 636, ALT 125. CRP 205.8, procalcitonin 7.78. Significantly elevated CK of 37,318. Viral respiratory panel was negative. Blood cultures were obtained and are pending. [facility] Disclaimer: The information contained in this section may have been updated after the patient was seen, as this information can be updated by other users. Medical History (Updated 06/05/25 @ 16:46 by Denise Pittman APRN) Abnormal electrocardiogram [ECG] [EKG] Abnormal findings on diagnostic imaging of heart and coronary circulation Atypical angina Cellulitis Elevated WBC count Skin ulcer of right lower leg Cellulitis of right leg Infected abrasion of toe Abnormal nuclear cardiac imaging test Chest pain Encounter for screening colonoscopy Abnormal stress test Anginal equivalent Obesity Bilateral leg pain Wound of right foot DM2 (diabetes mellitus, type 2) (HFpEF) heart failure with preserved ejection fraction Coronary artery disease VIJAY (obstructive sleep apnea) Patient left without being seen Fall Gout attack Gout Humeral fracture Scalp laceration Gangrene Bacterial cellulitis Enterococcus faecalis infection Proteus infection Infection, Klebsiella Chronic inflammation of both eustachian tubes Impacted cerumen of left ear Neuropathic pain Arthritis HTN (hypertension), benign Anxiety Hypertension Surgical History H/O arthroscopy of right knee Family History (Updated 06/05/25 @ 14:21 by Rosenda Garcia, RN) Family/Other No problems noted. Other Cancer Family history of diabetes mellitus type II Social History (Updated 06/05/25 @ 14:22 by Rosenda Garcia, RN) Smoking Status: Former smoker tobacco type: cigarettes packs per day: 1 alcohol intake: current alcohol intake frequency: holidays/special occasions only substance use type: marijuana current occupational status: disabled Travel in the last 8 weeks?: None household members: none housing: house caffeine: No Have you lived/traveled outside [place] in past 30 days?: No Contact w/someone who lives/traveled outside US past 30 days?: No Exposure to someone with infectious disease in past 14 days?: No Do you have a fever (greater than 100.4 F or 38 C)?: No Have you tested positive for COVID-19?: No Exposed to someone with COVID-19 in past 14 days?: No Do you have a sore throat?: No Do you have a cough?: No Do you have any weakness?: No Do you have any diarrhea?: No Are you experiencing any unusual bleeding?: No Do you have any muscle aches/pain?: No Do you have any abdominal pain?: No Are you experiencing loss of taste or smell?: No Other Medical History Have you received the Flu Vaccine for this season: No Have you received the Pneumonia Vaccine: No (Not interested at this time. ) Review of Systems Constitutional Constitutional: Reports fatigue, Reports frequent falls, Reports headache(s), Reports lethargy and Reports weakness ENT Ears, Nose, Mouth, and Throat: Reports headache(s) *Cardiovascular Cardiovascular: Denies dyspnea *Respiratory Respiratory: Denies cough and Denies dyspnea *Gastrointestinal Gastrointestinal: Denies loose stools, Denies nausea and Denies vomiting *Genitourinary Genitourinary: Denies dysuria *Musculoskeletal Musculoskeletal: Reports arthralgias and Reports muscle weakness *Neurologic Neurologic: Reports frequent falls, Reports headache(s) and Reports weakness Endocrine Endocrine: Reports fatigue Meds Home Medications and Allergies Home Medications ?Medication ?Instructions ?Recorded ?Confirmed ?Type aspirin 81 mg tablet,delayed 81 mg PO DAILY #30 tabs 0 03/31/24 06/05/25 Rx release (Adult Aspirin Regimen) prazosin 1 mg capsule 1 mg PO HS #30 caps 05/11/24 06/05/25 Rx furosemide 40 mg tablet (Lasix) 40 mg PO DAILY #90 tab s 01/02/25 06/05/25 Rx spironolactone 50 mg tablet 50 mg PO DAILY #30 tabs 06/05/25 Rx (Aldactone) gabapentin 800 mg tablet 800 mg PO QID 01/16/2506/05 History oxycodone-acetaminophen 7.5 mg-325 1 tab PO Q6HP PRN P ain 01/16/25 06/05/25 History mg tablet prochlorperazine maleate 10 mg 10 mg PO Q6HP PRN Nause a And 04/14/25 06/05/25 History tablet Vomiting semaglutide 2 mg/dose (8 mg/3 mL) 2 mg (0.75 mL) SQ WE EKLY #3 mL 04/17/25 06/05/25 Rx subcutaneous pen injector (Ozempic) desvenlafaxine succinate 50 mg 50 mg PO DAILY #30 tabs 04/24/25 06/05/25 Rx tablet,extended release 24 hr (Pristiq) losartan 100 mg tablet 100 mg PO DAILY #30 tabs 06/05/25 Rx atorvastatin 20 mg tablet (Lipitor) 20 mg PO HS 06/05/25 History azelastine 137 mcg (0.1 %) nasal 2 spray intranasal BI D PRN 06/05/25 06/05/25 History spray allergies budesonide-formoterol HFA 80 1 puff inhalation BID 05/2006/05/25 History mcg-4.5 mcg/actuation aerosol inhaler (Symbicort) famotidine 40 mg tablet 40 mg PO DAILY 06/05/2505/27 History hydroxyzine pamoate 25 mg capsule 25 mg PO TIDP PRN It jens 06/05/25 06/05/25 History omeprazole 20 mg capsule,delayed 20 mg PO DAILY 06/05/25 History release New Prescriptions to Start Prescriptions: Allergies Allergy/AdvReac Type Severity Reaction Status Date / Time No Known Allergies Allergy Verified 04/17/25 14:18 Exam Data for Last 24 hours Vital signs and Labs for Last 24 Hours: Temp Pulse Resp BP Pulse Ox O2 Del Method 98.3 F 86 18 122/58 L 90 L Room Air 06/05/25 13:33 06/05/25 13:33 06/05/25 13:33 06/05/25 13:33 06/05/25 10:01 06/05/25 09:30 Laboratory Results - last 24 hr 06/05/25 09:30: WBC 20.2 H*, RBC 5.01, Hgb 15.7, Hct 45.0, MCV 89.8, MCH 31.3 H, MCHC 34.9, RDW 13.2, Plt Count 177, MPV 8.8, Neut % (Auto) 88.5 H, Lymph % (Auto) 4.5 L, [place] % (Auto) 5.9, Eos % (Auto) 0.0 L, Baso % (Auto) 0.3, Neut # (Auto) 17.9 H, Lymph # (Auto) 0.9, [place] # (Auto) 1.2 H, Eos # (Auto) 0.0, Baso # (Auto) 0.1, PT 12.9 H, INR 1.18 H, Sodium 134 L, Potassium 4.3, Chloride 102, Carbon Dioxide 28, Anion Gap 8.3, BUN 24 H, Creatinine 1.50 H, Estimated Creat Clear 76, Estimated GFR 47 L, Est GFR ( Amer) 57 L, Glucose 121 H, Calcium 8.8, Magnesium 1.5 L, Total Bilirubin 2.3 H, AST 636 H*, ALT 125 H, Alkaline Phosphatase 85, Troponin I 0.03, NT-Pro-B Natriuret Pep 823 H, Total Protein 7.9, Albumin 3.9, Globulin 4.0 H, Albumin/Globulin Ratio 1.0 L, Lipase 43, Procalcitonin 7.78 H, Urine Color Dark yellow, Urine Appearance Slightly cloudy, Urine pH 7.0, Ur Specific [place] 1.015, Urine Protein 2+ A, Urine Glucose (UA) Negative, Urine Ketones Negative, Urine Blood 3+ A, Urine Nitrate Negative, Urine Bilirubin 1+ A, Urine Urobilinogen 0.2, Ur Leukocyte Esterase Negative, Urine RBC 5-10, Urine WBC Occasional, Ur Squamous Epith Cells Occasional, Urine Bacteria Trace, Chlamy pneumoniae PCR Not detected, Adenovirus (PCR) Not detected, B. pertussis DNA (PCR) Not detected, Coronavirus OC43 (PCR) Not detected, Coronavirus HKU1 (PCR) Not detected, Coronavirus 229E (PCR) Not detected, SARS-CoV-2 (PCR) Not detected 06/05/25 09:30: SARS-CoV-2 (PCR) Not detected, Coronavirus NL63 (PCR) Not detected, Human Metapneumovir PCR Not detected, Influenza A (H1) PCR Not detected, Influ A (H1N1/09) PCR Not detected, Influenza A (H3) PCR Not detected, Influenza Type A (PCR) Not detected, Influenza A Untype (PCR) Not detected, Influenza Type B (PCR) Not detected 06/05/25 09:30: Influenza Type B (PCR) Not detected, M. pneumoniae (PCR) Not detected, Parainfluenza 1 (PCR) Not detected, Parainfluenza 2 (PCR) Not detected, Parainfluenza 3 (PCR) Not detected, Parainfluenza 4 (PCR) Not detected, RSV (PCR) Not detected, Entero/Rhino (PCR) Not detected 06/05/25 11:08: Ammonia 9 06/05/25 13:10: Troponin I 0.03 I & O for Last 24 hours: Intake & Output 06/02/25 06/03/25 06/04/25 06/05/25 23:59 23:59 23:59 23:59 Intake Total 600 / 600 Balance 600 / 600 Weight 108.862 kg Constitutional Constitutional: no acute distress, obese, chronically ill appearing and cooperative *Routine HEENT Exam Head: Present normocephalic Eye: Present EOMI and PERRL ENT: Present mucous membranes moist *Routine Neck Exam Neck: Present supple *Routine Respiratory Exam Respiratory: Present CTA bilaterally and normal respiratory effort; Absent wheezes or crackles *Routine Cardiovascular Exam Cardiovascular: Present RRR *Routine Abdominal Exam Abdominal: Present soft, normoactive bowel sounds and obese; Absent tenderness *Routine Rectal Exam Rectal:: deferred *Routine Genitalia Exam Genitalia:: deferred *Routine Extremities Exam Extremities: Absent cyanosis, clubbing or edema *Routine Skin Exam Skin: Present dry, warm and cracked; Absent rash Comments: Icthyosis bilateral lower extremities *Routine Neurological Exam Neurological: Present alert and oriented X3 Assessment and Plan *Assessment and plan (1) Rhabdomyolysis: Status: Acute Category: Medical Code(s): M62.82 - Rhabdomyolysis (2) SIRS (systemic inflammatory response syndrome): Status: Acute Category: Medical Code(s): R65.10 - Systemic inflammatory response syndrome (SIRS) of non-infectious origin without acute organ dysfunction (3) ANISA (acute kidney injury): Status: Acute Category: Medical Code(s): N17.9 - Acute kidney failure, unspecified (4) Generalized weakness: Status: Acute Category: Medical Code(s): R53.1 - Weakness (5) Adenopathy: Status: Acute Category: Medical Code(s): R59.9 - Enlarged lymph nodes, unspecified (6) Transaminitis: Status: Acute Category: Medical Code(s): R74.01 - Elevation of levels of liver transaminase levels (7) Bony sclerosis: Status: Acute Category: Medical Code(s): 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 Lindsay is a 65-year-old male who has a primary medical history of osteoarthritis, gout, peripheral vascular disease with venous insufficiency bilaterally, obesity, lymphedema, tobacco use, DDD, hypertension, anxiety, major depressive disorder, melanoma, VIJAY, CAD, HFpEF, type 2 diabetes. He presented to the emergency department today via EMS with complaints of generalized weakness, multiple falls. He also states that he did fall backwards 1 time striking his head but did not lose consciousness. Patient states that he has had progressive weakness over the past 2 to 3 weeks. He states that he is following with [facility] for a lymphoproliferative disorder of unknown origin. States he recently had a PET scan for further help with diagnosis, also states that he received 1 dose of Keytruda immunotherapy approximately 3 weeks ago. Workup in the emergency department was performed, patient remained hemodynamically stable and nontoxic-appearing during arrival. He was tachycardic in the low 100s. Patient states that he was on the floor the last time he fell for approximately 2-3 hours before he called 911. He states he tried multiple times to get up but could not. 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 CT of head, neck, thorax, abdomen, pelvis, chest were all obtained. All of which showed no acute findings with the exception of sclerotic lesions and adenopathy in his pelvis. Lab work was significant for elevated WBC of 20.2, potentially reactive. ANISA with a creatinine of 1.50. Transaminitis AST 636, ALT 125. CRP 205.8, procalcitonin 7.78. Significantly e levated CK of 37,318. Viral respiratory panel was negative. Blood cultures were obtained and are pending. Hospital medicine was consulted for admission, I agreed to admit the patient for acute rhabdomyolysis, transaminitis, ANISA, seizures, weakness, frequent falls. Plan of care is as follows: #SIRS ? Patient meeting SIRS criteria on admission, elevated WBC of 20.2 and tachycardia heart rate low 100s. No known source of infection at this time. Patient started empirically on broad-spectrum antibiotics, vancomycin and Zosyn. ?Pro-Guille and CRP both elevated, will continue to trend. ?CBC, Pro-Guille, CRP ordered for the a.m. #Rhabdo #ANISA #Weakness #Frequent falls #Melanoma #Transaminitis ? Patient complains of generalized weakness for the past 2-3 weeks. He fell today which prompted him to call EMS, states he was on the floor for 2-3 hours approximately. Patient states during that time he did try to get himself up multiple times. ?Patient recently started Keytruda immunotherapy with [facility] for known melanoma. CTA of abdomen/pelvis shows pelvic lymph node adenopathy and sclerotic bone lesions. Concerning for lymphoproliferative disorder versus metastasis. Patient states he had a recent PET scan. Will attempt to obtain records from [facility]. ?Patient had markedly elevated CK of greater than 37,000 on admission. Patient received a 500 mL bolus in the ED, will continue NS at 150 mL/H. Serial CK levels ordered. ?Kidney function elevated, creatinine 1.5. Continue to monitor. Patient is making urine. ?PT/OT ordered for evaluation of patient's increased weakness. Concern for rhabdo related to Keytruda versus fall. Liver enzymes elevated, hepatitis panel pending. Elevation likely related to rhabdo. #HFpEF ? Patient has known heart failure with preserved EF, echo 03/19 has LVEF of 55%, normal BiV systolic function. Cardiac cath in December 2024 showed mild to moderate nonlimiting coronary disease. Preserved EF, elevated LVEDP. ?Continue spironolactone 50 mg daily, losartan 100 mg daily, Lasix 40 mg daily, aspirin 81 mg daily, prazosin 1 mg daily. Hold Lipitor 20 mg at bedtime. ?Patient does not appear to be hypervolemic at this time. Monitoring closely. #COPD: Continue Symbicort 1 puff twice daily. #Chronic pain: Continue Percocet 7.5-325 mg every 6 hours as needed for pain. #GERD: Continue omeprazole 20 mg daily for reflux, famotidine 40 mg daily. Full code Up with assistance VTE?Lovenox Cardiac diet
[2025-06-05 14:49] LABS: C-Reactive Protein 205.8 mg/L (0-4)
--- NOTE | 2025-06-05 16:00 | EXP.PHA.CONS ---
Pharmacy Consult Date: 06/05/25 Time: 16:01 Referring provider: SAEED BROWN APRN Reason for Consult:: VANCOMYCIN DOSING Allergies Allergy/AdvReac Type Severity Reaction Status Date / Time No Known Allergies Allergy Verified 04/17/25 14:18 Home Medications ?Medication ?Instructions ?Recorded ?Confirmed ?Type aspirin 81 mg tablet,delayed 81 mg PO DAILY #30 tabs 03/31/24 06/05/25 Rx release (Adult Aspirin Regimen) prazosin 1 mg capsule 1 mg PO HS #30 caps 05/11/24 06/05/25 Rx furosemide 40 mg tablet (Lasix) 40 mg PO DAILY #90 tabs 01/02/25 06/05/25 Rx spironolactone 50 mg tablet 50 mg PO DAILY #30 tabs 01/02/25 06/05/25 Rx (Aldactone) gabapentin 800 mg tablet 800 mg PO QID 01/16/25 06/05/25 History oxycodone-acetaminophen 7.5 mg-325 1 tab PO Q6HP PRN Pain 01/16/25 06/05/25 History mg tablet prochlorperazine maleate 10 mg 10 mg PO Q6HP PRN Nausea And 04/14/25 06/05/25 History tablet Vomiting semaglutide 2 mg/dose (8 mg/3 mL) 2 mg (0.75 mL) SQ WEEKLY #3 mL 04/17/25 06/05/25 Rx subcutaneous pen injector (Ozempic) desvenlafaxine succinate 50 mg 50 mg PO DAILY #30 tabs 04/24/25 06/05/25 Rx tablet,extended release 24 hr (Pristiq) losartan 100 mg tablet 100 mg PO DAILY #30 tabs 04/24/25 06/05/25 Rx atorvastatin 20 mg tablet (Lipitor) 20 mg PO HS 06/05/25 06/05/25 History azelastine 137 mcg (0.1 %) nasal 2 spray intranasal BID PRN 06/05/25 06/05/25 History spray allergies budesonide-formoterol HFA 80 1 puff inhalation BID 06/05/25 06/05/25 History mcg-4.5 mcg/actuation aerosol inhaler (Symbicort) famotidine 40 mg tablet 40 mg PO DAILY 06/05/25 06/05/25 History hydroxyzine pamoate 25 mg capsule 25 mg PO TIDP PRN Itching 06/05/25 06/05/25 History omeprazole 20 mg capsule,delayed 20 mg PO DAILY 06/05/25 06/05/25 History release New Prescriptions to Start Prescriptions: Height: 1.73 m Weight: 116.375 kg Laboratory Results:: Laboratory Results - last 24 hr 06/05/25 09:30: WBC 20.2 H*, RBC 5.01, Hgb 15.7, Hct 45.0, MCV 89.8, MCH 31.3 H, MCHC 34.9, RDW 13.2, Plt Count 177, MPV 8.8, Neut % (Auto) 88.5 H, Lymph % (Auto) 4.5 L, [place] % (Auto) 5.9, Eos % (Auto) 0.0 L, Baso % (Auto) 0.3, Neut # (Auto) 17.9 H, Lymph # (Auto) 0.9, [place] # (Auto) 1.2 H, Eos # (Auto) 0.0, Baso # (Auto) 0.1, PT 12.9 H, INR 1.18 H, Sodium 134 L, Potassium 4.3, Chloride 102, Carbon Dioxide 28, Anion Gap 8.3, BUN 24 H, Creatinine 1.50 H, Estimated Creat Clear 76, Estimated GFR 47 L, Est GFR ( Amer) 57 L, Glucose 121 H, Calcium 8.8, Magnesium 1.5 L, Total Bilirubin 2.3 H, AST 636 H*, ALT 125 H, Alkaline Phosphatase 85, Total Creatine Kinase 73193 H*, Troponin I 0.03, C-Reactive Protein 205.8 H, NT-Pro-B Natriuret Pep 823 H, Total Protein 7.9, Albumin 3.9, Globulin 4.0 H, Albumin/Globulin Ratio 1.0 L, Lipase 43, Procalcitonin 7.78 H, Urine Color Dark yellow, Urine Appearance Slightly cloudy, Urine pH 7.0, Ur Specific [place] 1.015, Urine Protein 2+ A, Urine Glucose (UA) Negative, Urine Ketones Negative, Urine Blood 3+ A, Urine Nitrate Negative, Urine Bilirubin 1+ A, Urine Urobilinogen 0.2, Ur Leukocyte Esterase Negative, Urine RBC 5-10, Urine WBC Occasional, Ur Squamous Epith Cells Occasional, Urine Bacteria Trace, Chlamy pneumoniae PCR Not detected, Adenovirus (PCR) Not detected, B. pertussis DNA (PCR) Not detected, Coronavirus OC43 (PCR) Not detected, Coronavirus HKU1 (PCR) Not detected, Coronavirus 229E (PCR) Not detected, SARS-CoV-2 (PCR) Not detected 06/05/25 09:30: SARS-CoV-2 (PCR) Not detected, Coronavirus NL63 (PCR) Not detected, Human Metapneumovir PCR Not detected, Influenza A (H1) PCR Not detected, Influ A (H1N1/09) PCR Not detected, Influenza A (H3) PCR Not detected, Influenza Type A (PCR) Not detected, Influenza A Untype (PCR) Not detected, Influenza Type B (PCR) Not detected 06/05/25 09:30: Influenza Type B (PCR) Not detected, M. pneumoniae (PCR) Not detected, Parainfluenza 1 (PCR) Not detected, Parainfluenza 2 (PCR) Not detected, Parainfluenza 3 (PCR) Not detected, Parainfluenza 4 (PCR) Not detected, RSV (PCR) Not detected, Entero/Rhino (PCR) Not detected 06/05/25 11:08: Ammonia 9 06/05/25 13:10: Troponin I 0.03 Medical History: Medical History (Updated 06/05/25 @ 12:46 by Reese Barnes MD) Abnormal electrocardiogram [ECG] [EKG] Abnormal findings on diagnostic imaging of heart and coronary circulation Atypical angina Cellulitis Elevated WBC count Skin ulcer of right lower leg Cellulitis of right leg Infected abrasion of toe Abnormal nuclear cardiac imaging test Chest pain Encounter for screening colonoscopy Abnormal stress test Anginal equivalent Obesity Bilateral leg pain Wound of right foot DM2 (diabetes mellitus, type 2) (HFpEF) heart failure with preserved ejection fraction Coronary artery disease VIJAY (obstructive sleep apnea) Patient left without being seen Fall Gout attack Gout Humeral fracture Scalp laceration Gangrene Bacterial cellulitis Enterococcus faecalis infection Proteus infection Infection, Klebsiella Chronic inflammation of both eustachian tubes Impacted cerumen of left ear Neuropathic pain Arthritis HTN (hypertension), benign Anxiety Hypertension Assessment and Plan Assessment and plan all Dx Assessment and Plan for all problems:: Pharmacokinetic dosing service Objective: Patient: Floor: Age: 65 yo Serum creatinine: 1.5 mg/dL Height: 67.0 Inches Weight (kg): 108.9 Assessment: IBW (kg): 66.10 Dosing wt(kg): 108.9 Estimated Creatinine clearance (ml/min): 45.9 CRCL method: Cockcroft and Gault using ibw(default). Drug selected: Vancomycin Loading dose (mg): 0 Vd (liters): 92.6 (factor used: 0.85 L/kg) David (hr-1): 0.042 Half life (hrs): 16.50 Recommended dose: 1750 mg Interval: 18 hrs Infusion time (hrs): 2.0 Predicted peak (mcg/mL): 34.2 Predicted trough (mcg/mL): 17.47 Total body weight is being used for vancomycin dosing. Recommendations: Give Vancomycin 1750 mg q 18 hrs with an expected Cpeak of 34.2 mcg/ml and an expected Ctrough of 17.47 mcg/ml ----Vanco only - ignore for aminoglycosides----- CLvanco= 3.89 L/hr AUC 0-24 /EDY Data: EDY 0.5 mcg/mL: AUC/EDY: 1199.7 EDY 1.0 mcg/mL: AUC/EDY: 599.8 --------- EDY 1.5 mcg/mL: AUC/EDY: 399.9 EDY 2.0 mcg/mL: AUC/EDY: 299.9
--- NOTE | 2025-06-05 16:29 | HMH.OTEV ---
OT Evaluation Rehab OT IP Evaluation Start: 06/05/25 13:07 Freq: ONCE Status: Active Protocol: Document 06/05/25 15:30 ТАТЬЯНАCIRA (Rec: 06/05/25 16:29 ROXANA [id number]) Rehab OT IP Assessment Subjective History 65-year-old male with past medical history described above who presents emergency department for evaluation of generalized weakness, frequent falls over the last 24 hours. Patient is hemodynamically stable nontoxic- appearing upon arrival, tachycardic in the low 100s after being down for multiple hours and no food or water over the last day. Patient is protecting his airway and is saturating in the low 90s on room air and is a chronic smoker. Fingerstick prehospital nonactionable. 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 His knees are swollen but are not asymmetrically warm and are not erythematous my concern for septic arthritis is low. Differential with regards to his weakness includes metabolic derangement, atypical ACS, chronic functional decline, among others . We did specked to his injuries from a fall differential includes intracranial hemorrhage, fracture , musculoskeletal strain, among others. Workup in totality will be conducted broad hematologic labs EKG troponin CT of the head, neck, thorax, abdomen, pelvis. Plain films of the femurs and knees bilaterally will be obtained. Prehospital patient got 15 of Toradol, 200 of fentanyl, 4 Zofran. Will supplement with Tylenol and methocarbamol. Given history of heart failure with preserved ejection fraction gentle crystalloid resuscitation will be conducted with 500 cc of Ringer's. Workup reviewed by me there is leukocytosis of 20.2 which may be infectious in nature or resultant of trauma with short downtime. Either way blood cultures will be obtained out of caution and broad-spectrum antibiotics initiated. No critical electrolyte abnormalities there is an ANISA present per rifle criteria as well as a transaminitis within normal baseline without significantly elevated bilirubin and a normal lipase. Patient also does not have any right upper quadrant pain. Urinalysis interpreted by me and not consistent with infection. Noncontrasted CT scan of the head informally visualized by me no acute large intra-axial hemorrhage or midline shift. CT bony pelvis no acute traumatic abnormality there is nonspecific sclerotic lesions there is also multiple enlarged lymph nodes in the pelvis. Ultimately patient has SIRS without definitive infection on broad-spectrum antibiotics, unspecified transaminitis which will likely require further investigation, sclerotic lesions and adenopathy in his pelvis, acute functional decline. The case was discussed with hospital medicine regarding management they will admit the patient their service for continued evaluation at this time. Patient lives alone in 1 story home with no BUD. Patient stated to use a rollator at home. Patient stated to be independent with ADLs and fx'l mobility up til 06/03/25. Continues to drive. Friends assist with housekeeping tasks. Subjective I want to get up. Instructed Patient on safety awareness to complete bed mobility from supine->sit @ EOB with Mod A. Patient completed STS with usage of RW requiring Mod A x2. Once in standing position, Patient required Min A x2 to complete fx'l mobility to restroom ~5ft. Patient required Mod A for clothing mgt tr and Mod A from stand ->sit on toilet. Left Patient sitting on toilet, call light in reach and Nursing aid notified that patient was in restroom. Objective Patient Orientation Person,Place,Name Right Upper WFL Extremity Gross ROM Left Upper Extremity WFL Gross ROM Bed Mobility bed mobility - supine/sit Assist Level Moderate x 2 (50% assist) Transfer Training Sit/Stand Transfer Assist Level Moderate x 2 (50% assist) Chair Transfer Independent Ability Lower Body Dressing Moderate Assistance Ability Overall Commode/ Moderate Assistance Toilet Transfer Ability Commode/Toilet Sit to/from Ambulatory Transfer Technique Rehab OT IP prob,goals,plan Problems Date of Evaluation: 06/05/25 OT IP Problems Bed Mobility,Transfers,Balance,Self care,Safety Rehab Potential Rehab Potential Good Equipment Needs Assistive Devices Rolling / Wheeled Walker Plan OT intervention Plan Bed Mobility,Transfers,Balance,Self care,Safety, Therapeutic Exercise OT Plan Frequency Daily Duration LOS Discharge Goals Bed Mobility Ability Assistance x1 Sit to Stand Chair Moderate x 1 (50% assist) Transfer Ability Chair Transfer Moderate x 1 (50% assist) Ability Chair Transfer Sit to/from Ambulatory Technique Discharge Plan OT Discharge Plan At this time, Patient would benefit from placement due to frequent falling and needing 1-2 assistance for bed mobility, transfers and ADLs. Patient will continue skilled OT services at this time in order to assess and improve safety awareness for ADLs and fx'l mobility tasks. Eval Complexity Eval Charge Codes 16734 - Low Complexity PHYSICIAN CERTIFICATION: I certify the specified therapy services for Merrill George Dowling are required, authorized, and reviewed every 30 days.
[2025-06-05 16:38] LABS: Troponin I 0.02 ng/ml (0.00-0.034)
[2025-06-05] MEDS: 0.9 % SODIUM CHLORIDE 1000ML 1,000 ML 150 ML IV (17:11)
[2025-06-05] MEDS: PIPERACILLIN/TAZO 3.375 GM in 0.9 % SODIUM CHLORIDE 50 ML IV ×2 (17:12→23:35)
[2025-06-05] MEDS: GABAPENTIN 800MG TABLET 800 MG PO ×2 (17:23→20:42)
[2025-06-05] MEDS: OXYCODONE 7.5MG W/APAP 325MG TABLET 1 EACH PO (17:27)
[2025-06-05] MEDS: PANTOPRAZOLE 40MG TABLET 40 MG PO (20:42)
[2025-06-05] MEDS: PRAZOSIN 1MG CAP 1 MG PO (20:42)
[2025-06-06] VITALS: BP 111/53; PULSE 95; RESP 16; TEMP 37.1; O2SAT 93
--- NOTE | 2025-06-06 03:48 | PC.NURSE ---
Alert and oriented. No complaints from patient. BLE dry and scaly, dressing in place to feet. Fluids infusing, abx given per MAR. Patient stayed in chair at request. Call light in reach.
[2025-06-06 04:00] VITALS: BP 104/53; PULSE 86; RESP 16; TEMP 37.1; O2SAT 93; BMI 38.9
[2025-06-06] MEDS: 0.9 % SODIUM CHLORIDE 1000ML 1,000 ML 150 ML IV ×3 (04:05→22:55)
[2025-06-06] MEDS: VANCOMYCIN/WATER FOR INJ (PEG) 1.75 GM/350 ML PIGGYBACK IV ×2 (04:18→22:54)
[2025-06-06 06:51] LABS: Hematocrit 43.7 % (42.0-52.0); Hemoglobin 14.4 g/dL (14.1-18.0); Immature Granulocytes % 0.6 %; Mean Corpuscular HGB Conc 33.0 g/dL (31.8-35.4); Mean Corpuscular Hemoglobin 30.8 pg (27.0-31.2); Mean Corpuscular Volume 93.4 fl (80-94); Nucleated Red Blood Cells % 0 %; Platelet Count 146 K/mm3 (142-424); Red Blood Count 4.68 M/mm3 (4.60-6.20); Red Cell Distribution Width-SD 46.5 fL; White Blood Count 17.6 K/mm3 (4.8-10.8)
[2025-06-06 06:54] LABS: Alanine Aminotransferase 121 U/L (12-78); Albumin Level 3.6 g/dl (3.5-5.0); Albumin/Globulin Ratio 1.0 (1.1-1.8); Alkaline Phosphatase 93 U/L (38-126); Anion Gap 12.0 mEq/L (5-15); Aspartate Amino Transferase 447 U/L (17-59); Bilirubin,Total 1.6 mg/dl (0.2-1.3); Blood Urea Nitrogen 30 mg/dl (9-20); Calcium 7.7 mg/dl (8.4-10.2); Carbon Dioxide 23 mmol/L (22.0-30.0); Chloride 103 mmol/L (98-107); Cholesterol 132 mg/dl (140-200); Creatinine Clearance Estimated 76 mL/min (50-200); Creatinine,Serum 1.60 mg/dl (0.66-1.25); Estimated Glomerular Filt Rate 44 ml/min (>60); GFR (African American) 53 ML/MIN (>60); Globulin 3.6 g/dL (1.3-3.2); Glucose 111 mg/dl (74-100); HDL Cholesterol 20 mg/dl (40-60); Magnesium 1.9 mg/dl (1.6-2.3); Potassium 4.0 mmoL/L (3.5-5.1); Sodium 134 mmol/L (136-145); Total Protein,Serum 7.2 g/dl (6.3-8.2); Triglycerides 306 mg/dl (30-150)
[2025-06-06] MEDS: PIPERACILLIN/TAZO 3.375 GM in 0.9 % SODIUM CHLORIDE 50 ML IV ×4 (06:55→23:13)
[2025-06-06 08:00] VITALS: BP 102/56; PULSE 93; RESP 18; TEMP 36.6; O2SAT 93
[2025-06-06 08:44] LABS: Creatine Kinase 17808 U/L (55-170)
[2025-06-06] MEDS: ASPIRIN EC 81MG TABLET 81 MG PO (08:48)
[2025-06-06] MEDS: GABAPENTIN 800MG TABLET 800 MG PO ×4 (08:48→20:48)
[2025-06-06] MEDS: FAMOTIDINE 20MG TABLET 40 MG PO (08:48)
[2025-06-06] MEDS: ONDANSETRON 4MG/2ML VIAL 4 MG IV (08:53)
[2025-06-06 09:03] LABS: C-Reactive Protein 206.7 mg/L (0-4)
--- NOTE | 2025-06-06 09:28 | SW/DCPLANNER ---
Addendum entered by Dianne Mchugh 06/08/25 10:56: [facility] is able to accept patient. Venkatesh ANDREW Beauty Director Addendum entered by Dianne Mchugh 06/08/25 09:42: Spoke with patient regarding home health services once he is medically stable and ready for discharge. Patient stated that he is not going to turn down home simi. Patient stated that he has no preference in what agency i send his information to. I will fax his information to [facility] and will update once i hear back if they can accept patient or not. Venkatesh ANDREW Beauty Director Addendum entered by Brandy Tioga 06/07/25 10:30: Patient has improved physically and no longer feels that he needs placement. PT is recommending home health services. Patient is unsure about home health services and has requested additional time to consider. Patient stated that his brother will be living w/ him at time of discharge to assist. CM will continue to follow up. I will also update [facility] and [facility]. Addendum entered by Brandy Matson 06/06/25 14:24: Per Tarik hauser/ [place] patient's insurance is not in network and no OON benefit. Addendum entered by [facility] 06/06/25 14:12: Jakub w/ [facility] and Lynette hauser/ [facility] are interested in this patient for SNF level of care. Patient has requested additional time to speak w/ his sister prior to making decision on placement. CM will continue to follow up. Original Note: I spoke w/ this patient regarding plans once medically stable for discharge. PT/OT evaluated patient and recommended SNF level of care. Patient voiced that he is agreeable to short term placement and prefer [place] [facility] Patient information will be faxed to the following facilities: [facility] and [facility]. Discharge date is unknown at this time. CM will continue to follow up. Patient is agreeable w/ this plan.
[2025-06-06] MEDS: VENLAFAXINE XR 75MG CAPSULE 75 MG PO (09:37)
--- NOTE | 2025-06-06 10:05 | P.PN_ITS ---
<Statement entered by Nicho Cardoza MD - 06/06/25 15:05> Rounded on patient after nurse practitioner. Personally examined and interviewed patient. Agree with exam findings and care plan as documented. Subjective *Date: 06/06/25 *Time: 13:31 Interval history: Patient doing well this morning, up to chair. Continuing with IV fluids. Sister at bedside, answered questions about plan of care. PT/OT recommending placement due to increased generalized weakness. Patient agreeable, social work working on placement options at this time. Medical Exam Vital signs and Labs for Last 24 Hours: Vital Signs Temp Pulse Pulse Resp BP BP Pulse Ox 06/06/25 08:56 06/06/25 08:00 06/06/25 08:00 98 F 93 H 18 102/56 L 93 L 06/06/25 07:00 06/06/25 05:00 06/06/25 04:00 98.7 F 86 16 104/53 L 93 L 06/06/25 03:00 06/06/25 00:47 06/06/25 00:00 98.7 F 95 H 16 111/53 L 93 L 06/05/25 23:00 06/05/25 21:00 06/05/25 20:00 06/05/25 20:00 98.7 F 100 H 16 151/65 H 94 L 06/05/25 19:00 06/05/25 17:00 06/05/25 16:00 98 F 88 21 132/70 93 L 06/05/25 15:52 98 F 88 21 132/70 93 L 06/05/25 15:00 06/05/25 14:05 06/05/25 13:33 98.3 F 86 18 122/58 L O2 Del Method 06/06/25 08:56 Room Air 06/06/25 08:00 Room Air 06/06/25 08:00 Room Air 06/06/25 07:00 Room Air 06/06/25 05:00 Room Air 06/06/25 04:00 Room Air 06/06/25 03:00 Room Air 06/06/25 00:47 Room Air 06/06/25 00:00 Room Air 06/05/25 23:00 Room Air 06/05/25 21:00 Room Air 06/05/25 20:00 Room Air 06/05/25 20:00 Room Air 06/05/25 19:00 Room Air 06/05/25 17:00 Room Air 06/05/25 16:00 Room Air 06/05/25 15:52 Room Air 06/05/25 15:00 Room Air 06/05/25 14:05 Room Air 06/05/25 13:33 Intake and Output 06/05/25 06/06/25 06/06/25 23:59 07:59 15:59 Intake Total 1400 / 2180 580 / 940 360 / 940 Output Total 250 / 350 350 / 550 200 / 550 Balance 1150 / 1830 230 / 390 160 / 390 Intake: Intake, Oral Amount 180 / 540 360 / 540 Intake, Total IV Amount 1400 / 2000 400 / 400 0.9 % Sodium Chloride 1000ML 1, 1000 / 1000 000 ml @ 150 mls/hr IV .Q6H40M [facility] Rx#:[id number] Piperacillin/Tazo 3.375 gm In 0 50 / 50 50 / 50 .9 % Sodium Chloride 50 ml @ 100 mls/hr IV Q6H [facility] Rx#: [id number] Vancomycin/Water For Inj (Peg) 350 / 350 1.75 gm In 350 ml @ 175 mls/hr IV ONCE ONE Rx#:[id number] Vancomycin/Water For Inj (Peg) 350 / 350 1.75 gm In 350 ml @ 175 mls/hr IV Q18H [facility] Rx#:[id number] Output: Output, Urine Amount 250 / 350 350 / 550 200 / 550 Other: Number of Voids 0 0 Weight 116.375 kg 116.715 kg Patient Weight 06/06/25 23:59 Weight 116.715 kg Laboratory Results - last 24 hr 06/05/25 09:30: PT 12.9 H, INR 1.18 H, Total Creatine Kinase 97863 H*, Troponin I 0.03, C-Reactive Protein 205.8 H, NT-Pro-B Natriuret Pep 823 H, Lipase 43, Procalcitonin 7.78 H, Urine RBC 5-10, Urine WBC Occasional, Ur Squamous Epith Cells Occasional, Urine Bacteria Trace, Chlamy pneumoniae PCR Not detected, Adenovirus (PCR) Not detected, B. pertussis DNA (PCR) Not detected, Coronavirus OC43 (PCR) Not detected, Coronavirus HKU1 (PCR) Not detected, Coronavirus 229E (PCR) Not detected, SARS-CoV-2 (PCR) Not detected 06/05/25 09:30: SARS-CoV-2 (PCR) Not detected, Coronavirus NL63 (PCR) Not detected, Hepatitis A IgM Ab Negative, Hep Bs Antigen Negative, Hep B Core IgM Ab Negative, Hepatitis C Antibody Non reactive, HCV RNA PCR Test Info Comment, Human Metapneumovir PCR Not detected, Influenza A (H1) PCR Not detected, Influ A (H1N1/09) PCR Not detected, Influenza A (H3) PCR Not detected, Influenza Type A (PCR) Not detected, Influenza A Untype (PCR) Not detected, Influenza Type B (PCR) Not detected 06/05/25 09:30: Influenza Type B (PCR) Not detected, M. pneumoniae (PCR) Not detected, Parainfluenza 1 (PCR) Not detected, Parainfluenza 2 (PCR) Not detected , Parainfluenza 3 (PCR) Not detected, Parainfluenza 4 (PCR) Not detected, RSV (PCR) Not detected, Entero/Rhino (PCR) Not detected 06/05/25 11:08: Ammonia 9 06/05/25 13:10: Troponin I 0.03 06/05/25 16:00: Troponin I 0.02 06/06/25 05:30: WBC 17.6 H, RBC 4.68, Hgb 14.4, Hct 43.7, MCV 93.4, MCH 30.8, MCHC 33.0, RDW 13.8, Plt Count 146, MPV 9.3, Neut % (Auto) 82.6 H, Lymph % (Auto) 9.2 L, [place] % (Auto) 7.3, Eos % (Auto) 0.1, Baso % (Auto) 0.2, Neut # (Auto) 14.6 H, Lymph # (Auto) 1.6, [place] # (Auto) 1.3 H, Eos # (Auto) 0.0, Baso # (Auto) 0.0, Sodium 134 L, Potassium 4.0, Chloride 103, Carbon Dioxide 23, Anion Gap 12.0, BUN 30 H, Creatinine 1.60 H, Estimated Creat Clear 76, Estimated GFR 44 L, Est GFR ( Amer) 53 L, Glucose 111 H, Calcium 7.7 L, Magnesium 1.9 D, Total Bilirubin 1.6 H, AST 447 H* D, ALT 121 H, Alkaline Phosphatase 93, C- Reactive Protein 206.7 H, Total Protein 7.2, Albumin 3.6, Globulin 3.6 H, Albumin/Globulin Ratio 1.0 L, Triglycerides 306 H, Cholesterol 132 L, LDL Cholesterol Direct 53.47 L, VLDL Cholesterol 61 H, HDL Cholesterol 20 L, Cholesterol/HDL Ratio 6.6 H 06/06/25 05:50: Total Creatine Kinase 93555 H* I & O for Labs for Last 24 Hours: Intake & Output 06/03/25 06/04/25 06/05/25 06/06/25 23:59 23:59 23:59 23:59 Intake Total 2000 / 2180 940 / 940 Output Total 250 / 350 550 / 550 Balance 1750 / 1830 390 / 390 Weight 116.375 kg 116.715 kg Constitutional: Present no acute distress, obese, chronically ill appearing and cooperative Head: Present atraumatic Eyes: Present as per HPI ENT: Present normal exam Neck: Present normal inspection Respiratory: Present CTA bilaterally and normal respiratory effort; Absent wheezes or crackles Cardiac: Present Reg Rate and Rhythm and No Murmur GI: Present soft and normal bowel sounds; Absent distention or tenderness Rectal (male): Present deferred (male): Present deferred Extremities: Present normal inspection and full ROM; Absent edema Skin: Present intact, erythema, dry and cracked Comment:: 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 Neuro: Present Weakness, alert, awake and oriented x 3 Assessment and Plan *Assessment and plan (1) Rhabdomyolysis: Status: Acute Category: Medical Code(s): M62.82 - Rhabdomyolysis (2) SIRS (systemic inflammatory response syndrome): Status: Acute Category: Medical Code(s): R65.10 - Systemic inflammatory response syndrome (SIRS) of non-infectious origin without acute organ dysfunction (3) ANISA (acute kidney injury): Status: Acute Category: Medical Code(s): N17.9 - Acute kidney failure, unspecified (4) Generalized weakness: Status: Acute Category: Medical Code(s): R53.1 - Weakness (5) Adenopathy: Status: Acute Category: Medical Code(s): R59.9 - Enlarged lymph nodes, unspecified (6) Transaminitis: Status: Acute Category: Medical Code(s): R74.01 - Elevation of levels of liver transaminase levels (7) Bony sclerosis: Status: Acute Category: Medical Code(s): 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 Lindsay is a 65-year-old male who has a primary medical history of osteoarthritis, gout, peripheral vascular disease with venous insufficiency bilaterally, obesity, lymphedema, tobacco use, DDD, hypertension, anxiety, major depressive disorder, melanoma, VIJAY, CAD, HFpEF, type 2 diabetes. He presented to the emergency department yesterday via EMS with complaints of generalized weakness, multiple falls. He also states that he did fall backwards 1 time striking his head but did not lose consciousness. Patient states that he has had progressive weakness over the past 2 to 3 weeks. He states that he is following with [facility] for a recent melanoma removal and lymphoproliferative disorder of unknown origin. States he recently had a PET scan for further help with diagnosis, also states that he received 1 dose of Keytruda immunotherapy approximately 3 weeks ago. Workup in the emergency department was performed, patient remained hemodynamically stable and nontoxic-appearing during arrival. He was tachycardic in the low 100s. Patient states that he was on the floor the last time he fell for approximately 2-3 hours before he called 911. He states he tried multiple times to get up but could not. 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 CT of head, neck, thorax, abdomen, pelvis, chest were all obtained. All of which showed no acute findings with the exception of sclerotic lesions and adenopathy in his pelvis. Lab work was significant for elevated WBC of 20.2, potentially reactive. ANISA with a creatinine of 1.50. Transaminitis AST 636, ALT 125. CRP 205.8, procalcitonin 7.78. Significantly elevated CK of 37,318. Viral respiratory panel was negative. Blood cultures were obtained and are pending. Hospital medicine was consulted for admission, I agreed to admit the patient for acute rhabdomyolysis, transaminitis, ANISA, seizures, weakness, frequent falls. Plan of care is as follows: #SIRS ? Patient meeting SIRS criteria on admission, elevated WBC of 20.2 and tachycardia heart rate low 100s. No known source of infection at this time. Patient started empirically on broad-spectrum antibiotics, vancomycin and Zosyn. WBC trending downward today to 17.6. Does appear patient has a chronic leukocytosis around 12?13. Will continue to trend. ?Pro-Guille and CRP both elevated on admission, repeat CRP continues to be elevated at 200. Will continue to monitor. ?CBC, Pro-Guille, CRP ordered for the a.m. #Rhabdo #ANISA #Weakness #Frequent falls #Melanoma #Transaminitis ? Patient complains of generalized weakness for the past 2-3 weeks. He fell today which prompted him to call EMS, states he was on the floor for 2-3 hours approximately. Patient states during that time he did try to get himself up multiple times. Patient continues to complain of weakness, but states it is some better. Up to chair today, sister at bedside. ?Patient recently started Keytruda immunotherapy with [facility] for known melanoma. CTA of abdomen/pelvis shows pelvic lymph node adenopathy and sclerotic bone lesions. Concerning for lymphoproliferative disorder versus metastasis. Patient states he had a recent PET scan. Received office note from melanoma removal and recommendation of Keytruda, records state patient was given the choice to start Keytruda versus watchful waiting. Patient also had a PET scan at that time for which I do not have the results. Waiting for a callback from [facility] at this time. ?Patient had markedly elevated CK of greater than 37,000 on admission. Patient received a 500 mL bolus in the ED, will continue NS at 150 mL/H. Serial CK levels ordered. CK level significantly improved today to greater than 17,000. Will continue to trend. ?Kidney function elevated, creatinine admission 1.5, repeat today creatinine 1.6. Patient continuing to make urine although dark. ?PT/OT ordered for evaluation of patient's increased weakness. Patient agreeable for rehab placement at discharge. Brandy Matson, social work working on placement options at this time. Anticipate patient to be with us 2?3 more days. ? Concern for rhabdo related to Keytruda versus fall. Liver enzymes elevated but trending downward, hepatitis panel negative. Elevation likely related to rhabdo. #HFpEF ? Patient has known heart failure with preserved EF, echo 03/19 has LVEF of 55%, normal BiV systolic function. Cardiac cath in December 2024 showed mild to moderate nonlimiting coronary disease. Preserved EF, elevated LVEDP. ?Continue spironolactone 50 mg daily, losartan 100 mg daily, Lasix 40 mg daily, aspirin 81 mg daily, prazosin 1 mg daily. Hold Lipitor 20 mg at bedtime. ?Patient does not appear to be hypervolemic at this time. Monitoring closely. #COPD: Patient takes Symbicort 1 puff twice daily, patient has not brought Symbicort and is not on our formulary. Continue with Advair 1 puff twice daily. #Chronic pain: Continue Percocet 7.5-325 mg every 6 hours as needed for pain. #GERD: Continue omeprazole 20 mg daily for reflux, famotidine 40 mg daily. Full code Up with assistance VTE?Lovenox Cardiac diet
[2025-06-06 10:09] LABS: Uric Acid 8.6 mg/dl (3.5-8.5)
--- NOTE | 2025-06-06 10:41 | HMH.PTEV ---
Physical Therapy Evaluation Rehab PT IP Evaluation Start: 06/05/25 13:07 Freq: ONCE Status: Active Protocol: Document 06/06/25 10:38 ANA LAURA (Rec: 06/06/25 10:41 ANA LAURA [id number]) Subjective/History History History Per H&P: Mr. Lindsay is a 65-year-old male who has a primary medical history of osteoarthritis, gout, peripheral vascular disease with venous insufficiency bilaterally, obesity, lymphedema, tobacco use, DDD, hypertension, anxiety, major depressive disorder, melanoma, VIJAY, CAD, HFpEF, type 2 diabetes. He presented to the emergency department today via EMS with complaints of generalized weakness, multiple falls . He also states that he did fall backwards 1 time striking his head but did not lose consciousness. Patient states that he has had progressive weakness over the past 2 to 3 weeks. He states that he is following with [facility] for a lymphoproliferative disorder of unknown origin. States he recently had a PET scan for further help with diagnosis, also states that he received 1 dose of Keytruda immunotherapy approximately 3 weeks ago. Workup in the emergency department was performed, patient remained hemodynamically stable and nontoxic- appearing during arrival. He was tachycardic in the low 100s. Patient states that he was on the floor the last time he fell for approximately 2-3 hours before he called 911. He states he tried multiple times to get up but could not. 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 CT of head, neck, thorax, abdomen, pelvis, chest were all obtained. All of which showed no acute findings with the exception of sclerotic lesions and adenopathy in his pelvis. Lab work was significant for elevated WBC of 20.2, potentially reactive. ANISA with a creatinine of 1.50. Transaminitis AST 636, ALT 125. CRP 205.8, procalcitonin 7.78. Significantly elevated CK of 37, 318. Viral respiratory panel was negative. Blood cultures were obtained and are pending. Subjective Subjective Patient lives alone in 1 story home with no BUD. Patient stated to be independent with ADLs and fx'l mobility up til 06/03/25. Pt still drives. New diagnosis of No cancer in past 12 months? [facility] How much help from another person do you currently need... Turning from your A lot back to your side while in a flat bed without using bedrails? Moving from lying on A lot back to sitting on the side of a flat bed without using bedrails? Moving to and from a A lot bed to a chair ( including a wheelchair)? Standing up from a A lot chair using your arms? (e.g., wheelchair, bedside chair) Walking in hospital A lot room? Climbing 3-5 steps Total with a railing? Mobility Score 11 Mobility Level [facility] Mobility 4 Move to chair/commode Mobility Calculator Rehab PT IP Eval Objective Appearance Patient Behavior Appropriate,Cooperative Patient Orientation Person,Situation Difficulty following none instructions Ambulation Patient Able to No Ambulate Balance Ability to Arise Able, uses arms to help Sitting Balance Steady, safe Standing Balance Unsteady Transfers Sit to Stand Bed Maximum x 2 (75% assist) Transfer Ability Rehab PT IP prob,goals,plan Problems Date of Evaluation: 06/06/25 PT IP Problems Bed Mobility,Transfers,Gait,Balance,Self care,Safety Rehab Potential Rehab Potential Good Plan PT Intervention Plan Bed Mobility,Transfers,Gait,Balance,Self care,Safety, Therapeutic Exercise Other Intervention 1-2 times Plan PT Plan Frequency Daily Duration LOS Discharge Goals Bed Transfer Ability Moderate x 1 (50% assist) Sit to Stand Chair Moderate x 1 (50% assist) Transfer Ability Discharge Plan PT Discharge Plan Initial physical therapy evaluation performed. Patient presents below baseline at this time in functional mobility, transfers, and strength. Pt not safe to return home at this time d/t current level of functional mobility. PT recommending inpatient rehabilitation facility (IRF) placement upon d/c from [facility]. Pt would benefit from skilled PT while at [facility] to prevent further functional decline and maximize safety with mobility. Eval Complexity Eval Charge Codes 95695 - Moderate Complexity PHYSICIAN CERTIFICATION: I certify the specified therapy services for Merrill Dowling are required, authorized, and reviewed every 30 days.
[2025-06-06] MEDS: IRBESARTAN 150MG TAB 150 MG PO (11:49)
[2025-06-06 14:45] LABS: Creatine Kinase 14518 U/L (55-170)
--- OUTSIDE RECORDS SUMMARY | 2025-06-06 14:58 | XMS_ITS | Encounter Summary ---
Author Organization Healthcare Address [address] [place] [id number] Care Team Providers Care Window Shade Ring Sewer Name Role Phone Dina Tong APRN Primary Care Provider [phone] Encounter Details Date Type Department Care Team ([facility] st Contact Info) Description 05/17/2025 Telephone [facility] [address] [place] [phone] Citlalli Castellon MD 800 [facility] [address] [address] Social History Tobacco Use Types Packs/Day Years [...] encounter Miscellaneous Notes * Telephone Encounter - Alf Chinggerry Chang - 05/17/2025 1:01 PM EDT Patient Phone Message Reason for Call: The pt is returning Gabriela call he said he will be here for his appt tmw Best contact number and optimal time of day to reach caller: [phone] Note: Please do not reply to this message. Follow-up communication and further actions as a result of this message need to be communicated with the patient directly, if the patient is not active onMyChart. If the patient is active on MyChart, they will receive notification of the communication/outcome via [employer]. documented in this encounter Plan of Treatment Upcoming Encounters Date Type Department Care Team (Late st Contact Info) Description 09/05/2025 11:30 AM EST Office Visit [facility] Mult[facility] Oncology Clinic [address] [place] [address] Shital Whipple, WENDI [id number] [place] [address] documented as of this encounter Visit Diagnoses [...] documented as of this encounter Care Teams Window Shade Ring Sewer Relationship Specialty Start Date End Date Dina Tong APRN [address] [place] [address] PCP - General 12/05/24 documented as of this encounter
--- OUTSIDE RECORDS SUMMARY | 2025-06-06 14:58 | XMS_ITS | Encounter Summary ---
Author Organization Healthcare Address [address] [place] [address] Care Team Providers Care Occupational Health Rn Name Role Phone Dina Tong APRN Primary Care Provider [phone] Encounter Details Date Type Department Care Team [...] [facility] [address] [place] [address] Shital Whipple, STATE GAME WARDEN [address] [place] [address] documented as of this encounter Visit Diagnoses [...] documented as of this encounter Care Teams Occupational Health Rn Relationship Specialty Start Date End Date Dina Tong APRN [address] [place] [address] PCP - General 12/05/24 documented as of this encounter
--- OUTSIDE RECORDS SUMMARY | 2025-06-06 14:58 | XMS_ITS | Encounter Summary ---
Author Organization Healthcare Address [address] [place] [id number] Care Team Providers Care Assistant Bookkeeper Name Role Phone Harry Tongica WENDI Primary Care Provider Encounter Details Date Type Department Care Team ([facility] st Contact Info) Description 05/01/2025 Telephone [facility] [address] [place] [address] Citlalli Castellon MD 800 [facility] [address] [address] Social History Tobacco Use Types Packs/Day Years [...] [facility] [address] [place] [address] Shital Whipple, CHIP WASHER [address] [place] [address] documented as of this encounter Visit Diagnoses [...] documented as of this encounter Care Teams Assistant Bookkeeper Relationship Specialty Start Date End Date Dina Tong APRN [address] [place] [address] PCP - General 12/05/24 documented as of this encounter
--- OUTSIDE RECORDS SUMMARY | 2025-06-06 14:58 | XMS_ITS | Encounter Summary ---
Author Organization [facility] Address [address] [place] [id number] Care Team Providers Care Trimming Assembler Name Role Phone Dina Tong WENDI Primary Care Provider [phone] Encounter Details Date Type Department Care Team ([facility] st Contact Info) Description 05/03/2025 Telephone [facility] [address] [place] [address] Citlalli Castellon MD 800 [facility] [address] [address] Social History Tobacco Use Types Packs/Day Years [...] [facility] [address] [place] [address] Shital Whipple, CANAL STRUCTURE OPERATOR [address] [place] [address] documented as of this encounter Visit Diagnoses [...] documented as of this encounter Care Teams Trimming Assembler Relationship Specialty Start Date End Date Dina Tong APRN [address] [place] [address] PCP - General 12/05/24 documented as of this encounter
--- OUTSIDE RECORDS SUMMARY | 2025-06-06 14:58 | XMS_ITS | Encounter Summary ---
Author Organization Healthcare Address [address] [place] [address] Care Team Providers Care Acrobatic Dancer Name Role Phone RanHarry padillaica WENDI Primary Care Provider [phone] Encounter Details Date Type Department Care Team (Late st Contact Info) Description 03/22/2025 Telephone [facility] [address] [place] [address] Rima Lopez APRN [address] [place] [address] Social History Tobacco Use Types Packs/Day Years [...] optimal time of day to reach caller: [phone] Note: Please do not reply to this [...] [facility] [address] [place] [address] Shital Whipple, FRAME CLEANER [address] [facility] [address] [place] [address] documented as of this encounter Visit Diagnoses [...] documented as of this encounter Care Teams Acrobatic Dancer Relationship Specialty Start Date End Date Dina Tong APRN [address] [place] [address] PCP - General 12/05/24 documented as of this encounter
--- OUTSIDE RECORDS SUMMARY | 2025-06-06 14:58 | XMS_ITS | Encounter Summary ---
Author Organization Healthcare Address [address] [place] [id number] Care Team Providers Care Multiple Tube Winding Machine Operator Name Role Phone Ran Dina WENDI Primary Care Provider [phone] Encounter Details Date Type Department Care Team ([facility] st Contact Info) Description 05/02/2025 Telephone [facility] [address] [place] [address] Citlalli Castellon MD 800 [facility] [address] [address] Social History Tobacco Use Types Packs/Day Years [...] [facility] [address] [place] [address] Shital Whipple, JOB RECRUITER [address] [place] [address] documented as of this encounter Visit Diagnoses [...] documented as of this encounter Care Teams Multiple Tube Winding Machine Operator Relationship Specialty Start Date End Date Dina Tong APRN [address] [place] [address] PCP - General 12/05/24 documented as of this encounter
--- OUTSIDE RECORDS SUMMARY | 2025-06-06 14:58 | XMS_ITS ---
Author Organization [facility] Address [address] [place] [address] Care Team Providers Care Tie Fastener Name Role Phone Dina Tong APRN Primary Care Provider [phone] Active Problems Problem Noted Date Diagnosed Date [...]
--- OUTSIDE RECORDS SUMMARY | 2025-06-06 14:58 | XMS_ITS | Encounter Summary ---
Author Organization Healthcare Address [address] [place] [address] Care Team Providers Care Senior Clinician Name Role Phone Dina Tong WENDI Primary Care Provider [phone] Encounter Details Date Type Department Care Team [...] [facility] [address] [place] [address] Shital Whipple, WENDI [address] [facility] [address] [place] [address] documented as of this encounter Visit Diagnoses [...] as of this encounter Care Teams Senior Clinician Relationship Specialty Start Date End Date Dina Tong APRN [address] [place] [address] PCP - General 12/05/24 documented as of this encounter
--- OUTSIDE RECORDS SUMMARY | 2025-06-06 14:58 | XMS_ITS | Encounter Summary ---
Author Organization Healthcare Address [address] [place] [address] Care Team Providers Care Balloon Design Printer Name Role Phone Dina Tong APRN Primary Care Provider [phone] Encounter Details Date Type Department Care Team [...] [facility] [address] [place] [address] Shital Whipple D, MUSIC CRITIC [address] [place] [address] documented as of this encounter Visit Diagnoses [...] documented as of this encounter Care Teams Balloon Design Printer Relationship Specialty Start Date End Date Dina Tong APRN [address] [place] [address] PCP - General 12/05/24 documented as of this encounter
--- OUTSIDE RECORDS SUMMARY | 2025-06-06 14:58 | XMS_ITS | Referral Summary ---
Author Organization [facility] ([place], [place], [place], [place], [place]) Address [address] [place] [address] Care Team Providers Care Biomaterials Engineer Name Role Phone Tania Murry MD Unavailable [phone] [facility], Provider Not In The System MD Primary [...] Date Grant rded Speak language other than Norwegian at home Not on file 10/01/2023 Want [...] Plan of Treatment Not on file Insurance [facility] DUAL COMPLETE [facility] MCR ADV DUAL COMPLETE MEDICAID QMB Care Teams Biomaterials Engineer Relationship Specialty Start Date End Date [facility], Provider Not In The System, [place] [address] PCP - General 02/11/24 Tania Murry MD [address] [facility] [address] [place] [id number] Interventional Cardiology 10/23/23
--- OUTSIDE RECORDS SUMMARY | 2025-06-06 14:58 | XMS_ITS | Clinical Summary ---
Author Organization [facility] ([place], [place], [place], [place], [place]) Address [address] [place] [address] Care Team Providers Care Glass Tinter Name Role Phone Tania Murry MD Unavailable [phone] [facility], Provider Not In The System MD [...] Date Grant rded Speak language other than Swiss at home Not on file 10/01/2023 Want [...] (1 - 1-dose 75+ series) 01/01/2035 Insurance [facility] DUAL COMPLETE [facility] ADV [facility] ADV DUAL COMPLETE MEDICAID QMB Care Teams Glass Tinter Relationship Specialty Start Date End Date [facility], Provider Not In The System, [place] [address] PCP - General 02/11/24 [place] [address] [place] [address] [address] [place] [address] Interventional Cardiology 10/23/23
--- OUTSIDE RECORDS SUMMARY | 2025-06-06 14:58 | XMS_ITS | Encounter Summary ---
Author Organization [facility] Address [address] [place] [address] Care Team Providers Care Golf Manager Name Role Phone Dina Tong APRN Primary Care Provider [phone] Encounter Details Date Type Department Care Team ([facility] st Contact Info) Description 05/17/2025 Telephone [facility] [address] [place] [address] Gabriela Joseph RN Social History Tobacco Use [...] [facility] [address] [place] [address] Shital Whipple, THERAPEUTIC SPECIALIST [address] [place] [address] documented as of this encounter Visit Diagnoses [...] documented as of this encounter Care Teams Golf Manager Relationship Specialty Start Date End Date Dina Tong APRN [address] [place] [address] PCP - General 12/05/24 documented as of this encounter
--- OUTSIDE RECORDS SUMMARY | 2025-06-06 14:59 | XMS_ITS | Encounter Summary ---
Author Organization Healthcare Address [address] [place] [address] Care Team Providers Care Junior Financial Analyst Name Role Phone Dina Tong APRN Primary Care Provider [phone] Encounter Details Date Type Department Care Team (Late Contact Info) Description 06/01/2025 Orders Only [facility] [address] [place] [address] Citlalli Castellon MD 800 [facility] Emmanuelle Ortega [address] [address] Social History Tobacco Use Types Packs/Day Years [...] Department Care Team (Late Contact Info) Description 09/05/2025 11:30 AM EST Office Visit [facility] [address] [place] [address] Shital Whipple APRN [address] [facility] [address] [place] [address] documented as of this encounter Visit Diagnoses [...] documented as of this encounter Care Teams Junior Financial Analyst Relationship Specialty Start Date End Date Dina Tong APRN [address] [place] [address] PCP - General 12/05/24 documented as of this encounter
--- OUTSIDE RECORDS SUMMARY | 2025-06-06 14:59 | XMS_ITS | Clinical Summary ---
Author Organization [facility] Address [address] [place] [address] Care Team Providers Care Solar Systems Designer Name Role Phone Dina Tong APRN Primary Care Provider [phone] Allergies Active Allergy Reactions Criticality Noted Date [...] 2 % ointment 07/08/20 21 Active Nystop 626575 UNIT/GM powder 03/15/20 21 Active tobramycin (Nebcin) [...] Encounters Date Type Department Care Team Description 06/06/2025 Telephone [facility] [address] [place] [address] Citlalli Castellon MD 06/01/2025 Orders Only [facility] [address] [place] [address] Citlalli Castellon MD 05/18/2025 2:50 PM EDT - 05/18/2025 11:59 PM EDT Hospital Encounter [facility] Infusion [address] [place] [address] 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 (Primary Dx) Discharge Disposition: Home or Self Care 05/18/2025 2:00 PM EDT Office Visit [facility] [address] [place] [address] Citlalli Castellon MD Malignant melanoma, unspecified site (CMS/HCC) (Primary Dx) 05/18/2025 Travel 05/17/2025 Telephone [facility] [address] [place] [address] Citlalli Castellon MD 05/17/2025 Telephone [facility] [address] [place] [address] Gabriela Joseph RN 05/04/2025 8:21 AM EDT - 05/04/2025 11:59 PM EDT Hospital Encounter [facility] PET Scan [address] [place] [address] Discharge Disposition: Home or Self Care 05/04/2025 8:21 AM EDT - 05/04/2025 11:59 PM EDT Hospital Encounter [facility] PET Scan [address] [place] [address] Malignant melanoma, unspecified site (CMS/HCC) Discharge Disposition: Home or Self Care 05/04/2025 Travel 05/03/2025 Telephone [facility] [address] [place] [address] Citlalli Castellon MD 05/02/2025 Telephone [facility] [address] [place] [address] Citlalli Castellon MD 05/01/2025 Telephone [facility] [address] [place] [address] Citlalli Castellon MD 04/13/2025 9:40 AM EDT Office Visit [facility] [address] [place] [address] Citlalli Castellon MD Malignant melanoma, unspecified site (CMS/HCC) (Primary Dx); 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 04/13/2025 9:00 AM EDT Office Visit [facility] [address] [place] [address] Rima Lopez David, PHOTOFLASH POWDER MIXER 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 [C43.62] (Primary Dx) 04/13/2025 Travel 03/22/2025 Telephone [facility] [address] [place] [address] Rima LopezWENDI 03/06/2025 10:30 AM EDT Office Visit [facility] [address] [place] [address] Ofe Langford MD Malignant melanoma of left [...] [facility] [address] [place] [address] Shital Whipple, PHOTOFLASH POWDER MIXER [address] [place] [address] Health Maintenance Due Date Last Done Comments [facility]-Hepatitis C Screening 1960 [facility]-Medicare Annual Wellness (AWV) 1960 [facility]-Infant/Child/Adol SDOH Screenings 1960 [facility]- SDOH Screenings 01/01/1978 [...] - Risk 60-74 years 1-dose series) 2020 [id number] Vaccine (3 - Pfizer risk series) 12/05/2020 [...] - 4.50 ng/mL 05/18/2025 2:42 PM EDT [facility] Blood Venous blood specimen / Unknown Venipuncture / Unknown 05/18/2025 1:34 PM EDT 05/18/2025 2:06 PM EDT Narrative [facility] - 05/18/2025 2:42 PM EDT Performed by [employer] electrochemiluminescent immunoassay which is standardized against the PSA [place] Reference Standard (WHO 96/670). Results obtained with different test methods or kits cannot be used interchangeably. us Citlalli Castellon MD LAB BLOOD ORDERABLES Final Resul t [facility] [address] [place] [address] * TSH reflex FT4 (05/18/2025 1:17 PM EDT) Thyroid Stimulating Hormone, Plasma 2.00 0.40 - 4.20 uIU/mL 05/18/2025 2:15 PM EDT [facility] Blood Venous blood specimen / Unknown Venipuncture / Unknown 05/18/2025 1:17 PM EDT 05/18/2025 1:38 PM EDT us Citlalli Castellon MD LAB BLOOD ORDERABLES Final Resul t [facility] [address] [place] [address] * (ABNORMAL) CBC and differential (05/18/2025 1:17 PM EDT) WBC Count 10.53(H) 3.70 - 10.30 10*3/uL LAB HEMATOLOGY METHOD 05/18/2025 1:45 PM EDT [facility] RBC Count 4.89 4.60 - 6.10 10*6/uL LAB HEMATOLOGY METHOD 05/18/2025 1:45 PM EDT [facility] HGB 14.9 13.7 - 17.5 g/dL LAB HEMATOLOGY METHOD 05/18/2025 1:45 PM EDT [facility] HCT 44.9 40.0 - 51.0 % LAB HEMATOLOGY METHOD 05/18/2025 1:45 PM EDT [facility] Platelet Count 275 155 - 369 10*3/uL LAB HEMATOLOGY METHOD 05/18/2025 1:45 PM EDT [facility] MCV 92 79 - 98 fL LAB HEMATOLOGY METHOD 05/18/2025 1:45 PM EDT [facility] MCH 30.5 26.0 - 32.0 pg LAB HEMATOLOGY METHOD 05/18/2025 1:45 PM EDT [facility] MCHC 33.2 30.7 - 35.5 g/dL LAB HEMATOLOGY METHOD 05/18/2025 1:45 PM EDT [facility] RDW 13.1 11.5 - 14.5 % LAB HEMATOLOGY METHOD 05/18/2025 1:45 PM EDT [facility] MPV 8.7(L) 8.8 - 12.5 fL LAB HEMATOLOGY METHOD 05/18/2025 1:45 PM EDT [facility] nRBC 0.0 <=0.0 per 100 WBCs LAB HEMATOLOGY METHOD 05/18/2025 1:45 PM EDT [facility] Differential Type Automated LAB HEMATOLOGY METHOD 05/18/2025 1:45 PM EDT [facility] Neutrophils % 61 % LAB HEMATOLOGY METHOD 05/18/2025 1:45 PM EDT [facility] Lymphocytes % 28 % LAB HEMATOLOGY METHOD 05/18/2025 1:45 PM EDT [facility] Monocytes % 9 % LAB HEMATOLOGY METHOD 05/18/2025 1:45 PM EDT [facility] Eosinophils % 1 % LAB HEMATOLOGY METHOD 05/18/2025 1:45 PM EDT [facility] Basophils % 0 % LAB HEMATOLOGY METHOD 05/18/2025 1:45 PM EDT [facility] Immature Granulocytes % 1 % LAB HEMATOLOGY METHOD 05/18/2025 1:45 PM EDT [facility] Neutrophils Absolute 6.46(H) 1.60 - 6.10 10*3/uL LAB HEMATOLOGY METHOD 05/18/2025 1:45 PM EDT [facility] Lymphocytes Absolute 2.90 1.20 - 3.90 10*3/uL LAB HEMATOLOGY METHOD 05/18/2025 1:45 PM EDT [facility] Monocytes Absolute 0.95(H) 0.30 - 0.90 10*3/uL LAB HEMATOLOGY METHOD 05/18/2025 1:45 PM EDT [facility] Eosinophils Absolute 0.11 0.00 - 0.50 10*3/uL LAB HEMATOLOGY METHOD 05/18/2025 1:45 PM EDT [facility] Basophils Absolute 0.04 0.00 - 0.10 10*3/uL LAB HEMATOLOGY METHOD 05/18/2025 1:45 PM EDT [facility] Immature Granulocytes Absolute 0.07(H) 0.00 - 0.06 10*3/uL LAB HEMATOLOGY METHOD 05/18/2025 1:45 PM EDT [facility] Blood Venous blood specimen / Unknown Venipuncture / Unknown 05/18/2025 1:17 PM EDT 05/18/2025 1:38 PM EDT Narrative [facility] - 05/18/2025 1:45 PM EDT Therapeutic decision making should be based on absolute values, rather than percentages. us Citlalli Castellon MD LAB BLOOD ORDERABLES Final Resul t [facility] [address] [place] [address] * (ABNORMAL) Comprehensive metabolic panel (05/18/2025 1:17 PM EDT) Glucose, Plasma 86 74 - 99 mg/dL 05/18/2025 2:15 PM EDT [facility] BUN, Plasma 10 8 - 23 mg/dL 05/18/2025 2:15 PM EDT [facility] Creatinine, Plasma 1.00 0.70 - 1.20 mg/dL 05/18/2025 2:15 PM EDT [facility] BUN/Creatinine Ratio 10 05/18/2025 2:15 PM EDT [facility] Sodium, Plasma 142 136 - 145 mmol/L 05/18/2025 2:15 PM EDT [facility] Potassium, Plasma 4.7 3.6 - 4.9 mmol/L 05/18/2025 2:15 PM EDT [facility] Chloride, Plasma 104 97 - 107 mmol/L 05/18/2025 2:15 PM EDT [facility] CO2, Plasma 29 22 - 29 mmol/L 05/18/2025 2:15 PM EDT [facility] Anion Gap 9 6 - 16 mmol/L 05/18/2025 2:15 PM EDT [facility] Total Calcium, Plasma 9.3 8.9 - 10.2 mg/dL 05/18/2025 2:15 PM EDT [facility] Total Protein 8.0(H) 6.3 - 7.9 g/dL 05/18/2025 2:15 PM EDT [facility] Albumin, Plasma 4.2 3.5 - 5.2 g/dL 05/18/2025 2:15 PM EDT [facility] AST, Plasma 20 10 - 50 U/L 05/18/2025 2:15 PM EDT [facility] Comment:Hemolyzed, result ma y be falsely increased. ALT, Plasma 18 10 - 50 U/L 05/18/2025 2:15 PM EDT [facility] Alkaline Phosphatase, Plasma 87 40 - 115 U/L 05/18/2025 2:15 PM EDT [facility] Total Bilirubin, Plasma 1.2(H) 0.2 - 1.1 mg/dL 05/18/2025 2:15 PM EDT [facility] eGFRcr 83.5 mL/min/1.7 3m*2 05/18/2025 2:15 PM EDT [facility] Comment:Reported eGFRcr in m L/min/1.73m2 is based the CKD-EPI 2020 equation that does not use a race coefficient. Blood Venous blood specimen / Unknown Venipuncture / Unknown 05/18/2025 1:17 PM EDT 05/18/2025 1:38 PM EDT us Citlalli Castellon MD LAB BLOOD ORDERABLES Final Resul t [facility] [address] [place] [address] * PET/CT FDG Whole Body (05/04/2025 9:53 [...] scanner: Siemens Biograph 40 mCT. PET/CT acquisition: [id number]. Standardized uptake value (SUV): Corrected for body weight only. CT: Low-dose, yes-iqowpb-[id number], without intravenous contrast. TOTAL DLP (Dose Length [...] Positioning: Arms by sides. PET/CT scanner: Siemens [facility] 40 mCT. PET/CT acquisition: [id number]. Standardized uptake value (SUV): Corrected for body weight only. CT: Low-dose, qig-mojufr-qzev, without intravenous contrast. TOTAL DLP (Dose Length [...] Months Insurance [place] MEDICARE Care Teams Solar Systems Designer Relationship Specialty Start Date End Date Dina Tong APRN [address] [place] [address] PCP - General 12/05/24
--- OUTSIDE RECORDS SUMMARY | 2025-06-06 14:59 | XMS_ITS | Encounter Summary ---
Author Organization Healthcare Address [address] [place] [address] Care Team Providers Care Operations Administrator Name Role Phone Dina Tong APRN Primary Care Provider [phone] Encounter Details Date Type Department Care Team (Late st Contact Info) Description 12/05/2024 Lab Requisition [facility] [address] [place] [address] Ofe Langford MD 800 [facility] [address] [address] Malignant melanoma of skin, unspecified [...] Not at all 12/05/2024 9: 10 AM CATHIT Rosalina Carlin Feeling bad about yourself - [...] [facility] [address] [place] [address] Shital Whipple, TREE AND [employer]RUB TECHNICIAN [address] [facility] [address] [place] [phone] documented as of this encounter Procedures Procedure Name Priority Date/Time Associated Diagnosis Comments SURGICAL PATHOLOGY CONSULT Routine 12/05/2024 12:28 PM EDT Malignant melanoma of skin, unspecified (CMS/HCC) documented in this encounter Results * Surgical Pathology Consult (12/05/2024 12:28 PM EDT) Case Report Sugical Pathology Consult Case: [id number] Authorizing Provider: Ofe Langford MD Collected: 12/05/20248 Ordering Location: [facility] Lab Received: 12/05/2024 1228 Pathologist: Pilo Escudero MD Specimen: Skin, [id number]. 11:42 AM EDT [facility] Final Diagnosis SKIN, LEFT MEDIAL BACK, SHAVE BIOPSY OF 1.5 CM LESION, 11/14/2024, REVIEWED OUTSIDE SLIDES AND IHC: - ULCERATED NODULAR MELANOMA. - INVASION IS AT LEAST 3.3 MM DEEP AND SHAVED ACROSS THE BASE. - INVOLVES ENTIRE DEEP AND PERIPHERAL MARGINS. - IHC IS POSITIVE FOR SOX 10 AND MELAN A. STAGE AT LEAST pT3b 11:42 AM EDT [facility] at 1142 EDT Clinical Information Skin of suprascapular left medial back, 1.5 CM scaly erythematous papule 11:42 AM EDT [facility] Microscopic Description Epithelioid and spindle cell morphology with prominent atypia, non pigmented. Brisk mitoses; no regression 11:42 AM EDT [facility] Special and Immunohistochemical Stains Reviewed shows strong diffuse positivity for Sox 10 and Melan A,. MCK-M is negative 11:42 AM EDT [facility] Gross Description A. [id number]. Received along with a corresponding pathology report from [facility] are 4 slide(s) labeled outside case: [id number] collected on 11/14/2024. 11:42 AM EDT [facility] Note: A resident was involved in the service. I attest I examined the relevant preparations for the specimens and confirmed the diagnosis or interpretation. 11:42 AM EDT [facility] Tissue Skin structure / Unknown 12/05/2024 12:28 PM EDT 12/05/2024 12:28 PM EDT us Ofe Langford MD LAB PATHOLOGY ORDERABLES Final R esult [facility] [address] [place] [address] documented in this encounter Visit Diagnoses Diagnosis Malignant melanoma of skin, unspecified (CMS/HCC) documented in this encounter Additional Health Concerns Assessment Noted Time PHQ-9 Depression Total Score: 0 12/06/19 9:10 AM EDT A fall risk assessment has been complete d for the patient 12/05/2024 9:10 AM EDT documented as of this encounter Care Teams Operations Administrator Relationship Specialty Start Date End Date Dina Tong APRN [address] [place] [address] PCP - General 12/05/24 documented as of this encounter
--- OUTSIDE RECORDS SUMMARY | 2025-06-06 14:59 | XMS_ITS | Encounter Summary ---
Author Organization Healthcare Address [address] [place] [id number] Care Team Providers Care Insole Beveler Name Role Phone Dina Tong APRN Primary Care Provider [phone] Encounter Details Date Type Department Care Team ([facility] st Contact Info) Description 06/06/2025 Telephone [facility] [address] [place] [address] Citlalli Castellon MD 800 [facility] [address] [phone] Social History Tobacco Use Types Packs/Day Years [...] encounter Miscellaneous Notes * Telephone Encounter - Alicia Momin RN - 06/06/2025 12:35 PM EST Records faxed * Telephone Encounter - Dina Miguel - 06/06/2025 12:32 PM EST 06/08 appointments cancelled. Requested infusion cancel the 05/29 infusion appt. * Telephone Encounter - Mervat Manzanares - 06/06/2025 12:10 PM EST Patient Phone Message Reason for Call: Patient needs to cancel upcoming appts on 06-08, he is in the hospital and will call back to re-schedule. Best contact number and optimal time of day to reach caller: Note: Please do not reply to this message. Follow-up communication and further actions as a result of this message need to be communicated with the patient directly, if the patient is not active onMyChart. If the patient is active on MyChart, they will receive notification of the communication/outcome via [employer]. * Telephone Encounter - Mervat Manzanares - 06/06/2025 12:06 PM EST Patient Phone Message Reason for Call: Denise is calling from [facility]. Patient is admitted right now and is needing to talk to Dr. Castellon nurse about his treatment and what is going on with him. They also needing all of his records and notes. She said they have sent a request for them. Will need to cancel his appts on 06-08 Best contact number and optimal time of day to reach caller: [phone] Ext [phone] Fax number: [phone] Attn to Denise. Note: Please do not reply to this message. Follow-up communication and further actions as a result of this message need to be communicated with the patient directly, if the patient is not active onMyChart. If the patient is active on MyChart, they will receive notification of the communication/outcome via MyChart. Note: Please do not reply to this [...] [facility] [address] [place] [address] Shital Whipple, VEGETABLE TIER [address] [place] [address] documented as of this encounter Visit Diagnoses [...] documented as of this encounter Care Teams Insole Beveler Relationship Specialty Start Date End Date Dina Tong APRN [address] [place] [address] PCP - General 12/05/24 documented as of this encounter
[2025-06-06 16:00] VITALS: BP 116/58; PULSE 81; RESP 20; TEMP 36.9; O2SAT 94
--- NOTE | 2025-06-06 17:24 | PC.NURSE ---
Pt is sitting up in the chair. No complaints stated. IV fluids and ABX infusing . Call light within reach.
--- NOTE | 2025-06-06 18:57 | PC.WOUNDNOTE ---
(R) foot with scaly skin and scab to great toe. (R) foot with scaly dry areas with bleeding (L) foot. Dry scaly areas. Bleeding to second digit.
[2025-06-06 20:00] VITALS: BP 139/77; PULSE 82; RESP 16; TEMP 37.1; O2SAT 93
[2025-06-06] MEDS: PANTOPRAZOLE 40MG TABLET 40 MG PO (20:48)
[2025-06-06] MEDS: PRAZOSIN 1MG CAP 1 MG PO (20:48)
[2025-06-06] MEDS: OXYCODONE 7.5MG W/APAP 325MG TABLET 1 EACH PO (22:59)
[2025-06-07 04:00] VITALS: BP 108/58; PULSE 71; RESP 16; TEMP 36.8; O2SAT 95
[2025-06-07] MEDS: OXYCODONE 7.5MG W/APAP 325MG TABLET 1 EACH PO ×3 (04:42→19:22)
[2025-06-07] MEDS: PIPERACILLIN/TAZO 3.375 GM in 0.9 % SODIUM CHLORIDE 50 ML IV ×4 (05:37→23:32)
[2025-06-07 06:26] LABS: Hematocrit 38.4 % (42.0-52.0); Hemoglobin 12.8 g/dL (14.1-18.0); Immature Granulocytes % 0.8 %; Mean Corpuscular HGB Conc 33.3 g/dL (31.8-35.4); Mean Corpuscular Hemoglobin 30.9 pg (27.0-31.2); Mean Corpuscular Volume 92.8 fl (80-94); Nucleated Red Blood Cells % 0 %; Platelet Count 167 K/mm3 (142-424); Red Blood Count 4.14 M/mm3 (4.60-6.20); Red Cell Distribution Width-SD 47.0 fL; White Blood Count 11.9 K/mm3 (4.8-10.8)
--- NOTE | 2025-06-07 06:26 | PC.NURSE ---
PT HAS AMBULATED WELL T/O THIS SHIFT. WALKING INDEPENDENTLY (WITH SB ASSIST JUST INCASE) IN ROOM AND TO BR.
[2025-06-07 06:43] LABS: Alanine Aminotransferase 106 U/L (12-78); Albumin Level 3.4 g/dl (3.5-5.0); Albumin/Globulin Ratio 1.0 (1.1-1.8); Alkaline Phosphatase 81 U/L (38-126); Anion Gap 8.7 mEq/L (5-15); Aspartate Amino Transferase 292 U/L (17-59); Bilirubin,Total 1.1 mg/dl (0.2-1.3); Blood Urea Nitrogen 22 mg/dl (9-20); Calcium 7.8 mg/dl (8.4-10.2); Carbon Dioxide 24 mmol/L (22.0-30.0); Chloride 108 mmol/L (98-107); Creatinine Clearance Estimated 87 mL/min (50-200); Creatinine,Serum 1.40 mg/dl (0.66-1.25); Estimated Glomerular Filt Rate 51 ml/min (>60); GFR (African American) 62 ML/MIN (>60); Globulin 3.4 g/dL (1.3-3.2); Glucose 95 mg/dl (74-100); Magnesium 2.1 mg/dl (1.6-2.3); Potassium 3.7 mmoL/L (3.5-5.1); Sodium 137 mmol/L (136-145); Total Protein,Serum 6.8 g/dl (6.3-8.2)
[2025-06-07] MEDS: 0.9 % SODIUM CHLORIDE 1000ML 1,000 ML 150 ML IV (07:52)
[2025-06-07 08:00] VITALS: BP 143/69; PULSE 73; RESP 16; TEMP 36.7; O2SAT 97
[2025-06-07] MEDS: IRBESARTAN 150MG TAB 150 MG PO (08:27)
[2025-06-07] MEDS: GABAPENTIN 800MG TABLET 800 MG PO ×4 (08:27→21:59)
[2025-06-07] MEDS: SPIRONOLACTONE 25MG TABLET 50 MG PO (08:27)
[2025-06-07] MEDS: FUROSEMIDE 40 MG TABLET PO (08:27)
[2025-06-07] MEDS: FAMOTIDINE 20MG TABLET 40 MG PO (08:28)
[2025-06-07] MEDS: ASPIRIN EC 81MG TABLET 81 MG PO (08:28)
[2025-06-07] MEDS: VENLAFAXINE XR 75MG CAPSULE 75 MG PO (08:28)
[2025-06-07 08:31] LABS: Creatine Kinase 9760 U/L (55-170)
--- NOTE | 2025-06-07 09:20 | HMH.PHAAMS2 ---
- Antimicrobial Stewardship Review culture & sensitivity review Stewardship interventions: culture & sensitivity review, reviewed - no change (PATIENT ON VANCOMYCIN AND ZOSYN. BLOOD CULTURES SHOW NO GROWTH AFTER 24 HOURS.)
--- NOTE | 2025-06-07 10:03 | P.PN_ITS ---
<Statement entered by Nicho Cardoza MD - 06/07/25 13:19> Rounded on patient after nurse practitioner. Personally examined and interviewed patient. Agree with exam findings and care plan as documented. Subjective *Date: 06/07/25 *Time: 12:49 Interval history: Mr. De La Fuente is doing extremely well this morning. Up to chair independently. Did very well with therapy, initially therapy recommended placement but patient has improved significantly since that recommendation. Patient should discharge home with home health. Patient CK continues to trend downward, 9000 today. Kidney function slightly improved with a creatinine of 1.4. Patient continues to require inpatient management due to elevated CK and kidney function. Anticipate discharge home in the next 1 to 2 days. Medical Exam Vital signs and Labs for Last 24 Hours: Vital Signs Temp Pulse Resp BP Pulse Ox O2 Del Method 06/07/25 08:14 Room Air 06/07/25 08:00 98.1 F 73 16 143/69 H 97 Room Air 06/07/25 08:00 Room Air 06/07/25 06:25 Room Air 06/07/25 05:00 Room Air 06/07/25 04:00 98.3 F 71 16 108/58 L 95 Room Air 06/07/25 03:00 Room Air 06/07/25 01:00 Room Air 06/06/25 23:00 Room Air 06/06/25 21:00 Room Air 06/06/25 20:00 Room Air 06/06/25 20:00 98.7 F 82 16 139/77 93 L Room Air 06/06/25 18:42 Room Air 06/06/25 17:00 Room Air 06/06/25 16:00 98.5 F 81 20 116/58 L 94 L Room Air 06/06/25 14:05 Room Air 06/06/25 12:06 Room Air 06/06/25 10:06 Room Air Intake and Output 06/06/25 06/07/25 06/07/25 23:59 07:59 15:59 Intake Total 1520 / 3920 1400 / 1400 Output Total 1500 / 3900 625 / 625 Balance 775 / 775 Intake: Intake, Oral Amount 420 / 1320 Intake, Total IV Amount 1100 / 2600 1400 / 1400 0.9 % Sodium Chloride 1000ML 1, 1000 / 2000 1000 / 1000 000 ml @ 150 mls/hr IV .Q6H40M KELSI Rx#:[id number] Piperacillin/Tazo 3.375 gm In 0 100 / 250 50 / 50 .9 % Sodium Chloride 50 ml @ 100 mls/hr IV Q6H KELSI Rx#: [id number] Vancomycin/Water For Inj (Peg) 350 / 350 1.75 gm In 350 ml @ 175 mls/hr IV Q18H KELSI Rx#:[id number] Output: Output, Urine Amount 1500 / 3900 625 / 625 Other: Number of Voids 3 Number of Unmeasured Voids 1 Number of Bowel Movements 1 Laboratory Results - last 24 hr 06/06/25 05:30: Uric Acid 8.6 H, PSA Screen 0.4 06/06/25 14:09: Total Creatine Kinase 53627 H* 06/07/25 05:41: WBC 11.9 H D, RBC 4.14 L, Hgb 12.8 L, Hct 38.4 L, MCV 92.8, MCH 30.9, MCHC 33.3, RDW 13.8, Plt Count 167, MPV 9.5, Neut % (Auto) 66.3, Lymph % (Auto) 19.1, [place] % (Auto) 12.5 H, Eos % (Auto) 0.8, Baso % (Auto) 0.5, Neut # (Auto) 7.9 H, Lymph # (Auto) 2.3, [place] # (Auto) 1.5 H, Eos # (Auto) 0.1, Baso # (Auto) 0.1, Sodium 137, Potassium 3.7, Chloride 108 H, Carbon Dioxide 24, Anion Gap 8.7, BUN 22 H D, Creatinine 1.40 H, Estimated Creat Clear 87, Estimated GFR 51 L, Est GFR ( Amer) 62, Glucose 95, Calcium 7.8 L, Magnesium 2.1 D, Total Bilirubin 1.1, AST 292 H D, ALT 106 H, Alkaline Phosphatase 81, Total Creatine Kinase 9760 H* D, Total Protein 6.8, Albumin 3.4 L, Globulin 3.4 H, Albumin/Globulin Ratio 1.0 L I & O for Labs for Last 24 Hours: Intake & Output 06/04/25 06/05/25 06/06/25 06/07/25 23:59 23:59 23:59 23:59 Intake Total 1999 / 2180 3920 / 3920 1400 / 1400 Output Total 250 / 350 3600 / 3900 625 / 625 Balance 1750 / 1830 320 / 20 775 / 775 Weight 116.375 kg 116.715 kg Microbiology Reports for the Last 24 Hours: Microbiology 06/05/25 11:08 Blood Blood Culture - Preliminary NO GROWTH AFTER 24 HOURS 06/05/25 09:30 Blood Blood Culture - Preliminary NO GROWTH AFTER 24 HOURS Constitutional: Present no acute distress, obese, chronically ill appearing and cooperative Head: Present atraumatic Eyes: Present as per HPI ENT: Present normal exam Neck: Present normal inspection Respiratory: Present CTA bilaterally and normal respiratory effort; Absent wheezes or crackles Cardiac: Present Reg Rate and Rhythm and No Murmur GI: Present soft and normal bowel sounds; Absent distention or tenderness Rectal (male): Present deferred (male): Present deferred Extremities: Present normal inspection and full ROM; Absent edema Skin: Present intact, erythema, dry and cracked Comment:: 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 Neuro: Present Weakness, alert, awake and oriented x 3 Assessment and Plan *Assessment and plan (1) Rhabdomyolysis: Status: Acute Category: Medical Code(s): M62.82 - Rhabdomyolysis (2) SIRS (systemic inflammatory response syndrome): Status: Acute Category: Medical Code(s): R65.10 - Systemic inflammatory response syndrome (SIRS) of non-infectious origin without acute organ dysfunction (3) ANISA (acute kidney injury): Status: Acute Category: Medical Code(s): N17.9 - Acute kidney failure, unspecified (4) Generalized weakness: Status: Acute Category: Medical Code(s): R53.1 - Weakness (5) Adenopathy: Status: Acute Category: Medical Code(s): R59.9 - Enlarged lymph nodes, unspecified (6) Transaminitis: Status: Acute Category: Medical Code(s): R74.01 - Elevation of levels of liver transaminase levels (7) Bony sclerosis: Status: Acute Category: Medical Code(s): 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 Lindsay is a 65-year-old male who has a primary medical history of osteoarthritis, gout, peripheral vascular disease with venous insufficiency bilaterally, obesity, lymphedema, tobacco use, DDD, hypertension, anxiety, major depressive disorder, melanoma, VIJAY, CAD, HFpEF, type 2 diabetes. He presented to the emergency department on 06/05/2025 via EMS with complaints of generalized weakness, multiple falls. He also states that he did fall backwards 1 time striking his head but did not lose consciousness. Patient states that he has had progressive weakness over the past 2 to 3 weeks. He states that he is following with [facility] for a recent melanoma removal and lymphoproliferative disorder of unknown origin. States he recently had a PET scan for further help with diagnosis, also states that he received 1 dose of Keytruda immunotherapy approximately 3 weeks ago. Workup in the emergency department was performed, patient remained hemodynamically stable and nontoxic-appearing during arrival. He was tachycardic in the low 100s. Patient states that he was on the floor the last time he fell for approximately 2-3 hours before he called 911. He states he tried multiple times to get up but could not. 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 CT of head, neck, thorax, abdomen, pelvis, chest were all obtained. All of which showed no acute findings with the exception of sclerotic lesions and adenopathy in his pelvis. Lab work was significant for elevated WBC of 20.2, potentially reactive. ANISA with a creatinine of 1.50. Transaminitis AST 636, ALT 125. CRP 205.8, procalcitonin 7.78. Significantly elevated CK of 37,318. Viral respiratory panel was negative. Blood cultures were obtained and show no growth for 48 hours. Hospital medicine was consulted for admission, I agreed to admit the patient for acute rhabdomyolysis, transaminitis, ANISA, seizures, weakness, frequent falls. Plan of care is as follows: #SIRS ? Patient meeting SIRS criteria on admission, elevated WBC of 20.2 and tachycardia heart rate low 100s. No known source of infection at this time. Patient started empirically on broad-spectrum antibiotics, vancomycin and Zosyn. De-escalated antibiotics due to blood culture showing no growth for 48 hours, continuing Zosyn every 6 hours at this time. Patient WBC 11.6. ?Pro-Guille and CRP both elevated on admission, repeat CRP continues to be elevated at 200. Will repeat CRP and Pro-Guille tomorrow morning. ?CBC, Pro-Guille, CRP ordered for the a.m. #Rhabdo #ANISA #Weakness #Frequent falls #Melanoma #Transaminitis ? Patient complains of generalized weakness for the past 2-3 weeks. He fell today which prompted him to call EMS, states he was on the floor for 2-3 hours approximately. Patient states during that time he did try to get himself up multiple times. Patient continues to complain of weakness, but states it is some better. Doing much better today, up to chair, states he feels better than he has in weeks. Patient ambulated with walker with PT/OT without issues today. Initial recommendation was for placement, PT/OT state patient is safe to return home with home health services. Patient states that his brother is going to come stay with him as well. ?Patient recently started Keytruda immunotherapy with [facility] for known melanoma. CTA of abdomen/pelvis shows pelvic lymph node adenopathy and sclerotic bone lesions. Concerning for lymphoproliferative disorder versus metastasis. Patient states he had a recent PET scan. Received office note from melanoma removal and recommendation of Keytruda, records state patient was given the choice to start Keytruda versus watchful waiting. Patient also had a PET scan at that time which showed similar results of our abdomen/pelvis CT of pelvic lymph node adenopathy. Spoke with Catalina at [facility] who states patient has been unreliable for showing up for appointments and infusions. He has received 1 dose of Keytruda. Discussed continuing versus holding Keytruda at this time due to side effects. Patient should follow with [facility] after discharge within 1 to 2 weeks. ?Patient had markedly elevated CK of greater than 37,000 on admission. Patient received a 500 mL bolus in the ED, patient received NS at 150 mL/H since admission. Will hold fluids at this time continue with p.o. intake. CK level significantly improved today 9760. If continuing to trend downward in the morning, anticipate discharge home. ?Kidney function elevated, creatinine admission 1.5, repeat today creatinine 1.4. Patient continuing to make urine although dark. ? Concern for rhabdo related to Keytruda versus fall. Liver enzymes elevated but trending downward, hepatitis panel negative. Elevation likely related to rhabdo. #HFpEF ? Patient has known heart failure with preserved EF, echo 03/19 has LVEF of 55%, normal BiV systolic function. Cardiac cath in December 2024 showed mild to moderate nonlimiting coronary disease. Preserved EF, elevated LVEDP. ?Continue spironolactone 50 mg daily, losartan 100 mg daily, Lasix 40 mg daily, aspirin 81 mg daily, prazosin 1 mg daily. Hold Lipitor 20 mg at bedtime. ? Patient does have bilateral lower extremity edema, 1+ below the knee. Holding IV fluids, continuing diuretics. #COPD: Patient takes Symbicort 1 puff twice daily, patient has not brought Symbicort and is not on our formulary. Continue with Advair 1 puff twice daily. #Chronic pain: Continue Percocet 7.5-325 mg every 6 hours as needed for pain. #GERD: Continue omeprazole 20 mg daily for reflux, famotidine 40 mg daily. Full code Up with assistance VTE?Lovenox Cardiac diet
--- NOTE | 2025-06-07 10:34 | HMH.PTWOUND ---
Rehab Wound Evaluation Rehab IP Wound Evaluation Start: 06/06/25 08:47 Freq: ONCE Status: Active Protocol: Document 06/07/25 10:32 JACK (Rec: 06/07/25 10:34 JAKC [id number]) Rehab PT Wound Assessment Subjective Subjective 65-year-old male who has a primary medical history of osteoarthritis, gout, peripheral vascular disease with venous insufficiency bilaterally, obesity, lymphedema, tobacco use, DDD, hypertension, anxiety, major depressive disorder, melanoma, VIJAY, CAD, HFpEF, type 2 diabetes. He presented to the emergency department today via EMS with complaints of generalized weakness, multiple falls. He also states that he did fall backwards 1 time striking his head but did not lose consciousness. Patient states that he has had progressive weakness over the past 2 to 3 weeks. He states that he is following with [facility] for a lymphoproliferative disorder of unknown origin. States he recently had a PET scan for further help with diagnosis, also states that he received 1 dose of Keytruda immunotherapy approximately 3 weeks ago. Pt presents with multiple very small wounds to several toes on B LE. Plan/Recommendation Comment Currently pt presents with dry scabbed areas to several toes, but no directly open wounds at this time. No current need for debridement of necrotic tissue and no further need for skilled PT wound care services at this time. Continue appropriate nsg care to B feet. Eval Complexity Eval Charge Codes 37268 - High Complexity PHYSICIAN CERTIFICATION: I certify the specified therapy services for Merrill Dowling are required, authorized, and reviewed every 30 days.
[2025-06-07 12:35] VITALS: BMI 38.9
[2025-06-07] MEDS: ONDANSETRON 4MG/2ML VIAL 4 MG IV (14:08)
[2025-06-07 16:00] VITALS: BP 102/64; PULSE 64; RESP 16; TEMP 36.6; O2SAT 95
[2025-06-07 20:00] VITALS: BP 128/59; PULSE 65; RESP 20; TEMP 36.8; O2SAT 95
[2025-06-07] MEDS: PRAZOSIN 1MG CAP 1 MG PO (21:59)
[2025-06-07] MEDS: PANTOPRAZOLE 40MG TABLET 40 MG PO (21:59)
[2025-06-07] MEDS: MELATONIN 5MG TABLET 5 MG PO (23:33)
[2025-06-08] MEDS: OXYCODONE 7.5MG W/APAP 325MG TABLET 1 EACH PO ×2 (01:10→09:45)
[2025-06-08 04:00] VITALS: BP 122/65; PULSE 70; RESP 20; TEMP 36.4; O2SAT 95; BMI 37.5
[2025-06-08] MEDS: PIPERACILLIN/TAZO 3.375 GM in 0.9 % SODIUM CHLORIDE 50 ML IV (05:00)
[2025-06-08 07:10] LABS: Hematocrit 37.4 % (42.0-52.0); Hemoglobin 12.3 g/dL (14.1-18.0); Immature Granulocytes % 1.3 %; Mean Corpuscular HGB Conc 32.9 g/dL (31.8-35.4); Mean Corpuscular Hemoglobin 30.7 pg (27.0-31.2); Mean Corpuscular Volume 93.3 fl (80-94); Nucleated Red Blood Cells % 0 %; Platelet Count 173 K/mm3 (142-424); Red Blood Count 4.01 M/mm3 (4.60-6.20); Red Cell Distribution Width-SD 47.6 fL; White Blood Count 11.1 K/mm3 (4.8-10.8)
[2025-06-08 07:31] LABS: Alanine Aminotransferase 105 U/L (12-78); Albumin Level 3.5 g/dl (3.5-5.0); Albumin/Globulin Ratio 1.0 (1.1-1.8); Alkaline Phosphatase 88 U/L (38-126); Anion Gap 7.7 mEq/L (5-15); Aspartate Amino Transferase 212 U/L (17-59); Bilirubin,Total 1.2 mg/dl (0.2-1.3); Blood Urea Nitrogen 17 mg/dl (9-20); Calcium 8.1 mg/dl (8.4-10.2); Carbon Dioxide 25 mmol/L (22.0-30.0); Chloride 106 mmol/L (98-107); Creatinine Clearance Estimated 87 mL/min (50-200); Creatinine,Serum 1.30 mg/dl (0.66-1.25); Estimated Glomerular Filt Rate 55 ml/min (>60); GFR (African American) 67 ML/MIN (>60); Globulin 3.4 g/dL (1.3-3.2); Glucose 97 mg/dl (74-100); Magnesium 2.0 mg/dl (1.6-2.3); Potassium 3.7 mmoL/L (3.5-5.1); Sodium 135 mmol/L (136-145); Total Protein,Serum 6.9 g/dl (6.3-8.2)
[2025-06-08 07:44] VITALS: BP 110/64; PULSE 71; RESP 16; TEMP 36.7; O2SAT 96
[2025-06-08 07:50] LABS: C-Reactive Protein 62.4 mg/L (0-4)
[2025-06-08 08:03] LABS: Procalcitonin 2.15 ng/mL (0.0-2.0)
--- NOTE | 2025-06-08 08:41 | EXP.PHA.PN ---
Subjective *Date: 06/08/25 *Time: 08:41 Medical Exam Vital signs and Labs for Last 24 Hours: Vital Signs Temp Pulse Pulse Resp BP Pulse Ox O2 Del Method 06/08/25 07:44 98.1 F 71 16 110/64 96 Room Air 06/08/25 06:55 Room Air 06/08/25 05:00 Room Air 06/08/25 04:00 97.5 F L 70 20 122/65 95 Room Air 06/08/25 03:00 Room Air 06/08/25 01:00 Room Air 06/07/25 23:00 Room Air 06/07/25 21:00 Room Air 06/07/25 20:00 Room Air 06/07/25 20:00 98.3 F 65 20 128/59 L 95 Room Air 06/07/25 19:00 Room Air 06/07/25 17:00 Room Air 06/07/25 16:00 98 F 64 16 102/64 L 95 Room Air 06/07/25 15:00 Room Air 06/07/25 13:00 Room Air 06/07/25 11:00 Room Air Intake and Output 06/07/25 06/08/25 06/08/25 23:59 07:59 15:59 Intake Total 400 / 2050 300 / 300 Output Total 250 / 875 700 / 700 Balance 150 / 1175 -400 / -400 Intake: Intake, Oral Amount 200 / 200 Intake, Total IV Amount 400 / 1850 100 / 100 0.9 % Sodium Chloride 1000ML 1, 350 / 1350 000 ml @ 150 mls/hr IV .Q6H40M KELSI Rx#:[id number] Piperacillin/Tazo 3.375 gm In 0 50 / 150 100 / 100 .9 % Sodium Chloride 50 ml @ 100 mls/hr IV Q6H KELSI Rx#: [id number] Output: Output, Urine Amount 250 / 875 700 / 700 Other: Number of Unmeasured Voids 0 1 Number of Bowel Movements 1 Weight 108.862 kg Patient Weight 06/08/25 23:59 Weight 108.862 kg Laboratory Results - last 24 hr 06/08/25 06:15: WBC 11.1 H, RBC 4.01 L, Hgb 12.3 L, Hct 37.4 L, MCV 93.3, MCH 30.7, MCHC 32.9, RDW 13.8, Plt Count 173, MPV 9.5, Neut % (Auto) 64.8, Lymph % (Auto) 19.6, [place] % (Auto) 11.7 H, Eos % (Auto) 2.2, Baso % (Auto) 0.4, Neut # (Auto) 7.2, Lymph # (Auto) 2.2, [place] # (Auto) 1.3 H, Eos # (Auto) 0.3, Baso # (Auto) 0.0, Sodium 135 L, Potassium 3.7, Chloride 106, Carbon Dioxide 25, Anion Gap 7.7, BUN 17, Creatinine 1.30 H, Estimated Creat Clear 87, Estimated GFR 55 L, Est GFR ( Amer) 67, Glucose 97, Calcium 8.1 L, Magnesium 2.0, Total Bilirubin 1.2, AST 212 H D, ALT 105 H, Alkaline Phosphatase 88, C-Reactive Protein 62.4 H D, Total Protein 6.9, Albumin 3.5, Globulin 3.4 H, Albumin/Globulin Ratio 1.0 L, Procalcitonin 2.15 H I & O for Labs for Last 24 Hours: Intake & Output 06/05/25 06/06/25 06/07/25 06/08/25 23:59 23:59 23:59 23:59 Intake Total 2000 / 2180 3920 / 3920 1850 / 2050 300 / 300 Output Total 250 / 350 3600 / 3900 875 / 875 700 / 700 Balance 1750 / 1830 320 / 20 975 / 1175 -400 / -400 Weight 116.375 kg 116.715 kg 116.715 kg 108.862 kg Microbiology Reports for the Last 24 Hours: Microbiology 06/05/25 11:08 Blood Blood Culture - Preliminary NO GROWTH AFTER 48 HOURS 06/05/25 09:30 Blood Blood Culture - Preliminary NO GROWTH AFTER 48 HOURS The patient's infection will respond to the chosen ABx?: Yes Is the patient receiving the right drug, dose, and route?: Yes Could a more targeted ABx be ordered?: No (WBC 20.2 TO 11.1, AFEBRILE, CONTINUE CURRENT ABX.)
[2025-06-08 09:19] LABS: Creatine Kinase 5161 U/L (55-170)
--- NOTE | 2025-06-08 09:25 | P.DS_ITS ---
<Statement entered by Nicho Cardoza MD - 06/08/25 11:14> Rounded on patient after nurse practitioner. Personally examined and interviewed patient. Agree with exam findings and care plan as documented. General Admission date:: 06/05/25 Discharge date: 06/08/25 HPI HPI HPI: Mr. Lindsay is a 65-year-old male who has a primary medical history of osteoarthritis, gout, peripheral vascular disease with venous insufficiency bilaterally, obesity, lymphedema, tobacco use, DDD, hypertension, anxiety, major depressive disorder, melanoma, VIJAY, CAD, HFpEF, type 2 diabetes. He presented to the emergency department today via EMS with complaints of generalized weakness, multiple falls. He also states that he did fall backwards 1 time striking his head but did not lose consciousness. Patient states that he has had progressive weakness over the past 2 to 3 weeks. He states that he is following with [email or web address] for a lymphoproliferative disorder of unknown origin. States he recently had a PET scan for further help with diagnosis, also states that he received 1 dose of Keytruda immunotherapy approximately 3 weeks ago. Workup in the emergency department was performed, patient remained hemodynamically stable and nontoxic-appearing during arrival. He was tachycardic in the low 100s. Patient states that he was on the floor the last time he fell for approximately 2-3 hours before he called 911. He states he tried multiple times to get up but could not. 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 CT of head, neck, thorax, abdomen, pelvis, chest were all obtained. All of which showed no acute findings with the exception of sclerotic lesions and adenopathy in his pelvis. Lab work was significant for elevated WBC of 20.2, potentially reactive. ANISA with a creatinine of 1.50. Transaminitis AST 636, ALT 125. CRP 205.8, procalcitonin 7.78. Significantly elevated CK of 37,318. Viral respiratory panel was negative. Blood cultures were obtained and are pending. Hospital Course Hospital Course Hospital Course: Mr. Lindsay is a 65-year-old male who has a primary medical history of osteoarthritis, gout, peripheral vascular disease with venous insufficiency bilaterally, obesity, lymphedema, tobacco use, DDD, hypertension, anxiety, major depressive disorder, melanoma, VIJAY, CAD, HFpEF, type 2 diabetes. He presented to the emergency department on 06/05/2025 via EMS with complaints of generalized weakness, multiple falls. He also states that he did fall backwards 1 time striking his head but did not lose consciousness. Patient states that he has had progressive weakness over the past 2 to 3 weeks. He states that he is following with [facility] [[email or web address] for a recent melanoma removal and lymphoproliferative disorder of unknown origin. States he recently had a PET scan for further help with diagnosis, also states that he received 1 dose of Keytruda immunotherapy approximately 3 weeks ago. Workup in the emergency department was performed, patient remained hemodynamically stable and nontoxic-appearing during admission. He was tachycardic in the low 100s. Patient states that he was on the floor the last time he fell for approximately 2-3 hours before he called 911. He states he tried multiple times to get up but could not. 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 CT of head, neck, thorax, abdomen, pelvis, chest were all obtained. All of which showed no acute findings with the exception of sclerotic lesions and adenopathy in his pelvis. Lab work was significant for elevated WBC of 20.2, potentially reactive. ANISA with a creatinine of 1.50. Transaminitis AST 636, ALT 125. CRP 205.8, procalcitonin 7.78. Significantly elevated CK of 37,318. Viral respiratory panel was negative. Blood cultures were obtained and show no growth for 72 hours. Hospital medicine was consulted for admission, I agreed to admit the patient for acute rhabdomyolysis, transaminitis, ANISA, seizures, weakness, frequent falls. Plan of care is as follows: #SIRS ? Patient meeting SIRS criteria on admission, elevated WBC of 20.2 and tachycardia heart rate low 100s. No known source of infection. Patient started empirically on broad-spectrum antibiotics, vancomycin and Zosyn. De-escalated antibiotics due to blood culture showing no growth for 48 hours, continued Zosyn throughout admission, will not discharge on antibiotics. White count day of discharge 11.1. ?Pro-Guille and CRP both elevated on admission, trending downward significantly day of discharge. #Rhabdo #ANISA #Weakness #Frequent falls #Melanoma #Transaminitis ? Patient complained of generalized weakness for the past 2-3 weeks. He fell today which prompted him to call EMS, states he was on the floor for 2-3 hours approximately. Patient states during that time he did try to get himself up multiple times. Patient continues to complain of intermittent weakness but is feeling significantly better. Doing much better today, up to chair, states he feels better than he has in weeks. Patient ambulated with walker with PT/OT without issues today. Initial recommendation was for placement, PT/OT state patient is safe to return home with home health services. Patient states that his brother is going to come stay with him as well. ? Patient recently started Keytruda immunotherapy with [facility] for known melanoma. CTA of abdomen/pelvis shows pelvic lymph node adenopathy and sclerotic bone lesions. Concerning for lymphoproliferative disorder versus metastasis. Patient states he had a recent PET scan. Received office note from melanoma removal and recommendation of Keytruda, records state patient was given the choice to start Keytruda versus watchful waiting. Patient also had a PET scan at that time which showed similar results of our abdomen/pelvis CT of pelvic lymph node adenopathy. Spoke with Catalina at [facility] who states patient has been unreliable for showing up for appointments and infusions. He has received 1 dose of Keytruda. Discussed continuing versus holding Keytruda at this time due to side effects. Patient should follow with [facility] after discharge within 1 to 2 weeks. ? Patient had markedly elevated CK of greater than 37,000 on admission. Patient received a 500 mL bolus in the ED, patient received NS at 150 mL/H since admission. IV fluids were discontinued yesterday morning for a 24-hour trial, CK continue to improve to 5161-day of discharge. Patient should have CMP and CK level rechecked at his PCP follow-up on Thursday. ? Kidney function elevated, creatinine admission 1.5, repeat today creatinine 1.3. ? Concern for rhabdo related to Keytruda versus fall. Liver enzymes elevated but trending downward, hepatitis panel negative. Elevation likely related to rhabdo. LFTs continue to trend downward day of discharge. #HFpEF ? Patient has known heart failure with preserved EF, echo 03/19 has LVEF of 55%, normal BiV systolic function. Cardiac cath in December 2024 showed mild to moderate nonlimiting coronary disease. Preserved EF, elevated LVEDP. ? Continue spironolactone 50 mg daily, losartan 100 mg daily, Lasix 40 mg daily, aspirin 81 mg daily, prazosin 1 mg daily. Hold Lipitor 20 mg at bedtime. #COPD: Patient takes Symbicort 1 puff twice daily, continue at discharge. #Chronic pain: Continue Percocet 7.5-325 mg every 6 hours as needed for pain. #GERD: Continue omeprazole 20 mg daily for reflux, famotidine 40 mg daily. Total time spent on discharge 44 minutes in counseling, documentation, chart review, and direct care with patient. Exam Data for Last 24 hours Vital signs and Labs for Last 24 Hours: Temp Pulse Resp BP Pulse Ox O2 Del Method 98.1 F 71 16 110/64 96 Room Air 06/08/25 07:44 06/08/25 07:44 06/08/25 07:44 06/08/25 07:44 06/08/25 07:44 06/08/25 07:44 Laboratory Results - last 24 hr 06/08/25 06:15: WBC 11.1 H, RBC 4.01 L, Hgb 12.3 L, Hct 37.4 L, MCV 93.3, MCH 30.7, MCHC 32.9, RDW 13.8, Plt Count 173, MPV 9.5, Neut % (Auto) 64.8, Lymph % (Auto) 19.6, [place] % (Auto) 11.7 H, Eos % (Auto) 2.2, Baso % (Auto) 0.4, Neut # (Auto) 7.2, Lymph # (Auto) 2.2, [place] # (Auto) 1.3 H, Eos # (Auto) 0.3, Baso # (Auto) 0.0, Sodium 135 L, Potassium 3.7, Chloride 106, Carbon Dioxide 25, Anion Gap 7.7, BUN 17, Creatinine 1.30 H, Estimated Creat Clear 87, Estimated GFR 55 L , Est GFR ( Amer) 67, Glucose 97, Calcium 8.1 L, Magnesium 2.0, Total Bilirubin 1.2, AST 212 H D, ALT 105 H, Alkaline Phosphatase 88, Total Creatine Kinase 5161 H* D, C-Reactive Protein 62.4 H D, Total Protein 6.9, Albumin 3.5, Globulin 3.4 H, Albumin/Globulin Ratio 1.0 L, Procalcitonin 2.15 H I & O for Last 24 hours: Intake & Output 06/05/25 06/06/25 06/07/25 06/08/25 23:59 23:59 23:59 23:59 Intake Total 1999 / 2179 3920 / 3920 1850 / 2050 300 / 300 Output Total 250 / 350 3600 / 3900 875 / 875 700 / 700 Balance 1750 / 1830 320 / 20 975 / 1175 -400 / -400 Weight 116.375 kg 116.715 kg 116.715 kg 108.862 kg Microbiology Reports for the Last 24 Hours: Microbiology 06/05/25 11:08 Blood Blood Culture - Preliminary NO GROWTH AFTER 48 HOURS 06/05/25 09:30 Blood Blood Culture - Preliminary NO GROWTH AFTER 48 HOURS Results Data Completed and Pending Labs on day of discharge: Labs from last 24 hours 06/08/25 06:15 WBC 11.1 H RBC 4.01 L Hgb 12.3 L Hct 37.4 L MCV 93.3 MCH 30.7 MCHC 32.9 RDW 13.8 Plt Count 173 MPV 9.5 Neut % (Auto) 64.8 Lymph % (Auto) 19.6 [place] % (Auto) 11.7 H Eos % (Auto) 2.2 Baso % (Auto) 0.4 Neut # (Auto) 7.2 Lymph # (Auto) 2.2 [place] # (Auto) 1.3 H Eos # (Auto) 0.3 Baso # (Auto) 0.0 Sodium 135 L Potassium 3.7 Chloride 106 Carbon Dioxide 25 Anion Gap 7.7 BUN 17 Creatinine 1.30 H Estimated Creat Clear 87 Estimated GFR 55 L Est GFR ( Amer) 67 Glucose 97 Calcium 8.1 L Magnesium 2.0 Total Bilirubin 1.2 AST 212 H D ALT 105 H Alkaline Phosphatase 88 Total Creatine Kinase 5161 H* D C-Reactive Protein 62.4 H D Total Protein 6.9 Albumin 3.5 Globulin 3.4 H Albumin/Globulin Ratio 1.0 L Procalcitonin 2.15 H Preliminary micro results at discharge 06/05/25 11:08 Blood Culture - Preliminary Blood NO GROWTH AFTER 48 HOURS 06/05/25 09:30 Blood Culture - Preliminary Blood NO GROWTH AFTER 48 HOURS DS: Diagnosis Discharge Diagnosis (1) Rhabdomyolysis: Status: Acute Code(s): M62.82 - Rhabdomyolysis (2) SIRS (systemic inflammatory response syndrome): Status: Acute Code(s): R65.10 - Systemic inflammatory response syndrome (SIRS) of non-infectious origin without acute organ dysfunction (3) ANISA (acute kidney injury): Status: Acute Code(s): N17.9 - Acute kidney failure, unspecified (4) Generalized weakness: Status: Acute Code(s): R53.1 - Weakness (5) Adenopathy: Status: Acute Code(s): R59.9 - Enlarged lymph nodes, unspecified (6) Transaminitis: Status: Acute Code(s): R74.01 - Elevation of levels of liver transaminase levels (7) Bony sclerosis: Status: Acute Code(s): 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.2 - Osteopetrosis (8) (HFpEF) heart failure with preserved ejection fraction: Status: Acute Code(s): I50.30 - Unspecified diastolic (congestive) heart failure Qualifiers: Heart failure chronicity: chronic Qualified Code(s): I50.32 - Chronic diastolic (congestive) heart failure Meds Home Medications and Allergies Home Medications ?Medication ?Instructions ?Recorded ?Confirmed ?Type aspirin 81 mg tablet,delayed 81 mg PO DAILY #30 tabs 0 03/31/24 06/05/25 Rx release (Adult Aspirin Regimen) prazosin 1 mg capsule 1 mg PO HS #30 caps 05/11/24 06/05/25 Rx furosemide 40 mg tablet (Lasix) 40 mg PO DAILY #90 tab s 01/02/25 06/05/25 Rx spironolactone 50 mg tablet 50 mg PO DAILY #30 tabs 06/05/25 Rx (Aldactone) gabapentin 800 mg tablet 800 mg PO QID 01/16/2506/05 History oxycodone-acetaminophen 7.5 mg-325 1 tab PO Q6HP PRN P ain 01/16/25 06/05/25 History mg tablet prochlorperazine maleate 10 mg 10 mg PO Q6HP PRN Nause a And 04/14/25 06/05/25 History tablet Vomiting semaglutide 2 mg/dose (8 mg/3 mL) 2 mg (0.75 mL) SQ WE EKLY #3 mL 04/17/25 06/05/25 Rx subcutaneous pen injector (Ozempic) desvenlafaxine succinate 50 mg 50 mg PO DAILY #30 tabs 04/24/25 06/05/25 Rx tablet,extended release 24 hr (Pristiq) losartan 100 mg tablet 100 mg PO DAILY #30 tabs 06/05/25 Rx atorvastatin 20 mg tablet (Lipitor) 20 mg PO HS 06/05/25 History Held on 06/08/25. Instructions: until PCP f/u azelastine 137 mcg (0.1 %) nasal 2 spray intranasal BI D PRN 06/05/25 06/05/25 History spray allergies budesonide-formoterol HFA 80 1 puff inhalation BID 05/2006/05/25 History mcg-4.5 mcg/actuation aerosol inhaler (Symbicort) famotidine 40 mg tablet 40 mg PO DAILY 06/05/2505/27 History hydroxyzine pamoate 25 mg capsule 25 mg PO TIDP PRN It jens 06/05/25 06/05/25 History omeprazole 20 mg capsule,delayed 20 mg PO DAILY 06/05/25 History release New Prescriptions to Start Prescriptions: Allergies Allergy/AdvReac Type Severity Reaction Status Date / Time No Known Allergies Allergy Verified 04/17/25 14:18 Discharge Plan Disposition Patient Disposition: Home Health Service Condition: Fair Discharge Order Discharge Orders: Discharge Order (Routine); Ordered 06/08/25 Ordered By: Denise Pittman Follow up Plan Follow up with: Dina Tong APRN [Primary Care Provider, Family Practice] - 06/14/25 10:00 am Prescriptions/Medication Reconciliation: Continued aspirin [Adult Aspirin Regimen] 81 mg tablet,delayed release (DR/EC) 81 mg PO DAILY Qty: 30 2RF prazosin 1 mg capsule 1 mg PO HS Qty: 30 2RF furosemide [Lasix] 40 mg tablet 40 mg PO DAILY Qty: 90 3RF spironolactone [Aldactone] 50 mg tablet 50 mg PO DAILY Qty: 30 5RF gabapentin 800 mg tablet 800 mg PO QID Patient Comments: TAKE 1 TABLET BY MOUTH EVERY 6 HOURS oxycodone-acetaminophen 7.5-325 mg tablet 1 tab PO Q6HP PRN (Reason: Pain) Patient Comments: TAKE 1 TABLET BY MOUTH EVERY 6 HOURS prochlorperazine maleate 10 mg tablet 10 mg PO Q6HP PRN (Reason: Nausea And Vomiting) Ozempic 2 mg/dose (8 mg/3 mL) pen injector 2 mg SQ WEEKLY Qty: 3 5RF desvenlafaxine succinate [Pristiq] 50 mg tablet extended release 24 hr 50 mg PO DAILY Qty: 30 0RF losartan 100 mg tablet 100 mg PO DAILY Qty: 30 3RF famotidine 40 mg tablet 40 mg PO DAILY omeprazole 20 mg capsule,delayed release(DR/EC) 20 mg PO DAILY Rx Instructions: TAKE 1 CAPSULE BY MOUTH ONCE A DAY hydroxyzine pamoate 25 mg capsule 25 mg PO TIDP PRN (Reason: Itching) Rx Instructions: TAKE 1 CAPSULE BY MOUTH 3 TIMES A DAY NEEDED FOR ITCHING budesonide-formoterol [Symbicort] 80-4.5 mcg/actuation HFA aerosol inhaler 1 puff inhalation BID Rx Instructions: INHALE 1 PUFF BY MOUTH 2 TIMES A DAY azelastine 137 mcg (0.1 %) spray,non-aerosol 2 spray intranasal BID PRN (Reason: allergies) Rx Instructions: administer into each nostril Held atorvastatin [Lipitor] 20 mg tablet 20 mg PO HS Hold Instructions: until PCP f/u Problem Reconciliation Problems Reviewed?: Yes Patient Discharge Instructions ACTIVITY: Continue current activity DIET: continue same diet Patient Instructions: Heart-Healthy Diet, DI for Fatigue, DI for Sepsis in Adults, DI for Rhabdomyolysis, Stop Light Heart Failure, Stop Light Infection Print Language: [place] Providers Primary Care Provider: Dina Tong Provider: Pete Ji Attending Provider: Pete Ji
[2025-06-08] MEDS: FUROSEMIDE 40 MG TABLET PO (09:42)
[2025-06-08] MEDS: ASPIRIN EC 81MG TABLET 81 MG PO (09:42)
[2025-06-08] MEDS: IRBESARTAN 150MG TAB 150 MG PO (09:42)
[2025-06-08] MEDS: FAMOTIDINE 20MG TABLET 40 MG PO (09:43)
[2025-06-08] MEDS: SPIRONOLACTONE 25MG TABLET 50 MG PO (09:44)
[2025-06-08] MEDS: VENLAFAXINE XR 75MG CAPSULE 75 MG PO (09:44)
[2025-06-08] MEDS: GABAPENTIN 800MG TABLET 800 MG PO (09:45)
--- NOTE | 2025-06-08 10:26 | HMH.PHAAMS2 ---
- Antimicrobial Stewardship Review culture & sensitivity review Stewardship interventions: culture & sensitivity review (BLD -, AFEBRILE, WBC DECREASED.)
--- NOTE | 2025-06-08 10:29 | HMH.PHAAMS2 ---
- Antimicrobial Stewardship Review 48 hour timeout review Stewardship interventions: 48 hour timeout review (WBC DECREASED, AFEBRILE, BLOOD CX NEGATIVE), culture & sensitivity review
--- NOTE | 2025-06-09 10:29 | SW/DCPLANNER ---
Addendum entered by Dianne Mchugh 06/13/25 11:05: [facility] contacted me regarding patient and stated that he refused their service due to not wanting to put up his dogs while their staff was there. Venkatesh Crum Original Note: Spoke with patient on the phone. patient stated that he is doing well. patient stated that he is aware of his upcoming appointments. Patient stated that he was not prescribed any new medicine. Patient stated that he left his inhaler so i phoned charge nurse and they were going to look and if found call the patient. Patient stated that he has no concerns or questions at this time. Venkatesh Crum
== END 2025-06-08 14:19 | disposition home health service (06) | DRG 565 ==
LOC: ER 12:46 → 2ND 13:36
PROVIDERS: Admitting Provider Student in an Organized Health Care Education/Training Program; Emergency Provider Emergency Medicine; PCP Family Medicine; Visit Provider Student in an Organized Health Care Education/Training Program
DX: T79.6XXA Traumatic ischemia of muscle, initial encounter (principal); D47.9 Neoplasm of uncertain behavior of lymphoid, hematopoietic and related tissue, unspecified; R65.10 Systemic inflammatory response syndrome (SIRS) of non-infectious origin without acute organ dysfunction; N17.9 Acute kidney failure, unspecified; Q78.2 Osteopetrosis; I50.32 Chronic diastolic (congestive) heart failure; C43.9 Malignant melanoma of skin, unspecified; I11.0 Hypertensive heart disease with heart failure; F32.9 Major depressive disorder, single episode, unspecified; T45.AX5A Adverse effect of immune checkpoint inhibitors and immunostimulant drugs, initial encounter; E11.51 Type 2 diabetes mellitus with diabetic peripheral angiopathy without gangrene; J44.9 Chronic obstructive pulmonary disease, unspecified; E66.9 Obesity, unspecified; Z68.38 Body mass index [BMI] 38.0-38.9, adult; I25.10 Atherosclerotic heart disease of native coronary artery without angina pectoris; I87.2 Venous insufficiency (chronic) (peripheral); G47.33 Obstructive sleep apnea (adult) (pediatric); F41.9 Anxiety disorder, unspecified; G89.29 Other chronic pain; K21.9 Gastro-esophageal reflux disease without esophagitis; R74.01 Elevation of levels of liver transaminase levels; R53.1 Weakness; R29.6 Repeated falls; Q80.9 Congenital ichthyosis, unspecified; W18.30XA Fall on same level, unspecified, initial encounter; Z87.891 Personal history of nicotine dependence; Z79.891 Long term (current) use of opiate analgesic; Z79.82 Long term (current) use of aspirin; Z79.85 Long-term (current) use of injectable non-insulin antidiabetic drugs; Z79.51 Long term (current) use of inhaled steroids; Z79.899 Other long term (current) drug therapy
CPT/HCPCS: 0223U; 36415; 70450; 71275; 72125; 72192; 73552; 73562; 74174; 80053; 80061; 80074; 81001; 82140; 82550; 83690; 83735; 83880; 84145; 84484; 84550; 85025; 85610; 86140; 87040; 87636; 93005; 94640; 97162; 97165; 97530; 99285; G0103; J0131; J1650; J2405; J2543; J3375; J7030; J7120; Q9967